=== PATIENT | female | born 1960 | race Caucasian/White ===

== ENCOUNTER 2016-08-21 15:03 | Inpatient (IN) | payer MEDICARE, MEDICAID ==
--- NOTE | 2016-08-21 15:18 | ED Physician Chart ---
Chief Complaint/HPI - Patient Information Date Seen:: 08/21/16 Time Seen:: 15:49 Chief Complaint:: TREMORS Allergies:: Allergies Allergy/AdvReac Type Severity Reaction Status Date / Time codeine Allergy Verified 12/31/15 20:56 Review of Systems - Review of Systems General/Constitutional: No fever, No chills, No weight loss, No weakness, No diaphoresis, No edema, No loss of appetite Skin: No skin lesions, No rash, No bruising Head: No headache, No light-headedness Eyes: No loss of vision, No pain, No diplopia ENT: No earache, No nasal drainage, No sore throat, No tinnitus Neck: No neck pain, No swelling, No thyromegaly, No stiffness, No mass noted Cardio Vascular: No chest pain, No palpitations, No PND, No orthopnea, No edema Pulmonary: No SOB, No cough, No sputum, No wheezing GI: No nausea, No vomiting, No diarrhea, No pain, No melena, No hematochezia, No constipation, No hematemesis G/U: No dysuria, No frequency, No hematuria Musculoskeletal: No bone or joint pain, No back pain, No muscle pain Endocrine: No polyuria, No polydipsia Psychiatric: No prior psych history, No depression, No anxiety, No suicidal ideation Hematopoietic: No bruising, No lymphadenopathy Allergic/Immuno: No urticaria, No angioedema Neurological: No syncope, No focal symptoms, No weakness, No paresthesia, No headache, No seizure, No dizziness, Confusion, No vertigo Past Medical History - Past Medical History Obtainable: Yes Past Medical History: HTN, Dyslipidemia, Seizures, Thyroid disorder, Arthritis, Dementia Family History: None Social History: Non Smoker, No Alcohol, No Drug Use, Care Facility Surgical History: , other (LEFT WRIST SURGERY) Family Medical History - Family Member mother History Unknown: Yes Physical Exam - Physical Examination Other Gen/Cons comments:: THIS PATIENT IS RESTLESS AND GITTERY WITH A CONFUSED MIND SET. SHE HAS POOR RECENT AND DISTANT MEMORY. Labs/Radiology/EKG Results - EKG Interpretations EKG Time:: 15:23 Rate & Rhythm: RATE =62 NSR [place]: RIGHT AXIS Intervals: NO PVCS ED Septic Shock - . Is Septic Shock (SBP<90, OR Lactate>4 mmol\L) present?: No Reassessment (Disposition) - Reassessment Reassessment:: THIS PATIENT IS CONFUSED AND HAS INTERMITTENT TREMORS. HER LABS INDICATED Reassessment Condition:: Unchanged - Diagnosis Diagnosis:: URINARY TRACT INFECTION LOW PLATLET COUNT ORGANIC BRAIN DISEASE - Patient Disposition Discharge/Transfer:: Acute Care w/in this hosp Condition at Disposition:: Unchanged ED Discharge Plan - Patient Disposition Admit/Discharge/Transfer: Acute Care w/in this hosp Condition at Disposition: Guarded
[2016-08-21 16:10] LABS: % BASOPHILS 0.7 % (0.0-2.0); % EOSINOPHILS 1.9 % (0.0-5.0); % LYMPHOCYTES 26.6 % (20.0-50.0); % NEUTROPHILS 63.8 % (40.0-80.0); HEMATOCRIT 42.2 % (35.0-45.0); HEMOGLOBIN 14.3 gm/dL (11.7-15.5); MEAN CELL VOLUME 90.7 fl (81-100); MEAN CORPUSCULAR HEMOGLOBIN 30.7 pg (27.0-31.0); MEAN CORPUSCULAR HGB CONC 33.9 pg (28.0-36.0); MEAN PLATELET VOLUME 8.4 fl; PLATELET COUNT 147 Th/cmm (150-400); RED BLOOD COUNT 4.65 Mil/cmm (3.80-5.10); RED CELL DISTRIBUTION WIDTH 12.2 % (11.5-20.0)
[2016-08-21 16:15] LABS: WHITE BLOOD COUNT 6.1 Th/cmm (4.8-10.8)
[2016-08-21 16:23] LABS: ALB/GLOB RATIO 1.3 (1.0-1.8); ALKALINE PHOSPHATASE 79 U/L (34-104); ANION GAP 7.2 (7.0-16.0); BILIRUBIN,TOTAL 0.3 mg/dL (0.3-1.0); BUN - UREA NITROGEN 20 mg/dL (7-25); BUN/CREATININE RATIO 33.3; CALCIUM SERUM 9.7 mg/dL (8.6-10.3); CARBON DIOXIDE 28.5 mEq/L (21.0-31.0); CHLORIDE 105 mEq/L (98-107); CREATININE - SERUM 0.6 mg/dL (0.6-1.2); GLUCOSE 102 mg/dL (70-105); POTASSIUM SERUM 3.7 mEq/L (3.5-5.1); SGOT 24 U/L (13-39); SGPT/ALT 13 U/L (7-52); SODIUM SERUM 137 mEq/L (136-145)
[2016-08-21 16:24] LABS: CHOLESTEROL 155 mg/dL (<200); TRIGLYCERIDES 113 mg/dL (<150)
[2016-08-21 17:32] LABS: URINE COLOR YELLOW
[2016-08-21 17:33] LABS: URINE BILIRUBIN NEGATIVE (NEGATIVE); URINE BLOOD TRACE (NEGATIVE); URINE GLUCOSE (UA) NEGATIVE (NEGATIVE); URINE KETONE NEGATIVE (NEGATIVE); URINE PH 8.5; URINE PROTEIN NEGATIVE (NEGATIVE); URINE UROBILINOGEN 0.2 E.U./dL (0.2 - 1.0)
[2016-08-21 17:34] LABS: URINE BACTERIA MANY /hpf (NONE SEEN); URINE EPITHELIAL CELLS FEW /lpf (FEW); URINE RBC 0-2 /hpf (0-5)
[2016-08-21] MEDS ORDERED: cefTRIAXone 1 GM in Sodium Chloride 0.9% 50 ML IV ONE (18:13)
[2016-08-21] MEDS ORDERED: Magnesium Hydroxide (MOM) 30 mL UDC PO PRN (19:58)
[2016-08-21] MEDS ORDERED: Maalox 30 mL Cup PO PRN ×2 (19:58→20:02)
[2016-08-21] MEDS ORDERED: guaiFENesin 200 MG/10 ML UDC PO PRN (20:02)
--- NOTE | 2016-08-21 20:06 | Admit Criteria Form ---
Admit Criteria Forms - Admit Criteria Diagnosis: URINARY COMPLICATIONS Clinical Indications for Inpatient Care (Place 'X' for any and all applicable criteria): Ongoing inpatient care may be indicated for urinary complications with ANY ONE of the following: [X]I. Urinary tract infection requiring inpatient care as indicated by ANY ONE of the following(8)(19)(20): [ ]a) Severe symptoms (eg, high fever, severe pain) [ ]b) Vomiting or dehydration requiring ongoing inpatient care [X]c) IV antibiotic needs that cannot be managed at lower level of care [ ]d) Hemodynamic instability [ ]e) Obstruction of collecting system by stone or tumor [ ]II. Urinary retention requiring drainage or surgery (3)(4)(5)(17)(18) [ ]III. Renal failure (Use Renal Failure Criteria for further information.) [ ]IV. Oliguria(30) [ ]V. Post obstructive diuresis requiring close monitoring of urine output and intravenous compensation for excessive fluid losses(33) Extended stay beyond goal length of stay for primary condition may be needed until ALL of the following are present(3)(4)(5)(8): [ ]a) Renal function (creatinine) at baseline, or daily decreases in creatinine consistent with renal function return [ ]b) Voiding adequately or with urinary catheter or percutaneous suprapubic tube and management regimen in place that is performable at lower level of care. [ ]c) Urine output adequate [ ]d) Fever absent or resolving [ ]e) Infection absent or treatable at next level of care The original [employer] content created by [employer] has been revised. The portions of the content which have been revised are identified through the use of italic text or in bold, and [facility] has neither reviewed nor approved the modified material. All other unmodified content is copyright [facility] [employer] Please see references footnoted in the original [facility] [employer] edition 2016 Admit Criteria Met?: Yes
[2016-08-21] MEDS ORDERED: Levofloxacin 500mg/100mL 500 MG/100 ML BAG IV SCH (21:00)
--- NOTE | 2016-08-21 21:39 | Admit Criteria Form ---
Admit Criteria Forms - Admit Criteria Admit Criteria Met?: Yes <Mel Rojas - Last Filed: 08/21/16 21:28> - Admit Criteria Diagnosis: URINARY COMPLICATIONS Clinical Indications for Inpatient Care (Place 'X' for any and all applicable criteria): Ongoing inpatient care may be indicated for urinary complications with ANY ONE of the following: [X ]I. Urinary tract infection requiring inpatient care as indicated by ANY ONE of the following(8)(19)(20): [ ]a) Severe symptoms (eg, high fever, severe pain) [ ]b) Vomiting or dehydration requiring ongoing inpatient care [X ]c) IV antibiotic needs that cannot be managed at lower level of care [ ]d) Hemodynamic instability [ ]e) Obstruction of collecting system by stone or tumor [ ]II. Urinary retention requiring drainage or surgery (3)(4)(5)(17)(18) [ ]III. Renal failure (Use Renal Failure Criteria for further information.) [ ]IV. Oliguria(30) [ ]V. Post obstructive diuresis requiring close monitoring of urine output and intravenous compensation for excessive fluid losses(33) Extended stay beyond goal length of stay for primary condition may be needed until ALL of the following are present(3)(4)(5)(8): [ ]a) Renal function (creatinine) at baseline, or daily decreases in creatinine consistent with renal function return [ ]b) Voiding adequately or with urinary catheter or percutaneous suprapubic tube and management regimen in place that is performable at lower level of care. [ ]c) Urine output adequate [ ]d) Fever absent or resolving [ ]e) Infection absent or treatable at next level of care The original [email or web address] content created by [email or web address] has been revised. The portions of the content which have been revised are identified through the use of italic text or in bold, and [facility] has neither reviewed nor approved the modified material. All other unmodified content is copyright [facility] [employer] Please see references footnoted in the original [facility] [employer] edition 2016 Admit Criteria Met?: Yes <Rich Mulligan - Last Filed: 08/22/16 16:48>
[2016-08-21] MEDS ORDERED: Levofloxacin 500mg/100mL 500 MG/100 ML BAG IV ONE (22:02)
[2016-08-21 23:28] VITALS: BP 122/83
[2016-08-22] MEDS ORDERED: Pneumococcal Vaccine 0.5 mL Vial IM ONE (00:24)
[2016-08-22] MEDS: D5-0.45NS 1,000 ML IV SCH ×2 (01:43→06:40)
[2016-08-22] MEDS: Levothyroxine 0.15 Mg Tab PO SCH (06:37)
[2016-08-22] MEDS ORDERED: [UNRECOGNIZED DRUG - OTHER] PO SCH (09:00)
--- NOTE | 2016-08-22 10:01 | Diagnostic Imaging Report ---
CHEST X-RAY: AP view INDICATION: pain COMPARISON: 09/27/2014 FINDINGS: Suboptimal lung volumes are noted with no focal consolidation or effusions. Gas-filled loops of bowel are seen along the mid to upper abdomen. Cholecystectomy clips are noted. Heart size is normal. Osseous structures are intact. IMPRESSION: Suboptimal lung volumes with no focal consolidation identified.
--- NOTE | 2016-08-22 10:14 | Diagnostic Imaging Report ---
Right wrist 3 views Indication: pain Comparison: none Findings: Osteopenia is noted. Mild degenerative changes are noted. No evidence of acute fracture or significant focal soft tissue swelling. No dislocation. Impression: No evidence of an acute fracture. Mild degenerate changes. Osteopenia. In the setting of trauma, if clinical symptoms persist and there is continued concern for an occult fracture, follow up exams in 5-7 days is suggested.
--- NOTE | 2016-08-22 10:15 | Diagnostic Imaging Report ---
Left wrist 3 views Indication: pain Comparison: none Findings: Mild degenerative changes are noted with positive ulnar variance and degenerative changes of the radiocarpal joint. No evidence of an acute fracture or significant focal soft tissue swelling. Osteopenia is noted. Impression: No evidence of an acute fracture. Mild degenerative changes with positive ulnar variance. Osteopenia. In the setting of trauma, if clinical symptoms persist and there is continued concern for an occult fracture, follow up exams in 5-7 days is suggested.
--- NOTE | 2016-08-22 10:18 | Diagnostic Imaging Report ---
Head CT without intravenous contrast Indication: Seizures Comparison: None Technique: Axial images were obtained from the vertex to the skull base without IV contrast. Coronal reconstructions were made. Total DLP: 596, [id number] FINDINGS: Images of the brain obtained without contrast demonstrate evidence of previous right temporal craniotomy with associated postsurgical changes. There is no evidence of an acute hemorrhage. Right frontal encephalomalacia seen with focal calcification. Bitemporal encephalomalacia is also seen with ex vacuo dilatation of the temporal horn of the right lateral ventricle. Atrophy is noted. The basal cisterns are patent. No mass effect or midline shift. No evidence of a skull fracture or focal soft tissue swelling. The visualized paranasal sinuses are clear. IMPRESSION: No evidence of an acute intracranial hemorrhage. Right frontal and extensive bitemporal lobe encephalomalacia. Postsurgical changes right temporal lobe region Atrophy.
--- NOTE | 2016-08-22 11:16 | History & Physical ---
ADMIT DATE: 08/21/2016 CHIEF COMPLAINT: Uncontrolled tremors. HISTORY OF PRESENT ILLNESS: This is a 55-year-old female with history of hypertension, hypercholesterolemia, hypothyroidism, dementia, organic brain syndrome, seizure, and was admitted from a nursing facility secondary to uncontrolled tremors of both hands, worse on the left. The patient was evaluated in the ER and noted to have urinary tract infection and admitted for further management. PAST MEDICAL HISTORY: As mentioned in the history of present illness. PAST SURGICAL HISTORY: Unable to obtain from the patient. ALLERGIES: CODEINE.. MEDICATIONS: The patient is on Dulcolax, clonidine, Colace, Lexapro, Keppra, lorazepam, milk of magnesia, Mylanta, Dilantin, ____, Risperdal, Seroquel. FAMILY HISTORY: Noncontributory. SOCIAL HISTORY: The patient smokes on occasion, ____ drinker. The patient is a senior living patient. REVIEW OF SYSTEMS: GENERAL: Complains of not feeling well. HEENT: No blurred vision. No neck pain. LUNGS: No diagnosis of COPD. The patient is a chronic smoker. HEART: The patient with hypertension. Denies coronary artery disease. ABDOMEN: No nausea, vomiting, or pain. GENITOURINARY: The patient denies increased frequency or dysuria. NEUROLOGIC: As mentioned in the history of present illness. Last seizure, she cannot remember. PHYSICAL EXAMINATION: VITAL SIGNS: Blood pressure 125/78, respirations 18, pulse 78, temperature ____. GENERAL: Elderly female, appears her stated age, appears older. NECK: Supple. No mass. LUNGS: ____ breath sounds, few rhonchi. HEART: Regular rate and rhythm without appreciable murmurs. ABDOMEN: Soft, nontender. Positive bowel sounds, globular. EXTREMITIES: Positive excoriations. NEUROLOGIC: Significant for coarse tremors in her hands, worse on the left. LABORATORY DATA: WBC 6.1, hemoglobin 14, platelets 147. PTT is 27. Sodium 137, potassium ____, BUN 20, creatinine 0.6, blood sugar 102. UA, 10 wbc's ____. ASSESSMENT AND PLAN: Urinary tract infection, uncontrolled tremors, hypertension, hypercholesterolemia, hypothyroidism, dementia, organic brain syndrome, seizure. We will refer the patient to Neurology. We will review the patient's head CT. We will continue the patient on IV hydration and IV antibiotic. We will follow the patient's urine C and S. We will continue to monitor the patient closely. We will also refer the patient to Psychiatry for adjustment of her psychotropic medications. [facility]# [id number]
[2016-08-22] MEDS: Levofloxacin 500mg/100mL 500 MG/100 ML BAG IV SCH (16:15)
--- NOTE | 2016-08-22 23:12 | Internal Medicine Prog Note ---
Internal Medicine Subjective - Subjective Patient seen and examined:: with staff, chart reviewed Patient is:: awake, verbal, interactive Patient Complaints of:: congestion Per staff patient is:: no adverse event, poor oral intake, agitated, noncompliant, confused Internal Medicine Objective - Results Result Diagrams: 08/21/16 15:55 08/21/16 15:55 Recent Labs: Laboratory Last Values WBC 6.1 Th/cmm (4.8-10.8) D 08/21/16 15:55 RBC 4.65 Mil/cmm (3.80-5.10) 08/21/16 15:55 Hgb 14.3 gm/dL (11.7-15.5) 08/21/16 15:55 Hct 42.2 % (35.0-45.0) 08/21/16 15:55 MCV 90.7 fl (81-100) 08/21/16 15:55 MCH 30.7 pg (27.0-31.0) 08/21/16 15:55 MCHC Differential 33.9 pg (28.0-36.0) 08/21/16 15:55 RDW 12.2 % (11.5-20.0) 08/21/16 15:55 Plt Count 147 Th/cmm (150-400) L 08/21/16 15:55 MPV 8.4 fl 08/21/16 15:55 Neutrophils % 63.8 % (40.0-80.0) 08/21/16 15:55 Lymphocytes % 26.6 % (20.0-50.0) 08/21/16 15:55 Monocytes % 7.0 % (2.0-10.0) 08/21/16 15:55 Eosinophils % 1.9 % (0.0-5.0) 08/21/16 15:55 Basophils % 0.7 % (0.0-2.0) 08/21/16 15:55 PTT (Actin FS) 27.6 SECONDS (26.0-38.0) 08/21/16 15:55 Sodium 137 mEq/L (136-145) 08/21/16 15:55 Potassium 3.7 mEq/L (3.5-5.1) 08/21/16 15:55 Chloride 105 mEq/L (98-107) 08/21/16 15:55 Carbon Dioxide 28.5 mEq/L (21.0-31.0) 08/21/16 15:55 Anion Gap 7.2 (7.0-16.0) 08/21/16 15:55 BUN 20 mg/dL (7-25) 08/21/16 15:55 Creatinine 0.6 mg/dL (0.6-1.2) 08/21/16 15:55 Est GFR ( Amer) > 60.0 ml/min (>90) 08/21/16 15:55 Est GFR (Non-Af Amer) > 60.0 ml/min 08/21/16 15:55 BUN/Creatinine Ratio 33.3 08/21/16 15:55 Glucose 102 mg/dL (70-105) 08/21/16 15:55 Calcium 9.7 mg/dL (8.6-10.3) 08/21/16 15:55 Total Bilirubin 0.3 mg/dL (0.3-1.0) 08/21/16 15:55 AST 24 U/L (13-39) 08/21/16 15:55 ALT 13 U/L (7-52) 08/21/16 15:55 Alkaline Phosphatase 79 U/L (34-104) 08/21/16 15:55 Troponin I 0.01 ng/mL (0.01-0.05) 08/21/16 15:55 Total Protein 7.5 gm/dL (6.0-8.3) 08/21/16 15:55 Albumin 4.2 gm/dL (3.7-5.3) 08/21/16 15:55 Globulin 3.3 gm/dL 08/21/16 15:55 Albumin/Globulin Ratio 1.3 (1.0-1.8) 08/21/16 15:55 Triglycerides 113 mg/dL (<150) 08/21/16 15:55 Cholesterol 155 mg/dL (<200) 08/21/16 15:55 LDL Cholesterol Direct 91 mg/dL (75-193) 08/21/16 15:55 HDL Cholesterol 43 mg/dL (23-92) 08/21/16 15:55 TSH 2.49 uIU/ml (0.34-5.60) 08/21/16 15:18 Urine Source CLEAN C 08/21/16 16:50 Urine Color YELLOW 08/21/16 16:50 Urine Clarity SLIGHT HAZY (CLEAR) 08/21/16 16:50 Urine pH 8.5 08/21/16 16:50 Ur Specific [place] 1.015 (1.005-1.030) 08/21/16 16:50 Urine Protein NEGATIVE mg/dL (NEGATIVE) 08/21/16 16:50 Urine Glucose (UA) NEGATIVE mg/dL (NEGATIVE) 08/21/16 16:50 Urine Ketones NEGATIVE mg/dL (NEGATIVE) 08/21/16 16:50 Urine Blood TRACE (NEGATIVE) 08/21/16 16:50 Urine Nitrate POSITIVE (NEGATIVE) H 08/21/16 16:50 Urine Bilirubin NEGATIVE (NEGATIVE) 08/21/16 16:50 Urine Urobilinogen 0.2 E.U./dL (0.2 - 1.0) 08/21/16 16:50 Ur Leukocyte Esterase TRACE (NEGATIVE) H 08/21/16 16:50 Urine RBC 0-2 /hpf (0-5) 08/21/16 16:50 Urine WBC 6-10 /hpf (0-5) H 08/21/16 16:50 Ur Epithelial Cells FEW /lpf (FEW) 08/21/16 16:50 Urine Bacteria MANY /hpf (NONE SEEN) 08/21/16 16:50 Phenytoin 13.0 ug/ml (10.0-20.0) 08/21/16 15:55 RPR NONREACTIVE (NONREACTIVE) 08/21/16 15:55 - Physical Exam Vitals and I&O: Vital Signs Temp 98.4 F 08/22/16 20:00 Pulse 80 08/22/16 20:00 Resp 18 08/22/16 20:00 BP 108/59 08/22/16 20:00 Pulse Ox 96 08/22/16 20:00 Intake & Output 08/22/16 08/22/16 08/23/16 06:59 18:59 06:59 Intake Total 895 350 Balance 895 350 Intake: Intake, IV Amount 495 D5-0.45NS 1,000 ml @ 100 495 mls/hr IV .Q10H RAYA Rx#: [id number] Oral 400 350 Other: # Voids 1 5 # Bowel Movements 2 Active Medications: Current Medications Acetaminophen (Tylenol) 650 mg PO Q4HR PRN PRN Reason: Pain or Fever >101 Stop: 10/20/16 20:01 Al Hydrox/Mg Hydrox/Simethicone (Maalox) 30 ml PO HS PRN PRN Reason: GI DISTRESS Al Hydrox/Mg Hydrox/Simethicone (Maalox) 30 ml PO Q6HR PRN PRN Reason: GI DISTRESS Stop: 10/20/16 20:01 Bisacodyl (Dulcolax 10 Mg Supp) 10 mg RC DAILY PRN PRN Reason: Constipation Stop: 10/20/16 19:57 Clonidine HCl (Catapres) 0.1 mg PO Q6H PRN PRN Reason: SBP ABOVE 160 OR DBP ABOVE 90 Stop: 10/20/16 19:57 Docusate Sodium (Colace) 100 mg PO BID [facility] Stop: 10/21/16 08:59 Last Admin: 08/22/16 16:15 Dose: 100 mg Escitalopram Oxalate (Lexapro) 10 mg PO DAILY RAYA PRN Reason: Protocol Stop: 10/21/16 08:59 Last Admin: 08/22/16 08:23 Dose: 10 mg Guaifenesin (Robitussin) 200 mg PO Q4HR PRN PRN Reason: Cough or Congestion Stop: 10/20/16 20:01 Heparin Sodium (Porcine) (Heparin) 5,000 units SUBQ Q12HR [facility] Stop: 10/20/16 20:59 Last Admin: 08/22/16 21:27 Dose: 5,000 units Levofloxacin (Levaquin Pb) 500 mg in 100 mls @ 100 mls/hr IV Q24H [facility] Stop: 10/21/16 15:59 Last Admin: 08/22/16 16:15 Dose: 100 mls/hr Vancomycin HCl 1 gm/ Sodium (Chloride) 250 mls @ 166.667 mls/hr IV Q24H [facility] Stop: 10/21/16 23:14 Dextrose/Sodium Chloride (D5-0.45ns) 1,000 mls @ 70 mls/hr IV .[id number] [facility] Stop: 10/21/16 23:06 Levetiracetam (Keppra) 500 mg PO BID [facility] Stop: 10/21/16 08:59 Last Admin: 08/22/16 16:14 Dose: 500 mg Levothyroxine Sodium (Synthroid) 0.15 mg PO QDAC [facility] Stop: 10/21/16 07:29 Last Admin: 08/22/16 06:37 Dose: 0.15 mg Lorazepam (Ativan) 1 mg PO Q12H PRN; Protocol PRN Reason: Anxiety Stop: 10/20/16 19:57 Last Admin: 08/22/16 08:23 Dose: 1 mg Magnesium Hydroxide (Milk Of Magnesia) 30 ml PO HS PRN PRN Reason: Constipation Stop: 10/20/16 19:57 Miscellaneous (Vancomycin Iv Per Pharmacy) 1 ea [facility] PRN RAYA Stop: 10/21/16 23:14 Ondansetron HCl (Zofran) 4 mg IV Q8H PRN PRN Reason: Nausea / Vomiting Stop: 10/20/16 20:01 Phenytoin (Dilantin) 100 mg PO TID [facility] Stop: 10/20/16 20:59 Last Admin: 08/22/16 21:20 Dose: 100 mg Quetiapine Fumarate (Seroquel) 400 mg PO HS RAYA PRN Reason: Protocol Stop: 10/20/16 20:59 Last Admin: 08/22/16 21:20 Dose: 400 mg Quetiapine Fumarate (Seroquel) 50 mg PO BID RAYA PRN Reason: Protocol Stop: 10/21/16 08:59 Last Admin: 08/22/16 16:15 Dose: 50 mg Risperidone (Risperdal) 3 mg PO BID RAYA PRN Reason: Protocol Stop: 10/21/16 08:59 Last Admin: 08/22/16 16:14 Dose: 3 mg General: demented HEENT: NC/AT, PERRLA Neck: Supple Lungs: congested Cardiovascular: RRR, Normal S1 Abdomen: soft non-tender, globular, positive bowel sound Extremities: excoriation Neurological: no change, disorganized - Procedures Procedures: Procedures Procedure Code Date OTHER GROUP THERAPY 94.44 09/27/14 Internal Medicine Assmt/Plan - Assessment Assessment: gram positive bacteremia Urinary tract infection, uncontrolled tremors, hypertension, hypercholesterolemia, hypothyroidism, dementia, organic brain syndrome, seizure. - Plan Plan: cont on iv aabx, levaquin, will add ancomycin cont on iv hydration will foolow up on culture reslults will confer with neuro and psych elena bautista
[2016-08-23] MEDS: D5-0.45NS 1,000 ML IV SCH ×2 (00:08→13:59)
[2016-08-23 05:22] LABS: % BASOPHILS 0.1 % (0.0-2.0); % EOSINOPHILS 2.2 % (0.0-5.0); % LYMPHOCYTES 28.4 % (20.0-50.0); % MONOCYTES 10.5 % (2.0-10.0); % NEUTROPHILS 58.8 % (40.0-80.0); MEAN CELL VOLUME 90.2 fl (81-100); MEAN CORPUSCULAR HGB CONC 34.4 pg (28.0-36.0); MEAN PLATELET VOLUME 9.2 fl; NEUTROPHILE ABSOLUTE 3.1 Th/cmm (1.8-8.0); RED BLOOD COUNT 4.19 Mil/cmm (3.80-5.10); RED CELL DISTRIBUTION WIDTH 12.3 % (11.5-20.0); WHITE BLOOD COUNT 5.1 Th/cmm (4.8-10.8)
[2016-08-23 05:30] LABS: HEMATOCRIT 37.8 % (35.0-45.0)
[2016-08-23 05:52] LABS: ALB/GLOB RATIO 1.2 (1.0-1.8); ALKALINE PHOSPHATASE 68 U/L (34-104); ANION GAP 7.4 (7.0-16.0); BILIRUBIN,TOTAL 0.4 mg/dL (0.3-1.0); BUN - UREA NITROGEN 22 mg/dL (7-25); BUN/CREATININE RATIO 31.4; CALCIUM SERUM 9.2 mg/dL (8.6-10.3); CARBON DIOXIDE 29.3 mEq/L (21.0-31.0); CHLORIDE 107 mEq/L (98-107); CREATININE - SERUM 0.7 mg/dL (0.6-1.2); GLUCOSE 98 mg/dL (70-105); POTASSIUM SERUM 3.7 mEq/L (3.5-5.1); SGOT 26 U/L (13-39); SGPT/ALT 16 U/L (7-52); SODIUM SERUM 140 mEq/L (136-145)
[2016-08-23] MEDS: Levothyroxine 0.15 Mg Tab PO SCH (06:43)
--- NOTE | 2016-08-23 13:06 | Internal Medicine Prog Note ---
Internal Medicine Subjective - Subjective Patient seen and examined:: with staff, chart reviewed Patient is:: awake, verbal, interactive, talking, denies CP Patient Complaints of:: congestion Per staff patient is:: no adverse event, no episodes of fall, agitated, noncompliant, confused Internal Medicine Objective - Results Result Diagrams: 08/23/16 05:00 08/23/16 05:00 Recent Labs: Laboratory Last Values WBC 5.1 Th/cmm (4.8-10.8) 08/23/16 05:00 RBC 4.19 Mil/cmm (3.80-5.10) 08/23/16 05:00 Hgb 13.0 gm/dL (11.7-15.5) 08/23/16 05:00 Hct 37.8 % (35.0-45.0) D 08/23/16 05:00 MCV 90.2 fl (81-100) 08/23/16 05:00 MCH 31.0 pg (27.0-31.0) 08/23/16 05:00 MCHC Differential 34.4 pg (28.0-36.0) 08/23/16 05:00 RDW 12.3 % (11.5-20.0) 08/23/16 05:00 Plt Count 147 Th/cmm (150-400) L 08/21/16 15:55 MPV 9.2 fl 08/23/16 05:00 Neutrophils % 58.8 % (40.0-80.0) 08/23/16 05:00 Lymphocytes % 28.4 % (20.0-50.0) 08/23/16 05:00 Monocytes % 10.5 % (2.0-10.0) H 08/23/16 05:00 Eosinophils % 2.2 % (0.0-5.0) 08/23/16 05:00 Basophils % 0.1 % (0.0-2.0) 08/23/16 05:00 PTT (Actin FS) 27.6 SECONDS (26.0-38.0) 08/21/16 15:55 Sodium 140 mEq/L (136-145) 08/23/16 05:00 Potassium 3.7 mEq/L (3.5-5.1) 08/23/16 05:00 Chloride 107 mEq/L (98-107) 08/23/16 05:00 Carbon Dioxide 29.3 mEq/L (21.0-31.0) 08/23/16 05:00 Anion Gap 7.4 (7.0-16.0) 08/23/16 05:00 BUN 22 mg/dL (7-25) 08/23/16 05:00 Creatinine 0.7 mg/dL (0.6-1.2) 08/23/16 05:00 Est GFR ( Amer) > 60.0 ml/min (>90) 08/23/16 05:00 Est GFR (Non-Af Amer) > 60.0 ml/min 08/23/16 05:00 BUN/Creatinine Ratio 31.4 08/23/16 05:00 Glucose 98 mg/dL (70-105) 08/23/16 05:00 Calcium 9.2 mg/dL (8.6-10.3) 08/23/16 05:00 Total Bilirubin 0.4 mg/dL (0.3-1.0) 08/23/16 05:00 AST 26 U/L (13-39) 08/23/16 05:00 ALT 16 U/L (7-52) 08/23/16 05:00 Alkaline Phosphatase 68 U/L (34-104) 08/23/16 05:00 Ammonia 58 umol/L (16-53) H 08/23/16 05:00 Troponin I 0.01 ng/mL (0.01-0.05) 08/21/16 15:55 Total Protein 6.7 gm/dL (6.0-8.3) 08/23/16 05:00 Albumin 3.7 gm/dL (3.7-5.3) 08/23/16 05:00 Globulin 3.0 gm/dL 08/23/16 05:00 Albumin/Globulin Ratio 1.2 (1.0-1.8) 08/23/16 05:00 Triglycerides 113 mg/dL (<150) 08/21/16 15:55 Cholesterol 155 mg/dL (<200) 08/21/16 15:55 LDL Cholesterol Direct 91 mg/dL (75-193) 08/21/16 15:55 HDL Cholesterol 43 mg/dL (23-92) 08/21/16 15:55 TSH 2.49 uIU/ml (0.34-5.60) 08/21/16 15:18 Urine Source CLEAN C 08/21/16 16:50 Urine Color YELLOW 08/21/16 16:50 Urine Clarity SLIGHT HAZY (CLEAR) 08/21/16 16:50 Urine pH 8.5 08/21/16 16:50 Ur Specific [place] 1.015 (1.005-1.030) 08/21/16 16:50 Urine Protein NEGATIVE mg/dL (NEGATIVE) 08/21/16 16:50 Urine Glucose (UA) NEGATIVE mg/dL (NEGATIVE) 08/21/16 16:50 Urine Ketones NEGATIVE mg/dL (NEGATIVE) 08/21/16 16:50 Urine Blood TRACE (NEGATIVE) 08/21/16 16:50 Urine Nitrate POSITIVE (NEGATIVE) H 08/21/16 16:50 Urine Bilirubin NEGATIVE (NEGATIVE) 08/21/16 16:50 Urine Urobilinogen 0.2 E.U./dL (0.2 - 1.0) 08/21/16 16:50 Ur Leukocyte Esterase TRACE (NEGATIVE) H 08/21/16 16:50 Urine RBC 0-2 /hpf (0-5) 08/21/16 16:50 Urine WBC 6-10 /hpf (0-5) H 08/21/16 16:50 Ur Epithelial Cells FEW /lpf (FEW) 08/21/16 16:50 Urine Bacteria MANY /hpf (NONE SEEN) 08/21/16 16:50 Phenytoin 13.0 ug/ml (10.0-20.0) 08/21/16 15:55 RPR NONREACTIVE (NONREACTIVE) 08/21/16 15:55 - Physical Exam Vitals and I&O: Vital Signs Temp 97.6 F 08/23/16 12:00 Pulse 64 08/23/16 12:00 Resp 19 08/23/16 12:00 BP 117/77 08/23/16 12:00 Pulse Ox 97 08/23/16 12:00 Intake & Output 08/22/16 08/23/16 08/23/16 18:59 06:59 18:59 Intake Total 350 100 250 Balance 350 100 250 Intake: Intake, IV Amount 250 Vancomycin HCl 1 gm In 250 Sodium Chloride 0.9% 250 ml @ 165 mls/hr IV Q12H [facility]AYA Rx#:[id number] Oral 350 100 Other: # Voids 5 4 # Bowel Movements 2 1 Stool Characteristics Soft Formed Active Medications: Current Medications Acetaminophen (Tylenol) 650 mg PO Q4HR PRN PRN Reason: Pain or Fever >101 Stop: 10/20/16 20:01 Al Hydrox/Mg Hydrox/Simethicone (Maalox) 30 ml PO HS PRN PRN Reason: GI DISTRESS Al Hydrox/Mg Hydrox/Simethicone (Maalox) 30 ml PO Q6HR PRN PRN Reason: GI DISTRESS Stop: 10/20/16 20:01 Bisacodyl (Dulcolax 10 Mg Supp) 10 mg RC DAILY PRN PRN Reason: Constipation Stop: 10/20/16 19:57 Clonidine HCl (Catapres) 0.1 mg PO Q6H PRN PRN Reason: SBP ABOVE 160 OR DBP ABOVE 90 Stop: 10/20/16 19:57 Docusate Sodium (Colace) 100 mg PO BID [facility] Stop: 10/21/16 08:59 Last Admin: 08/23/16 09:00 Dose: 100 mg Escitalopram Oxalate (Lexapro) 10 mg PO DAILY [facility]AYA PRN Reason: Protocol Stop: 10/21/16 08:59 Last Admin: 08/23/16 09:01 Dose: 10 mg Guaifenesin (Robitussin) 200 mg PO Q4HR PRN PRN Reason: Cough or Congestion Stop: 10/20/16 20:01 Heparin Sodium (Porcine) (Heparin) 5,000 units SUBQ Q12HR [facility] Stop: 10/20/16 20:59 Last Admin: 08/23/16 09:00 Dose: 5,000 units Levofloxacin (Levaquin Pb) 500 mg in 100 mls @ 100 mls/hr IV Q24H [facility] Stop: 10/21/16 15:59 Last Admin: 08/22/16 16:15 Dose: 100 mls/hr Dextrose/Sodium Chloride (D5-0.45ns) 1,000 mls @ 70 mls/hr IV .[id number] [facility] Stop: 10/21/16 23:06 Last Admin: 08/23/16 00:08 Dose: 70 mls/hr Vancomycin HCl 1 gm/ Sodium (Chloride) 250 mls @ 165 mls/hr IV Q12H [facility] Stop: 10/22/16 09:59 Last Infusion: 08/23/16 11:00 Dose: Infused Levetiracetam (Keppra) 500 mg PO BID [facility] Stop: 10/21/16 08:59 Last Admin: 08/23/16 09:00 Dose: 500 mg Levothyroxine Sodium (Synthroid) 0.15 mg PO QDAC [facility] Stop: 10/21/16 07:29 Last Admin: 08/23/16 06:43 Dose: 0.15 mg Lorazepam (Ativan) 1 mg PO Q12H PRN; Protocol PRN Reason: Anxiety Stop: 10/20/16 19:57 Last Admin: 08/23/16 01:06 Dose: 1 mg Magnesium Hydroxide (Milk Of Magnesia) 30 ml PO HS PRN PRN Reason: Constipation Stop: 10/20/16 19:57 Miscellaneous (Vancomycin Iv Per Pharmacy) 1 ea MC PRN [facility] Stop: 10/21/16 23:14 Ondansetron HCl (Zofran) 4 mg IV Q8H PRN PRN Reason: Nausea / Vomiting Stop: 10/20/16 20:01 Phenytoin (Dilantin) 100 mg PO TID [facility] Stop: 10/20/16 20:59 Last Admin: 08/23/16 09:01 Dose: 100 mg Quetiapine Fumarate (Seroquel) 400 mg PO HS [facility]A PRN Reason: Protocol Stop: 10/20/16 20:59 Last Admin: 08/22/16 21:20 Dose: 400 mg Quetiapine Fumarate (Seroquel) 50 mg PO BID [facility] PRN Reason: Protocol Stop: 10/21/16 08:59 Last Admin: 08/23/16 09:01 Dose: 50 mg Risperidone (Risperdal) 3 mg PO BID [facility] PRN Reason: Protocol Stop: 10/21/16 08:59 Last Admin: 08/23/16 09:01 Dose: 3 mg General: demented HEENT: NC/AT, PERRLA Neck: Supple, No JVD Lungs: congested Cardiovascular: RRR, Normal S1, Normal S2 Abdomen: soft non-tender, globular, positive bowel sound Extremities: excoriation Neurological: no change, disorganized - Procedures Procedures: Procedures Procedure Code Date OTHER GROUP THERAPY 94.44 09/27/14 Internal Medicine Assmt/Plan - Assessment Assessment: gram positive bacteremia Urinary tract infection, uncontrolled tremors, hypertension, hypercholesterolemia, hypothyroidism, dementia, organic brain syndrome, seizure. - Plan Plan: cont on iv aabx, levaquin, will add ancomycin cont on iv hydration will foolow up on culture reslults will confer with neuro and psych elena rn
[2016-08-23] MEDS: Levofloxacin 500mg/100mL 500 MG/100 ML BAG IV SCH (16:33)
--- NOTE | 2016-08-23 23:44 | Consultation ---
DATE OF CONSULTATION: 08/22/2016 HISTORY OF PRESENT ILLNESS: The patient is a 55-year-old. The patient is in Neurology consultation because of tremor. At the moment, the patient is lying in bed, awake, alert, comfortable, really no tremor ____ staff told me they come on and off. Sometimes, they noticed a bit unusual. She ____ stop them when she wants to. The patient at the moment when I told her that she is having shaking, she started shaking and then finally stopped. She says she has had this ____ for some time. PAST MEDICAL HISTORY: Hypertension, hyperlipidemia, hypothyroidism, dementia, seizures, psychiatric diagnoses. ALLERGIES: CODEINE. MEDICATIONS: She takes a number of medications including Lexapro, Keppra, lorazepam, Dilantin, Risperdal, Seroquel, and clonidine. SOCIAL HISTORY: She does occasionally smoke. Does not drink. REVIEW OF SYSTEMS: Twelve-point negative except for above. PHYSICAL EXAMINATION: VITAL SIGNS: Temperature 98.2, blood pressure 130/76, pulse is 78. NECK: Supple. No bruits. HEART: Sounds S1, S2. LUNGS: Clear. ABDOMEN: Soft. NEUROLOGIC: The patient is awake, alert, now is quite pleasant. She will answer questions. Cranial: Pupils are reactive to light. Full eye movement. No nystagmus. No facial weakness. Motor: ____ tone is quite good. I do not see any cogwheel rigidity. The patient really has not much tremor right now. Seems to be more like action tremor. ____ Reflexes 1+ to 2, knees about 2. IMPRESSION: 1. Tremor, probably action tremor, probably medication related. At the moment seems to be stable. I would hold off any intervention at the moment. No definite clear cut parkinsonian features. 2. History of urinary tract infection. 3. Seizures. Continue present medications. 4. Hyperlipidemia. 5. Hypertension. 6. Dementia. JOB# [id number]
[2016-08-24] MEDS: Levothyroxine 0.15 Mg Tab PO SCH (10:13)
[2016-08-24] MEDS ORDERED: Sulfamethoxazole/TMP 800/160mg Tab PO SCH (17:00)
--- NOTE | 2016-08-24 18:53 | Consultation ---
DATE OF CONSULTATION: 08/23/2016 HISTORY OF PRESENT ILLNESS: The patient was seen, chart reviewed, discussed with staff. The patient is a 55-year-old female with chronic history of schizoaffective disorder, known to myself from prior treatment, has been anxious, agitated, having episodes of yelling, becomes argumentative. The patient is forgetful, also confused. The patient is passively accepting treatment at this time. PAST PSYCHIATRIC HISTORY: Multiple hospitalizations, chronic history of mental illness. PAST MEDICAL HISTORY: As per [facility] and [facility]. PSYCHOSOCIAL HISTORY: The patient resides in [facility] and she requires complete care. MENTAL STATUS EXAMINATION: The patient is cooperative for the most part, but at times she has difficulty sustaining attention. She knew she was in some kind of hospital, did not know the name of the hospital. She was oriented to person, not oriented to time. The patient is able to tell her date of . The patient is paranoid, internally preoccupied, having some agitation. ASSESSMENT: Schizoaffective disorder in psychotic phase. At this time, I would recommend continuation of medical supportive measures. The patient is on 2 antipsychotics, Seroquel and risperidone, and also she is receiving supportive measures. Consider psychiatric hospitalization. We will follow closely while in the hospital. Use Ativan as needed. Thank you for the consultation, Dr. Cruz. JOB# [id number]
--- NOTE | 2016-08-25 00:54 | Discharge Summary ---
DATE OF DISCHARGE: 08/24/2016 CHIEF COMPLAINT: Uncontrolled seizure. FINAL DIAGNOSES: Gram-positive bacteremia; urinary tract infection; uncontrolled tremors, which is improved; hypertension; hypercholesterolemia; hypothyroidism; dementia; organic brain syndrome; seizure. HISTORY: This is a 55-year-old female with history of hypertension, hypercholesterolemia, hypothyroidism, dementia, organic brain syndrome and psych disorder, was admitted from nursing facility secondary to ____ tremors. The patient had some chills as well and was diagnosed with UTI. The patient was admitted for further management. PHYSICAL EXAMINATION: VITAL SIGNS: Blood pressure ____, respirations 18, pulse ____, temperature 97.6. GENERAL: A middle-aged female, appears older. NECK: Supple. No mass. LUNGS: Decreased breath sounds, otherwise clear to auscultation. HEART: Regular rate and rhythm without appreciable murmur. ABDOMEN: Soft, nontender. EXTREMITIES: Positive excoriations. HOSPITAL COURSE: The patient was admitted to medical floor, continued on IV antibiotics, ____ on Levaquin. Blood culture came back positive for gram-positive cocci. Vancomycin was added. White count did improve back to normal. ____ growth in the urine and blood culture. The patient was discharged on IV antibiotics. CONDITION ON DISCHARGE: Fair. DISCHARGE INSTRUCTIONS: The patient to continue on current medical regimen. The patient was also seen by Dr. Woo for Neurology. [facility] JOB# [id number]
== END 2016-08-24 16:45 | DRG 872 ==
LOC: ER 15:03 → MSI 17:56
PROVIDERS: ADMIT Internal Medicine; ATTEND Internal Medicine
DX: A41.9 Sepsis, unspecified organism (principal); R56.9 Unspecified convulsions; F03.90 Unspecified dementia, unspecified severity, without behavioral disturbance, psychotic disturbance, mood disturbance, and anxiety; N39.0 Urinary tract infection, site not specified; R25.1 Tremor, unspecified; I10 Essential (primary) hypertension; E78.5 Hyperlipidemia, unspecified; E03.9 Hypothyroidism, unspecified; F09 Unspecified mental disorder due to known physiological condition; F17.210 Nicotine dependence, cigarettes, uncomplicated; M19.90 Unspecified osteoarthritis, unspecified site; G93.9 Disorder of brain, unspecified; F25.9 Schizoaffective disorder, unspecified; Z91.14 Patient's other noncompliance with medication regimen; Z88.5 Allergy status to narcotic agent
CPT/HCPCS: 36415-UA; 70450-TC; 71010-TC; 73110-TC-LT; 73110-TC-RT; 80053-TC; 80061-TC; 80185-TC; 80202-TC; 81001-TC; 82140-TC; 84443-TC; 84484-TC; 85025-TC; 85730-TC; 86592-TC; 93005; J0696; J1644; J1956; J3370; Z7610

== ENCOUNTER 2017-04-06 18:09 | Inpatient (IN) | payer MEDICARE, MEDICAID ==
[2017-04-06 21:41] LABS: ALB/GLOB RATIO 1.2 (1.0-1.8); ALBUMIN 4.2 gm/dL (3.7-5.3); ALKALINE PHOSPHATASE 72 U/L (34-104); ANION GAP 9.6 (7.0-16.0); BILIRUBIN,TOTAL 0.3 mg/dL (0.3-1.0); BUN - UREA NITROGEN 23 mg/dL (7-25); CALCIUM SERUM 9.8 mg/dL (8.6-10.3); CARBON DIOXIDE 25.4 mEq/L (21.0-31.0); CHLORIDE 107 mEq/L (98-107); GFR AFRICAN-AMERICAN > 60.0 ml/min (>90); GFR NON AFRICAN-AMERICAN > 60.0 ml/min; GLUCOSE 90 mg/dL (70-105); SGOT 25 U/L (13-39); SGPT/ALT 18 U/L (7-52); SODIUM SERUM 138 mEq/L (136-145); TOTAL PROTEIN,SERUM 7.7 gm/dL (6.0-8.3)
[2017-04-06 21:56] LABS: % BASOPHILS 0.1 % (0.0-2.0); % EOSINOPHILS 1.9 % (0.0-5.0); % LYMPHOCYTES 31.7 % (20.0-50.0); % MONOCYTES 9.2 % (2.0-10.0); % NEUTROPHILS 57.1 % (40.0-80.0); EOSINOPHILE ABSOLUTE 0.1 Th/cmm (0.1-0.4); HEMATOCRIT 40.7 % (41.0-60); HEMOGLOBIN 13.7 gm/dL (12-16); LYMPHOCYTE ABSOLUTE 1.7 Th/cmm (1.5-3.0); MEAN CELL VOLUME 90.4 fl (81-100); MEAN CORPUSCULAR HEMOGLOBIN 30.5 pg (27.0-31.0); MEAN CORPUSCULAR HGB CONC 33.8 pg (28.0-36.0); MEAN PLATELET VOLUME 8.1 fl; MONOCYTE ABSOLUTE 0.5 Th/cmm (0.3-1.0); NEUTROPHILE ABSOLUTE 3.1 Th/cmm (1.8-8.0); PLATELET COUNT 164 Th/cmm (150-400); RED CELL DISTRIBUTION WIDTH 12.2 % (11.5-20.0); WHITE BLOOD COUNT 5.4 Th/cmm (4.8-10.8)
[2017-04-07 00:23] LABS: URINE MICROSCOPIC INDICATED? YES; URINE SOURCE RANDOM
[2017-04-07 00:26] LABS: URINE BILIRUBIN NEGATIVE (NEGATIVE); URINE BLOOD NEGATIVE (NEGATIVE); URINE GLUCOSE (UA) NEGATIVE (NEGATIVE); URINE KETONE NEGATIVE (NEGATIVE); URINE LEUKOCYTE ESTERASE SMALL (NEGATIVE); URINE NITRATE POSITIVE (NEGATIVE); URINE PH 6.5 (4.6 - 8.0); URINE PROTEIN NEGATIVE (NEGATIVE); URINE UROBILINOGEN 0.2 E.U./dL (0.2 - 1.0)
[2017-04-07 00:38] LABS: URINE COLOR YELLOW
[2017-04-07 00:39] LABS: URINE CLARITY SLIGHT CLOUDY (CLEAR)
[2017-04-07 00:45] LABS: URINE EPITHELIAL CELLS OCCASIONAL /lpf (FEW)
[2017-04-07 00:46] LABS: URINE BACTERIA 2+ /hpf (NONE SEEN); URINE WBC 25-50 /hpf (0-5)
[2017-04-07] MEDS ORDERED: Magnesium Hydroxide (MOM) 30 mL UDC PO PRN (00:47)
[2017-04-07] MEDS ORDERED: Maalox 30 mL Cup PO PRN (00:47)
[2017-04-07] MEDS ORDERED: MYLANTA PO PRN (00:47)
[2017-04-07 00:50] LABS: AMPHETAMINE URINE NEGATIVE (NEGATIVE); BARBITURATES URINE POSITIVE (NEGATIVE); COCAINE METABOLITE QUAL URINE NEGATIVE (NEGATIVE); METHAMPHETAMINES QUAL URINE NEGATIVE (NEGATIVE); PHENCYCLIDINE (PCP) URINE NEGATIVE (NEGATIVE)
[2017-04-07 00:51] LABS: BENZODIAZEPINES QUAL URINE POSITIVE (NEGATIVE); CANNABINOID THC NEGATIVE (NEGATIVE); METHADONE URINE NEGATIVE (NEGATIVE); OPIATES (MORPHINE) QUAL. URINE NEGATIVE (NEGATIVE); TRICYCLICS (TCA) QUAL. URINE POSITIVE (NEGATIVE)
--- NOTE | 2017-04-07 01:01 | ED Physician Chart ---
ED Chief Complaint/HPI - Patient Information Date Seen:: 04/06/17 Time Seen:: 20:20 Chief Complaint:: Aggressiveness History of Present Illness:: 56 yo female was brought to ER from a SNF for evaluation of destructive behaviors, screaming and yelling. Patient was sent for a psych evaluation. Patient was calm and cooperative in the ER at this time. Allergies:: Allergies Allergy/AdvReac Type Severity Reaction Status Date / Time codeine Allergy Verified 12/31/15 20:56 Vitals:: Vital Signs - 8 hr 04/06/17 04/06/17 18:53 19:25 Temp 97.6 F 97.6 F HR 84 84 RR 15 15 BP 102/62 102/62 O2 Sat % 95 95 ED Review of Systems - Review of Systems General/Constitutional: No fever, No chills Skin: No bruising Head: No headache Eyes: No loss of vision ENT: No earache Neck: No neck pain Cardio Vascular: No chest pain Pulmonary: No SOB GI: No nausea, No vomiting Musculoskeletal: No bone or joint pain Psychiatric: Prior psych history ED Past Medical History - Past Medical History Past Medical History: HTN, Dyslipidemia, Seizures, Other (colitis) Social History: Non Smoker, No Alcohol, No Drug Use Surgical History: other (craniotomy) Family Medical History - Family Member mother History Unknown: Yes ED Physical Exam - Physical Examination General/Constitutional: Awake, Alert Other Head comments:: history of craniotomy Eyes: PERRL, EOMI Skin: No ecchymosis ENMT: Nasal exam nl Neck: No nuchal rigidity Respiratory: Clear to Auscultation, No Wheeze/Rhonchi/Rales Cardio Vascular: RRR, No murmur, gallop, rubs, NL S1 S2 GI: No tenderness/rebounding/guarding Extremities: No tenderness or effusion, No edema ED Labs/Radiology/EKG Results - Lab Results Results: Laboratory Tests 04/06/17 04/06/17 04/06/17 21:16 21:16 21:50 WBC 5.4 RBC 4.50 Hgb 13.7 Hct 40.7 L MCV 90.4 MCH 30.5 MCHC Differential 33.8 RDW 12.2 Plt Count 164 MPV 8.1 Neutrophils % 57.1 Lymphocytes % 31.7 Monocytes % 9.2 Eosinophils % 1.9 Basophils % 0.1 Sodium 138 Potassium 4.0 Chloride 107 Carbon Dioxide 25.4 Anion Gap 9.6 BUN 23 Creatinine 1.0 Est GFR ( Amer) > 60.0 Est GFR (Non-Af Amer) > 60.0 BUN/Creatinine Ratio 23.0 Glucose 90 Calcium 9.8 Total Bilirubin 0.3 AST 25 ALT 18 Alkaline Phosphatase 72 Total Protein 7.7 Albumin 4.2 Globulin 3.5 Albumin/Globulin Ratio 1.2 TSH 0.81 - Radiology Results Results: CXR: no consolidation ED Assessment - Assessment General Assessment: Psychosis Seizure UTI Hypercholesterolemia Critical Care Time: 30 min Excludes all billable procedures: Yes This condition life threatening/high prob of deterioration: No Assessment/Comments:: CBC, CMP, UA, urine drug screen CXR, EKG ED Septic Shock - . Is Septic Shock (SBP<90, OR Lactate>4 mmol\L) present?: No - <6hrs of presentation: Vital Signs: Vital Signs - 8 hr 04/06/17 04/06/17 18:53 19:25 Temp 97.6 F 97.6 F HR 84 84 RR 15 15 BP 102/62 102/62 O2 Sat % 95 95 ED Reassessment (Disposition) - Reassessment Reassessment Condition:: Unchanged - Patient Disposition Discharge/Transfer:: Acute Care w/in this hosp Admitting Medical Physician:: Jose Cruz ED Discharge Plan - Patient Disposition Admit/Discharge/Transfer: Other Care w/in this hosp
[2017-04-07 01:11] VITALS: BP 117/79
[2017-04-07] MEDS: Levothyroxine 0.15 Mg Tab PO SCH (06:44)
--- NOTE | 2017-04-07 08:34 | Diagnostic Imaging Report ---
CHEST X-RAY: AP view INDICATION: Shortness of breath COMPARISON: 08/21/2016 FINDINGS: Low lung volumes are seen with gasless of bowel in the upper abdomen. No focal consolidation or effusions. Heart size is normal. Osseous structures are intact. Postsurgical changes of the right upper quadrant are noted. IMPRESSION: Low lung volumes. No focal consolidation identified Gas distended loops of bowel again noted along the upper abdomen. Please correlate with clinical findings. Consider follow-up abdominal series if warranted.
--- NOTE | 2017-04-07 13:33 | History & Physical ---
ADMIT DATE: 04/07/2017 CHIEF COMPLAINT: Increasing agitation. HISTORY OF PRESENT ILLNESS: This is a 56-year-old female with history of seizures, hypertension, hypercholesterolemia, history of colitis, was admitted from nursing facility secondary to agitation, yelling, screaming, not taking her medications. PAST MEDICAL HISTORY: As mentioned in history present illness. PAST SURGICAL HISTORY: Status post brain surgery according to the patient. ALLERGIES: CODEINE. MEDICATIONS: Dilantin, Keppra, clonidine, lorazepam, Zofran, Colace, magnesium, Seroquel, Risperdal. FAMILY HISTORY: Noncontributory. SOCIAL HISTORY: The patient is a longterm patient. Nonsmoker, nondrinker, used to be in medical billing, , 4 children. REVIEW OF SYSTEMS: GENERAL: The patient not feeling well. HEAD, EARS, EYES, NOSE AND THROAT: No blurred vision. LUNGS: Negative for COPD or asthma. HEART: The patient with hypertension. Denies coronary artery disease. ABDOMEN: No nausea, vomiting, or pain. GENITOURINARY: The patient denies any increased frequency or dysuria. NEUROLOGIC: The patient with seizure or syncope. PSYCHIATRIC: Stable. PHYSICAL EXAMINATION: VITAL SIGNS: Blood pressure 170/79, respirations 19, pulse 70, and temperature 98.3. GENERAL: Elderly female, appears stated age. NECK: Supple. No mass. LUNGS: Equal breath sounds, otherwise clear to auscultation. HEART: Regular rate and rhythm without appreciable murmur. ABDOMEN: Soft, nontender. Positive bowel sounds. ____. EXTREMITIES: No clubbing, cyanosis or edema. LABORATORY DATA: WBC 5.4, hemoglobin 13, platelets 164. Chemistry within normal range. Dilantin level is still pending. UA showed 50 wbc's. ASSESSMENT AND PLAN: Urinary tract infection, hypothyroidism, hypercholesterolemia, hypertension, anemia with rheumatoid arthritis, seizure. We will continue the patient on antiepileptic medication. Continue Synthroid. We will place her ____. Continue to increase fluid. Continue with current care with followup consult and recommendations. JOB# [id number]
--- NOTE | 2017-04-07 19:19 | Psychosocial Evaluation ---
DATE OF SERVICE: DATE OF ADMISSION: 04/06/2017 IDENTIFYING DATA: The patient is a 56-year-old woman, resident of [facility]. Information obtained by directly interviewing the patient as well as reviewing the admission papers disposition hospitalization. The patient is admitted here on a voluntary basis in view of her acute agitation and psychosis. CHIEF COMPLAINT: "I am hearing voices that are bothering me." HISTORY OF PRESENT ILLNESS: This is one of multiple psychiatric hospitalizations for this patient who, has been diagnosed to have schizoaffective disorder and is being followed up by Dr. Poole on an outpatient basis. On the day of the hospitalization, the patient has started to scream and yell. The patient's sleep and appetite prior to the hospitalization are noted to be very poor and patient is not able to contract for safety. PAST PSYCHIATRIC HISTORY: Please refer to the above. ____ request done by Dr. Cruz. SUBSTANCE ABUSE HISTORY: None. PHYSICAL OR SEXUAL ABUSE HISTORY: None. SOCIAL HISTORY: The patient is a resident of [facility]. MENTAL STATUS EXAMINATION: The patient is a 56-year-old woman, very agitated. Insight and judgment at this time are impaired. Impulse control is poor. The patient is reported to be responding to internal stimuli. The patient is stating that voices keep bothering her. The patient has paranoid delusions. Insight and judgment at this time are noted to be very much impaired. Impulse control seemed to be poor. The patient is not able to contract for safety. The patient is alert and awake and the patient is currently on Seroquel 400 mg at bedtime and 50 mg twice a day. The patient is also being treated for seizure disorder with phenytoin. The patient's behavior is likely danger to others at this time. DIAGNOSTIC IMPRESSION: AXIS I: Schizoaffective disorder. AXIS II: None. AXIS III: As per Dr. Cruz. IMMEDIATE TREATMENT PLAN: The patient is going to be observed on inpatient unit, provided with supportive psychotherapy. The patient is going to be closely monitored and encouraged to participate in the groups and verbalize the concerns. Once stabilized, the patient is going to be discharged to [facility] to be followed up on an outpatient basis. JOB# [id number]
[2017-04-08] MEDS: Levothyroxine 0.15 Mg Tab PO SCH (06:44)
--- NOTE | 2017-04-08 10:15 | Internal Medicine Prog Note ---
Internal Medicine Subjective - Subjective Patient seen and examined:: with staff, chart reviewed Patient is:: awake, verbal, interactive, in bed, confused Per staff patient has:: no adverse event, no episodes of fall, poor appetite, noncompliant, tolerating meds Internal Medicine Objective - Results Result Diagrams: 04/06/17 21:50 04/06/17 21:16 Recent Labs: Laboratory Last Values WBC 5.4 Th/cmm (4.8-10.8) 04/06/17 21:50 RBC 4.50 Mil/cmm (3.80-5.10) 04/06/17 21:50 Hgb 13.7 gm/dL (-16) 04/06/17 21:50 Hct 40.7 % (41.0-60) L 04/06/17 21:50 MCV 90.4 fl (81-100) 04/06/17 21:50 MCH 30.5 pg (27.0-31.0) 04/06/17 21:50 MCHC Differential 33.8 pg (28.0-36.0) 04/06/17 21:50 RDW 12.2 % (11.5-20.0) 04/06/17 21:50 Plt Count 164 Th/cmm (150-400) 04/06/17 21:50 MPV 8.1 fl 04/06/17 21:50 Neutrophils % 57.1 % (40.0-80.0) 04/06/17 21:50 Lymphocytes % 31.7 % (20.0-50.0) 04/06/17 21:50 Monocytes % 9.2 % (2.0-10.0) 04/06/17 21:50 Eosinophils % 1.9 % (0.0-5.0) 04/06/17 21:50 Basophils % 0.1 % (0.0-2.0) 04/06/17 21:50 Sodium 138 mEq/L (136-145) 04/06/17 21:16 Potassium 4.0 mEq/L (3.5-5.1) 04/06/17 21:16 Chloride 107 mEq/L (98-107) 04/06/17 21:16 Carbon Dioxide 25.4 mEq/L (21.0-31.0) 04/06/17 21:16 Anion Gap 9.6 (7.0-16.0) 04/06/17 21:16 BUN 23 mg/dL (7-25) 04/06/17 21:16 Creatinine 1.0 mg/dL (0.6-1.2) 04/06/17 21:16 Est GFR ( Amer) > 60.0 ml/min (>90) 04/06/17 21:16 Est GFR (Non-Af Amer) > 60.0 ml/min 04/06/17 21:16 BUN/Creatinine Ratio 23.0 04/06/17 21:16 Glucose 90 mg/dL (70-105) 04/06/17 21:16 Calcium 9.8 mg/dL (8.6-10.3) 04/06/17 21:16 Total Bilirubin 0.3 mg/dL (0.3-1.0) 04/06/17 21:16 AST 25 U/L (13-39) 04/06/17 21:16 ALT 18 U/L (7-52) 04/06/17 21:16 Alkaline Phosphatase 72 U/L (34-104) 04/06/17 21:16 Total Protein 7.7 gm/dL (6.0-8.3) 04/06/17 21:16 Albumin 4.2 gm/dL (3.7-5.3) 04/06/17 21:16 Globulin 3.5 gm/dL 04/06/17 21:16 Albumin/Globulin Ratio 1.2 (1.0-1.8) 04/06/17 21:16 TSH 0.81 uIU/ml (0.34-5.60) 04/06/17 21:16 Urine Source RANDOM 04/06/17 23:45 Urine Color YELLOW 04/06/17 23:45 Urine Clarity SLIGHT CLOUDY (CLEAR) 04/06/17 23:45 Urine pH 6.5 (4.6 - 8.0) 04/06/17 23:45 Ur Specific [place] 1.010 (1.005-1.030) 04/06/17 23:45 Urine Protein NEGATIVE mg/dL (NEGATIVE) 04/06/17 23:45 Urine Glucose (UA) NEGATIVE mg/dL (NEGATIVE) 04/06/17 23:45 Urine Ketones NEGATIVE mg/dL (NEGATIVE) 04/06/17 23:45 Urine Blood NEGATIVE (NEGATIVE) 04/06/17 23:45 Urine Nitrate POSITIVE (NEGATIVE) H 04/06/17 23:45 Urine Bilirubin NEGATIVE (NEGATIVE) 04/06/17 23:45 Urine Urobilinogen 0.2 E.U./dL (0.2 - 1.0) 04/06/17 23:45 Ur Leukocyte Esterase SMALL (NEGATIVE) H 04/06/17 23:45 Urine RBC 2-5 /hpf (0-5) 04/06/17 23:45 Urine WBC 25-50 /hpf (0-5) H 04/06/17 23:45 Ur Epithelial Cells OCCASIONAL /lpf (FEW) 04/06/17 23:45 Urine Bacteria 2+ /hpf (NONE SEEN) H 04/06/17 23:45 Urine Opiates Screen NEGATIVE (NEGATIVE) 04/06/17 23:45 Urine Methadone Screen NEGATIVE (NEGATIVE) 04/06/17 23:45 Ur Barbiturates Screen POSITIVE (NEGATIVE) H 04/06/17 23:45 Ur Tricyclics Screen POSITIVE (NEGATIVE) H 04/06/17 23:45 Ur Phencyclidine Scrn NEGATIVE (NEGATIVE) 04/06/17 23:45 Amphetamines Screen NEGATIVE (NEGATIVE) 04/06/17 23:45 U Methamphetamines Scrn NEGATIVE (NEGATIVE) 04/06/17 23:45 U Benzodiazepines Scrn POSITIVE (NEGATIVE) H 04/06/17 23:45 U Cocaine Metab Screen NEGATIVE (NEGATIVE) 04/06/17 23:45 U Cannabinoids Screen NEGATIVE (NEGATIVE) 04/06/17 23:45 - Physical Exam Vitals and I&O: Vital Signs Temp 98.3 F 04/08/17 06:59 Pulse 68 04/08/17 06:59 Resp 16 04/08/17 06:59 BP 125/83 04/08/17 06:59 Pulse Ox 98 04/08/17 06:59 Intake & Output 04/07/17 04/08/17 04/08/17 18:59 06:59 18:59 Intake Total 960 240 Balance 960 240 Intake: Oral 960 240 Other: # Voids 4 1 # Bowel Movements 1 Active Medications: Current Medications Acetaminophen (Tylenol) 650 mg PO Q4HR PRN PRN Reason: Pain or Fever >101 Stop: 06/06/17 00:46 Al Hydrox/Mg Hydrox/Simethicone (Maalox) 30 ml PO Q6HR PRN PRN Reason: GI DISTRESS Stop: 06/06/17 00:46 Bisacodyl (Dulcolax 10 Mg Supp) 10 mg RC DAILY PRN PRN Reason: Constipation Stop: 06/06/17 00:46 Docusate Sodium (Colace) 100 mg PO BID RAYA Stop: 06/06/17 08:59 Last Admin: 04/08/17 09:27 Dose: 100 mg Levetiracetam (Keppra) 500 mg PO BID RAYA Stop: 06/06/17 08:59 Last Admin: 04/08/17 09:27 Dose: 500 mg Levofloxacin (Levaquin) 250 mg PO DAILY RAYA Stop: 06/07/17 08:59 Last Admin: 04/08/17 09:27 Dose: 250 mg Levothyroxine Sodium (Synthroid) 0.15 mg PO QDAC RAYA Stop: 06/06/17 07:29 Last Admin: 04/08/17 06:44 Dose: Not Given Lorazepam (Ativan) 1 mg PO Q6H PRN; Protocol PRN Reason: Anxiety/Agitation Stop: 06/06/17 01:06 Magnesium Hydroxide (Milk Of Magnesia) 30 ml PO HS PRN PRN Reason: Constipation Stop: 06/06/17 00:46 Phenytoin (Dilantin) 200 mg PO BID RAYA Stop: 06/06/17 08:59 Last Admin: 04/08/17 09:27 Dose: 200 mg Quetiapine Fumarate (Seroquel) 50 mg PO BID RAYA PRN Reason: Protocol Stop: 06/06/17 08:59 Last Admin: 04/08/17 09:27 Dose: 50 mg Quetiapine Fumarate (Seroquel) 400 mg PO HS RAYA PRN Reason: Protocol Stop: 06/06/17 20:59 Last Admin: 04/07/17 20:54 Dose: 400 mg Risperidone (Risperdal) 3 mg PO BID RAYA PRN Reason: Protocol Stop: 06/06/17 08:59 Last Admin: 04/08/17 09:27 Dose: 3 mg Zolpidem Tartrate (Ambien) 5 mg PO HS PRN PRN Reason: Insomnia Stop: 06/06/17 01:06 Last Admin: 04/07/17 20:55 Dose: 5 mg General: demented HEENT: NC/AT, PERRLA, EOMI Neck: Supple, No JVD, No thyromegaly, No LAD Lungs: CTAB Cardiovascular: RRR, Normal S1, Normal S2, without murmur Abdomen: soft, non-tender, globular Extremities: excoriation, contracture Neurological: no change, disorganized, unsteady - Procedures Procedures: Procedures Procedure Code Date OTHER GROUP THERAPY 94.44 09/27/14 Internal Medicine Assmt/Plan - Assessment Assessment: ASSESSMENT AND PLAN: Urinary tract infection, hypothyroidism, hypercholesterolemia, hypertension, anemia with rheumatoid arthritis, seizure. - Plan Plan: We will continue the patient on antiepileptic medication. Continue Synthroid. We will place her __po antibiotic__. Continue to increase fluid. Continue with current care with followup consult and recommendations.
[2017-04-08 12:36] LABS: A1C % 5.1 % (4.0-6.0)
--- NOTE | 2017-04-08 19:33 | Progress Notes ---
DATE: 04/08/2017 SUBJECTIVE: Staff was spoken to. The patient is interviewed. Mood is noted to be irritable. Affect is constricted. Coping skills are noted to be very poor. The patient's insight and judgment noted to be impaired. The patient continues to be isolative and withdrawn. No side effects to the medications are noted. The patient's sleep and appetite are noted to be fair, but the patient continues to be very paranoid. The patient is currently on the haloperidol and plan to continue the patient with the current medication. The patient is currently on the Seroquel 50 mg b.i.d. and 400 mg at bedtime. Plan to closely monitor the patient with this medication. The patient has been very irritable and angry. ASSESSMENT: The patient is sleeping most of the time. PLAN: To decrease the dose on the Seroquel to only at night time and continue the patient with the supportive therapy and followup. Please note that the patient came with two antipsychotic medications. I am trying to titrate the medication down. The patient is not ready to be taken off all the medications at this time. JOB# [id number]
[2017-04-09] MEDS: Levothyroxine 0.15 Mg Tab PO SCH (09:13)
--- NOTE | 2017-04-09 12:42 | Internal Medicine Prog Note ---
Internal Medicine Subjective - Subjective Service Date: 04/09/17 Patient is:: awake, verbal, interactive, in bed, confused Per staff patient has:: no adverse event, no episodes of fall, poor appetite, noncompliant, tolerating meds Internal Medicine Objective - Results Result Diagrams: 04/06/17 21:50 04/06/17 21:16 Recent Labs: Laboratory Last Values WBC 5.4 Th/cmm (4.8-10.8) 04/06/17 21:50 RBC 4.50 Mil/cmm (3.80-5.10) 04/06/17 21:50 Hgb 13.7 gm/dL (-16) 04/06/17 21:50 Hct 40.7 % (41.0-60) L 04/06/17 21:50 MCV 90.4 fl (81-100) 04/06/17 21:50 MCH 30.5 pg (27.0-31.0) 04/06/17 21:50 MCHC Differential 33.8 pg (28.0-36.0) 04/06/17 21:50 RDW 12.2 % (11.5-20.0) 04/06/17 21:50 Plt Count 164 Th/cmm (150-400) 04/06/17 21:50 MPV 8.1 fl 04/06/17 21:50 Neutrophils % 57.1 % (40.0-80.0) 04/06/17 21:50 Lymphocytes % 31.7 % (20.0-50.0) 04/06/17 21:50 Monocytes % 9.2 % (2.0-10.0) 04/06/17 21:50 Eosinophils % 1.9 % (0.0-5.0) 04/06/17 21:50 Basophils % 0.1 % (0.0-2.0) 04/06/17 21:50 Sodium 138 mEq/L (136-145) 04/06/17 21:16 Potassium 4.0 mEq/L (3.5-5.1) 04/06/17 21:16 Chloride 107 mEq/L (98-107) 04/06/17 21:16 Carbon Dioxide 25.4 mEq/L (21.0-31.0) 04/06/17 21:16 Anion Gap 9.6 (7.0-16.0) 04/06/17 21:16 BUN 23 mg/dL (7-25) 04/06/17 21:16 Creatinine 1.0 mg/dL (0.6-1.2) 04/06/17 21:16 Est GFR ( Amer) > 60.0 ml/min (>90) 04/06/17 21:16 Est GFR (Non-Af Amer) > 60.0 ml/min 04/06/17 21:16 BUN/Creatinine Ratio 23.0 04/06/17 21:16 Glucose 90 mg/dL (70-105) 04/06/17 21:16 Hemoglobin A1c % 5.1 % (4.0-6.0) 04/06/17 21:50 Calcium 9.8 mg/dL (8.6-10.3) 04/06/17 21:16 Total Bilirubin 0.3 mg/dL (0.3-1.0) 04/06/17 21:16 AST 25 U/L (13-39) 04/06/17 21:16 ALT 18 U/L (7-52) 04/06/17 21:16 Alkaline Phosphatase 72 U/L (34-104) 04/06/17 21:16 Total Protein 7.7 gm/dL (6.0-8.3) 04/06/17 21:16 Albumin 4.2 gm/dL (3.7-5.3) 04/06/17 21:16 Globulin 3.5 gm/dL 04/06/17 21:16 Albumin/Globulin Ratio 1.2 (1.0-1.8) 04/06/17 21:16 TSH 0.81 uIU/ml (0.34-5.60) 04/06/17 21:16 Urine Source RANDOM 04/06/17 23:45 Urine Color YELLOW 04/06/17 23:45 Urine Clarity SLIGHT CLOUDY (CLEAR) 04/06/17 23:45 Urine pH 6.5 (4.6 - 8.0) 04/06/17 23:45 Ur Specific [place] 1.010 (1.005-1.030) 04/06/17 23:45 Urine Protein NEGATIVE mg/dL (NEGATIVE) 04/06/17 23:45 Urine Glucose (UA) NEGATIVE mg/dL (NEGATIVE) 04/06/17 23:45 Urine Ketones NEGATIVE mg/dL (NEGATIVE) 04/06/17 23:45 Urine Blood NEGATIVE (NEGATIVE) 04/06/17 23:45 Urine Nitrate POSITIVE (NEGATIVE) H 04/06/17 23:45 Urine Bilirubin NEGATIVE (NEGATIVE) 04/06/17 23:45 Urine Urobilinogen 0.2 E.U./dL (0.2 - 1.0) 04/06/17 23:45 Ur Leukocyte Esterase SMALL (NEGATIVE) H 04/06/17 23:45 Urine RBC 2-5 /hpf (0-5) 04/06/17 23:45 Urine WBC 25-50 /hpf (0-5) H 04/06/17 23:45 Ur Epithelial Cells OCCASIONAL /lpf (FEW) 04/06/17 23:45 Urine Bacteria 2+ /hpf (NONE SEEN) H 04/06/17 23:45 Urine Opiates Screen NEGATIVE (NEGATIVE) 04/06/17 23:45 Urine Methadone Screen NEGATIVE (NEGATIVE) 04/06/17 23:45 Ur Barbiturates Screen POSITIVE (NEGATIVE) H 04/06/17 23:45 Ur Tricyclics Screen POSITIVE (NEGATIVE) H 04/06/17 23:45 Ur Phencyclidine Scrn NEGATIVE (NEGATIVE) 04/06/17 23:45 Amphetamines Screen NEGATIVE (NEGATIVE) 04/06/17 23:45 U Methamphetamines Scrn NEGATIVE (NEGATIVE) 04/06/17 23:45 U Benzodiazepines Scrn POSITIVE (NEGATIVE) H 04/06/17 23:45 U Cocaine Metab Screen NEGATIVE (NEGATIVE) 04/06/17 23:45 U Cannabinoids Screen NEGATIVE (NEGATIVE) 04/06/17 23:45 - Physical Exam Vitals and I&O: Vital Signs Temp 97.7 F 04/09/17 06:08 Pulse 69 04/09/17 06:08 Resp 20 04/09/17 06:08 BP 118/93 04/09/17 06:08 Pulse Ox 98 04/09/17 06:08 Intake & Output 04/08/17 04/09/17 04/09/17 18:59 06:59 18:59 Intake Total 1400 120 Balance 1400 120 Intake: Oral 1400 120 Other: # Voids 4 4 # Bowel Movements 1 Active Medications: Current Medications Acetaminophen (Tylenol) 650 mg PO Q4HR PRN PRN Reason: Pain or Fever >101 Stop: 06/06/17 00:46 Al Hydrox/Mg Hydrox/Simethicone (Maalox) 30 ml PO Q6HR PRN PRN Reason: GI DISTRESS Stop: 06/06/17 00:46 Bisacodyl (Dulcolax 10 Mg Supp) 10 mg RC DAILY PRN PRN Reason: Constipation Stop: 06/06/17 00:46 Docusate Sodium (Colace) 100 mg PO BID RAYA Stop: 06/06/17 08:59 Last Admin: 04/09/17 09:12 Dose: 100 mg Levetiracetam (Keppra) 500 mg PO BID RAYA Stop: 06/06/17 08:59 Last Admin: 04/09/17 09:13 Dose: 500 mg Levofloxacin (Levaquin) 250 mg PO DAILY RAYA Stop: 06/07/17 08:59 Last Admin: 04/09/17 09:12 Dose: 250 mg Levothyroxine Sodium 0.05 mg/ (Levothyroxine Sodium 0.1 mg) 0.15 mg PO QDAC [facility] Stop: 06/08/17 09:59 Lorazepam (Ativan) 1 mg PO Q6H PRN; Protocol PRN Reason: Anxiety/Agitation Stop: 06/06/17 01:06 Last Admin: 04/09/17 09:13 Dose: 1 mg Magnesium Hydroxide (Milk Of Magnesia) 30 ml PO HS PRN PRN Reason: Constipation Stop: 06/06/17 00:46 Phenytoin (Dilantin) 200 mg PO BID RAYA Stop: 06/06/17 08:59 Last Admin: 04/09/17 09:12 Dose: 200 mg Quetiapine Fumarate (Seroquel) 400 mg PO HS RAYA PRN Reason: Protocol Stop: 06/06/17 20:59 Last Admin: 04/08/17 21:02 Dose: 400 mg Risperidone (Risperdal) 3 mg PO BID RAYA PRN Reason: Protocol Stop: 06/06/17 08:59 Last Admin: 04/09/17 09:13 Dose: 3 mg Zolpidem Tartrate (Ambien) 5 mg PO HS PRN PRN Reason: Insomnia Stop: 06/06/17 01:06 Last Admin: 04/07/17 20:55 Dose: 5 mg General: demented HEENT: NC/AT, PERRLA, EOMI Neck: Supple, No JVD, No thyromegaly, No LAD Lungs: CTAB Cardiovascular: RRR, Normal S1, Normal S2, without murmur Abdomen: soft, non-tender, globular Extremities: excoriation, contracture Neurological: no change, disorganized, unsteady - Procedures Procedures: Procedures Procedure Code Date OTHER GROUP THERAPY 94.44 09/27/14 Internal Medicine Assmt/Plan - Assessment Assessment: Urinary tract infection hypothyroidism hypercholesterolemia hypertension anemia with rheumatoid arthritis seizure - Plan Plan: seizure precautions continue current plan of care
[2017-04-09] MEDS ORDERED: Probiotic Screen MC PRN (15:30)
--- NOTE | 2017-04-10 03:11 | Progress Notes ---
DATE: 04/09/2017 SUBJECTIVE: Staff was spoken to. The patient is interviewed. Mood is noted to be irritable. Affect is constricted. Insight and judgment at this time are noted to be still impaired. Impulse control seems to be limited. Coping skills also noted to be limited. The patient has been stating that she has been too drowsy with the medications and hence, the Risperdal is going to be decreased to 2 mg twice a day and the patient is going to be followed up with the supportive therapy. Please note that the patient is not ready to be discharged to a lower level of care yet. [facility]# [id number]
[2017-04-10] MEDS: Lactobacillus Rhamnosus 10 Billion CFU Capsule PO SCH (09:37)
--- NOTE | 2017-04-10 12:55 | Internal Medicine Prog Note ---
Internal Medicine Subjective - Subjective Service Date: 04/10/17 Patient is:: awake, verbal, interactive, in bed, confused Per staff patient has:: no adverse event, no episodes of fall, poor appetite, noncompliant, tolerating meds Internal Medicine Objective - Results Result Diagrams: 04/06/17 21:50 04/06/17 21:16 Recent Labs: Laboratory Last Values WBC 5.4 Th/cmm (4.8-10.8) 04/06/17 21:50 RBC 4.50 Mil/cmm (3.80-5.10) 04/06/17 21:50 Hgb 13.7 gm/dL (-16) 04/06/17 21:50 Hct 40.7 % (41.0-60) L 04/06/17 21:50 MCV 90.4 fl (81-100) 04/06/17 21:50 MCH 30.5 pg (27.0-31.0) 04/06/17 21:50 MCHC Differential 33.8 pg (28.0-36.0) 04/06/17 21:50 RDW 12.2 % (11.5-20.0) 04/06/17 21:50 Plt Count 164 Th/cmm (150-400) 04/06/17 21:50 MPV 8.1 fl 04/06/17 21:50 Neutrophils % 57.1 % (40.0-80.0) 04/06/17 21:50 Lymphocytes % 31.7 % (20.0-50.0) 04/06/17 21:50 Monocytes % 9.2 % (2.0-10.0) 04/06/17 21:50 Eosinophils % 1.9 % (0.0-5.0) 04/06/17 21:50 Basophils % 0.1 % (0.0-2.0) 04/06/17 21:50 Sodium 138 mEq/L (136-145) 04/06/17 21:16 Potassium 4.0 mEq/L (3.5-5.1) 04/06/17 21:16 Chloride 107 mEq/L (98-107) 04/06/17 21:16 Carbon Dioxide 25.4 mEq/L (21.0-31.0) 04/06/17 21:16 Anion Gap 9.6 (7.0-16.0) 04/06/17 21:16 BUN 23 mg/dL (7-25) 04/06/17 21:16 Creatinine 1.0 mg/dL (0.6-1.2) 04/06/17 21:16 Est GFR ( Amer) > 60.0 ml/min (>90) 04/06/17 21:16 Est GFR (Non-Af Amer) > 60.0 ml/min 04/06/17 21:16 BUN/Creatinine Ratio 23.0 04/06/17 21:16 Glucose 90 mg/dL (70-105) 04/06/17 21:16 Hemoglobin A1c % 5.1 % (4.0-6.0) 04/06/17 21:50 Calcium 9.8 mg/dL (8.6-10.3) 04/06/17 21:16 Total Bilirubin 0.3 mg/dL (0.3-1.0) 04/06/17 21:16 AST 25 U/L (13-39) 04/06/17 21:16 ALT 18 U/L (7-52) 04/06/17 21:16 Alkaline Phosphatase 72 U/L (34-104) 04/06/17 21:16 Total Protein 7.7 gm/dL (6.0-8.3) 04/06/17 21:16 Albumin 4.2 gm/dL (3.7-5.3) 04/06/17 21:16 Globulin 3.5 gm/dL 04/06/17 21:16 Albumin/Globulin Ratio 1.2 (1.0-1.8) 04/06/17 21:16 TSH 0.81 uIU/ml (0.34-5.60) 04/06/17 21:16 Urine Source RANDOM 04/06/17 23:45 Urine Color YELLOW 04/06/17 23:45 Urine Clarity SLIGHT CLOUDY (CLEAR) 04/06/17 23:45 Urine pH 6.5 (4.6 - 8.0) 04/06/17 23:45 Ur Specific [place] 1.010 (1.005-1.030) 04/06/17 23:45 Urine Protein NEGATIVE mg/dL (NEGATIVE) 04/06/17 23:45 Urine Glucose (UA) NEGATIVE mg/dL (NEGATIVE) 04/06/17 23:45 Urine Ketones NEGATIVE mg/dL (NEGATIVE) 04/06/17 23:45 Urine Blood NEGATIVE (NEGATIVE) 04/06/17 23:45 Urine Nitrate POSITIVE (NEGATIVE) H 04/06/17 23:45 Urine Bilirubin NEGATIVE (NEGATIVE) 04/06/17 23:45 Urine Urobilinogen 0.2 E.U./dL (0.2 - 1.0) 04/06/17 23:45 Ur Leukocyte Esterase SMALL (NEGATIVE) H 04/06/17 23:45 Urine RBC 2-5 /hpf (0-5) 04/06/17 23:45 Urine WBC 25-50 /hpf (0-5) H 04/06/17 23:45 Ur Epithelial Cells OCCASIONAL /lpf (FEW) 04/06/17 23:45 Urine Bacteria 2+ /hpf (NONE SEEN) H 04/06/17 23:45 Urine Opiates Screen NEGATIVE (NEGATIVE) 04/06/17 23:45 Urine Methadone Screen NEGATIVE (NEGATIVE) 04/06/17 23:45 Ur Barbiturates Screen POSITIVE (NEGATIVE) H 04/06/17 23:45 Ur Tricyclics Screen POSITIVE (NEGATIVE) H 04/06/17 23:45 Ur Phencyclidine Scrn NEGATIVE (NEGATIVE) 04/06/17 23:45 Amphetamines Screen NEGATIVE (NEGATIVE) 04/06/17 23:45 U Methamphetamines Scrn NEGATIVE (NEGATIVE) 04/06/17 23:45 U Benzodiazepines Scrn POSITIVE (NEGATIVE) H 04/06/17 23:45 U Cocaine Metab Screen NEGATIVE (NEGATIVE) 04/06/17 23:45 U Cannabinoids Screen NEGATIVE (NEGATIVE) 04/06/17 23:45 - Physical Exam Vitals and I&O: Vital Signs Temp 96.6 F 04/10/17 06:34 Pulse 64 04/10/17 06:34 Resp 18 04/10/17 06:34 BP 126/83 04/10/17 06:34 Pulse Ox 98 04/10/17 06:34 Intake & Output 04/09/17 04/10/17 04/10/17 18:59 06:59 18:59 Intake Total 900 Balance 900 Intake: Oral 900 Other: # Voids 4 # Bowel Movements 1 Active Medications: Current Medications Acetaminophen (Tylenol) 650 mg PO Q4HR PRN PRN Reason: Pain or Fever >101 Stop: 06/06/17 00:46 Al Hydrox/Mg Hydrox/Simethicone (Maalox) 30 ml PO Q6HR PRN PRN Reason: GI DISTRESS Stop: 06/06/17 00:46 Bisacodyl (Dulcolax 10 Mg Supp) 10 mg RC DAILY PRN PRN Reason: Constipation Stop: 06/06/17 00:46 Docusate Sodium (Colace) 100 mg PO BID RAYA Stop: 06/06/17 08:59 Last Admin: 04/10/17 09:38 Dose: Not Given Lactobacillus Rhamnosus (Culturelle) 1 each PO DAILY RAYA Stop: 04/23/17 08:59 Last Admin: 04/10/17 09:37 Dose: 1 each Levetiracetam (Keppra) 500 mg PO BID [facility] Stop: 06/06/17 08:59 Last Admin: 04/10/17 09:38 Dose: 500 mg Levofloxacin (Levaquin) 250 mg PO DAILY [facility] Stop: 06/07/17 08:59 Last Admin: 04/10/17 09:39 Dose: 250 mg Levothyroxine Sodium 0.05 mg/ (Levothyroxine Sodium 0.1 mg) 0.15 mg PO QDAC [facility] Stop: 06/08/17 09:59 Last Admin: 04/10/17 06:55 Dose: 0.15 mg Lorazepam (Ativan) 1 mg PO Q6H PRN; Protocol PRN Reason: Anxiety/Agitation Stop: 06/06/17 01:06 Last Admin: 04/10/17 09:39 Dose: 1 mg Magnesium Hydroxide (Milk Of Magnesia) 30 ml PO HS PRN PRN Reason: Constipation Stop: 06/06/17 00:46 Miscellaneous (Probiotic Screen) 1 ea MC PRN PRN PRN Reason: PROTOCOL Stop: 06/08/17 15:29 Phenytoin (Dilantin) 200 mg PO BID [facility] Stop: 06/06/17 08:59 Last Admin: 04/10/17 09:38 Dose: 200 mg Quetiapine Fumarate (Seroquel) 400 mg PO HS RAYA PRN Reason: Protocol Stop: 06/06/17 20:59 Last Admin: 04/09/17 20:27 Dose: 400 mg Risperidone (Risperdal) 2 mg PO BID RAYA PRN Reason: Protocol Stop: 06/06/17 08:59 Last Admin: 04/10/17 09:38 Dose: 2 mg Zolpidem Tartrate (Ambien) 5 mg PO HS PRN PRN Reason: Insomnia Stop: 06/06/17 01:06 Last Admin: 04/07/17 20:55 Dose: 5 mg General: demented HEENT: NC/AT, PERRLA, EOMI Neck: Supple, No JVD, No thyromegaly, No LAD Lungs: CTAB Cardiovascular: RRR, Normal S1, Normal S2, without murmur Abdomen: soft, non-tender, globular Extremities: excoriation, contracture Neurological: no change, disorganized, unsteady - Procedures Procedures: Procedures Procedure Code Date OTHER GROUP THERAPY 94.44 09/27/14 Internal Medicine Assmt/Plan - Assessment Assessment: Urinary tract infection with e.coli hypothyroidism hypercholesterolemia hypertension anemia with rheumatoid arthritis seizure - Plan Plan: seizure precautions continue current plan of care
[2017-04-10] MEDS: Sulfamethoxazole/TMP 800/160mg Tab PO SCH (17:24)
--- NOTE | 2017-04-10 20:51 | Progress Notes ---
DATE: 04/10/2017 SUBJECTIVE: Staff was spoken to. The patient is interviewed. Mood is noted to be irritable. Affect is constricted. The patient has been having mood swings, but the patient could be redirectable. No side effects to the medications are noted today. ASSESSMENT: The patient is still having acute mood swings. PLAN: Plan is to increase the dose on the Seroquel and gradually decrease the dose on the Risperdal and follow the patient with supportive therapy. JOB# [id number]
[2017-04-11] MEDS ORDERED: Haloperidol Lactate 5 mg/mL 1mL Vial IM STA (07:14)
[2017-04-11] MEDS ORDERED: Haloperidol Lactate 5 mg/mL 1mL Vial ONE (07:20)
[2017-04-11] MEDS: Lactobacillus Rhamnosus 10 Billion CFU Capsule PO SCH (10:40)
[2017-04-11] MEDS: Sulfamethoxazole/TMP 800/160mg Tab PO SCH ×2 (10:41→16:34)
--- NOTE | 2017-04-11 12:15 | Internal Medicine Prog Note ---
Internal Medicine Subjective - Subjective Service Date: 04/11/17 Patient is:: awake, verbal, interactive, in bed, confused Per staff patient has:: no adverse event, no episodes of fall, poor appetite, noncompliant, tolerating meds Internal Medicine Objective - Results Result Diagrams: 04/06/17 21:50 04/06/17 21:16 Recent Labs: Laboratory Last Values WBC 5.4 Th/cmm (4.8-10.8) 04/06/17 21:50 RBC 4.50 Mil/cmm (3.80-5.10) 04/06/17 21:50 Hgb 13.7 gm/dL (-16) 04/06/17 21:50 Hct 40.7 % (41.0-60) L 04/06/17 21:50 MCV 90.4 fl (81-100) 04/06/17 21:50 MCH 30.5 pg (27.0-31.0) 04/06/17 21:50 MCHC Differential 33.8 pg (28.0-36.0) 04/06/17 21:50 RDW 12.2 % (11.5-20.0) 04/06/17 21:50 Plt Count 164 Th/cmm (150-400) 04/06/17 21:50 MPV 8.1 fl 04/06/17 21:50 Neutrophils % 57.1 % (40.0-80.0) 04/06/17 21:50 Lymphocytes % 31.7 % (20.0-50.0) 04/06/17 21:50 Monocytes % 9.2 % (2.0-10.0) 04/06/17 21:50 Eosinophils % 1.9 % (0.0-5.0) 04/06/17 21:50 Basophils % 0.1 % (0.0-2.0) 04/06/17 21:50 Sodium 138 mEq/L (136-145) 04/06/17 21:16 Potassium 4.0 mEq/L (3.5-5.1) 04/06/17 21:16 Chloride 107 mEq/L (98-107) 04/06/17 21:16 Carbon Dioxide 25.4 mEq/L (21.0-31.0) 04/06/17 21:16 Anion Gap 9.6 (7.0-16.0) 04/06/17 21:16 BUN 23 mg/dL (7-25) 04/06/17 21:16 Creatinine 1.0 mg/dL (0.6-1.2) 04/06/17 21:16 Est GFR ( Amer) > 60.0 ml/min (>90) 04/06/17 21:16 Est GFR (Non-Af Amer) > 60.0 ml/min 04/06/17 21:16 BUN/Creatinine Ratio 23.0 04/06/17 21:16 Glucose 90 mg/dL (70-105) 04/06/17 21:16 Hemoglobin A1c % 5.1 % (4.0-6.0) 04/06/17 21:50 Calcium 9.8 mg/dL (8.6-10.3) 04/06/17 21:16 Total Bilirubin 0.3 mg/dL (0.3-1.0) 04/06/17 21:16 AST 25 U/L (13-39) 04/06/17 21:16 ALT 18 U/L (7-52) 04/06/17 21:16 Alkaline Phosphatase 72 U/L (34-104) 04/06/17 21:16 Total Protein 7.7 gm/dL (6.0-8.3) 04/06/17 21:16 Albumin 4.2 gm/dL (3.7-5.3) 04/06/17 21:16 Globulin 3.5 gm/dL 04/06/17 21:16 Albumin/Globulin Ratio 1.2 (1.0-1.8) 04/06/17 21:16 TSH 0.81 uIU/ml (0.34-5.60) 04/06/17 21:16 Urine Source RANDOM 04/06/17 23:45 Urine Color YELLOW 04/06/17 23:45 Urine Clarity SLIGHT CLOUDY (CLEAR) 04/06/17 23:45 Urine pH 6.5 (4.6 - 8.0) 04/06/17 23:45 Ur Specific [place] 1.010 (1.005-1.030) 04/06/17 23:45 Urine Protein NEGATIVE mg/dL (NEGATIVE) 04/06/17 23:45 Urine Glucose (UA) NEGATIVE mg/dL (NEGATIVE) 04/06/17 23:45 Urine Ketones NEGATIVE mg/dL (NEGATIVE) 04/06/17 23:45 Urine Blood NEGATIVE (NEGATIVE) 04/06/17 23:45 Urine Nitrate POSITIVE (NEGATIVE) H 04/06/17 23:45 Urine Bilirubin NEGATIVE (NEGATIVE) 04/06/17 23:45 Urine Urobilinogen 0.2 E.U./dL (0.2 - 1.0) 04/06/17 23:45 Ur Leukocyte Esterase SMALL (NEGATIVE) H 04/06/17 23:45 Urine RBC 2-5 /hpf (0-5) 04/06/17 23:45 Urine WBC 25-50 /hpf (0-5) H 04/06/17 23:45 Ur Epithelial Cells OCCASIONAL /lpf (FEW) 04/06/17 23:45 Urine Bacteria 2+ /hpf (NONE SEEN) H 04/06/17 23:45 Urine Opiates Screen NEGATIVE (NEGATIVE) 04/06/17 23:45 Urine Methadone Screen NEGATIVE (NEGATIVE) 04/06/17 23:45 Ur Barbiturates Screen POSITIVE (NEGATIVE) H 04/06/17 23:45 Ur Tricyclics Screen POSITIVE (NEGATIVE) H 04/06/17 23:45 Ur Phencyclidine Scrn NEGATIVE (NEGATIVE) 04/06/17 23:45 Amphetamines Screen NEGATIVE (NEGATIVE) 04/06/17 23:45 U Methamphetamines Scrn NEGATIVE (NEGATIVE) 04/06/17 23:45 U Benzodiazepines Scrn POSITIVE (NEGATIVE) H 04/06/17 23:45 U Cocaine Metab Screen NEGATIVE (NEGATIVE) 04/06/17 23:45 U Cannabinoids Screen NEGATIVE (NEGATIVE) 04/06/17 23:45 - Physical Exam Vitals and I&O: Vital Signs Temp 98.4 F 04/11/17 07:54 Pulse 70 04/11/17 07:54 Resp 19 04/11/17 07:54 BP 122/75 04/11/17 07:54 Pulse Ox 99 04/11/17 07:54 Intake & Output 04/10/17 04/11/17 04/11/17 18:59 06:59 18:59 Intake Total 900 240 240 Balance 900 240 240 Intake: Oral 900 240 240 Other: # Voids 4 1 2 # Bowel Movements 1 0 Active Medications: Current Medications Acetaminophen (Tylenol) 650 mg PO Q4HR PRN PRN Reason: Pain or Fever >101 Stop: 06/06/17 00:46 Al Hydrox/Mg Hydrox/Simethicone (Maalox) 30 ml PO Q6HR PRN PRN Reason: GI DISTRESS Stop: 06/06/17 00:46 Bisacodyl (Dulcolax 10 Mg Supp) 10 mg RC DAILY PRN PRN Reason: Constipation Stop: 06/06/17 00:46 Docusate Sodium (Colace) 100 mg PO BID [facility] Stop: 06/06/17 08:59 Last Admin: 04/11/17 10:39 Dose: 100 mg Lactobacillus Rhamnosus (Culturelle) 1 each PO DAILY [facility] Stop: 04/23/17 08:59 Last Admin: 04/11/17 10:40 Dose: 1 each Levetiracetam (Keppra) 500 mg PO BID [facility] Stop: 06/06/17 08:59 Last Admin: 04/11/17 10:40 Dose: 500 mg Levothyroxine Sodium 0.05 mg/ (Levothyroxine Sodium 0.1 mg) 0.15 mg PO QDAC [facility] Stop: 06/08/17 09:59 Last Admin: 04/11/17 06:38 Dose: 0.15 mg Lorazepam (Ativan) 1 mg PO Q6H PRN; Protocol PRN Reason: Anxiety/Agitation Stop: 06/06/17 01:06 Last Admin: 04/10/17 09:39 Dose: 1 mg Magnesium Hydroxide (Milk Of Magnesia) 30 ml PO HS PRN PRN Reason: Constipation Stop: 06/06/17 00:46 Miscellaneous (Probiotic Screen) 1 ea MC PRN PRN PRN Reason: PROTOCOL Stop: 06/08/17 15:29 Phenytoin (Dilantin) 200 mg PO BID [facility] Stop: 06/06/17 08:59 Last Admin: 04/11/17 10:40 Dose: 200 mg Quetiapine Fumarate (Seroquel) 400 mg PO HS [facility] PRN Reason: Protocol Stop: 06/06/17 20:59 Last Admin: 04/10/17 20:27 Dose: 400 mg Quetiapine Fumarate (Seroquel) 100 mg PO HS [facility] Stop: 06/09/17 20:59 Last Admin: 04/10/17 20:28 Dose: 100 mg Risperidone (Risperdal) 2 mg PO DAILY [facility] PRN Reason: Protocol Stop: 06/10/17 08:59 Last Admin: 04/11/17 10:41 Dose: Not Given Trimethoprim/Sulfamethoxazole (Bactrim Ds) 1 tab PO BID [facility] Stop: 04/15/17 09:01 Last Admin: 04/11/17 10:41 Dose: 1 tab Zolpidem Tartrate (Ambien) 5 mg PO HS PRN PRN Reason: Insomnia Stop: 06/06/17 01:06 Last Admin: 04/10/17 20:28 Dose: 5 mg General: demented HEENT: NC/AT, PERRLA, EOMI Neck: Supple, No JVD, No thyromegaly, No LAD Lungs: CTAB Cardiovascular: RRR, Normal S1, Normal S2, without murmur Abdomen: soft, non-tender, globular Extremities: excoriation, contracture Neurological: no change, disorganized, unsteady - Procedures Procedures: Procedures Procedure Code Date OTHER GROUP THERAPY 94.44 09/27/14 Internal Medicine Assmt/Plan - Assessment Assessment: Urinary tract infection with e.coli hypothyroidism hypercholesterolemia hypertension anemia with rheumatoid arthritis seizure - Plan Plan: seizure precautions continue current plan of care
--- NOTE | 2017-04-11 23:28 | Progress Notes ---
DATE: 04/11/2017 Staff was spoken to. The patient is interviewed. Mood is noted to be irritable. Affect is constricted. The patient has been stating that she has not been able to sleep and has been having a difficult time since the dose of the Risperdal has been decreased. The patient fells that the Seroquel at nighttime is okay, but she needs to be also on the Risperdal in the morning. Coping skills at this time are noted to be very poor. Since the patient has been having difficult time to cope with the stress, it was decided to add a lower dose of Seroquel in the morning along with the 400 mg at bedtime and encouraged the patient to verbalize the concerns rather than to act out. Please note that the patient is grossly psychotic and agitated at this time and is not ready to be discharged to a lower level of care. JOB# [id number]
[2017-04-12] MEDS: Sulfamethoxazole/TMP 800/160mg Tab PO SCH ×2 (11:21→16:48)
--- NOTE | 2017-04-12 12:17 | Internal Medicine Prog Note ---
Internal Medicine Subjective - Subjective Service Date: 04/12/17 Patient is:: awake, verbal, interactive, in bed, confused Per staff patient has:: no adverse event, no episodes of fall, poor appetite, noncompliant, tolerating meds Internal Medicine Objective - Results Result Diagrams: 04/06/17 21:50 04/06/17 21:16 Recent Labs: Laboratory Last Values WBC 5.4 Th/cmm (4.8-10.8) 04/06/17 21:50 RBC 4.50 Mil/cmm (3.80-5.10) 04/06/17 21:50 Hgb 13.7 gm/dL (-16) 04/06/17 21:50 Hct 40.7 % (41.0-60) L 04/06/17 21:50 MCV 90.4 fl (81-100) 04/06/17 21:50 MCH 30.5 pg (27.0-31.0) 04/06/17 21:50 MCHC Differential 33.8 pg (28.0-36.0) 04/06/17 21:50 RDW 12.2 % (11.5-20.0) 04/06/17 21:50 Plt Count 164 Th/cmm (150-400) 04/06/17 21:50 MPV 8.1 fl 04/06/17 21:50 Neutrophils % 57.1 % (40.0-80.0) 04/06/17 21:50 Lymphocytes % 31.7 % (20.0-50.0) 04/06/17 21:50 Monocytes % 9.2 % (2.0-10.0) 04/06/17 21:50 Eosinophils % 1.9 % (0.0-5.0) 04/06/17 21:50 Basophils % 0.1 % (0.0-2.0) 04/06/17 21:50 Sodium 138 mEq/L (136-145) 04/06/17 21:16 Potassium 4.0 mEq/L (3.5-5.1) 04/06/17 21:16 Chloride 107 mEq/L (98-107) 04/06/17 21:16 Carbon Dioxide 25.4 mEq/L (21.0-31.0) 04/06/17 21:16 Anion Gap 9.6 (7.0-16.0) 04/06/17 21:16 BUN 23 mg/dL (7-25) 04/06/17 21:16 Creatinine 1.0 mg/dL (0.6-1.2) 04/06/17 21:16 Est GFR ( Amer) > 60.0 ml/min (>90) 04/06/17 21:16 Est GFR (Non-Af Amer) > 60.0 ml/min 04/06/17 21:16 BUN/Creatinine Ratio 23.0 04/06/17 21:16 Glucose 90 mg/dL (70-105) 04/06/17 21:16 Hemoglobin A1c % 5.1 % (4.0-6.0) 04/06/17 21:50 Calcium 9.8 mg/dL (8.6-10.3) 04/06/17 21:16 Total Bilirubin 0.3 mg/dL (0.3-1.0) 04/06/17 21:16 AST 25 U/L (13-39) 04/06/17 21:16 ALT 18 U/L (7-52) 04/06/17 21:16 Alkaline Phosphatase 72 U/L (34-104) 04/06/17 21:16 Total Protein 7.7 gm/dL (6.0-8.3) 04/06/17 21:16 Albumin 4.2 gm/dL (3.7-5.3) 04/06/17 21:16 Globulin 3.5 gm/dL 04/06/17 21:16 Albumin/Globulin Ratio 1.2 (1.0-1.8) 04/06/17 21:16 TSH 0.81 uIU/ml (0.34-5.60) 04/06/17 21:16 Urine Source RANDOM 04/06/17 23:45 Urine Color YELLOW 04/06/17 23:45 Urine Clarity SLIGHT CLOUDY (CLEAR) 04/06/17 23:45 Urine pH 6.5 (4.6 - 8.0) 04/06/17 23:45 Ur Specific [place] 1.010 (1.005-1.030) 04/06/17 23:45 Urine Protein NEGATIVE mg/dL (NEGATIVE) 04/06/17 23:45 Urine Glucose (UA) NEGATIVE mg/dL (NEGATIVE) 04/06/17 23:45 Urine Ketones NEGATIVE mg/dL (NEGATIVE) 04/06/17 23:45 Urine Blood NEGATIVE (NEGATIVE) 04/06/17 23:45 Urine Nitrate POSITIVE (NEGATIVE) H 04/06/17 23:45 Urine Bilirubin NEGATIVE (NEGATIVE) 04/06/17 23:45 Urine Urobilinogen 0.2 E.U./dL (0.2 - 1.0) 04/06/17 23:45 Ur Leukocyte Esterase SMALL (NEGATIVE) H 04/06/17 23:45 Urine RBC 2-5 /hpf (0-5) 04/06/17 23:45 Urine WBC 25-50 /hpf (0-5) H 04/06/17 23:45 Ur Epithelial Cells OCCASIONAL /lpf (FEW) 04/06/17 23:45 Urine Bacteria 2+ /hpf (NONE SEEN) H 04/06/17 23:45 Urine Opiates Screen NEGATIVE (NEGATIVE) 04/06/17 23:45 Urine Methadone Screen NEGATIVE (NEGATIVE) 04/06/17 23:45 Ur Barbiturates Screen POSITIVE (NEGATIVE) H 04/06/17 23:45 Ur Tricyclics Screen POSITIVE (NEGATIVE) H 04/06/17 23:45 Ur Phencyclidine Scrn NEGATIVE (NEGATIVE) 04/06/17 23:45 Amphetamines Screen NEGATIVE (NEGATIVE) 04/06/17 23:45 U Methamphetamines Scrn NEGATIVE (NEGATIVE) 04/06/17 23:45 U Benzodiazepines Scrn POSITIVE (NEGATIVE) H 04/06/17 23:45 U Cocaine Metab Screen NEGATIVE (NEGATIVE) 04/06/17 23:45 U Cannabinoids Screen NEGATIVE (NEGATIVE) 04/06/17 23:45 - Physical Exam Vitals and I&O: Vital Signs Temp 98.4 F 04/11/17 15:42 Pulse 70 04/11/17 15:42 Resp 19 04/11/17 15:42 BP 122/75 04/11/17 15:42 Pulse Ox 99 04/11/17 15:42 Intake & Output 04/11/17 04/12/17 04/12/17 18:59 06:59 18:59 Intake Total 240 Balance 240 Intake: Oral 240 Other: # Voids 2 # Bowel Movements 0 Active Medications: Current Medications Acetaminophen (Tylenol) 650 mg PO Q4HR PRN PRN Reason: Pain or Fever >101 Stop: 06/06/17 00:46 Al Hydrox/Mg Hydrox/Simethicone (Maalox) 30 ml PO Q6HR PRN PRN Reason: GI DISTRESS Stop: 06/06/17 00:46 Bisacodyl (Dulcolax 10 Mg Supp) 10 mg RC DAILY PRN PRN Reason: Constipation Stop: 06/06/17 00:46 Docusate Sodium (Colace) 100 mg PO BID [facility] Stop: 06/06/17 08:59 Last Admin: 04/12/17 11:17 Dose: 100 mg Lactobacillus Rhamnosus (Culturelle) 1 each PO DAILY [facility] Stop: 04/23/17 08:59 Last Admin: 04/11/17 10:40 Dose: 1 each Levetiracetam (Keppra) 500 mg PO BID [facility] Stop: 06/06/17 08:59 Last Admin: 04/12/17 11:20 Dose: 500 mg Levothyroxine Sodium 0.05 mg/ (Levothyroxine Sodium 0.1 mg) 0.15 mg PO QDAC [facility] Stop: 06/08/17 09:59 Last Admin: 04/12/17 06:34 Dose: 0.15 mg Lorazepam (Ativan) 1 mg PO Q6H PRN; Protocol PRN Reason: Anxiety/Agitation Stop: 06/06/17 01:06 Last Admin: 04/11/17 22:56 Dose: 1 mg Magnesium Hydroxide (Milk Of Magnesia) 30 ml PO HS PRN PRN Reason: Constipation Stop: 06/06/17 00:46 Miscellaneous (Probiotic Screen) 1 ea MC PRN PRN PRN Reason: PROTOCOL Stop: 06/08/17 15:29 Phenytoin (Dilantin) 200 mg PO BID [facility] Stop: 06/06/17 08:59 Last Admin: 04/12/17 11:20 Dose: 200 mg Quetiapine Fumarate (Seroquel) 400 mg PO HS [facility] PRN Reason: Protocol Stop: 06/06/17 20:59 Last Admin: 04/11/17 21:18 Dose: 400 mg Quetiapine Fumarate (Seroquel) 100 mg PO DAILY [facility] Stop: 06/11/17 08:59 Last Admin: 04/12/17 11:20 Dose: 100 mg Risperidone (Risperdal) 2 mg PO BID [facility] Stop: 06/11/17 08:59 Last Admin: 04/12/17 11:20 Dose: 2 mg Trimethoprim/Sulfamethoxazole (Bactrim Ds) 1 tab PO BID [facility] Stop: 04/15/17 09:01 Last Admin: 04/12/17 11:21 Dose: 1 tab Zolpidem Tartrate (Ambien) 5 mg PO HS PRN PRN Reason: Insomnia Stop: 06/06/17 01:06 Last Admin: 04/11/17 22:57 Dose: 5 mg General: demented HEENT: NC/AT, PERRLA, EOMI Neck: Supple, No JVD, No thyromegaly, No LAD Lungs: CTAB Cardiovascular: RRR, Normal S1, Normal S2, without murmur Abdomen: soft, non-tender, globular Extremities: excoriation, contracture Neurological: no change, disorganized, unsteady - Procedures Procedures: Procedures Procedure Code Date OTHER GROUP THERAPY 94.44 09/27/14 Internal Medicine Assmt/Plan - Assessment Assessment: Urinary tract infection with e.coli hypothyroidism hypercholesterolemia hypertension anemia with rheumatoid arthritis seizure - Plan Plan: seizure precautions continue current plan of care
[2017-04-12] MEDS: Lactobacillus Rhamnosus 10 Billion CFU Capsule PO SCH (16:49)
[2017-04-12] MEDS ORDERED: Haloperidol Lactate 5 mg/mL 1mL Vial ONE (19:05)
[2017-04-12] MEDS ORDERED: Haloperidol Lactate 5 mg/mL 1mL Vial IM ONE (19:06)
--- NOTE | 2017-04-13 01:23 | Progress Notes ---
DATE: 04/12/2017 SUBJECTIVE: Staff was spoken to. The patient is interviewed. Mood is noted to be irritable. Affect is constricted. The patient is screaming and yelling at this time and could not be contained. The patient's coping skills are noted to be extremely poor, continues to be very paranoid, and the patient is noted to be very intrusive. No side effects to the medications are noted. The patient has to be given a dose of Haldol 5, Benadryl 50, and Ativan 1 to calm her down. The patient is also going to be continued on the Seroquel and Risperdal. ASSESSMENT: The patient is still grossly psychotic and impulsive and is not ready to be discharged to a lower level of care yet. JOB# [id number]
[2017-04-13] MEDS: Lactobacillus Rhamnosus 10 Billion CFU Capsule PO SCH (09:15)
[2017-04-13] MEDS: Sulfamethoxazole/TMP 800/160mg Tab PO SCH ×2 (09:16→17:11)
--- NOTE | 2017-04-13 13:33 | Internal Medicine Prog Note ---
Internal Medicine Subjective - Subjective Service Date: 04/13/17 Patient is:: awake, verbal, interactive, in bed, confused Per staff patient has:: no adverse event, no episodes of fall, poor appetite, noncompliant, tolerating meds Internal Medicine Objective - Results Result Diagrams: 04/06/17 21:50 04/06/17 21:16 Recent Labs: Laboratory Last Values WBC 5.4 Th/cmm (4.8-10.8) 04/06/17 21:50 RBC 4.50 Mil/cmm (3.80-5.10) 04/06/17 21:50 Hgb 13.7 gm/dL (-16) 04/06/17 21:50 Hct 40.7 % (41.0-60) L 04/06/17 21:50 MCV 90.4 fl (81-100) 04/06/17 21:50 MCH 30.5 pg (27.0-31.0) 04/06/17 21:50 MCHC Differential 33.8 pg (28.0-36.0) 04/06/17 21:50 RDW 12.2 % (11.5-20.0) 04/06/17 21:50 Plt Count 164 Th/cmm (150-400) 04/06/17 21:50 MPV 8.1 fl 04/06/17 21:50 Neutrophils % 57.1 % (40.0-80.0) 04/06/17 21:50 Lymphocytes % 31.7 % (20.0-50.0) 04/06/17 21:50 Monocytes % 9.2 % (2.0-10.0) 04/06/17 21:50 Eosinophils % 1.9 % (0.0-5.0) 04/06/17 21:50 Basophils % 0.1 % (0.0-2.0) 04/06/17 21:50 Sodium 138 mEq/L (136-145) 04/06/17 21:16 Potassium 4.0 mEq/L (3.5-5.1) 04/06/17 21:16 Chloride 107 mEq/L (98-107) 04/06/17 21:16 Carbon Dioxide 25.4 mEq/L (21.0-31.0) 04/06/17 21:16 Anion Gap 9.6 (7.0-16.0) 04/06/17 21:16 BUN 23 mg/dL (7-25) 04/06/17 21:16 Creatinine 1.0 mg/dL (0.6-1.2) 04/06/17 21:16 Est GFR ( Amer) > 60.0 ml/min (>90) 04/06/17 21:16 Est GFR (Non-Af Amer) > 60.0 ml/min 04/06/17 21:16 BUN/Creatinine Ratio 23.0 04/06/17 21:16 Glucose 90 mg/dL (70-105) 04/06/17 21:16 Hemoglobin A1c % 5.1 % (4.0-6.0) 04/06/17 21:50 Calcium 9.8 mg/dL (8.6-10.3) 04/06/17 21:16 Total Bilirubin 0.3 mg/dL (0.3-1.0) 04/06/17 21:16 AST 25 U/L (13-39) 04/06/17 21:16 ALT 18 U/L (7-52) 04/06/17 21:16 Alkaline Phosphatase 72 U/L (34-104) 04/06/17 21:16 Total Protein 7.7 gm/dL (6.0-8.3) 04/06/17 21:16 Albumin 4.2 gm/dL (3.7-5.3) 04/06/17 21:16 Globulin 3.5 gm/dL 04/06/17 21:16 Albumin/Globulin Ratio 1.2 (1.0-1.8) 04/06/17 21:16 TSH 0.81 uIU/ml (0.34-5.60) 04/06/17 21:16 Urine Source RANDOM 04/06/17 23:45 Urine Color YELLOW 04/06/17 23:45 Urine Clarity SLIGHT CLOUDY (CLEAR) 04/06/17 23:45 Urine pH 6.5 (4.6 - 8.0) 04/06/17 23:45 Ur Specific [place] 1.010 (1.005-1.030) 04/06/17 23:45 Urine Protein NEGATIVE mg/dL (NEGATIVE) 04/06/17 23:45 Urine Glucose (UA) NEGATIVE mg/dL (NEGATIVE) 04/06/17 23:45 Urine Ketones NEGATIVE mg/dL (NEGATIVE) 04/06/17 23:45 Urine Blood NEGATIVE (NEGATIVE) 04/06/17 23:45 Urine Nitrate POSITIVE (NEGATIVE) H 04/06/17 23:45 Urine Bilirubin NEGATIVE (NEGATIVE) 04/06/17 23:45 Urine Urobilinogen 0.2 E.U./dL (0.2 - 1.0) 04/06/17 23:45 Ur Leukocyte Esterase SMALL (NEGATIVE) H 04/06/17 23:45 Urine RBC 2-5 /hpf (0-5) 04/06/17 23:45 Urine WBC 25-50 /hpf (0-5) H 04/06/17 23:45 Ur Epithelial Cells OCCASIONAL /lpf (FEW) 04/06/17 23:45 Urine Bacteria 2+ /hpf (NONE SEEN) H 04/06/17 23:45 Urine Opiates Screen NEGATIVE (NEGATIVE) 04/06/17 23:45 Urine Methadone Screen NEGATIVE (NEGATIVE) 04/06/17 23:45 Ur Barbiturates Screen POSITIVE (NEGATIVE) H 04/06/17 23:45 Ur Tricyclics Screen POSITIVE (NEGATIVE) H 04/06/17 23:45 Ur Phencyclidine Scrn NEGATIVE (NEGATIVE) 04/06/17 23:45 Amphetamines Screen NEGATIVE (NEGATIVE) 04/06/17 23:45 U Methamphetamines Scrn NEGATIVE (NEGATIVE) 04/06/17 23:45 U Benzodiazepines Scrn POSITIVE (NEGATIVE) H 04/06/17 23:45 U Cocaine Metab Screen NEGATIVE (NEGATIVE) 04/06/17 23:45 U Cannabinoids Screen NEGATIVE (NEGATIVE) 04/06/17 23:45 - Physical Exam Vitals and I&O: Vital Signs Temp 97.3 F 04/12/17 16:24 Pulse 72 04/12/17 16:24 Resp 19 04/12/17 16:24 BP 111/70 04/12/17 16:24 Pulse Ox 95 04/12/17 16:24 Intake & Output 04/12/17 04/13/17 04/13/17 18:59 06:59 18:59 Intake Total 120 Balance 120 Intake: Oral 120 Other: # Voids 3 Active Medications: Current Medications Acetaminophen (Tylenol) 650 mg PO Q4HR PRN PRN Reason: Pain or Fever >101 Stop: 06/06/17 00:46 Al Hydrox/Mg Hydrox/Simethicone (Maalox) 30 ml PO Q6HR PRN PRN Reason: GI DISTRESS Stop: 06/06/17 00:46 Bisacodyl (Dulcolax 10 Mg Supp) 10 mg RC DAILY PRN PRN Reason: Constipation Stop: 06/06/17 00:46 Docusate Sodium (Colace) 100 mg PO BID [facility] Stop: 06/06/17 08:59 Last Admin: 04/13/17 09:16 Dose: 100 mg Lactobacillus Rhamnosus (Culturelle) 1 each PO DAILY [facility] Stop: 04/23/17 08:59 Last Admin: 04/13/17 09:15 Dose: 1 each Levetiracetam (Keppra) 500 mg PO BID [facility] Stop: 06/06/17 08:59 Last Admin: 04/13/17 09:16 Dose: 500 mg Levothyroxine Sodium 0.05 mg/ (Levothyroxine Sodium 0.1 mg) 0.15 mg PO QDAC [facility] Stop: 06/08/17 09:59 Last Admin: 04/12/17 06:34 Dose: 0.15 mg Lorazepam (Ativan) 1 mg PO Q6H PRN; Protocol PRN Reason: Anxiety/Agitation Stop: 06/06/17 01:06 Last Admin: 04/11/17 22:56 Dose: 1 mg Magnesium Hydroxide (Milk Of Magnesia) 30 ml PO HS PRN PRN Reason: Constipation Stop: 06/06/17 00:46 Miscellaneous (Probiotic Screen) 1 ea MC PRN PRN PRN Reason: PROTOCOL Stop: 06/08/17 15:29 Phenytoin (Dilantin) 200 mg PO BID [facility] Stop: 06/06/17 08:59 Last Admin: 04/13/17 09:16 Dose: 200 mg Quetiapine Fumarate (Seroquel) 400 mg PO HS [facility] PRN Reason: Protocol Stop: 06/06/17 20:59 Last Admin: 04/12/17 21:38 Dose: 400 mg Quetiapine Fumarate (Seroquel) 200 mg PO DAILY [facility] Stop: 06/11/17 08:59 Last Admin: 04/13/17 09:16 Dose: 200 mg Trimethoprim/Sulfamethoxazole (Bactrim Ds) 1 tab PO BID [facility] Stop: 04/15/17 09:01 Last Admin: 04/13/17 09:16 Dose: 1 tab Valproate Sodium (Depakene) 250 mg PO TID [facility] PRN Reason: Protocol Stop: 06/11/17 20:59 Zolpidem Tartrate (Ambien) 5 mg PO HS PRN PRN Reason: Insomnia Stop: 06/06/17 01:06 Last Admin: 04/12/17 21:38 Dose: 5 mg General: demented HEENT: NC/AT, PERRLA, EOMI Neck: Supple, No JVD, No thyromegaly, No LAD Lungs: CTAB Cardiovascular: RRR, Normal S1, Normal S2, without murmur Abdomen: soft, non-tender, globular Extremities: excoriation, contracture Neurological: no change, disorganized, unsteady - Procedures Procedures: Procedures Procedure Code Date OTHER GROUP THERAPY 94.44 09/27/14 Internal Medicine Assmt/Plan - Assessment Assessment: Urinary tract infection with e.coli hypothyroidism hypercholesterolemia hypertension anemia with rheumatoid arthritis seizure - Plan Plan: seizure precautions continue current plan of care
--- NOTE | 2017-04-14 02:06 | Progress Notes ---
DATE: 04/13/2017 SUBJECTIVE: Staff was spoken to. The patient is interviewed. Mood is noted to be irritable. Affect is constricted. The patient is screaming at the top of her lungs saying that the people are trying to kill her. The patient has no insight into her illness. In view of the acute mood swings, the patient has been started on the Depakote 250 mg twice a day. The patient has been on Seroquel, which is being given at 200 mg in the morning and 400 mg at bedtime. The patient has been discontinued off of the Risperdal. Even with these medications, the patient is still having difficult time to calm down. No side effects to the medications are noted at this time. ASSESSMENT: The patient is still grossly psychotic and impulsive. PLAN: To continue the patient with the supportive therapy. I encouraged the patient to verbalize the concerns rather than to act out. JOB# [id number]
[2017-04-14] MEDS: Sulfamethoxazole/TMP 800/160mg Tab PO SCH ×2 (09:50→16:15)
[2017-04-14] MEDS: Lactobacillus Rhamnosus 10 Billion CFU Capsule PO SCH (09:51)
--- NOTE | 2017-04-14 12:20 | Internal Medicine Prog Note ---
Internal Medicine Subjective - Subjective Service Date: 04/14/17 Patient is:: awake, verbal, interactive, in bed, confused Per staff patient has:: no adverse event, no episodes of fall, poor appetite, noncompliant, tolerating meds Internal Medicine Objective - Results Result Diagrams: 04/06/17 21:50 04/06/17 21:16 Recent Labs: Laboratory Last Values WBC 5.4 Th/cmm (4.8-10.8) 04/06/17 21:50 RBC 4.50 Mil/cmm (3.80-5.10) 04/06/17 21:50 Hgb 13.7 gm/dL (-16) 04/06/17 21:50 Hct 40.7 % (41.0-60) L 04/06/17 21:50 MCV 90.4 fl (81-100) 04/06/17 21:50 MCH 30.5 pg (27.0-31.0) 04/06/17 21:50 MCHC Differential 33.8 pg (28.0-36.0) 04/06/17 21:50 RDW 12.2 % (11.5-20.0) 04/06/17 21:50 Plt Count 164 Th/cmm (150-400) 04/06/17 21:50 MPV 8.1 fl 04/06/17 21:50 Neutrophils % 57.1 % (40.0-80.0) 04/06/17 21:50 Lymphocytes % 31.7 % (20.0-50.0) 04/06/17 21:50 Monocytes % 9.2 % (2.0-10.0) 04/06/17 21:50 Eosinophils % 1.9 % (0.0-5.0) 04/06/17 21:50 Basophils % 0.1 % (0.0-2.0) 04/06/17 21:50 Sodium 138 mEq/L (136-145) 04/06/17 21:16 Potassium 4.0 mEq/L (3.5-5.1) 04/06/17 21:16 Chloride 107 mEq/L (98-107) 04/06/17 21:16 Carbon Dioxide 25.4 mEq/L (21.0-31.0) 04/06/17 21:16 Anion Gap 9.6 (7.0-16.0) 04/06/17 21:16 BUN 23 mg/dL (7-25) 04/06/17 21:16 Creatinine 1.0 mg/dL (0.6-1.2) 04/06/17 21:16 Est GFR ( Amer) > 60.0 ml/min (>90) 04/06/17 21:16 Est GFR (Non-Af Amer) > 60.0 ml/min 04/06/17 21:16 BUN/Creatinine Ratio 23.0 04/06/17 21:16 Glucose 90 mg/dL (70-105) 04/06/17 21:16 Hemoglobin A1c % 5.1 % (4.0-6.0) 04/06/17 21:50 Calcium 9.8 mg/dL (8.6-10.3) 04/06/17 21:16 Total Bilirubin 0.3 mg/dL (0.3-1.0) 04/06/17 21:16 AST 25 U/L (13-39) 04/06/17 21:16 ALT 18 U/L (7-52) 04/06/17 21:16 Alkaline Phosphatase 72 U/L (34-104) 04/06/17 21:16 Total Protein 7.7 gm/dL (6.0-8.3) 04/06/17 21:16 Albumin 4.2 gm/dL (3.7-5.3) 04/06/17 21:16 Globulin 3.5 gm/dL 04/06/17 21:16 Albumin/Globulin Ratio 1.2 (1.0-1.8) 04/06/17 21:16 TSH 0.81 uIU/ml (0.34-5.60) 04/06/17 21:16 Urine Source RANDOM 04/06/17 23:45 Urine Color YELLOW 04/06/17 23:45 Urine Clarity SLIGHT CLOUDY (CLEAR) 04/06/17 23:45 Urine pH 6.5 (4.6 - 8.0) 04/06/17 23:45 Ur Specific [place] 1.010 (1.005-1.030) 04/06/17 23:45 Urine Protein NEGATIVE mg/dL (NEGATIVE) 04/06/17 23:45 Urine Glucose (UA) NEGATIVE mg/dL (NEGATIVE) 04/06/17 23:45 Urine Ketones NEGATIVE mg/dL (NEGATIVE) 04/06/17 23:45 Urine Blood NEGATIVE (NEGATIVE) 04/06/17 23:45 Urine Nitrate POSITIVE (NEGATIVE) H 04/06/17 23:45 Urine Bilirubin NEGATIVE (NEGATIVE) 04/06/17 23:45 Urine Urobilinogen 0.2 E.U./dL (0.2 - 1.0) 04/06/17 23:45 Ur Leukocyte Esterase SMALL (NEGATIVE) H 04/06/17 23:45 Urine RBC 2-5 /hpf (0-5) 04/06/17 23:45 Urine WBC 25-50 /hpf (0-5) H 04/06/17 23:45 Ur Epithelial Cells OCCASIONAL /lpf (FEW) 04/06/17 23:45 Urine Bacteria 2+ /hpf (NONE SEEN) H 04/06/17 23:45 Urine Opiates Screen NEGATIVE (NEGATIVE) 04/06/17 23:45 Urine Methadone Screen NEGATIVE (NEGATIVE) 04/06/17 23:45 Ur Barbiturates Screen POSITIVE (NEGATIVE) H 04/06/17 23:45 Ur Tricyclics Screen POSITIVE (NEGATIVE) H 04/06/17 23:45 Ur Phencyclidine Scrn NEGATIVE (NEGATIVE) 04/06/17 23:45 Amphetamines Screen NEGATIVE (NEGATIVE) 04/06/17 23:45 U Methamphetamines Scrn NEGATIVE (NEGATIVE) 04/06/17 23:45 U Benzodiazepines Scrn POSITIVE (NEGATIVE) H 04/06/17 23:45 U Cocaine Metab Screen NEGATIVE (NEGATIVE) 04/06/17 23:45 U Cannabinoids Screen NEGATIVE (NEGATIVE) 04/06/17 23:45 - Physical Exam Vitals and I&O: Vital Signs Temp 98.0 F 04/14/17 06:23 Pulse 78 04/14/17 06:23 Resp 20 04/14/17 06:23 BP 121/80 04/14/17 06:23 Pulse Ox 97 04/14/17 06:23 Intake & Output 04/13/17 04/14/17 04/14/17 18:59 06:59 18:59 Intake Total 1040 Balance 1040 Intake: Oral 1040 Other: # Voids 1 # Bowel Movements 0 Active Medications: Current Medications Acetaminophen (Tylenol) 650 mg PO Q4HR PRN PRN Reason: Pain or Fever >101 Stop: 06/06/17 00:46 Al Hydrox/Mg Hydrox/Simethicone (Maalox) 30 ml PO Q6HR PRN PRN Reason: GI DISTRESS Stop: 06/06/17 00:46 Bisacodyl (Dulcolax 10 Mg Supp) 10 mg RC DAILY PRN PRN Reason: Constipation Stop: 06/06/17 00:46 Docusate Sodium (Colace) 100 mg PO BID COUNTS INCLUDE 234 BEDS AT [facility] Stop: 06/06/17 08:59 Last Admin: 04/14/17 09:51 Dose: 100 mg Lactobacillus Rhamnosus (Culturelle) 1 each PO DAILY COUNTS INCLUDE 234 BEDS AT THE [facility] Stop: 04/23/17 08:59 Last Admin: 04/14/17 09:51 Dose: 1 each Levetiracetam (Keppra) 500 mg PO BID COUNTS INCLUDE 234 BEDS AT [facility] Stop: 06/06/17 08:59 Last Admin: 04/14/17 09:50 Dose: 500 mg Levothyroxine Sodium 0.05 mg/ (Levothyroxine Sodium 0.1 mg) 0.15 mg PO QDAC COUNTS INCLUDE 234 BEDS AT [facility] Stop: 06/08/17 09:59 Last Admin: 04/14/17 09:27 Dose: Not Given Lorazepam (Ativan) 1 mg PO Q6H PRN; Protocol PRN Reason: Anxiety/Agitation Stop: 06/06/17 01:06 Last Admin: 04/14/17 06:38 Dose: 1 mg Magnesium Hydroxide (Milk Of Magnesia) 30 ml PO HS PRN PRN Reason: Constipation Stop: 06/06/17 00:46 Miscellaneous (Probiotic Screen) 1 ea MC PRN PRN PRN Reason: PROTOCOL Stop: 06/08/17 15:29 Phenytoin (Dilantin) 200 mg PO BID COUNTS INCLUDE 234 BEDS AT [facility] Stop: 06/06/17 08:59 Last Admin: 04/14/17 09:50 Dose: 200 mg Quetiapine Fumarate (Seroquel) 400 mg PO HS RAYA PRN Reason: Protocol Stop: 06/06/17 20:59 Last Admin: 04/13/17 21:34 Dose: 400 mg Quetiapine Fumarate (Seroquel) 200 mg PO DAILY COUNTS INCLUDE 234 BEDS AT [facility] Stop: 06/11/17 08:59 Last Admin: 04/14/17 09:51 Dose: 200 mg Trimethoprim/Sulfamethoxazole (Bactrim Ds) 1 tab PO BID COUNTS INCLUDE 234 BEDS AT [facility] Stop: 04/15/17 09:01 Last Admin: 04/14/17 09:50 Dose: 1 tab Valproate Sodium (Depakene) 250 mg PO TID RAYA PRN Reason: Protocol Stop: 06/11/17 20:59 Last Admin: 04/14/17 09:51 Dose: 250 mg Zolpidem Tartrate (Ambien) 5 mg PO HS PRN PRN Reason: Insomnia Stop: 06/06/17 01:06 Last Admin: 04/13/17 21:34 Dose: 5 mg General: demented HEENT: NC/AT, PERRLA, EOMI Neck: Supple, No JVD, No thyromegaly, No LAD Lungs: CTAB Cardiovascular: RRR, Normal S1, Normal S2, without murmur Abdomen: soft, non-tender, globular Extremities: excoriation, contracture Neurological: no change, disorganized, unsteady - Procedures Procedures: Procedures Procedure Code Date OTHER GROUP THERAPY 94.44 09/27/14 Internal Medicine Assmt/Plan - Assessment Assessment: Urinary tract infection with e.coli hypothyroidism hypercholesterolemia hypertension anemia with rheumatoid arthritis seizure - Plan Plan: seizure precautions continue current plan of care Nutritional Asmnt/Malnutr-PDOC - Dietary Evaluation Malnutrition Findings (Please click <Entered> for more info): Nutritional Asmnt/Malnutrition Start: 04/13/17 13: 41 Text: Status: Complete Freq: Document 04/13/17 13:41 LCHENG (Rec: 04/13/17 13:50 [email or web address]) Nutritional Asmnt/Malnutrition Patient General Information Nutritional Screening Moderate Risk Diagnosis psychosis, UTI Pertinent Medical Hx/Surgical Hx seizure disorder, HTN, hypercholesterolemia, colitis Subjective Information Per notes, PO intake mostly 75 -100%, refused x 2 meals. Current Diet Order/ Nutrition Support Regular Pertinent Medications culturelle, colace, levothyroxine, seroquel Pertinent Labs 04/06 Na 138, K 4.0, Cl 107, BUN 23, Cr 1.0, Glucose 90, A1c 5.1%, Ca 9.8, Alb 4.2 Nutritional Hx/Data Height 5 ft Height (Calculated Centimeters) 152.4 Current Weight (lbs) 150 lb Weight (Calculated Kilograms) 68.0 Weight (Calculated Grams) 78357.9 [place] Body Weight 100 % [place] Body Weight 150 Body Mass Index (BMI) 29.2 Weight Status Overweight GI Symptoms GI Symptoms None Difficult in: None Skin Integrity/Comment: intact Current %PO Good (75-100%) Estimated Nutritional Goals BEE in Kcals: Adj wt of IBW Calories/Kcals/Kg 30 Kcals Calculated 1530kcal based on adj wt 51kg Protein: Adj wt of IBW Protein g/k Protein Calculated 51g Fluid: ml 1530ml (30ml/kg) Nutritional Problem No current Nutrition Prob Problem no nutrition problem at this time Malnutrition Alert Protein-Calorie Malnutrition N/A Is there a minimum of two criteria No selected? Query Text:Check all the applicable criteria. A minimum of two criteria are recommended for diagnosis of either severe or non-severe malnutrition. Intervention/Recommendation Comments 1. Continue with current diet as ordered. 2. Monitor PO intake, wt weekly, labs and skin integrity 3. F/U as low risk in 7 days, 04/20 Expected Outcomes/Goals Expected Outcomes/Goals 1. PO intake to meet at least 75% of nutritional needs. 2. Wt stability, skin to remain intact, labs WNL.
[2017-04-14] MEDS ORDERED: Haloperidol Lactate 5 mg/mL 1mL Vial ONE (13:49)
[2017-04-14] MEDS ORDERED: Haloperidol Lactate 5 mg/mL 1mL Vial IM ONE (13:49)
--- NOTE | 2017-04-14 14:00 | Progress Notes ---
DATE: 04/14/2017 SUBJECTIVE: Staff was spoken to. The patient is interviewed. Mood is noted to be irritable. Affect is constricted. The patient's insight and judgment is still impaired. Impulse control seems to be poor. The patient is screaming and yelling. The patient has been having acute mood swings. No side effect to the medications are noted. The patient is going to be placed on 500 mg of Depakote and patient is going to be encouraged to verbalize the concerns rather than to act out. The patient is still very psychotic and patient is not ready to be discharged to a lower level of care yet. JOB# [id number]
[2017-04-15] MEDS: Sulfamethoxazole/TMP 800/160mg Tab PO SCH (09:25)
[2017-04-15] MEDS: Lactobacillus Rhamnosus 10 Billion CFU Capsule PO SCH (09:26)
--- NOTE | 2017-04-15 14:10 | Internal Medicine Prog Note ---
Internal Medicine Subjective - Subjective Service Date: 04/15/17 Patient is:: awake, verbal, interactive, in bed, confused Per staff patient has:: no adverse event, no episodes of fall, poor appetite, noncompliant, tolerating meds Internal Medicine Objective - Results Result Diagrams: 04/06/17 21:50 04/06/17 21:16 Recent Labs: Laboratory Last Values WBC 5.4 Th/cmm (4.8-10.8) 04/06/17 21:50 RBC 4.50 Mil/cmm (3.80-5.10) 04/06/17 21:50 Hgb 13.7 gm/dL (-16) 04/06/17 21:50 Hct 40.7 % (41.0-60) L 04/06/17 21:50 MCV 90.4 fl (81-100) 04/06/17 21:50 MCH 30.5 pg (27.0-31.0) 04/06/17 21:50 MCHC Differential 33.8 pg (28.0-36.0) 04/06/17 21:50 RDW 12.2 % (11.5-20.0) 04/06/17 21:50 Plt Count 164 Th/cmm (150-400) 04/06/17 21:50 MPV 8.1 fl 04/06/17 21:50 Neutrophils % 57.1 % (40.0-80.0) 04/06/17 21:50 Lymphocytes % 31.7 % (20.0-50.0) 04/06/17 21:50 Monocytes % 9.2 % (2.0-10.0) 04/06/17 21:50 Eosinophils % 1.9 % (0.0-5.0) 04/06/17 21:50 Basophils % 0.1 % (0.0-2.0) 04/06/17 21:50 Sodium 138 mEq/L (136-145) 04/06/17 21:16 Potassium 4.0 mEq/L (3.5-5.1) 04/06/17 21:16 Chloride 107 mEq/L (98-107) 04/06/17 21:16 Carbon Dioxide 25.4 mEq/L (21.0-31.0) 04/06/17 21:16 Anion Gap 9.6 (7.0-16.0) 04/06/17 21:16 BUN 23 mg/dL (7-25) 04/06/17 21:16 Creatinine 1.0 mg/dL (0.6-1.2) 04/06/17 21:16 Est GFR ( Amer) > 60.0 ml/min (>90) 04/06/17 21:16 Est GFR (Non-Af Amer) > 60.0 ml/min 04/06/17 21:16 BUN/Creatinine Ratio 23.0 04/06/17 21:16 Glucose 90 mg/dL (70-105) 04/06/17 21:16 Hemoglobin A1c % 5.1 % (4.0-6.0) 04/06/17 21:50 Calcium 9.8 mg/dL (8.6-10.3) 04/06/17 21:16 Total Bilirubin 0.3 mg/dL (0.3-1.0) 04/06/17 21:16 AST 25 U/L (13-39) 04/06/17 21:16 ALT 18 U/L (7-52) 04/06/17 21:16 Alkaline Phosphatase 72 U/L (34-104) 04/06/17 21:16 Total Protein 7.7 gm/dL (6.0-8.3) 04/06/17 21:16 Albumin 4.2 gm/dL (3.7-5.3) 04/06/17 21:16 Globulin 3.5 gm/dL 04/06/17 21:16 Albumin/Globulin Ratio 1.2 (1.0-1.8) 04/06/17 21:16 TSH 0.81 uIU/ml (0.34-5.60) 04/06/17 21:16 Urine Source RANDOM 04/06/17 23:45 Urine Color YELLOW 04/06/17 23:45 Urine Clarity SLIGHT CLOUDY (CLEAR) 04/06/17 23:45 Urine pH 6.5 (4.6 - 8.0) 04/06/17 23:45 Ur Specific [place] 1.010 (1.005-1.030) 04/06/17 23:45 Urine Protein NEGATIVE mg/dL (NEGATIVE) 04/06/17 23:45 Urine Glucose (UA) NEGATIVE mg/dL (NEGATIVE) 04/06/17 23:45 Urine Ketones NEGATIVE mg/dL (NEGATIVE) 04/06/17 23:45 Urine Blood NEGATIVE (NEGATIVE) 04/06/17 23:45 Urine Nitrate POSITIVE (NEGATIVE) H 04/06/17 23:45 Urine Bilirubin NEGATIVE (NEGATIVE) 04/06/17 23:45 Urine Urobilinogen 0.2 E.U./dL (0.2 - 1.0) 04/06/17 23:45 Ur Leukocyte Esterase SMALL (NEGATIVE) H 04/06/17 23:45 Urine RBC 2-5 /hpf (0-5) 04/06/17 23:45 Urine WBC 25-50 /hpf (0-5) H 04/06/17 23:45 Ur Epithelial Cells OCCASIONAL /lpf (FEW) 04/06/17 23:45 Urine Bacteria 2+ /hpf (NONE SEEN) H 04/06/17 23:45 Urine Opiates Screen NEGATIVE (NEGATIVE) 04/06/17 23:45 Urine Methadone Screen NEGATIVE (NEGATIVE) 04/06/17 23:45 Ur Barbiturates Screen POSITIVE (NEGATIVE) H 04/06/17 23:45 Ur Tricyclics Screen POSITIVE (NEGATIVE) H 04/06/17 23:45 Ur Phencyclidine Scrn NEGATIVE (NEGATIVE) 04/06/17 23:45 Amphetamines Screen NEGATIVE (NEGATIVE) 04/06/17 23:45 U Methamphetamines Scrn NEGATIVE (NEGATIVE) 04/06/17 23:45 U Benzodiazepines Scrn POSITIVE (NEGATIVE) H 04/06/17 23:45 U Cocaine Metab Screen NEGATIVE (NEGATIVE) 04/06/17 23:45 U Cannabinoids Screen NEGATIVE (NEGATIVE) 04/06/17 23:45 - Physical Exam Vitals and I&O: Vital Signs Temp 98 F 04/15/17 06:28 Pulse 73 04/15/17 06:28 Resp 19 04/15/17 06:28 BP 120/87 04/15/17 06:28 Pulse Ox 98 04/15/17 06:28 Intake & Output 04/14/17 04/15/17 04/15/17 18:59 06:59 18:59 Intake Total 900 360 Balance 900 360 Intake: Oral 900 360 Other: # Voids 4 1 # Bowel Movements 1 Active Medications: Current Medications Acetaminophen (Tylenol) 650 mg PO Q4HR PRN PRN Reason: Pain or Fever >101 Stop: 06/06/17 00:46 Al Hydrox/Mg Hydrox/Simethicone (Maalox) 30 ml PO Q6HR PRN PRN Reason: GI DISTRESS Stop: 06/06/17 00:46 Bisacodyl (Dulcolax 10 Mg Supp) 10 mg RC DAILY PRN PRN Reason: Constipation Stop: 06/06/17 00:46 Docusate Sodium (Colace) 100 mg PO BID RAYA Stop: 06/06/17 08:59 Last Admin: 04/15/17 09:30 Dose: Not Given Lactobacillus Rhamnosus (Culturelle) 1 each PO DAILY RAYA Stop: 04/23/17 08:59 Last Admin: 04/15/17 09:26 Dose: 1 each Levetiracetam (Keppra) 500 mg PO BID RAYA Stop: 06/06/17 08:59 Last Admin: 04/15/17 09:26 Dose: 500 mg Levothyroxine Sodium 0.05 mg/ (Levothyroxine Sodium 0.1 mg) 0.15 mg PO QDAC RAYA Stop: 06/08/17 09:59 Last Admin: 04/15/17 06:30 Dose: 0.15 mg Lorazepam (Ativan) 1 mg PO Q6H PRN; Protocol PRN Reason: Anxiety/Agitation Stop: 06/06/17 01:06 Last Admin: 04/15/17 06:30 Dose: 1 mg Magnesium Hydroxide (Milk Of Magnesia) 30 ml PO HS PRN PRN Reason: Constipation Stop: 06/06/17 00:46 Miscellaneous (Probiotic Screen) 1 ea MC PRN PRN PRN Reason: PROTOCOL Stop: 06/08/17 15:29 Phenytoin (Dilantin) 200 mg PO BID [facility] Stop: 06/06/17 08:59 Last Admin: 04/15/17 09:26 Dose: 200 mg Quetiapine Fumarate (Seroquel) 400 mg PO HS RAYA PRN Reason: Protocol Stop: 06/06/17 20:59 Last Admin: 04/14/17 21:09 Dose: 400 mg Quetiapine Fumarate (Seroquel) 300 mg PO DAILY [facility] Stop: 06/11/17 12:29 Valproate Sodium (Depakene) 500 mg PO BID RAYA PRN Reason: Protocol Stop: 06/13/17 16:59 Last Admin: 04/15/17 09:30 Dose: Not Given Zolpidem Tartrate (Ambien) 5 mg PO HS PRN PRN Reason: Insomnia Stop: 06/06/17 01:06 Last Admin: 04/14/17 21:09 Dose: 5 mg General: demented HEENT: NC/AT, PERRLA, EOMI Neck: Supple, No JVD, No thyromegaly, No LAD Lungs: CTAB Cardiovascular: RRR, Normal S1, Normal S2, without murmur Abdomen: soft, non-tender, globular Extremities: excoriation, contracture Neurological: no change, disorganized, unsteady - Procedures Procedures: Procedures Procedure Code Date OTHER GROUP THERAPY 94.44 09/27/14 Internal Medicine Assmt/Plan - Assessment Assessment: Urinary tract infection with e.coli hypothyroidism hypercholesterolemia hypertension anemia with rheumatoid arthritis seizure - Plan Plan: seizure precautions continue current plan of care Nutritional Asmnt/Malnutr-PDOC - Dietary Evaluation Malnutrition Findings (Please click <Entered> for more info): Nutritional Asmnt/Malnutrition Start: 04/13/17 13: 41 Text: Status: Complete Freq: Document 04/13/17 13:41 LCHENG (Rec: 04/13/17 13:50 [email or web address] [email or web address]) Nutritional Asmnt/Malnutrition Patient General Information Nutritional Screening Moderate Risk Diagnosis psychosis, UTI Pertinent Medical Hx/Surgical Hx seizure disorder, HTN, hypercholesterolemia, colitis Subjective Information Per notes, PO intake mostly 75 -100%, refused x 2 meals. Current Diet Order/ Nutrition Support Regular Pertinent Medications culturelle, colace, levothyroxine, seroquel Pertinent Labs 04/06 Na 138, K 4.0, Cl 107, BUN 23, Cr 1.0, Glucose 90, A1c 5.1%, Ca 9.8, Alb 4.2 Nutritional Hx/Data Height 5 ft Height (Calculated Centimeters) 152.4 Current Weight (lbs) 150 lb Weight (Calculated Kilograms) 68.0 Weight (Calculated Grams) 90898.9 [place] Body Weight 100 % [place] Body Weight 150 Body Mass Index (BMI) 29.2 Weight Status Overweight GI Symptoms GI Symptoms None Difficult in: None Skin Integrity/Comment: intact Current %PO Good (75-100%) Estimated Nutritional Goals BEE in Kcals: Adj wt of IBW Calories/Kcals/Kg 30 Kcals Calculated 1530kcal based on adj wt 51kg Protein: Adj wt of IBW Protein g/k Protein Calculated 51g Fluid: ml 1530ml (30ml/kg) Nutritional Problem No current Nutrition Prob Problem no nutrition problem at this time Malnutrition Alert Protein-Calorie Malnutrition N/A Is there a minimum of two criteria No selected? Query Text:Check all the applicable criteria. A minimum of two criteria are recommended for diagnosis of either severe or non-severe malnutrition. Intervention/Recommendation Comments 1. Continue with current diet as ordered. 2. Monitor PO intake, wt weekly, labs and skin integrity 3. F/U as low risk in 7 days, 04/20 Expected Outcomes/Goals Expected Outcomes/Goals 1. PO intake to meet at least 75% of nutritional needs. 2. Wt stability, skin to remain intact, labs WNL.
[2017-04-15] MEDS ORDERED: Haloperidol Lactate 5 mg/mL 1mL Vial IM ONE (18:00)
[2017-04-15] MEDS ORDERED: Haloperidol Lactate 5 mg/mL 1mL Vial ONE (18:14)
--- NOTE | 2017-04-15 19:27 | Progress Notes ---
DATE: 04/15/2017 SUBJECTIVE: Staff was spoken to. The patient is interviewed. Mood is noted to be irritable. Affect is constricted. The patient is screaming and yelling at this time and the patient has no insight into her illness. The patient has been very disruptive and when she does not get her way she is screaming at the top of her lungs. The patient at this time is on 600 mg of Seroquel. I am planning to increase it to 300 mg in the morning and 400 mg at bedtime and the patient is going to be closely monitored. ASSESSMENT: The patient is still grossly psychotic and impulsive. PLAN: To continue the patient with the supportive therapy and followup. JOB# [id number]
[2017-04-16] MEDS: Lactobacillus Rhamnosus 10 Billion CFU Capsule PO SCH (09:24)
--- NOTE | 2017-04-16 11:44 | Internal Medicine Prog Note ---
Internal Medicine Subjective - Subjective Service Date: 04/16/17 Patient is:: awake, verbal, interactive, in bed, confused Per staff patient has:: no adverse event, no episodes of fall, poor appetite, noncompliant, tolerating meds Internal Medicine Objective - Results Result Diagrams: 04/06/17 21:50 04/06/17 21:16 Recent Labs: Laboratory Last Values WBC 5.4 Th/cmm (4.8-10.8) 04/06/17 21:50 RBC 4.50 Mil/cmm (3.80-5.10) 04/06/17 21:50 Hgb 13.7 gm/dL (-16) 04/06/17 21:50 Hct 40.7 % (41.0-60) L 04/06/17 21:50 MCV 90.4 fl (81-100) 04/06/17 21:50 MCH 30.5 pg (27.0-31.0) 04/06/17 21:50 MCHC Differential 33.8 pg (28.0-36.0) 04/06/17 21:50 RDW 12.2 % (11.5-20.0) 04/06/17 21:50 Plt Count 164 Th/cmm (150-400) 04/06/17 21:50 MPV 8.1 fl 04/06/17 21:50 Neutrophils % 57.1 % (40.0-80.0) 04/06/17 21:50 Lymphocytes % 31.7 % (20.0-50.0) 04/06/17 21:50 Monocytes % 9.2 % (2.0-10.0) 04/06/17 21:50 Eosinophils % 1.9 % (0.0-5.0) 04/06/17 21:50 Basophils % 0.1 % (0.0-2.0) 04/06/17 21:50 Sodium 138 mEq/L (136-145) 04/06/17 21:16 Potassium 4.0 mEq/L (3.5-5.1) 04/06/17 21:16 Chloride 107 mEq/L (98-107) 04/06/17 21:16 Carbon Dioxide 25.4 mEq/L (21.0-31.0) 04/06/17 21:16 Anion Gap 9.6 (7.0-16.0) 04/06/17 21:16 BUN 23 mg/dL (7-25) 04/06/17 21:16 Creatinine 1.0 mg/dL (0.6-1.2) 04/06/17 21:16 Est GFR ( Amer) > 60.0 ml/min (>90) 04/06/17 21:16 Est GFR (Non-Af Amer) > 60.0 ml/min 04/06/17 21:16 BUN/Creatinine Ratio 23.0 04/06/17 21:16 Glucose 90 mg/dL (70-105) 04/06/17 21:16 Hemoglobin A1c % 5.1 % (4.0-6.0) 04/06/17 21:50 Calcium 9.8 mg/dL (8.6-10.3) 04/06/17 21:16 Total Bilirubin 0.3 mg/dL (0.3-1.0) 04/06/17 21:16 AST 25 U/L (13-39) 04/06/17 21:16 ALT 18 U/L (7-52) 04/06/17 21:16 Alkaline Phosphatase 72 U/L (34-104) 04/06/17 21:16 Total Protein 7.7 gm/dL (6.0-8.3) 04/06/17 21:16 Albumin 4.2 gm/dL (3.7-5.3) 04/06/17 21:16 Globulin 3.5 gm/dL 04/06/17 21:16 Albumin/Globulin Ratio 1.2 (1.0-1.8) 04/06/17 21:16 TSH 0.81 uIU/ml (0.34-5.60) 04/06/17 21:16 Urine Source RANDOM 04/06/17 23:45 Urine Color YELLOW 04/06/17 23:45 Urine Clarity SLIGHT CLOUDY (CLEAR) 04/06/17 23:45 Urine pH 6.5 (4.6 - 8.0) 04/06/17 23:45 Ur Specific [place] 1.010 (1.005-1.030) 04/06/17 23:45 Urine Protein NEGATIVE mg/dL (NEGATIVE) 04/06/17 23:45 Urine Glucose (UA) NEGATIVE mg/dL (NEGATIVE) 04/06/17 23:45 Urine Ketones NEGATIVE mg/dL (NEGATIVE) 04/06/17 23:45 Urine Blood NEGATIVE (NEGATIVE) 04/06/17 23:45 Urine Nitrate POSITIVE (NEGATIVE) H 04/06/17 23:45 Urine Bilirubin NEGATIVE (NEGATIVE) 04/06/17 23:45 Urine Urobilinogen 0.2 E.U./dL (0.2 - 1.0) 04/06/17 23:45 Ur Leukocyte Esterase SMALL (NEGATIVE) H 04/06/17 23:45 Urine RBC 2-5 /hpf (0-5) 04/06/17 23:45 Urine WBC 25-50 /hpf (0-5) H 04/06/17 23:45 Ur Epithelial Cells OCCASIONAL /lpf (FEW) 04/06/17 23:45 Urine Bacteria 2+ /hpf (NONE SEEN) H 04/06/17 23:45 Urine Opiates Screen NEGATIVE (NEGATIVE) 04/06/17 23:45 Urine Methadone Screen NEGATIVE (NEGATIVE) 04/06/17 23:45 Ur Barbiturates Screen POSITIVE (NEGATIVE) H 04/06/17 23:45 Ur Tricyclics Screen POSITIVE (NEGATIVE) H 04/06/17 23:45 Ur Phencyclidine Scrn NEGATIVE (NEGATIVE) 04/06/17 23:45 Amphetamines Screen NEGATIVE (NEGATIVE) 04/06/17 23:45 U Methamphetamines Scrn NEGATIVE (NEGATIVE) 04/06/17 23:45 U Benzodiazepines Scrn POSITIVE (NEGATIVE) H 04/06/17 23:45 U Cocaine Metab Screen NEGATIVE (NEGATIVE) 04/06/17 23:45 U Cannabinoids Screen NEGATIVE (NEGATIVE) 04/06/17 23:45 - Physical Exam Vitals and I&O: Vital Signs Temp 97.3 F 04/16/17 06:48 Pulse 70 04/16/17 06:48 Resp 20 04/16/17 06:48 BP 113/82 04/16/17 06:48 Pulse Ox 99 04/16/17 06:48 Intake & Output 04/15/17 04/16/17 04/16/17 18:59 06:59 18:59 Intake Total 900 240 Balance 900 240 Intake: Oral 900 240 Other: # Voids 4 1 # Bowel Movements 1 Active Medications: Current Medications Acetaminophen (Tylenol) 650 mg PO Q4HR PRN PRN Reason: Pain or Fever >101 Stop: 06/06/17 00:46 Al Hydrox/Mg Hydrox/Simethicone (Maalox) 30 ml PO Q6HR PRN PRN Reason: GI DISTRESS Stop: 06/06/17 00:46 Bisacodyl (Dulcolax 10 Mg Supp) 10 mg RC DAILY PRN PRN Reason: Constipation Stop: 06/06/17 00:46 Docusate Sodium (Colace) 100 mg PO BID RAYA Stop: 06/06/17 08:59 Last Admin: 04/16/17 09:24 Dose: 100 mg Lactobacillus Rhamnosus (Culturelle) 1 each PO DAILY RAYA Stop: 04/23/17 08:59 Last Admin: 04/16/17 09:24 Dose: 1 each Levetiracetam (Keppra) 500 mg PO BID RAYA Stop: 06/06/17 08:59 Last Admin: 04/16/17 09:24 Dose: 500 mg Levothyroxine Sodium 0.05 mg/ (Levothyroxine Sodium 0.1 mg) 0.15 mg PO QDAC [facility] Stop: 06/08/17 09:59 Last Admin: 04/16/17 06:53 Dose: 0.15 mg Lorazepam (Ativan) 1 mg PO Q6H PRN; Protocol PRN Reason: Anxiety/Agitation Stop: 06/06/17 01:06 Last Admin: 04/16/17 06:53 Dose: 1 mg Magnesium Hydroxide (Milk Of Magnesia) 30 ml PO HS PRN PRN Reason: Constipation Stop: 06/06/17 00:46 Miscellaneous (Probiotic Screen) 1 ea MC PRN PRN PRN Reason: PROTOCOL Stop: 06/08/17 15:29 Phenytoin (Dilantin) 200 mg PO BID [facility] Stop: 06/06/17 08:59 Last Admin: 04/16/17 09:24 Dose: 200 mg Quetiapine Fumarate (Seroquel) 400 mg PO HS RAYA PRN Reason: Protocol Stop: 06/06/17 20:59 Last Admin: 04/15/17 21:20 Dose: 400 mg Quetiapine Fumarate (Seroquel) 400 mg PO DAILY [facility] Stop: 06/15/17 10:58 Valproate Sodium (Depakene) 500 mg PO BID RAYA PRN Reason: Protocol Stop: 06/13/17 16:59 Last Admin: 04/16/17 09:25 Dose: 500 mg Zolpidem Tartrate (Ambien) 5 mg PO HS PRN PRN Reason: Insomnia Stop: 06/06/17 01:06 Last Admin: 04/15/17 21:20 Dose: 5 mg General: demented HEENT: NC/AT, PERRLA, EOMI Neck: Supple, No JVD, No thyromegaly, No LAD Lungs: CTAB Cardiovascular: RRR, Normal S1, Normal S2, without murmur Abdomen: soft, non-tender, globular Extremities: excoriation, contracture Neurological: no change, disorganized, unsteady - Procedures Procedures: Procedures Procedure Code Date OTHER GROUP THERAPY 94.44 09/27/14 Internal Medicine Assmt/Plan - Assessment Assessment: Urinary tract infection with e.coli hypothyroidism hypercholesterolemia hypertension anemia with rheumatoid arthritis seizure - Plan Plan: seizure precautions continue current plan of care Nutritional Asmnt/Malnutr-PDOC - Dietary Evaluation Malnutrition Findings (Please click <Entered> for more info): Nutritional Asmnt/Malnutrition Start: 04/13/17 13: 41 Text: Status: Complete Freq: Document 04/13/17 13:41 LCHENG (Rec: 04/13/17 13:50 [email or web address]) Nutritional Asmnt/Malnutrition Patient General Information Nutritional Screening Moderate Risk Diagnosis psychosis, UTI Pertinent Medical Hx/Surgical Hx seizure disorder, HTN, hypercholesterolemia, colitis Subjective Information Per notes, PO intake mostly 75 -100%, refused x 2 meals. Current Diet Order/ Nutrition Support Regular Pertinent Medications culturelle, colace, levothyroxine, seroquel Pertinent Labs 04/06 Na 138, K 4.0, Cl 107, BUN 23, Cr 1.0, Glucose 90, A1c 5.1%, Ca 9.8, Alb 4.2 Nutritional Hx/Data Height 5 ft Height (Calculated Centimeters) 152.4 Current Weight (lbs) 150 lb Weight (Calculated Kilograms) 68.0 Weight (Calculated Grams) 90404.9 [place] Body Weight 100 % [place] Body Weight 150 Body Mass Index (BMI) 29.2 Weight Status Overweight GI Symptoms GI Symptoms None Difficult in: None Skin Integrity/Comment: intact Current %PO Good (75-100%) Estimated Nutritional Goals BEE in Kcals: Adj wt of IBW Calories/Kcals/Kg 30 Kcals Calculated 1530kcal based on adj wt 51kg Protein: Adj wt of IBW Protein g/k Protein Calculated 51g Fluid: ml 1530ml (30ml/kg) Nutritional Problem No current Nutrition Prob Problem no nutrition problem at this time Malnutrition Alert Protein-Calorie Malnutrition N/A Is there a minimum of two criteria No selected? Query Text:Check all the applicable criteria. A minimum of two criteria are recommended for diagnosis of either severe or non-severe malnutrition. Intervention/Recommendation Comments 1. Continue with current diet as ordered. 2. Monitor PO intake, wt weekly, labs and skin integrity 3. F/U as low risk in 7 days, 04/20 Expected Outcomes/Goals Expected Outcomes/Goals 1. PO intake to meet at least 75% of nutritional needs. 2. Wt stability, skin to remain intact, labs WNL.
--- NOTE | 2017-04-16 18:59 | Progress Notes ---
DATE: 04/16/2017 SUBJECTIVE: Staff was spoken to. The patient is interviewed. Mood is noted to be irritable. Affect is constricted. The patient has been still yelling and screaming. The patient is currently on Seroquel, which is being given at 300 mg in the morning and 400 mg at bedtime. The patient is also on valproic acid 500 mg b.i.d. and in view of the patient's out of control behavior, it is decided to up the dose on the Seroquel to 400 mg twice a day, and continue the Depakote, and follow the patient with the supportive therapy and followup. JOB# [id number]
[2017-04-17] MEDS: Lactobacillus Rhamnosus 10 Billion CFU Capsule PO SCH (08:15)
--- NOTE | 2017-04-17 12:52 | Internal Medicine Prog Note ---
Internal Medicine Subjective - Subjective Service Date: 04/17/17 Patient is:: awake, verbal, interactive, in bed, confused Per staff patient has:: no adverse event, no episodes of fall, poor appetite, noncompliant, tolerating meds Internal Medicine Objective - Results Result Diagrams: 04/06/17 21:50 04/06/17 21:16 Recent Labs: Laboratory Last Values WBC 5.4 Th/cmm (4.8-10.8) 04/06/17 21:50 RBC 4.50 Mil/cmm (3.80-5.10) 04/06/17 21:50 Hgb 13.7 gm/dL (-16) 04/06/17 21:50 Hct 40.7 % (41.0-60) L 04/06/17 21:50 MCV 90.4 fl (81-100) 04/06/17 21:50 MCH 30.5 pg (27.0-31.0) 04/06/17 21:50 MCHC Differential 33.8 pg (28.0-36.0) 04/06/17 21:50 RDW 12.2 % (11.5-20.0) 04/06/17 21:50 Plt Count 164 Th/cmm (150-400) 04/06/17 21:50 MPV 8.1 fl 04/06/17 21:50 Neutrophils % 57.1 % (40.0-80.0) 04/06/17 21:50 Lymphocytes % 31.7 % (20.0-50.0) 04/06/17 21:50 Monocytes % 9.2 % (2.0-10.0) 04/06/17 21:50 Eosinophils % 1.9 % (0.0-5.0) 04/06/17 21:50 Basophils % 0.1 % (0.0-2.0) 04/06/17 21:50 Sodium 138 mEq/L (136-145) 04/06/17 21:16 Potassium 4.0 mEq/L (3.5-5.1) 04/06/17 21:16 Chloride 107 mEq/L (98-107) 04/06/17 21:16 Carbon Dioxide 25.4 mEq/L (21.0-31.0) 04/06/17 21:16 Anion Gap 9.6 (7.0-16.0) 04/06/17 21:16 BUN 23 mg/dL (7-25) 04/06/17 21:16 Creatinine 1.0 mg/dL (0.6-1.2) 04/06/17 21:16 Est GFR ( Amer) > 60.0 ml/min (>90) 04/06/17 21:16 Est GFR (Non-Af Amer) > 60.0 ml/min 04/06/17 21:16 BUN/Creatinine Ratio 23.0 04/06/17 21:16 Glucose 90 mg/dL (70-105) 04/06/17 21:16 Hemoglobin A1c % 5.1 % (4.0-6.0) 04/06/17 21:50 Calcium 9.8 mg/dL (8.6-10.3) 04/06/17 21:16 Total Bilirubin 0.3 mg/dL (0.3-1.0) 04/06/17 21:16 AST 25 U/L (13-39) 04/06/17 21:16 ALT 18 U/L (7-52) 04/06/17 21:16 Alkaline Phosphatase 72 U/L (34-104) 04/06/17 21:16 Total Protein 7.7 gm/dL (6.0-8.3) 04/06/17 21:16 Albumin 4.2 gm/dL (3.7-5.3) 04/06/17 21:16 Globulin 3.5 gm/dL 04/06/17 21:16 Albumin/Globulin Ratio 1.2 (1.0-1.8) 04/06/17 21:16 TSH 0.81 uIU/ml (0.34-5.60) 04/06/17 21:16 Urine Source RANDOM 04/06/17 23:45 Urine Color YELLOW 04/06/17 23:45 Urine Clarity SLIGHT CLOUDY (CLEAR) 04/06/17 23:45 Urine pH 6.5 (4.6 - 8.0) 04/06/17 23:45 Ur Specific [place] 1.010 (1.005-1.030) 04/06/17 23:45 Urine Protein NEGATIVE mg/dL (NEGATIVE) 04/06/17 23:45 Urine Glucose (UA) NEGATIVE mg/dL (NEGATIVE) 04/06/17 23:45 Urine Ketones NEGATIVE mg/dL (NEGATIVE) 04/06/17 23:45 Urine Blood NEGATIVE (NEGATIVE) 04/06/17 23:45 Urine Nitrate POSITIVE (NEGATIVE) H 04/06/17 23:45 Urine Bilirubin NEGATIVE (NEGATIVE) 04/06/17 23:45 Urine Urobilinogen 0.2 E.U./dL (0.2 - 1.0) 04/06/17 23:45 Ur Leukocyte Esterase SMALL (NEGATIVE) H 04/06/17 23:45 Urine RBC 2-5 /hpf (0-5) 04/06/17 23:45 Urine WBC 25-50 /hpf (0-5) H 04/06/17 23:45 Ur Epithelial Cells OCCASIONAL /lpf (FEW) 04/06/17 23:45 Urine Bacteria 2+ /hpf (NONE SEEN) H 04/06/17 23:45 Urine Opiates Screen NEGATIVE (NEGATIVE) 04/06/17 23:45 Urine Methadone Screen NEGATIVE (NEGATIVE) 04/06/17 23:45 Ur Barbiturates Screen POSITIVE (NEGATIVE) H 04/06/17 23:45 Valproic Acid 28.3 ug/mL (50.0-100.0) L 04/17/17 07:25 Ur Tricyclics Screen POSITIVE (NEGATIVE) H 04/06/17 23:45 Ur Phencyclidine Scrn NEGATIVE (NEGATIVE) 04/06/17 23:45 Amphetamines Screen NEGATIVE (NEGATIVE) 04/06/17 23:45 U Methamphetamines Scrn NEGATIVE (NEGATIVE) 04/06/17 23:45 U Benzodiazepines Scrn POSITIVE (NEGATIVE) H 04/06/17 23:45 U Cocaine Metab Screen NEGATIVE (NEGATIVE) 04/06/17 23:45 U Cannabinoids Screen NEGATIVE (NEGATIVE) 04/06/17 23:45 - Physical Exam Vitals and I&O: Vital Signs Temp 97.9 F 04/17/17 06:14 Pulse 89 04/17/17 06:14 Resp 19 04/17/17 06:14 BP 101/71 04/17/17 06:14 Pulse Ox 94 04/17/17 06:14 Intake & Output 04/16/17 04/17/17 04/17/17 18:59 06:59 18:59 Intake Total 1160 Balance 1160 Intake: Oral 1160 Other: # Voids 1 # Bowel Movements 0 Active Medications: Current Medications Acetaminophen (Tylenol) 650 mg PO Q4HR PRN PRN Reason: Pain or Fever >101 Stop: 06/06/17 00:46 Al Hydrox/Mg Hydrox/Simethicone (Maalox) 30 ml PO Q6HR PRN PRN Reason: GI DISTRESS Stop: 06/06/17 00:46 Bisacodyl (Dulcolax 10 Mg Supp) 10 mg RC DAILY PRN PRN Reason: Constipation Stop: 06/06/17 00:46 Docusate Sodium (Colace) 100 mg PO BID RAYA Stop: 06/06/17 08:59 Last Admin: 04/17/17 08:15 Dose: 100 mg Lactobacillus Rhamnosus (Culturelle) 1 each PO DAILY RAYA Stop: 04/23/17 08:59 Last Admin: 04/17/17 08:15 Dose: 1 each Levetiracetam (Keppra) 500 mg PO BID RAYA Stop: 06/06/17 08:59 Last Admin: 04/17/17 08:15 Dose: 500 mg Levothyroxine Sodium 0.05 mg/ (Levothyroxine Sodium 0.1 mg) 0.15 mg PO QDAC RAYA Stop: 06/08/17 09:59 Last Admin: 04/17/17 06:50 Dose: 0.15 mg Lorazepam (Ativan) 1 mg PO Q6H PRN; Protocol PRN Reason: Anxiety/Agitation Stop: 06/06/17 01:06 Last Admin: 04/17/17 08:16 Dose: 1 mg Magnesium Hydroxide (Milk Of Magnesia) 30 ml PO HS PRN PRN Reason: Constipation Stop: 06/06/17 00:46 Miscellaneous (Probiotic Screen) 1 ea MC PRN PRN PRN Reason: PROTOCOL Stop: 06/08/17 15:29 Phenytoin (Dilantin) 200 mg PO BID RAYA Stop: 06/06/17 08:59 Last Admin: 04/17/17 08:16 Dose: 200 mg Quetiapine Fumarate (Seroquel) 400 mg PO HS RAYA PRN Reason: Protocol Stop: 06/06/17 20:59 Last Admin: 04/16/17 20:50 Dose: 400 mg Quetiapine Fumarate (Seroquel) 400 mg PO DAILY [facility] Stop: 06/15/17 10:58 Last Admin: 04/17/17 08:16 Dose: 400 mg Valproate Sodium (Depakene) 500 mg PO BID RAYA PRN Reason: Protocol Stop: 06/13/17 16:59 Last Admin: 04/17/17 08:16 Dose: 500 mg Zolpidem Tartrate (Ambien) 5 mg PO HS PRN PRN Reason: Insomnia Stop: 06/06/17 01:06 Last Admin: 04/15/17 21:20 Dose: 5 mg General: demented HEENT: NC/AT, PERRLA, EOMI Neck: Supple, No JVD, No thyromegaly, No LAD Lungs: CTAB Cardiovascular: RRR, Normal S1, Normal S2, without murmur Abdomen: soft, non-tender, globular Extremities: excoriation, contracture Neurological: no change, disorganized, unsteady - Procedures Procedures: Procedures Procedure Code Date OTHER GROUP THERAPY 94.44 09/27/14 Internal Medicine Assmt/Plan - Assessment Assessment: Urinary tract infection with e.coli hypothyroidism hypercholesterolemia hypertension anemia with rheumatoid arthritis seizure - Plan Plan: seizure precautions continue current plan of care Nutritional Asmnt/Malnutr-PDOC - Dietary Evaluation Malnutrition Findings (Please click <Entered> for more info): Nutritional Asmnt/Malnutrition Start: 04/13/17 13: 41 Text: Status: Complete Freq: Document 04/13/17 13:41 [email or web address] (Rec: 04/13/17 13:50 [email or web address]) Nutritional Asmnt/Malnutrition Patient General Information Nutritional Screening Moderate Risk Diagnosis psychosis, UTI Pertinent Medical Hx/Surgical Hx seizure disorder, HTN, hypercholesterolemia, colitis Subjective Information Per notes, PO intake mostly 75 -100%, refused x 2 meals. Current Diet Order/ Nutrition Support Regular Pertinent Medications culturelle, colace, levothyroxine, seroquel Pertinent Labs 04/06 Na 138, K 4.0, Cl 107, BUN 23, Cr 1.0, Glucose 90, A1c 5.1%, Ca 9.8, Alb 4.2 Nutritional Hx/Data Height 5 ft Height (Calculated Centimeters) 152.4 Current Weight (lbs) 150 lb Weight (Calculated Kilograms) 68.0 Weight (Calculated Grams) 05433.9 [place] Body Weight 100 % [place] Body Weight 150 Body Mass Index (BMI) 29.2 Weight Status Overweight GI Symptoms GI Symptoms None Difficult in: None Skin Integrity/Comment: intact Current %PO Good (75-100%) Estimated Nutritional Goals BEE in Kcals: Adj wt of IBW Calories/Kcals/Kg 30 Kcals Calculated 1530kcal based on adj wt 51kg Protein: Adj wt of IBW Protein g/k Protein Calculated 51g Fluid: ml 1530ml (30ml/kg) Nutritional Problem No current Nutrition Prob Problem no nutrition problem at this time Malnutrition Alert Protein-Calorie Malnutrition N/A Is there a minimum of two criteria No selected? Query Text:Check all the applicable criteria. A minimum of two criteria are recommended for diagnosis of either severe or non-severe malnutrition. Intervention/Recommendation Comments 1. Continue with current diet as ordered. 2. Monitor PO intake, wt weekly, labs and skin integrity 3. F/U as low risk in 7 days, 04/20 Expected Outcomes/Goals Expected Outcomes/Goals 1. PO intake to meet at least 75% of nutritional needs. 2. Wt stability, skin to remain intact, labs WNL.
--- NOTE | 2017-04-17 16:00 | Progress Notes ---
DATE: 04/17/2017 TIME PATIENT SEEN: Staff was spoken to. The patient is interviewed. Mood is noted to be irritable. Affect is constricted. The patient's coping skills are noted to be very poor at this time. The patient has been screaming and yelling and has been difficult to redirect her. The patient is currently on Seroquel and has been able to tolerate the medication. ASSESSMENT: The patient is still psychotic and has been displaying acute mood swings. PLAN: To continue the patient with the current medications and followup. JOB# [id number]
[2017-04-18] MEDS: Lactobacillus Rhamnosus GG 15 Billion CFU CAP.SPRINK PO SCH (08:26)
--- NOTE | 2017-04-18 13:07 | Internal Medicine Prog Note ---
Internal Medicine Subjective - Subjective Patient seen and examined:: with staff, chart reviewed Patient is:: awake, verbal, interactive, in bed, confused Per staff patient has:: no adverse event, no episodes of fall, poor appetite, noncompliant, tolerating meds Internal Medicine Objective - Results Result Diagrams: 04/06/17 21:50 04/06/17 21:16 Recent Labs: Laboratory Last Values WBC 5.4 Th/cmm (4.8-10.8) 04/06/17 21:50 RBC 4.50 Mil/cmm (3.80-5.10) 04/06/17 21:50 Hgb 13.7 gm/dL (-16) 04/06/17 21:50 Hct 40.7 % (41.0-60) L 04/06/17 21:50 MCV 90.4 fl (81-100) 04/06/17 21:50 MCH 30.5 pg (27.0-31.0) 04/06/17 21:50 MCHC Differential 33.8 pg (28.0-36.0) 04/06/17 21:50 RDW 12.2 % (11.5-20.0) 04/06/17 21:50 Plt Count 164 Th/cmm (150-400) 04/06/17 21:50 MPV 8.1 fl 04/06/17 21:50 Neutrophils % 57.1 % (40.0-80.0) 04/06/17 21:50 Lymphocytes % 31.7 % (20.0-50.0) 04/06/17 21:50 Monocytes % 9.2 % (2.0-10.0) 04/06/17 21:50 Eosinophils % 1.9 % (0.0-5.0) 04/06/17 21:50 Basophils % 0.1 % (0.0-2.0) 04/06/17 21:50 Sodium 138 mEq/L (136-145) 04/06/17 21:16 Potassium 4.0 mEq/L (3.5-5.1) 04/06/17 21:16 Chloride 107 mEq/L (98-107) 04/06/17 21:16 Carbon Dioxide 25.4 mEq/L (21.0-31.0) 04/06/17 21:16 Anion Gap 9.6 (7.0-16.0) 04/06/17 21:16 BUN 23 mg/dL (7-25) 04/06/17 21:16 Creatinine 1.0 mg/dL (0.6-1.2) 04/06/17 21:16 Est GFR ( Amer) > 60.0 ml/min (>90) 04/06/17 21:16 Est GFR (Non-Af Amer) > 60.0 ml/min 04/06/17 21:16 BUN/Creatinine Ratio 23.0 04/06/17 21:16 Glucose 90 mg/dL (70-105) 04/06/17 21:16 Hemoglobin A1c % 5.1 % (4.0-6.0) 04/06/17 21:50 Calcium 9.8 mg/dL (8.6-10.3) 04/06/17 21:16 Total Bilirubin 0.3 mg/dL (0.3-1.0) 04/06/17 21:16 AST 25 U/L (13-39) 04/06/17 21:16 ALT 18 U/L (7-52) 04/06/17 21:16 Alkaline Phosphatase 72 U/L (34-104) 04/06/17 21:16 Total Protein 7.7 gm/dL (6.0-8.3) 04/06/17 21:16 Albumin 4.2 gm/dL (3.7-5.3) 04/06/17 21:16 Globulin 3.5 gm/dL 04/06/17 21:16 Albumin/Globulin Ratio 1.2 (1.0-1.8) 04/06/17 21:16 TSH 0.81 uIU/ml (0.34-5.60) 04/06/17 21:16 Urine Source RANDOM 04/06/17 23:45 Urine Color YELLOW 04/06/17 23:45 Urine Clarity SLIGHT CLOUDY (CLEAR) 04/06/17 23:45 Urine pH 6.5 (4.6 - 8.0) 04/06/17 23:45 Ur Specific [place] 1.010 (1.005-1.030) 04/06/17 23:45 Urine Protein NEGATIVE mg/dL (NEGATIVE) 04/06/17 23:45 Urine Glucose (UA) NEGATIVE mg/dL (NEGATIVE) 04/06/17 23:45 Urine Ketones NEGATIVE mg/dL (NEGATIVE) 04/06/17 23:45 Urine Blood NEGATIVE (NEGATIVE) 04/06/17 23:45 Urine Nitrate POSITIVE (NEGATIVE) H 04/06/17 23:45 Urine Bilirubin NEGATIVE (NEGATIVE) 04/06/17 23:45 Urine Urobilinogen 0.2 E.U./dL (0.2 - 1.0) 04/06/17 23:45 Ur Leukocyte Esterase SMALL (NEGATIVE) H 04/06/17 23:45 Urine RBC 2-5 /hpf (0-5) 04/06/17 23:45 Urine WBC 25-50 /hpf (0-5) H 04/06/17 23:45 Ur Epithelial Cells OCCASIONAL /lpf (FEW) 04/06/17 23:45 Urine Bacteria 2+ /hpf (NONE SEEN) H 04/06/17 23:45 Urine Opiates Screen NEGATIVE (NEGATIVE) 04/06/17 23:45 Urine Methadone Screen NEGATIVE (NEGATIVE) 04/06/17 23:45 Ur Barbiturates Screen POSITIVE (NEGATIVE) H 04/06/17 23:45 Valproic Acid 28.3 ug/mL (50.0-100.0) L 04/17/17 07:25 Ur Tricyclics Screen POSITIVE (NEGATIVE) H 04/06/17 23:45 Ur Phencyclidine Scrn NEGATIVE (NEGATIVE) 04/06/17 23:45 Amphetamines Screen NEGATIVE (NEGATIVE) 04/06/17 23:45 U Methamphetamines Scrn NEGATIVE (NEGATIVE) 04/06/17 23:45 U Benzodiazepines Scrn POSITIVE (NEGATIVE) H 04/06/17 23:45 U Cocaine Metab Screen NEGATIVE (NEGATIVE) 04/06/17 23:45 U Cannabinoids Screen NEGATIVE (NEGATIVE) 04/06/17 23:45 - Physical Exam Vitals and I&O: Vital Signs Temp 98.6 F 04/18/17 06:13 Pulse 80 04/18/17 06:13 Resp 20 04/18/17 06:13 BP 110/60 04/18/17 06:13 Pulse Ox 96 04/18/17 06:13 Intake & Output 04/17/17 04/18/17 04/18/17 18:59 06:59 18:59 Intake Total 1600 240 Balance 1600 240 Intake: Oral 1600 240 Other: # Voids 4 2 # Bowel Movements 1 0 Active Medications: Current Medications Acetaminophen (Tylenol) 650 mg PO Q4HR PRN PRN Reason: Pain or Fever >101 Stop: 06/06/17 00:46 Al Hydrox/Mg Hydrox/Simethicone (Maalox) 30 ml PO Q6HR PRN PRN Reason: GI DISTRESS Stop: 06/06/17 00:46 Bisacodyl (Dulcolax 10 Mg Supp) 10 mg RC DAILY PRN PRN Reason: Constipation Stop: 06/06/17 00:46 Docusate Sodium (Colace) 100 mg PO BID [facility] Stop: 06/06/17 08:59 Last Admin: 04/18/17 08:27 Dose: 100 mg Lactobacillus Rhamnosus (Culturelle 15b) 1 each PO DAILY RAYA Stop: 04/23/17 08:59 Last Admin: 04/18/17 08:26 Dose: 1 each Levetiracetam (Keppra) 500 mg PO BID [facility]A Stop: 06/06/17 08:59 Last Admin: 04/18/17 08:27 Dose: 500 mg Levofloxacin (Levaquin) 500 mg PO DAILY [facility] Stop: 04/24/17 09:01 Last Admin: 04/18/17 08:26 Dose: 500 mg Levothyroxine Sodium 0.05 mg/ (Levothyroxine Sodium 0.1 mg) 0.15 mg PO QDAC [facility] Stop: 06/08/17 09:59 Last Admin: 04/18/17 06:33 Dose: 0.15 mg Lorazepam (Ativan) 1 mg PO Q6H PRN; Protocol PRN Reason: Anxiety/Agitation Stop: 06/06/17 01:06 Last Admin: 04/18/17 08:27 Dose: 1 mg Magnesium Hydroxide (Milk Of Magnesia) 30 ml PO HS PRN PRN Reason: Constipation Stop: 06/06/17 00:46 Miscellaneous (Probiotic Screen) 1 ea MC PRN PRN PRN Reason: PROTOCOL Stop: 06/08/17 15:29 Phenytoin (Dilantin) 200 mg PO BID [facility]A Stop: 06/06/17 08:59 Last Admin: 04/18/17 08:26 Dose: 200 mg Quetiapine Fumarate (Seroquel) 400 mg PO HS RAYA PRN Reason: Protocol Stop: 06/06/17 20:59 Last Admin: 04/17/17 20:55 Dose: 400 mg Quetiapine Fumarate (Seroquel) 400 mg PO DAILY [facility]AYA Stop: 06/15/17 10:58 Last Admin: 04/18/17 08:27 Dose: 400 mg Valproate Sodium (Depakene) 500 mg PO BID [facility]AYA PRN Reason: Protocol Stop: 06/13/17 16:59 Last Admin: 04/18/17 08:45 Dose: 500 mg Zolpidem Tartrate (Ambien) 5 mg PO HS PRN PRN Reason: Insomnia Stop: 06/06/17 01:06 Last Admin: 04/17/17 20:56 Dose: 5 mg General: demented HEENT: NC/AT, PERRLA, EOMI Neck: Supple, No JVD, No thyromegaly, No LAD Lungs: CTAB Cardiovascular: RRR, Normal S1, Normal S2, without murmur Abdomen: soft, non-tender, globular Extremities: excoriation, contracture Neurological: no change, disorganized, unsteady - Procedures Procedures: Procedures Procedure Code Date OTHER GROUP THERAPY 94.44 09/27/14 Internal Medicine Assmt/Plan - Assessment Assessment: ASSESSMENT AND PLAN: Urinary tract infection, hypothyroidism, hypercholesterolemia, hypertension, anemia with rheumatoid arthritis, seizure. - Plan Plan: We will continue the patient on antiepileptic medication. Continue Synthroid. We will place her __po antibiotic__. Continue to increase fluid. Continue with current care with followup consult and recommendations. Nutritional Asmnt/Malnutr-PDOC - Dietary Evaluation Malnutrition Findings (Please click <Entered> for more info): Nutritional Asmnt/Malnutrition Start: 04/13/17 13: 41 Text: Status: Complete Freq: Document 04/13/17 13:41 LCHENG (Rec: 04/13/17 13:50 [email or web address]) Nutritional Asmnt/Malnutrition Patient General Information Nutritional Screening Moderate Risk Diagnosis psychosis, UTI Pertinent Medical Hx/Surgical Hx seizure disorder, HTN, hypercholesterolemia, colitis Subjective Information Per notes, PO intake mostly 75 -100%, refused x 2 meals. Current Diet Order/ Nutrition Support Regular Pertinent Medications culturelle, colace, levothyroxine, seroquel Pertinent Labs 04/06 Na 138, K 4.0, Cl 107, BUN 23, Cr 1.0, Glucose 90, A1c 5.1%, Ca 9.8, Alb 4.2 Nutritional Hx/Data Height 1.52 m Height (Calculated Centimeters) 152.4 Current Weight (lbs) 68.039 kg Weight (Calculated Kilograms) 68.0 Weight (Calculated Grams) 34574.9 Sims Body Weight 100 % Sims Body Weight 150 Body Mass Index (BMI) 29.2 Weight Status Overweight GI Symptoms GI Symptoms None Difficult in: None Skin Integrity/Comment: intact Current %PO Good (75-100%) Estimated Nutritional Goals BEE in Kcals: Adj wt of IBW Calories/Kcals/Kg 30 Kcals Calculated 1530kcal based on adj wt 51kg Protein: Adj wt of IBW Protein g/k Protein Calculated 51g Fluid: ml 1530ml (30ml/kg) Nutritional Problem No current Nutrition Prob Problem no nutrition problem at this time Malnutrition Alert Protein-Calorie Malnutrition N/A Is there a minimum of two criteria No selected? Query Text:Check all the applicable criteria. A minimum of two criteria are recommended for diagnosis of either severe or non-severe malnutrition. Intervention/Recommendation Comments 1. Continue with current diet as ordered. 2. Monitor PO intake, wt weekly, labs and skin integrity 3. F/U as low risk in 7 days, 04/20 Expected Outcomes/Goals Expected Outcomes/Goals 1. PO intake to meet at least 75% of nutritional needs. 2. Wt stability, skin to remain intact, labs WNL.
--- NOTE | 2017-04-18 20:56 | Progress Notes ---
DATE: 04/18/2017 PSYCHIATRIC PROGRESS NOTE Staff was spoken to. The patient is interviewed. Mood is noted to be irritable. Affect is constricted. The patient's anger outbursts are coming down but the patient at times making some noises that does not make any sense. The patient is currently on Seroquel and has been able to tolerate the medication. Risperdal has been discontinued. ASSESSMENT: The patient is still psychotic. PLAN: To continue the patient with the current medications. I encouraged the patient to verbalize the concerns rather than to act out. JOB# [id number]
[2017-04-19] MEDS: Lactobacillus Rhamnosus GG 15 Billion CFU CAP.SPRINK PO SCH (08:57)
--- NOTE | 2017-04-19 09:46 | Progress Notes ---
DATE: 04/19/2017 SUBJECTIVE: Staff was spoken to. The patient is interviewed. Mood is noted to be irritable. The patient is screaming and yelling. Insight and judgment noted at this time are very much impaired. Impulse control seems to be poor. Coping are noted to be very poor. The patient is currently on high dose of the Seroquel that is 400 mg twice a day and valproic acid 500 mg twice a day. Even with these medications, the patient has been having difficult time to cope with the stress. No side effects to the medications are noted at this time. ASSESSMENT: The patient is still grossly psychotic. PLAN: To continue the patient with the current medications. I encouraged the patient to verbalize the concerns rather than to act out. The patient is not ready to be discharged to a lower level of care yet. JOB# [id number]
--- NOTE | 2017-04-19 14:57 | Internal Medicine Prog Note ---
Internal Medicine Subjective - Subjective Service Date: 04/19/17 Patient is:: awake, verbal, interactive, in bed, confused Per staff patient has:: no adverse event, no episodes of fall, poor appetite, noncompliant, tolerating meds Internal Medicine Objective - Results Result Diagrams: 04/06/17 21:50 04/06/17 21:16 Recent Labs: Laboratory Last Values WBC 5.4 Th/cmm (4.8-10.8) 04/06/17 21:50 RBC 4.50 Mil/cmm (3.80-5.10) 04/06/17 21:50 Hgb 13.7 gm/dL (-16) 04/06/17 21:50 Hct 40.7 % (41.0-60) L 04/06/17 21:50 MCV 90.4 fl (81-100) 04/06/17 21:50 MCH 30.5 pg (27.0-31.0) 04/06/17 21:50 MCHC Differential 33.8 pg (28.0-36.0) 04/06/17 21:50 RDW 12.2 % (11.5-20.0) 04/06/17 21:50 Plt Count 164 Th/cmm (150-400) 04/06/17 21:50 MPV 8.1 fl 04/06/17 21:50 Neutrophils % 57.1 % (40.0-80.0) 04/06/17 21:50 Lymphocytes % 31.7 % (20.0-50.0) 04/06/17 21:50 Monocytes % 9.2 % (2.0-10.0) 04/06/17 21:50 Eosinophils % 1.9 % (0.0-5.0) 04/06/17 21:50 Basophils % 0.1 % (0.0-2.0) 04/06/17 21:50 Sodium 138 mEq/L (136-145) 04/06/17 21:16 Potassium 4.0 mEq/L (3.5-5.1) 04/06/17 21:16 Chloride 107 mEq/L (98-107) 04/06/17 21:16 Carbon Dioxide 25.4 mEq/L (21.0-31.0) 04/06/17 21:16 Anion Gap 9.6 (7.0-16.0) 04/06/17 21:16 BUN 23 mg/dL (7-25) 04/06/17 21:16 Creatinine 1.0 mg/dL (0.6-1.2) 04/06/17 21:16 Est GFR ( Amer) > 60.0 ml/min (>90) 04/06/17 21:16 Est GFR (Non-Af Amer) > 60.0 ml/min 04/06/17 21:16 BUN/Creatinine Ratio 23.0 04/06/17 21:16 Glucose 90 mg/dL (70-105) 04/06/17 21:16 Hemoglobin A1c % 5.1 % (4.0-6.0) 04/06/17 21:50 Calcium 9.8 mg/dL (8.6-10.3) 04/06/17 21:16 Total Bilirubin 0.3 mg/dL (0.3-1.0) 04/06/17 21:16 AST 25 U/L (13-39) 04/06/17 21:16 ALT 18 U/L (7-52) 04/06/17 21:16 Alkaline Phosphatase 72 U/L (34-104) 04/06/17 21:16 Total Protein 7.7 gm/dL (6.0-8.3) 04/06/17 21:16 Albumin 4.2 gm/dL (3.7-5.3) 04/06/17 21:16 Globulin 3.5 gm/dL 04/06/17 21:16 Albumin/Globulin Ratio 1.2 (1.0-1.8) 04/06/17 21:16 TSH 0.81 uIU/ml (0.34-5.60) 04/06/17 21:16 Urine Source RANDOM 04/06/17 23:45 Urine Color YELLOW 04/06/17 23:45 Urine Clarity SLIGHT CLOUDY (CLEAR) 04/06/17 23:45 Urine pH 6.5 (4.6 - 8.0) 04/06/17 23:45 Ur Specific [place] 1.010 (1.005-1.030) 04/06/17 23:45 Urine Protein NEGATIVE mg/dL (NEGATIVE) 04/06/17 23:45 Urine Glucose (UA) NEGATIVE mg/dL (NEGATIVE) 04/06/17 23:45 Urine Ketones NEGATIVE mg/dL (NEGATIVE) 04/06/17 23:45 Urine Blood NEGATIVE (NEGATIVE) 04/06/17 23:45 Urine Nitrate POSITIVE (NEGATIVE) H 04/06/17 23:45 Urine Bilirubin NEGATIVE (NEGATIVE) 04/06/17 23:45 Urine Urobilinogen 0.2 E.U./dL (0.2 - 1.0) 04/06/17 23:45 Ur Leukocyte Esterase SMALL (NEGATIVE) H 04/06/17 23:45 Urine RBC 2-5 /hpf (0-5) 04/06/17 23:45 Urine WBC 25-50 /hpf (0-5) H 04/06/17 23:45 Ur Epithelial Cells OCCASIONAL /lpf (FEW) 04/06/17 23:45 Urine Bacteria 2+ /hpf (NONE SEEN) H 04/06/17 23:45 Urine Opiates Screen NEGATIVE (NEGATIVE) 04/06/17 23:45 Urine Methadone Screen NEGATIVE (NEGATIVE) 04/06/17 23:45 Ur Barbiturates Screen POSITIVE (NEGATIVE) H 04/06/17 23:45 Valproic Acid 28.3 ug/mL (50.0-100.0) L 04/17/17 07:25 Ur Tricyclics Screen POSITIVE (NEGATIVE) H 04/06/17 23:45 Ur Phencyclidine Scrn NEGATIVE (NEGATIVE) 04/06/17 23:45 Amphetamines Screen NEGATIVE (NEGATIVE) 04/06/17 23:45 U Methamphetamines Scrn NEGATIVE (NEGATIVE) 04/06/17 23:45 U Benzodiazepines Scrn POSITIVE (NEGATIVE) H 04/06/17 23:45 U Cocaine Metab Screen NEGATIVE (NEGATIVE) 04/06/17 23:45 U Cannabinoids Screen NEGATIVE (NEGATIVE) 04/06/17 23:45 - Physical Exam Vitals and I&O: Vital Signs Temp 98.3 F 04/18/17 17:03 Pulse 74 04/18/17 17:03 Resp 24 04/18/17 17:03 BP 134/96 04/18/17 17:03 Pulse Ox 94 04/18/17 17:03 Intake & Output 04/18/17 04/19/17 04/19/17 18:59 06:59 18:59 Intake Total 120 Balance 120 Intake: Oral 120 Other: # Voids 3 Active Medications: Current Medications Acetaminophen (Tylenol) 650 mg PO Q4HR PRN PRN Reason: Pain or Fever >101 Stop: 06/06/17 00:46 Al Hydrox/Mg Hydrox/Simethicone (Maalox) 30 ml PO Q6HR PRN PRN Reason: GI DISTRESS Stop: 06/06/17 00:46 Bisacodyl (Dulcolax 10 Mg Supp) 10 mg RC DAILY PRN PRN Reason: Constipation Stop: 06/06/17 00:46 Docusate Sodium (Colace) 100 mg PO BID [facility]AYA Stop: 06/06/17 08:59 Last Admin: 04/19/17 08:53 Dose: 100 mg Lactobacillus Rhamnosus (Culturelle 15b) 1 each PO DAILY [facility] Stop: 04/23/17 08:59 Last Admin: 04/19/17 08:57 Dose: 1 each Levetiracetam (Keppra) 500 mg PO BID [facility] Stop: 06/06/17 08:59 Last Admin: 04/19/17 08:55 Dose: 500 mg Levofloxacin (Levaquin) 500 mg PO DAILY [facility] Stop: 04/24/17 09:01 Last Admin: 04/19/17 08:56 Dose: 500 mg Levothyroxine Sodium 0.05 mg/ (Levothyroxine Sodium 0.1 mg) 0.15 mg PO QDAC [facility] Stop: 06/08/17 09:59 Last Admin: 04/19/17 06:45 Dose: 0.15 mg Lorazepam (Ativan) 1 mg PO Q6H PRN; Protocol PRN Reason: Anxiety/Agitation Stop: 06/06/17 01:06 Last Admin: 04/19/17 10:18 Dose: 1 mg Magnesium Hydroxide (Milk Of Magnesia) 30 ml PO HS PRN PRN Reason: Constipation Stop: 06/06/17 00:46 Miscellaneous (Probiotic Screen) 1 ea MC PRN PRN PRN Reason: PROTOCOL Stop: 06/08/17 15:29 Phenytoin (Dilantin) 200 mg PO BID [facility] Stop: 06/06/17 08:59 Last Admin: 04/19/17 08:56 Dose: 200 mg Quetiapine Fumarate (Seroquel) 400 mg PO HS RAYA PRN Reason: Protocol Stop: 06/06/17 20:59 Last Admin: 04/18/17 21:37 Dose: 400 mg Quetiapine Fumarate (Seroquel) 400 mg PO DAILY [facility]A Stop: 06/15/17 10:58 Last Admin: 04/19/17 08:57 Dose: 400 mg Valproate Sodium (Depakene) 500 mg PO BID RAYA PRN Reason: Protocol Stop: 06/13/17 16:59 Last Admin: 04/19/17 09:07 Dose: Not Given Zolpidem Tartrate (Ambien) 5 mg PO HS PRN PRN Reason: Insomnia Stop: 06/06/17 01:06 Last Admin: 04/18/17 21:38 Dose: 5 mg General: demented HEENT: NC/AT, PERRLA, EOMI Neck: Supple, No JVD, No thyromegaly, No LAD Lungs: CTAB Cardiovascular: RRR, Normal S1, Normal S2, without murmur Abdomen: soft, non-tender, globular Extremities: excoriation, contracture Neurological: no change, disorganized, unsteady - Procedures Procedures: Procedures Procedure Code Date OTHER GROUP THERAPY 94.44 09/27/14 Internal Medicine Assmt/Plan - Assessment Assessment: Urinary tract infection with e.coli hypothyroidism hypercholesterolemia hypertension anemia with rheumatoid arthritis seizure - Plan Plan: seizure precautions continue current plan of care Nutritional Asmnt/Malnutr-PDOC - Dietary Evaluation Malnutrition Findings (Please click <Entered> for more info): Nutritional Asmnt/Malnutrition Start: 04/13/17 13: 41 Text: Status: Complete Freq: Document 04/13/17 13:41 LCHENG (Rec: 04/13/17 13:50 [email or web address]) Nutritional Asmnt/Malnutrition Patient General Information Nutritional Screening Moderate Risk Diagnosis psychosis, UTI Pertinent Medical Hx/Surgical Hx seizure disorder, HTN, hypercholesterolemia, colitis Subjective Information Per notes, PO intake mostly 75 -100%, refused x 2 meals. Current Diet Order/ Nutrition Support Regular Pertinent Medications culturelle, colace, levothyroxine, seroquel Pertinent Labs 04/06 Na 138, K 4.0, Cl 107, BUN 23, Cr 1.0, Glucose 90, A1c 5.1%, Ca 9.8, Alb 4.2 Nutritional Hx/Data Height 5 ft Height (Calculated Centimeters) 152.4 Current Weight (lbs) 150 lb Weight (Calculated Kilograms) 68.0 Weight (Calculated Grams) 30266.9 [place]ade Body Weight 100 % Glade Body Weight 150 Body Mass Index (BMI) 29.2 Weight Status Overweight GI Symptoms GI Symptoms None Difficult in: None Skin Integrity/Comment: intact Current %PO Good (75-100%) Estimated Nutritional Goals BEE in Kcals: Adj wt of IBW Calories/Kcals/Kg 30 Kcals Calculated 1530kcal based on adj wt 51kg Protein: Adj wt of IBW Protein g/k Protein Calculated 51g Fluid: ml 1530ml (30ml/kg) Nutritional Problem No current Nutrition Prob Problem no nutrition problem at this time Malnutrition Alert Protein-Calorie Malnutrition N/A Is there a minimum of two criteria No selected? Query Text:Check all the applicable criteria. A minimum of two criteria are recommended for diagnosis of either severe or non-severe malnutrition. Intervention/Recommendation Comments 1. Continue with current diet as ordered. 2. Monitor PO intake, wt weekly, labs and skin integrity 3. F/U as low risk in 7 days, 04/20 Expected Outcomes/Goals Expected Outcomes/Goals 1. PO intake to meet at least 75% of nutritional needs. 2. Wt stability, skin to remain intact, labs WNL.
[2017-04-20] MEDS ORDERED: Haloperidol Lactate 5 mg/mL 1mL Vial IM PRN (06:51)
[2017-04-20] MEDS ORDERED: Haloperidol Lactate 5 mg/mL 1mL Vial ONE (07:01)
[2017-04-20] MEDS ORDERED: Haloperidol Lactate 5 mg/mL 1mL Vial IM ONE (07:09)
[2017-04-20] MEDS: Lactobacillus Rhamnosus GG 15 Billion CFU CAP.SPRINK PO SCH (08:57)
--- NOTE | 2017-04-20 12:13 | Internal Medicine Prog Note ---
Internal Medicine Subjective - Subjective Service Date: 04/20/17 Patient is:: awake, verbal, interactive, in bed, confused Per staff patient has:: no adverse event, no episodes of fall, poor appetite, noncompliant, tolerating meds Internal Medicine Objective - Results Result Diagrams: 04/06/17 21:50 04/06/17 21:16 Recent Labs: Laboratory Last Values WBC 5.4 Th/cmm (4.8-10.8) 04/06/17 21:50 RBC 4.50 Mil/cmm (3.80-5.10) 04/06/17 21:50 Hgb 13.7 gm/dL (-16) 04/06/17 21:50 Hct 40.7 % (41.0-60) L 04/06/17 21:50 MCV 90.4 fl (81-100) 04/06/17 21:50 MCH 30.5 pg (27.0-31.0) 04/06/17 21:50 MCHC Differential 33.8 pg (28.0-36.0) 04/06/17 21:50 RDW 12.2 % (11.5-20.0) 04/06/17 21:50 Plt Count 164 Th/cmm (150-400) 04/06/17 21:50 MPV 8.1 fl 04/06/17 21:50 Neutrophils % 57.1 % (40.0-80.0) 04/06/17 21:50 Lymphocytes % 31.7 % (20.0-50.0) 04/06/17 21:50 Monocytes % 9.2 % (2.0-10.0) 04/06/17 21:50 Eosinophils % 1.9 % (0.0-5.0) 04/06/17 21:50 Basophils % 0.1 % (0.0-2.0) 04/06/17 21:50 Sodium 138 mEq/L (136-145) 04/06/17 21:16 Potassium 4.0 mEq/L (3.5-5.1) 04/06/17 21:16 Chloride 107 mEq/L (98-107) 04/06/17 21:16 Carbon Dioxide 25.4 mEq/L (21.0-31.0) 04/06/17 21:16 Anion Gap 9.6 (7.0-16.0) 04/06/17 21:16 BUN 23 mg/dL (7-25) 04/06/17 21:16 Creatinine 1.0 mg/dL (0.6-1.2) 04/06/17 21:16 Est GFR ( Amer) > 60.0 ml/min (>90) 04/06/17 21:16 Est GFR (Non-Af Amer) > 60.0 ml/min 04/06/17 21:16 BUN/Creatinine Ratio 23.0 04/06/17 21:16 Glucose 90 mg/dL (70-105) 04/06/17 21:16 Hemoglobin A1c % 5.1 % (4.0-6.0) 04/06/17 21:50 Calcium 9.8 mg/dL (8.6-10.3) 04/06/17 21:16 Total Bilirubin 0.3 mg/dL (0.3-1.0) 04/06/17 21:16 AST 25 U/L (13-39) 04/06/17 21:16 ALT 18 U/L (7-52) 04/06/17 21:16 Alkaline Phosphatase 72 U/L (34-104) 04/06/17 21:16 Total Protein 7.7 gm/dL (6.0-8.3) 04/06/17 21:16 Albumin 4.2 gm/dL (3.7-5.3) 04/06/17 21:16 Globulin 3.5 gm/dL 04/06/17 21:16 Albumin/Globulin Ratio 1.2 (1.0-1.8) 04/06/17 21:16 TSH 0.81 uIU/ml (0.34-5.60) 04/06/17 21:16 Urine Source RANDOM 04/06/17 23:45 Urine Color YELLOW 04/06/17 23:45 Urine Clarity SLIGHT CLOUDY (CLEAR) 04/06/17 23:45 Urine pH 6.5 (4.6 - 8.0) 04/06/17 23:45 Ur Specific [place] 1.010 (1.005-1.030) 04/06/17 23:45 Urine Protein NEGATIVE mg/dL (NEGATIVE) 04/06/17 23:45 Urine Glucose (UA) NEGATIVE mg/dL (NEGATIVE) 04/06/17 23:45 Urine Ketones NEGATIVE mg/dL (NEGATIVE) 04/06/17 23:45 Urine Blood NEGATIVE (NEGATIVE) 04/06/17 23:45 Urine Nitrate POSITIVE (NEGATIVE) H 04/06/17 23:45 Urine Bilirubin NEGATIVE (NEGATIVE) 04/06/17 23:45 Urine Urobilinogen 0.2 E.U./dL (0.2 - 1.0) 04/06/17 23:45 Ur Leukocyte Esterase SMALL (NEGATIVE) H 04/06/17 23:45 Urine RBC 2-5 /hpf (0-5) 04/06/17 23:45 Urine WBC 25-50 /hpf (0-5) H 04/06/17 23:45 Ur Epithelial Cells OCCASIONAL /lpf (FEW) 04/06/17 23:45 Urine Bacteria 2+ /hpf (NONE SEEN) H 04/06/17 23:45 Urine Opiates Screen NEGATIVE (NEGATIVE) 04/06/17 23:45 Urine Methadone Screen NEGATIVE (NEGATIVE) 04/06/17 23:45 Ur Barbiturates Screen POSITIVE (NEGATIVE) H 04/06/17 23:45 Valproic Acid 28.3 ug/mL (50.0-100.0) L 04/17/17 07:25 Ur Tricyclics Screen POSITIVE (NEGATIVE) H 04/06/17 23:45 Ur Phencyclidine Scrn NEGATIVE (NEGATIVE) 04/06/17 23:45 Amphetamines Screen NEGATIVE (NEGATIVE) 04/06/17 23:45 U Methamphetamines Scrn NEGATIVE (NEGATIVE) 04/06/17 23:45 U Benzodiazepines Scrn POSITIVE (NEGATIVE) H 04/06/17 23:45 U Cocaine Metab Screen NEGATIVE (NEGATIVE) 04/06/17 23:45 U Cannabinoids Screen NEGATIVE (NEGATIVE) 04/06/17 23:45 - Physical Exam Vitals and I&O: Vital Signs Temp 97.2 F 04/20/17 06:16 Pulse 83 04/20/17 06:16 Resp 20 04/20/17 06:16 BP 117/60 04/20/17 06:16 Pulse Ox 98 04/20/17 06:16 Intake & Output 04/19/17 04/20/17 04/20/17 18:59 06:59 18:59 Intake Total 1200 120 Balance 1200 120 Intake: Oral 1200 120 Other: # Voids 2 3 Active Medications: Current Medications Acetaminophen (Tylenol) 650 mg PO Q4HR PRN PRN Reason: Pain or Fever >101 Stop: 06/06/17 00:46 Al Hydrox/Mg Hydrox/Simethicone (Maalox) 30 ml PO Q6HR PRN PRN Reason: GI DISTRESS Stop: 06/06/17 00:46 Bisacodyl (Dulcolax 10 Mg Supp) 10 mg RC DAILY PRN PRN Reason: Constipation Stop: 06/06/17 00:46 Docusate Sodium (Colace) 100 mg PO BID RAYA Stop: 06/06/17 08:59 Last Admin: 04/20/17 08:57 Dose: Not Given Lactobacillus Rhamnosus (Culturelle 15b) 1 each PO DAILY [facility] Stop: 04/23/17 08:59 Last Admin: 04/20/17 08:57 Dose: Not Given Levetiracetam (Keppra) 500 mg PO BID RAYA Stop: 06/06/17 08:59 Last Admin: 04/20/17 08:57 Dose: Not Given Levofloxacin (Levaquin) 500 mg PO DAILY [facility] Stop: 04/24/17 09:01 Last Admin: 04/20/17 08:57 Dose: Not Given Levothyroxine Sodium 0.05 mg/ (Levothyroxine Sodium 0.1 mg) 0.15 mg PO QDAC [facility] Stop: 06/08/17 09:59 Last Admin: 04/20/17 06:33 Dose: 0.15 mg Lorazepam (Ativan) 1 mg PO Q6H PRN; Protocol PRN Reason: Anxiety/Agitation Stop: 06/06/17 01:06 Last Admin: 04/20/17 06:32 Dose: 1 mg Magnesium Hydroxide (Milk Of Magnesia) 30 ml PO HS PRN PRN Reason: Constipation Stop: 06/06/17 00:46 Miscellaneous (Probiotic Screen) 1 ea MC PRN PRN PRN Reason: PROTOCOL Stop: 06/08/17 15:29 Phenytoin (Dilantin) 200 mg PO BID RAYA Stop: 06/06/17 08:59 Last Admin: 04/20/17 08:58 Dose: Not Given Quetiapine Fumarate (Seroquel) 400 mg PO HS RAYA PRN Reason: Protocol Stop: 06/06/17 20:59 Last Admin: 04/19/17 21:35 Dose: 400 mg Quetiapine Fumarate (Seroquel) 400 mg PO DAILY RAYA Stop: 06/15/17 10:58 Last Admin: 04/20/17 08:58 Dose: Not Given Valproate Sodium (Depakene) 500 mg PO BID RAYA PRN Reason: Protocol Stop: 06/13/17 16:59 Last Admin: 04/20/17 08:58 Dose: Not Given Zolpidem Tartrate (Ambien) 5 mg PO HS PRN PRN Reason: Insomnia Stop: 06/06/17 01:06 Last Admin: 04/19/17 21:35 Dose: 5 mg General: demented HEENT: NC/AT, PERRLA, EOMI Neck: Supple, No JVD, No thyromegaly, No LAD Lungs: CTAB Cardiovascular: RRR, Normal S1, Normal S2, without murmur Abdomen: soft, non-tender, globular Extremities: excoriation, contracture Neurological: no change, disorganized, unsteady - Procedures Procedures: Procedures Procedure Code Date OTHER GROUP THERAPY 94.44 09/27/14 Internal Medicine Assmt/Plan - Assessment Assessment: Urinary tract infection with e.coli hypothyroidism hypercholesterolemia hypertension anemia with rheumatoid arthritis seizure - Plan Plan: seizure precautions continue current plan of care Nutritional Asmnt/Malnutr-PDOC - Dietary Evaluation Malnutrition Findings (Please click <Entered> for more info): Nutritional Asmnt/Malnutrition Start: 04/13/17 13: 41 Text: Status: Complete Freq: Document 04/13/17 13:41 LCHENG (Rec: 04/13/17 13:50 [email or web address]) Nutritional Asmnt/Malnutrition Patient General Information Nutritional Screening Moderate Risk Diagnosis psychosis, UTI Pertinent Medical Hx/Surgical Hx seizure disorder, HTN, hypercholesterolemia, colitis Subjective Information Per notes, PO intake mostly 75 -100%, refused x 2 meals. Current Diet Order/ Nutrition Support Regular Pertinent Medications culturelle, colace, levothyroxine, seroquel Pertinent Labs 04/06 Na 138, K 4.0, Cl 107, BUN 23, Cr 1.0, Glucose 90, A1c 5.1%, Ca 9.8, Alb 4.2 Nutritional Hx/Data Height 5 ft Height (Calculated Centimeters) 152.4 Current Weight (lbs) 150 lb Weight (Calculated Kilograms) 68.0 Weight (Calculated Grams) 44846.9 [place] Body Weight 100 % [place] Body Weight 150 Body Mass Index (BMI) 29.2 Weight Status Overweight GI Symptoms GI Symptoms None Difficult in: None Skin Integrity/Comment: intact Current %PO Good (75-100%) Estimated Nutritional Goals BEE in Kcals: Adj wt of IBW Calories/Kcals/Kg 30 Kcals Calculated 1530kcal based on adj wt 51kg Protein: Adj wt of IBW Protein g/k Protein Calculated 51g Fluid: ml 1530ml (30ml/kg) Nutritional Problem No current Nutrition Prob Problem no nutrition problem at this time Malnutrition Alert Protein-Calorie Malnutrition N/A Is there a minimum of two criteria No selected? Query Text:Check all the applicable criteria. A minimum of two criteria are recommended for diagnosis of either severe or non-severe malnutrition. Intervention/Recommendation Comments 1. Continue with current diet as ordered. 2. Monitor PO intake, wt weekly, labs and skin integrity 3. F/U as low risk in 7 days, 04/20 Expected Outcomes/Goals Expected Outcomes/Goals 1. PO intake to meet at least 75% of nutritional needs. 2. Wt stability, skin to remain intact, labs WNL.
--- NOTE | 2017-04-20 21:31 | Progress Notes ---
DATE: 04/20/2017 SUBJECTIVE: Staff was spoken to. The patient was interviewed. Mood was noted to be irritable. Affect was constricted. The patient is screaming and yelling whenever she does not get her way. The patient has no insight into her illness. Coping skills are noted to be extremely poor. ASSESSMENT: The patient is a psychotic. PLAN: Possibly, the patient is going to be given the Haldol Decanoate because the Seroquel does not seem to be working for her. JOB# [id number]
[2017-04-21] MEDS: Lactobacillus Rhamnosus GG 15 Billion CFU CAP.SPRINK PO SCH (08:57)
--- NOTE | 2017-04-21 14:24 | Internal Medicine Prog Note ---
Internal Medicine Subjective - Subjective Patient seen and examined:: with staff, chart reviewed Patient is:: awake, verbal, interactive, in bed, confused Per staff patient has:: no adverse event, no episodes of fall, poor appetite, noncompliant, tolerating meds Internal Medicine Objective - Results Result Diagrams: 04/06/17 21:50 04/06/17 21:16 Recent Labs: Laboratory Last Values WBC 5.4 Th/cmm (4.8-10.8) 04/06/17 21:50 RBC 4.50 Mil/cmm (3.80-5.10) 04/06/17 21:50 Hgb 13.7 gm/dL (-16) 04/06/17 21:50 Hct 40.7 % (41.0-60) L 04/06/17 21:50 MCV 90.4 fl (81-100) 04/06/17 21:50 MCH 30.5 pg (27.0-31.0) 04/06/17 21:50 MCHC Differential 33.8 pg (28.0-36.0) 04/06/17 21:50 RDW 12.2 % (11.5-20.0) 04/06/17 21:50 Plt Count 164 Th/cmm (150-400) 04/06/17 21:50 MPV 8.1 fl 04/06/17 21:50 Neutrophils % 57.1 % (40.0-80.0) 04/06/17 21:50 Lymphocytes % 31.7 % (20.0-50.0) 04/06/17 21:50 Monocytes % 9.2 % (2.0-10.0) 04/06/17 21:50 Eosinophils % 1.9 % (0.0-5.0) 04/06/17 21:50 Basophils % 0.1 % (0.0-2.0) 04/06/17 21:50 Sodium 138 mEq/L (136-145) 04/06/17 21:16 Potassium 4.0 mEq/L (3.5-5.1) 04/06/17 21:16 Chloride 107 mEq/L (98-107) 04/06/17 21:16 Carbon Dioxide 25.4 mEq/L (21.0-31.0) 04/06/17 21:16 Anion Gap 9.6 (7.0-16.0) 04/06/17 21:16 BUN 23 mg/dL (7-25) 04/06/17 21:16 Creatinine 1.0 mg/dL (0.6-1.2) 04/06/17 21:16 Est GFR ( Amer) > 60.0 ml/min (>90) 04/06/17 21:16 Est GFR (Non-Af Amer) > 60.0 ml/min 04/06/17 21:16 BUN/Creatinine Ratio 23.0 04/06/17 21:16 Glucose 90 mg/dL (70-105) 04/06/17 21:16 Hemoglobin A1c % 5.1 % (4.0-6.0) 04/06/17 21:50 Calcium 9.8 mg/dL (8.6-10.3) 04/06/17 21:16 Total Bilirubin 0.3 mg/dL (0.3-1.0) 04/06/17 21:16 AST 25 U/L (13-39) 04/06/17 21:16 ALT 18 U/L (7-52) 04/06/17 21:16 Alkaline Phosphatase 72 U/L (34-104) 04/06/17 21:16 Total Protein 7.7 gm/dL (6.0-8.3) 04/06/17 21:16 Albumin 4.2 gm/dL (3.7-5.3) 04/06/17 21:16 Globulin 3.5 gm/dL 04/06/17 21:16 Albumin/Globulin Ratio 1.2 (1.0-1.8) 04/06/17 21:16 TSH 0.81 uIU/ml (0.34-5.60) 04/06/17 21:16 Urine Source RANDOM 04/06/17 23:45 Urine Color YELLOW 04/06/17 23:45 Urine Clarity SLIGHT CLOUDY (CLEAR) 04/06/17 23:45 Urine pH 6.5 (4.6 - 8.0) 04/06/17 23:45 Ur Specific [place] 1.010 (1.005-1.030) 04/06/17 23:45 Urine Protein NEGATIVE mg/dL (NEGATIVE) 04/06/17 23:45 Urine Glucose (UA) NEGATIVE mg/dL (NEGATIVE) 04/06/17 23:45 Urine Ketones NEGATIVE mg/dL (NEGATIVE) 04/06/17 23:45 Urine Blood NEGATIVE (NEGATIVE) 04/06/17 23:45 Urine Nitrate POSITIVE (NEGATIVE) H 04/06/17 23:45 Urine Bilirubin NEGATIVE (NEGATIVE) 04/06/17 23:45 Urine Urobilinogen 0.2 E.U./dL (0.2 - 1.0) 04/06/17 23:45 Ur Leukocyte Esterase SMALL (NEGATIVE) H 04/06/17 23:45 Urine RBC 2-5 /hpf (0-5) 04/06/17 23:45 Urine WBC 25-50 /hpf (0-5) H 04/06/17 23:45 Ur Epithelial Cells OCCASIONAL /lpf (FEW) 04/06/17 23:45 Urine Bacteria 2+ /hpf (NONE SEEN) H 04/06/17 23:45 Urine Opiates Screen NEGATIVE (NEGATIVE) 04/06/17 23:45 Urine Methadone Screen NEGATIVE (NEGATIVE) 04/06/17 23:45 Ur Barbiturates Screen POSITIVE (NEGATIVE) H 04/06/17 23:45 Valproic Acid < 10.0 ug/mL (50.0-100.0) L 04/20/17 21:42 Ur Tricyclics Screen POSITIVE (NEGATIVE) H 04/06/17 23:45 Ur Phencyclidine Scrn NEGATIVE (NEGATIVE) 04/06/17 23:45 Amphetamines Screen NEGATIVE (NEGATIVE) 04/06/17 23:45 U Methamphetamines Scrn NEGATIVE (NEGATIVE) 04/06/17 23:45 U Benzodiazepines Scrn POSITIVE (NEGATIVE) H 04/06/17 23:45 U Cocaine Metab Screen NEGATIVE (NEGATIVE) 04/06/17 23:45 U Cannabinoids Screen NEGATIVE (NEGATIVE) 04/06/17 23:45 - Physical Exam Vitals and I&O: Vital Signs Temp 97.9 F 04/20/17 14:00 Pulse 84 04/20/17 14:00 Resp 19 04/20/17 14:00 BP 104/71 04/20/17 14:00 Pulse Ox 98 04/20/17 14:00 Intake & Output 04/20/17 04/21/17 04/21/17 18:59 06:59 18:59 Intake Total 900 Balance 900 Intake: Oral 900 Other: # Voids 3 Active Medications: Current Medications Acetaminophen (Tylenol) 650 mg PO Q4HR PRN PRN Reason: Pain or Fever >101 Stop: 06/06/17 00:46 Al Hydrox/Mg Hydrox/Simethicone (Maalox) 30 ml PO Q6HR PRN PRN Reason: GI DISTRESS Stop: 06/06/17 00:46 Bisacodyl (Dulcolax 10 Mg Supp) 10 mg RC DAILY PRN PRN Reason: Constipation Stop: 06/06/17 00:46 Docusate Sodium (Colace) 100 mg PO BID RAYA Stop: 06/06/17 08:59 Last Admin: 04/21/17 08:57 Dose: 100 mg Haloperidol Decanoate (Haldol Dec) 50 mg IM QMONTH RAYA PRN Reason: Protocol Stop: 06/19/17 19:14 Lactobacillus Rhamnosus (Culturelle 15b) 1 each PO DAILY [facility] Stop: 04/23/17 08:59 Last Admin: 04/21/17 08:57 Dose: 1 each Levetiracetam (Keppra) 500 mg PO BID RAYA Stop: 06/06/17 08:59 Last Admin: 04/21/17 08:55 Dose: 500 mg Levofloxacin (Levaquin) 500 mg PO DAILY RAYA Stop: 04/24/17 09:01 Last Admin: 04/21/17 08:56 Dose: 500 mg Levothyroxine Sodium 0.05 mg/ (Levothyroxine Sodium 0.1 mg) 0.15 mg PO QDAC RAYA Stop: 06/08/17 09:59 Last Admin: 04/21/17 06:50 Dose: 0.15 mg [place] Carbonate (Eskalith) 300 mg PO BID RAYA PRN Reason: Protocol Stop: 06/20/17 08:59 Last Admin: 04/21/17 08:55 Dose: 300 mg Magnesium Hydroxide (Milk Of Magnesia) 30 ml PO HS PRN PRN Reason: Constipation Stop: 06/06/17 00:46 Miscellaneous (Probiotic Screen) 1 ea MC PRN PRN PRN Reason: PROTOCOL Stop: 06/08/17 15:29 Phenytoin (Dilantin) 200 mg PO BID [facility] Stop: 06/06/17 08:59 Last Admin: 04/21/17 08:57 Dose: 200 mg Quetiapine Fumarate (Seroquel) 400 mg PO HS RAYA PRN Reason: Protocol Stop: 06/06/17 20:59 Last Admin: 04/20/17 21:12 Dose: 400 mg Quetiapine Fumarate (Seroquel) 400 mg PO DAILY [facility] Stop: 06/15/17 10:58 Last Admin: 04/21/17 08:56 Dose: 400 mg Valproate Sodium (Depakene) 500 mg PO BID RAYA PRN Reason: Protocol Stop: 06/13/17 16:59 Last Admin: 04/21/17 08:58 Dose: 500 mg General: demented HEENT: NC/AT, PERRLA, EOMI Neck: Supple, No JVD, No thyromegaly, No LAD Lungs: CTAB Cardiovascular: RRR, Normal S1, Normal S2, without murmur Abdomen: soft, non-tender, globular Extremities: excoriation, contracture Neurological: no change, disorganized, unsteady - Procedures Procedures: Procedures Procedure Code Date OTHER GROUP THERAPY 94.44 09/27/14 Internal Medicine Assmt/Plan - Assessment Assessment: ASSESSMENT AND PLAN: Urinary tract infection, hypothyroidism, hypercholesterolemia, hypertension, anemia with rheumatoid arthritis, seizure. - Plan Plan: We will continue the patient on antiepileptic medication. Continue Synthroid. We will place her __po antibiotic__. Continue to increase fluid. Continue with current care with followup consult and recommendations. Nutritional Asmnt/Malnutr-PDOC - Dietary Evaluation Malnutrition Findings (Please click <Entered> for more info): Nutritional Asmnt/Malnutrition Start: 04/13/17 13: 41 Text: Status: Complete Freq: Document 04/13/17 13:41 [email or web address] (Rec: 04/13/17 13:50 [email or web address] Nutritional Asmnt/Malnutrition Patient General Information Nutritional Screening Moderate Risk Diagnosis psychosis, UTI Pertinent Medical Hx/Surgical Hx seizure disorder, HTN, hypercholesterolemia, colitis Subjective Information Per notes, PO intake mostly 75 -100%, refused x 2 meals. Current Diet Order/ Nutrition Support Regular Pertinent Medications culturelle, colace, levothyroxine, seroquel Pertinent Labs 04/06 Na 138, K 4.0, Cl 107, BUN 23, Cr 1.0, Glucose 90, A1c 5.1%, Ca 9.8, Alb 4.2 Nutritional Hx/Data Height 1.52 m Height (Calculated Centimeters) 152.4 Current Weight (lbs) 68.039 kg Weight (Calculated Kilograms) 68.0 Weight (Calculated Grams) 05655.9 [place] Body Weight 100 % [place] Body Weight 150 Body Mass Index (BMI) 29.2 Weight Status Overweight GI Symptoms GI Symptoms None Difficult in: None Skin Integrity/Comment: intact Current %PO Good (75-100%) Estimated Nutritional Goals BEE in Kcals: Adj wt of IBW Calories/Kcals/Kg 30 Kcals Calculated 1530kcal based on adj wt 51kg Protein: Adj wt of IBW Protein g/k Protein Calculated 51g Fluid: ml 1530ml (30ml/kg) Nutritional Problem No current Nutrition Prob Problem no nutrition problem at this time Malnutrition Alert Protein-Calorie Malnutrition N/A Is there a minimum of two criteria No selected? Query Text:Check all the applicable criteria. A minimum of two criteria are recommended for diagnosis of either severe or non-severe malnutrition. Intervention/Recommendation Comments 1. Continue with current diet as ordered. 2. Monitor PO intake, wt weekly, labs and skin integrity 3. F/U as low risk in 7 days, 04/20 Expected Outcomes/Goals Expected Outcomes/Goals 1. PO intake to meet at least 75% of nutritional needs. 2. Wt stability, skin to remain intact, labs WNL.
--- NOTE | 2017-04-21 15:52 | Progress Notes ---
DATE: 04/21/2017 SUBJECTIVE: Staff was spoken to. The patient is interviewed. Mood is noted to be irritable. Affect is constricted. Coping skills are noted to be extremely poor. The patient is screaming and yelling at the top of her lungs. The patient has been tried on several different medications. Finally, Haldol Dec has been given, even then it is not ____. It is decided to discontinue the Seroquel and then place the patient on Thorazine at night time and closely monitor the patient. ASSESSMENT: The patient is still impulsive. PLAN: To continue the patient with the supportive therapy, encouraged the patient to verbalize the concerns rather than to act out. Please note that the patient is not ready to be discharged to a lower level of care yet. JOB# [id number]
[2017-04-22] MEDS: Lactobacillus Rhamnosus GG 15 Billion CFU CAP.SPRINK PO SCH (08:13)
--- NOTE | 2017-04-22 14:51 | Internal Medicine Prog Note ---
Internal Medicine Subjective - Subjective Patient seen and examined:: with staff, chart reviewed Patient is:: awake, verbal, interactive, in bed, confused Per staff patient has:: no adverse event, no episodes of fall, poor appetite, noncompliant, tolerating meds Internal Medicine Objective - Results Result Diagrams: 04/06/17 21:50 04/06/17 21:16 Recent Labs: Laboratory Last Values WBC 5.4 Th/cmm (4.8-10.8) 04/06/17 21:50 RBC 4.50 Mil/cmm (3.80-5.10) 04/06/17 21:50 Hgb 13.7 gm/dL (-16) 04/06/17 21:50 Hct 40.7 % (41.0-60) L 04/06/17 21:50 MCV 90.4 fl (81-100) 04/06/17 21:50 MCH 30.5 pg (27.0-31.0) 04/06/17 21:50 MCHC Differential 33.8 pg (28.0-36.0) 04/06/17 21:50 RDW 12.2 % (11.5-20.0) 04/06/17 21:50 Plt Count 164 Th/cmm (150-400) 04/06/17 21:50 MPV 8.1 fl 04/06/17 21:50 Neutrophils % 57.1 % (40.0-80.0) 04/06/17 21:50 Lymphocytes % 31.7 % (20.0-50.0) 04/06/17 21:50 Monocytes % 9.2 % (2.0-10.0) 04/06/17 21:50 Eosinophils % 1.9 % (0.0-5.0) 04/06/17 21:50 Basophils % 0.1 % (0.0-2.0) 04/06/17 21:50 Sodium 138 mEq/L (136-145) 04/06/17 21:16 Potassium 4.0 mEq/L (3.5-5.1) 04/06/17 21:16 Chloride 107 mEq/L (98-107) 04/06/17 21:16 Carbon Dioxide 25.4 mEq/L (21.0-31.0) 04/06/17 21:16 Anion Gap 9.6 (7.0-16.0) 04/06/17 21:16 BUN 23 mg/dL (7-25) 04/06/17 21:16 Creatinine 1.0 mg/dL (0.6-1.2) 04/06/17 21:16 Est GFR ( Amer) > 60.0 ml/min (>90) 04/06/17 21:16 Est GFR (Non-Af Amer) > 60.0 ml/min 04/06/17 21:16 BUN/Creatinine Ratio 23.0 04/06/17 21:16 Glucose 90 mg/dL (70-105) 04/06/17 21:16 Hemoglobin A1c % 5.1 % (4.0-6.0) 04/06/17 21:50 Calcium 9.8 mg/dL (8.6-10.3) 04/06/17 21:16 Total Bilirubin 0.3 mg/dL (0.3-1.0) 04/06/17 21:16 AST 25 U/L (13-39) 04/06/17 21:16 ALT 18 U/L (7-52) 04/06/17 21:16 Alkaline Phosphatase 72 U/L (34-104) 04/06/17 21:16 Total Protein 7.7 gm/dL (6.0-8.3) 04/06/17 21:16 Albumin 4.2 gm/dL (3.7-5.3) 04/06/17 21:16 Globulin 3.5 gm/dL 04/06/17 21:16 Albumin/Globulin Ratio 1.2 (1.0-1.8) 04/06/17 21:16 TSH 0.81 uIU/ml (0.34-5.60) 04/06/17 21:16 Urine Source RANDOM 04/06/17 23:45 Urine Color YELLOW 04/06/17 23:45 Urine Clarity SLIGHT CLOUDY (CLEAR) 04/06/17 23:45 Urine pH 6.5 (4.6 - 8.0) 04/06/17 23:45 Ur Specific [place] 1.010 (1.005-1.030) 04/06/17 23:45 Urine Protein NEGATIVE mg/dL (NEGATIVE) 04/06/17 23:45 Urine Glucose (UA) NEGATIVE mg/dL (NEGATIVE) 04/06/17 23:45 Urine Ketones NEGATIVE mg/dL (NEGATIVE) 04/06/17 23:45 Urine Blood NEGATIVE (NEGATIVE) 04/06/17 23:45 Urine Nitrate POSITIVE (NEGATIVE) H 04/06/17 23:45 Urine Bilirubin NEGATIVE (NEGATIVE) 04/06/17 23:45 Urine Urobilinogen 0.2 E.U./dL (0.2 - 1.0) 04/06/17 23:45 Ur Leukocyte Esterase SMALL (NEGATIVE) H 04/06/17 23:45 Urine RBC 2-5 /hpf (0-5) 04/06/17 23:45 Urine WBC 25-50 /hpf (0-5) H 04/06/17 23:45 Ur Epithelial Cells OCCASIONAL /lpf (FEW) 04/06/17 23:45 Urine Bacteria 2+ /hpf (NONE SEEN) H 04/06/17 23:45 Urine Opiates Screen NEGATIVE (NEGATIVE) 04/06/17 23:45 Urine Methadone Screen NEGATIVE (NEGATIVE) 04/06/17 23:45 Ur Barbiturates Screen POSITIVE (NEGATIVE) H 04/06/17 23:45 Valproic Acid < 10.0 ug/mL (50.0-100.0) L 04/20/17 21:42 Ur Tricyclics Screen POSITIVE (NEGATIVE) H 04/06/17 23:45 Ur Phencyclidine Scrn NEGATIVE (NEGATIVE) 04/06/17 23:45 Amphetamines Screen NEGATIVE (NEGATIVE) 04/06/17 23:45 U Methamphetamines Scrn NEGATIVE (NEGATIVE) 04/06/17 23:45 U Benzodiazepines Scrn POSITIVE (NEGATIVE) H 04/06/17 23:45 U Cocaine Metab Screen NEGATIVE (NEGATIVE) 04/06/17 23:45 U Cannabinoids Screen NEGATIVE (NEGATIVE) 04/06/17 23:45 - Physical Exam Vitals and I&O: Vital Signs Temp 97.5 F 04/22/17 06:37 Pulse 66 04/22/17 06:37 Resp 20 04/22/17 06:37 BP 109/64 04/22/17 06:37 Pulse Ox 97 04/22/17 06:37 Intake & Output 04/21/17 04/22/17 04/22/17 18:59 06:59 18:59 Intake Total 600 120 Balance 600 120 Intake: Oral 600 120 Other: # Voids 4 3 # Bowel Movements 0 Active Medications: Current Medications Acetaminophen (Tylenol) 650 mg PO Q4HR PRN PRN Reason: Pain or Fever >101 Stop: 06/06/17 00:46 Al Hydrox/Mg Hydrox/Simethicone (Maalox) 30 ml PO Q6HR PRN PRN Reason: GI DISTRESS Stop: 06/06/17 00:46 Bisacodyl (Dulcolax 10 Mg Supp) 10 mg RC DAILY PRN PRN Reason: Constipation Stop: 06/06/17 00:46 Chlorpromazine (Thorazine) 100 mg PO HS RAYA PRN Reason: Protocol Stop: 06/21/17 14:08 Docusate Sodium (Colace) 100 mg PO BID RAYA Stop: 06/06/17 08:59 Last Admin: 04/22/17 08:12 Dose: 100 mg Haloperidol Decanoate (Haldol Dec) 50 mg IM QMONTH RAYA PRN Reason: Protocol Stop: 06/19/17 19:14 Last Admin: 04/21/17 14:29 Dose: 50 mg Lactobacillus Rhamnosus (Culturelle 15b) 1 each PO DAILY RAYA Stop: 04/23/17 08:59 Last Admin: 04/22/17 08:13 Dose: 1 each Levetiracetam (Keppra) 500 mg PO BID RAYA Stop: 06/06/17 08:59 Last Admin: 04/22/17 08:13 Dose: 500 mg Levofloxacin (Levaquin) 500 mg PO DAILY RAYA Stop: 04/24/17 09:01 Last Admin: 04/22/17 08:13 Dose: 500 mg Levothyroxine Sodium 0.05 mg/ (Levothyroxine Sodium 0.1 mg) 0.15 mg PO QDAC RAYA Stop: 06/08/17 09:59 Last Admin: 04/22/17 06:44 Dose: 0.15 mg [place] Carbonate (Eskalith) 300 mg PO BID RAYA PRN Reason: Protocol Stop: 06/20/17 08:59 Last Admin: 04/22/17 08:14 Dose: 300 mg Magnesium Hydroxide (Milk Of Magnesia) 30 ml PO HS PRN PRN Reason: Constipation Stop: 06/06/17 00:46 Miscellaneous (Probiotic Screen) 1 ea MC PRN PRN PRN Reason: PROTOCOL Stop: 06/08/17 15:29 Phenytoin (Dilantin) 200 mg PO BID [facility] Stop: 06/06/17 08:59 Last Admin: 04/22/17 08:14 Dose: 200 mg Quetiapine Fumarate (Seroquel) 400 mg PO DAILY [facility] Stop: 06/15/17 10:58 Last Admin: 04/22/17 08:14 Dose: 400 mg Valproate Sodium (Depakene) 500 mg PO BID RAYA PRN Reason: Protocol Stop: 06/13/17 16:59 Last Admin: 04/22/17 08:14 Dose: 500 mg General: demented HEENT: NC/AT, PERRLA, EOMI Neck: Supple, No JVD, No thyromegaly, No LAD Lungs: CTAB Cardiovascular: RRR, Normal S1, Normal S2, without murmur Abdomen: soft, non-tender, globular Extremities: excoriation, contracture Neurological: no change, disorganized, unsteady - Procedures Procedures: Procedures Procedure Code Date OTHER GROUP THERAPY 94.44 09/27/14 Internal Medicine Assmt/Plan - Assessment Assessment: ASSESSMENT AND PLAN: Urinary tract infection, hypothyroidism, hypercholesterolemia, hypertension, anemia with rheumatoid arthritis, seizure. - Plan Plan: We will continue the patient on antiepileptic medication. Continue Synthroid. We will place her __po antibiotic__. Continue to increase fluid. Continue with current care with followup consult and recommendations. Nutritional Asmnt/Malnutr-PDOC - Dietary Evaluation Malnutrition Findings (Please click <Entered> for more info): Nutritional Asmnt/Malnutrition Start: 04/13/17 13: 41 Text: Status: Complete Freq: Document 04/13/17 13:41 [email or web address] (Rec: 04/13/17 13:50 [email or web address]) Nutritional Asmnt/Malnutrition Patient General Information Nutritional Screening Moderate Risk Diagnosis psychosis, UTI Pertinent Medical Hx/Surgical Hx seizure disorder, HTN, hypercholesterolemia, colitis Subjective Information Per notes, PO intake mostly 75 -100%, refused x 2 meals. Current Diet Order/ Nutrition Support Regular Pertinent Medications culturelle, colace, levothyroxine, seroquel Pertinent Labs 04/06 Na 138, K 4.0, Cl 107, BUN 23, Cr 1.0, Glucose 90, A1c 5.1%, Ca 9.8, Alb 4.2 Nutritional Hx/Data Height 1.52 m Height (Calculated Centimeters) 152.4 Current Weight (lbs) 68.039 kg Weight (Calculated Kilograms) 68.0 Weight (Calculated Grams) 46409.9 [place] Body Weight 100 % [place] Body Weight 150 Body Mass Index (BMI) 29.2 Weight Status Overweight GI Symptoms GI Symptoms None Difficult in: None Skin Integrity/Comment: intact Current %PO Good (75-100%) Estimated Nutritional Goals BEE in Kcals: Adj wt of IBW Calories/Kcals/Kg 30 Kcals Calculated 1530kcal based on adj wt 51kg Protein: Adj wt of IBW Protein g/k Protein Calculated 51g Fluid: ml 1530ml (30ml/kg) Nutritional Problem No current Nutrition Prob Problem no nutrition problem at this time Malnutrition Alert Protein-Calorie Malnutrition N/A Is there a minimum of two criteria No selected? Query Text:Check all the applicable criteria. A minimum of two criteria are recommended for diagnosis of either severe or non-severe malnutrition. Intervention/Recommendation Comments 1. Continue with current diet as ordered. 2. Monitor PO intake, wt weekly, labs and skin integrity 3. F/U as low risk in 7 days, 04/20 Expected Outcomes/Goals Expected Outcomes/Goals 1. PO intake to meet at least 75% of nutritional needs. 2. Wt stability, skin to remain intact, labs WNL.
--- NOTE | 2017-04-22 23:08 | Progress Notes ---
DATE: 04/22/2017 SUBJECTIVE: Staff was spoken to. The patient is interviewed. Mood is noted to be irritable. Affect is constricted. The patient is still screaming and yelling and has been very, very aggressive and abusive towards the staff. The patient's coping skills at this time are noted to be very poor. The patient has been given Haldol Decanoate and on top of it, the patient has been receiving 400 mg of Seroquel. The patient's coping skills at this time are noted to be very poor. Insight and judgment are also noted to be very poor. We are looking at it is possibly the Thorazine is going to be added to this and the patient is going to be given this Thorazine on a p.r.n. basis and the patient is going to be closely monitored. The patient has been on 50 mg of Thorazine yesterday and planning to increase this on to 100 mg at bedtime and the patient's blood pressure is going to be closely monitored. It is noted that the patient is not ready to be discharged to a lower level of care yet. JOB# [id number]
--- NOTE | 2017-04-23 14:32 | Progress Notes ---
DATE: 04/23/2017 SUBJECTIVE: Staff was spoken to. The patient is interviewed. Mood is noted to be dysphoric. Coping skills are noted to be very poor. The patient has been still screaming and yelling. The patient has no insight into her illness. The patient is still impulsive and psychotic. Plan to continue the patient with the current medication. The patient has been initially on Seroquel, but did not do anything and hence the patient has been placed on chlorpromazine, which she has been getting 100 mg at bedtime and the patient's Seroquel is going to be gradually decreased to and the patient is going to be placed on 200 mg in the morning and Thorazine is going to be gradually increased. ASSESSMENT: The patient is still grossly psychotic and impulsive and is not able to contract for safety. PLAN: To continue the patient with Thorazine and decrease the dose on the Seroquel and follow the patient. JOB# [id number]
--- NOTE | 2017-04-23 14:54 | Internal Medicine Prog Note ---
Internal Medicine Subjective - Subjective Patient seen and examined:: with staff, chart reviewed Patient is:: awake, verbal, interactive, in bed, confused Per staff patient has:: no adverse event, no episodes of fall, poor appetite, noncompliant, tolerating meds Internal Medicine Objective - Results Result Diagrams: 04/06/17 21:50 04/06/17 21:16 Recent Labs: Laboratory Last Values WBC 5.4 Th/cmm (4.8-10.8) 04/06/17 21:50 RBC 4.50 Mil/cmm (3.80-5.10) 04/06/17 21:50 Hgb 13.7 gm/dL (-16) 04/06/17 21:50 Hct 40.7 % (41.0-60) L 04/06/17 21:50 MCV 90.4 fl (81-100) 04/06/17 21:50 MCH 30.5 pg (27.0-31.0) 04/06/17 21:50 MCHC Differential 33.8 pg (28.0-36.0) 04/06/17 21:50 RDW 12.2 % (11.5-20.0) 04/06/17 21:50 Plt Count 164 Th/cmm (150-400) 04/06/17 21:50 MPV 8.1 fl 04/06/17 21:50 Neutrophils % 57.1 % (40.0-80.0) 04/06/17 21:50 Lymphocytes % 31.7 % (20.0-50.0) 04/06/17 21:50 Monocytes % 9.2 % (2.0-10.0) 04/06/17 21:50 Eosinophils % 1.9 % (0.0-5.0) 04/06/17 21:50 Basophils % 0.1 % (0.0-2.0) 04/06/17 21:50 Sodium 138 mEq/L (136-145) 04/06/17 21:16 Potassium 4.0 mEq/L (3.5-5.1) 04/06/17 21:16 Chloride 107 mEq/L (98-107) 04/06/17 21:16 Carbon Dioxide 25.4 mEq/L (21.0-31.0) 04/06/17 21:16 Anion Gap 9.6 (7.0-16.0) 04/06/17 21:16 BUN 23 mg/dL (7-25) 04/06/17 21:16 Creatinine 1.0 mg/dL (0.6-1.2) 04/06/17 21:16 Est GFR ( Amer) > 60.0 ml/min (>90) 04/06/17 21:16 Est GFR (Non-Af Amer) > 60.0 ml/min 04/06/17 21:16 BUN/Creatinine Ratio 23.0 04/06/17 21:16 Glucose 90 mg/dL (70-105) 04/06/17 21:16 Hemoglobin A1c % 5.1 % (4.0-6.0) 04/06/17 21:50 Calcium 9.8 mg/dL (8.6-10.3) 04/06/17 21:16 Total Bilirubin 0.3 mg/dL (0.3-1.0) 04/06/17 21:16 AST 25 U/L (13-39) 04/06/17 21:16 ALT 18 U/L (7-52) 04/06/17 21:16 Alkaline Phosphatase 72 U/L (34-104) 04/06/17 21:16 Total Protein 7.7 gm/dL (6.0-8.3) 04/06/17 21:16 Albumin 4.2 gm/dL (3.7-5.3) 04/06/17 21:16 Globulin 3.5 gm/dL 04/06/17 21:16 Albumin/Globulin Ratio 1.2 (1.0-1.8) 04/06/17 21:16 TSH 0.81 uIU/ml (0.34-5.60) 04/06/17 21:16 Urine Source RANDOM 04/06/17 23:45 Urine Color YELLOW 04/06/17 23:45 Urine Clarity SLIGHT CLOUDY (CLEAR) 04/06/17 23:45 Urine pH 6.5 (4.6 - 8.0) 04/06/17 23:45 Ur Specific [place] 1.010 (1.005-1.030) 04/06/17 23:45 Urine Protein NEGATIVE mg/dL (NEGATIVE) 04/06/17 23:45 Urine Glucose (UA) NEGATIVE mg/dL (NEGATIVE) 04/06/17 23:45 Urine Ketones NEGATIVE mg/dL (NEGATIVE) 04/06/17 23:45 Urine Blood NEGATIVE (NEGATIVE) 04/06/17 23:45 Urine Nitrate POSITIVE (NEGATIVE) H 04/06/17 23:45 Urine Bilirubin NEGATIVE (NEGATIVE) 04/06/17 23:45 Urine Urobilinogen 0.2 E.U./dL (0.2 - 1.0) 04/06/17 23:45 Ur Leukocyte Esterase SMALL (NEGATIVE) H 04/06/17 23:45 Urine RBC 2-5 /hpf (0-5) 04/06/17 23:45 Urine WBC 25-50 /hpf (0-5) H 04/06/17 23:45 Ur Epithelial Cells OCCASIONAL /lpf (FEW) 04/06/17 23:45 Urine Bacteria 2+ /hpf (NONE SEEN) H 04/06/17 23:45 Urine Opiates Screen NEGATIVE (NEGATIVE) 04/06/17 23:45 Urine Methadone Screen NEGATIVE (NEGATIVE) 04/06/17 23:45 Ur Barbiturates Screen POSITIVE (NEGATIVE) H 04/06/17 23:45 Valproic Acid < 10.0 ug/mL (50.0-100.0) L 04/23/17 08:08 Ur Tricyclics Screen POSITIVE (NEGATIVE) H 04/06/17 23:45 Ur Phencyclidine Scrn NEGATIVE (NEGATIVE) 04/06/17 23:45 Amphetamines Screen NEGATIVE (NEGATIVE) 04/06/17 23:45 U Methamphetamines Scrn NEGATIVE (NEGATIVE) 04/06/17 23:45 U Benzodiazepines Scrn POSITIVE (NEGATIVE) H 04/06/17 23:45 U Cocaine Metab Screen NEGATIVE (NEGATIVE) 04/06/17 23:45 U Cannabinoids Screen NEGATIVE (NEGATIVE) 04/06/17 23:45 - Physical Exam Vitals and I&O: Vital Signs Temp 97.6 F 04/22/17 20:00 Pulse 62 04/22/17 20:00 Resp 18 04/22/17 20:00 BP 117/84 04/22/17 20:00 Pulse Ox 96 04/22/17 20:00 Intake & Output 04/22/17 04/23/17 04/23/17 18:59 06:59 18:59 Intake Total 500 120 Balance 500 120 Intake: Oral 500 120 Other: # Voids 2 3 Stool Characteristics Formed Formed Active Medications: Current Medications Acetaminophen (Tylenol) 650 mg PO Q4HR PRN PRN Reason: Pain or Fever >101 Stop: 06/06/17 00:46 Al Hydrox/Mg Hydrox/Simethicone (Maalox) 30 ml PO Q6HR PRN PRN Reason: GI DISTRESS Stop: 06/06/17 00:46 Bisacodyl (Dulcolax 10 Mg Supp) 10 mg RC DAILY PRN PRN Reason: Constipation Stop: 06/06/17 00:46 Chlorpromazine (Thorazine) 100 mg PO HS RAYA PRN Reason: Protocol Stop: 06/21/17 14:08 Last Admin: 04/22/17 20:58 Dose: 100 mg Docusate Sodium (Colace) 100 mg PO BID RAYA Stop: 06/06/17 08:59 Last Admin: 04/23/17 08:49 Dose: 100 mg Haloperidol Decanoate (Haldol Dec) 50 mg IM QMONTH RAYA PRN Reason: Protocol Stop: 06/19/17 19:14 Last Admin: 04/21/17 14:29 Dose: 50 mg Levetiracetam (Keppra) 500 mg PO BID RAYA Stop: 06/06/17 08:59 Last Admin: 04/23/17 08:43 Dose: 500 mg Levofloxacin (Levaquin) 500 mg PO DAILY [facility] Stop: 04/24/17 09:01 Last Admin: 04/23/17 08:42 Dose: 500 mg Levothyroxine Sodium 0.05 mg/ (Levothyroxine Sodium 0.1 mg) 0.15 mg PO QDAC [facility] Stop: 06/08/17 09:59 Last Admin: 04/23/17 06:40 Dose: 0.15 mg [employer] Carbonate (Eskalith) 300 mg PO BID RAYA PRN Reason: Protocol Stop: 06/20/17 08:59 Last Admin: 04/23/17 08:41 Dose: 300 mg Magnesium Hydroxide (Milk Of Magnesia) 30 ml PO HS PRN PRN Reason: Constipation Stop: 06/06/17 00:46 Miscellaneous (Probiotic Screen) 1 ea MC PRN PRN PRN Reason: PROTOCOL Stop: 06/08/17 15:29 Phenytoin (Dilantin) 200 mg PO BID [facility] Stop: 06/06/17 08:59 Last Admin: 04/23/17 08:40 Dose: 200 mg Quetiapine Fumarate (Seroquel) 200 mg PO DAILY [facility] Stop: 06/15/17 10:58 Valproate Sodium (Depakene) 500 mg PO BID RAYA PRN Reason: Protocol Stop: 06/13/17 16:59 Last Admin: 04/23/17 08:46 Dose: 500 mg General: demented HEENT: NC/AT, PERRLA, EOMI Neck: Supple, No JVD, No thyromegaly, No LAD Lungs: CTAB Cardiovascular: RRR, Normal S1, Normal S2, without murmur Abdomen: soft, non-tender, globular Extremities: excoriation, contracture Neurological: no change, disorganized, unsteady - Procedures Procedures: Procedures Procedure Code Date OTHER GROUP THERAPY 94.44 09/27/14 Internal Medicine Assmt/Plan - Assessment Assessment: ASSESSMENT AND PLAN: Urinary tract infection, hypothyroidism, hypercholesterolemia, hypertension, anemia with rheumatoid arthritis, seizure. - Plan Plan: We will continue the patient on antiepileptic medication. Continue Synthroid. We will place her __po antibiotic__. Continue to increase fluid. Continue with current care with followup consult and recommendations. Nutritional Asmnt/Malnutr-PDOC - Dietary Evaluation Malnutrition Findings (Please click <Entered> for more info): Nutritional Asmnt/Malnutrition Start: 04/13/17 13: 41 Text: Status: Complete Freq: Document 04/13/17 13:41 LCHENG (Rec: 04/13/17 13:50 [email or web address]) Nutritional Asmnt/Malnutrition Patient General Information Nutritional Screening Moderate Risk Diagnosis psychosis, UTI Pertinent Medical Hx/Surgical Hx seizure disorder, HTN, hypercholesterolemia, colitis Subjective Information Per notes, PO intake mostly 75 -100%, refused x 2 meals. Current Diet Order/ Nutrition Support Regular Pertinent Medications culturelle, colace, levothyroxine, seroquel Pertinent Labs 04/06 Na 138, K 4.0, Cl 107, BUN 23, Cr 1.0, Glucose 90, A1c 5.1%, Ca 9.8, Alb 4.2 Nutritional Hx/Data Height 1.52 m Height (Calculated Centimeters) 152.4 Current Weight (lbs) 68.039 kg Weight (Calculated Kilograms) 68.0 Weight (Calculated Grams) 88151.9 [place] Body Weight 100 % [place] Body Weight 150 Body Mass Index (BMI) 29.2 Weight Status Overweight GI Symptoms GI Symptoms None Difficult in: None Skin Integrity/Comment: intact Current %PO Good (75-100%) Estimated Nutritional Goals BEE in Kcals: Adj wt of IBW Calories/Kcals/Kg 30 Kcals Calculated 1530kcal based on adj wt 51kg Protein: Adj wt of IBW Protein g/k Protein Calculated 51g Fluid: ml 1530ml (30ml/kg) Nutritional Problem No current Nutrition Prob Problem no nutrition problem at this time Malnutrition Alert Protein-Calorie Malnutrition N/A Is there a minimum of two criteria No selected? Query Text:Check all the applicable criteria. A minimum of two criteria are recommended for diagnosis of either severe or non-severe malnutrition. Intervention/Recommendation Comments 1. Continue with current diet as ordered. 2. Monitor PO intake, wt weekly, labs and skin integrity 3. F/U as low risk in 7 days, 04/20 Expected Outcomes/Goals Expected Outcomes/Goals 1. PO intake to meet at least 75% of nutritional needs. 2. Wt stability, skin to remain intact, labs WNL.
--- NOTE | 2017-04-24 11:05 | Internal Medicine Prog Note ---
Internal Medicine Subjective - Subjective Service Date: 04/24/17 Patient is:: awake, verbal, interactive, in bed, confused Per staff patient has:: no adverse event, no episodes of fall, poor appetite, noncompliant, tolerating meds Internal Medicine Objective - Results Result Diagrams: 04/06/17 21:50 04/06/17 21:16 Recent Labs: Laboratory Last Values WBC 5.4 Th/cmm (4.8-10.8) 04/06/17 21:50 RBC 4.50 Mil/cmm (3.80-5.10) 04/06/17 21:50 Hgb 13.7 gm/dL (-16) 04/06/17 21:50 Hct 40.7 % (41.0-60) L 04/06/17 21:50 MCV 90.4 fl (81-100) 04/06/17 21:50 MCH 30.5 pg (27.0-31.0) 04/06/17 21:50 MCHC Differential 33.8 pg (28.0-36.0) 04/06/17 21:50 RDW 12.2 % (11.5-20.0) 04/06/17 21:50 Plt Count 164 Th/cmm (150-400) 04/06/17 21:50 MPV 8.1 fl 04/06/17 21:50 Neutrophils % 57.1 % (40.0-80.0) 04/06/17 21:50 Lymphocytes % 31.7 % (20.0-50.0) 04/06/17 21:50 Monocytes % 9.2 % (2.0-10.0) 04/06/17 21:50 Eosinophils % 1.9 % (0.0-5.0) 04/06/17 21:50 Basophils % 0.1 % (0.0-2.0) 04/06/17 21:50 Sodium 138 mEq/L (136-145) 04/06/17 21:16 Potassium 4.0 mEq/L (3.5-5.1) 04/06/17 21:16 Chloride 107 mEq/L (98-107) 04/06/17 21:16 Carbon Dioxide 25.4 mEq/L (21.0-31.0) 04/06/17 21:16 Anion Gap 9.6 (7.0-16.0) 04/06/17 21:16 BUN 23 mg/dL (7-25) 04/06/17 21:16 Creatinine 1.0 mg/dL (0.6-1.2) 04/06/17 21:16 Est GFR ( Amer) > 60.0 ml/min (>90) 04/06/17 21:16 Est GFR (Non-Af Amer) > 60.0 ml/min 04/06/17 21:16 BUN/Creatinine Ratio 23.0 04/06/17 21:16 Glucose 90 mg/dL (70-105) 04/06/17 21:16 Hemoglobin A1c % 5.1 % (4.0-6.0) 04/06/17 21:50 Calcium 9.8 mg/dL (8.6-10.3) 04/06/17 21:16 Total Bilirubin 0.3 mg/dL (0.3-1.0) 04/06/17 21:16 AST 25 U/L (13-39) 04/06/17 21:16 ALT 18 U/L (7-52) 04/06/17 21:16 Alkaline Phosphatase 72 U/L (34-104) 04/06/17 21:16 Total Protein 7.7 gm/dL (6.0-8.3) 04/06/17 21:16 Albumin 4.2 gm/dL (3.7-5.3) 04/06/17 21:16 Globulin 3.5 gm/dL 04/06/17 21:16 Albumin/Globulin Ratio 1.2 (1.0-1.8) 04/06/17 21:16 TSH 0.81 uIU/ml (0.34-5.60) 04/06/17 21:16 Urine Source RANDOM 04/06/17 23:45 Urine Color YELLOW 04/06/17 23:45 Urine Clarity SLIGHT CLOUDY (CLEAR) 04/06/17 23:45 Urine pH 6.5 (4.6 - 8.0) 04/06/17 23:45 Ur Specific [place] 1.010 (1.005-1.030) 04/06/17 23:45 Urine Protein NEGATIVE mg/dL (NEGATIVE) 04/06/17 23:45 Urine Glucose (UA) NEGATIVE mg/dL (NEGATIVE) 04/06/17 23:45 Urine Ketones NEGATIVE mg/dL (NEGATIVE) 04/06/17 23:45 Urine Blood NEGATIVE (NEGATIVE) 04/06/17 23:45 Urine Nitrate POSITIVE (NEGATIVE) H 04/06/17 23:45 Urine Bilirubin NEGATIVE (NEGATIVE) 04/06/17 23:45 Urine Urobilinogen 0.2 E.U./dL (0.2 - 1.0) 04/06/17 23:45 Ur Leukocyte Esterase SMALL (NEGATIVE) H 04/06/17 23:45 Urine RBC 2-5 /hpf (0-5) 04/06/17 23:45 Urine WBC 25-50 /hpf (0-5) H 04/06/17 23:45 Ur Epithelial Cells OCCASIONAL /lpf (FEW) 04/06/17 23:45 Urine Bacteria 2+ /hpf (NONE SEEN) H 04/06/17 23:45 Urine Opiates Screen NEGATIVE (NEGATIVE) 04/06/17 23:45 Urine Methadone Screen NEGATIVE (NEGATIVE) 04/06/17 23:45 Ur Barbiturates Screen POSITIVE (NEGATIVE) H 04/06/17 23:45 Valproic Acid < 10.0 ug/mL (50.0-100.0) L 04/23/17 08:08 Ur Tricyclics Screen POSITIVE (NEGATIVE) H 04/06/17 23:45 Ur Phencyclidine Scrn NEGATIVE (NEGATIVE) 04/06/17 23:45 Amphetamines Screen NEGATIVE (NEGATIVE) 04/06/17 23:45 U Methamphetamines Scrn NEGATIVE (NEGATIVE) 04/06/17 23:45 U Benzodiazepines Scrn POSITIVE (NEGATIVE) H 04/06/17 23:45 U Cocaine Metab Screen NEGATIVE (NEGATIVE) 04/06/17 23:45 U Cannabinoids Screen NEGATIVE (NEGATIVE) 04/06/17 23:45 - Physical Exam Vitals and I&O: Vital Signs Temp 98.1 F 04/24/17 05:55 Pulse 90 04/24/17 05:55 Resp 19 04/24/17 05:55 BP 119/77 04/24/17 05:55 Pulse Ox 97 04/24/17 05:55 Intake & Output 04/23/17 04/24/17 04/24/17 18:59 06:59 18:59 Intake Total 1400 360 Balance 1400 360 Intake: Oral 1400 360 Other: # Voids 4 1 # Bowel Movements 2 0 Stool Characteristics Formed Active Medications: Current Medications Acetaminophen (Tylenol) 650 mg PO Q4HR PRN PRN Reason: Pain or Fever >101 Stop: 06/06/17 00:46 Al Hydrox/Mg Hydrox/Simethicone (Maalox) 30 ml PO Q6HR PRN PRN Reason: GI DISTRESS Stop: 06/06/17 00:46 Bisacodyl (Dulcolax 10 Mg Supp) 10 mg RC DAILY PRN PRN Reason: Constipation Stop: 06/06/17 00:46 Chlorpromazine (Thorazine) 100 mg PO HS RAYA PRN Reason: Protocol Stop: 06/21/17 14:08 Last Admin: 04/23/17 20:55 Dose: 100 mg Docusate Sodium (Colace) 100 mg PO BID RAYA Stop: 06/06/17 08:59 Last Admin: 04/24/17 09:07 Dose: 100 mg Haloperidol Decanoate (Haldol Dec) 50 mg IM QMONTH RAYA PRN Reason: Protocol Stop: 06/19/17 19:14 Last Admin: 04/21/17 14:29 Dose: 50 mg Levetiracetam (Keppra) 500 mg PO BID [facility] Stop: 06/06/17 08:59 Last Admin: 04/24/17 09:04 Dose: 500 mg Levothyroxine Sodium 0.05 mg/ (Levothyroxine Sodium 0.1 mg) 0.15 mg PO QDAC [facility] Stop: 06/08/17 09:59 Last Admin: 04/24/17 06:37 Dose: 0.15 mg [place] Carbonate (Eskalith) 300 mg PO BID RAYA PRN Reason: Protocol Stop: 06/20/17 08:59 Last Admin: 04/24/17 09:05 Dose: 300 mg Magnesium Hydroxide (Milk Of Magnesia) 30 ml PO HS PRN PRN Reason: Constipation Stop: 06/06/17 00:46 Miscellaneous (Probiotic Screen) 1 ea MC PRN PRN PRN Reason: PROTOCOL Stop: 06/08/17 15:29 Phenytoin (Dilantin) 200 mg PO BID [facility] Stop: 06/06/17 08:59 Last Admin: 04/24/17 10:08 Dose: 200 mg Quetiapine Fumarate (Seroquel) 200 mg PO DAILY [facility] Stop: 06/15/17 10:58 Last Admin: 04/24/17 09:06 Dose: 200 mg Valproate Sodium (Depakene) 500 mg PO BID RAYA PRN Reason: Protocol Stop: 06/13/17 16:59 Last Admin: 04/24/17 09:08 Dose: 500 mg General: demented HEENT: NC/AT, PERRLA, EOMI Neck: Supple, No JVD, No thyromegaly, No LAD Lungs: CTAB Cardiovascular: RRR, Normal S1, Normal S2, without murmur Abdomen: soft, non-tender, globular Extremities: excoriation, contracture Neurological: no change, disorganized, unsteady - Procedures Procedures: Procedures Procedure Code Date OTHER GROUP THERAPY 94.44 09/27/14 Internal Medicine Assmt/Plan - Assessment Assessment: Urinary tract infection with e.coli hypothyroidism hypercholesterolemia hypertension anemia with rheumatoid arthritis seizure - Plan Plan: seizure precautions continue current plan of care Nutritional Asmnt/Malnutr-PDOC - Dietary Evaluation Malnutrition Findings (Please click <Entered> for more info): Nutritional Asmnt/Malnutrition Start: 04/13/17 13: 41 Text: Status: Complete Freq: Document 04/13/17 13:41 LCHENG (Rec: 04/13/17 13:50 [email or web address]) Nutritional Asmnt/Malnutrition Patient General Information Nutritional Screening Moderate Risk Diagnosis psychosis, UTI Pertinent Medical Hx/Surgical Hx seizure disorder, HTN, hypercholesterolemia, colitis Subjective Information Per notes, PO intake mostly 75 -100%, refused x 2 meals. Current Diet Order/ Nutrition Support Regular Pertinent Medications culturelle, colace, levothyroxine, seroquel Pertinent Labs 04/06 Na 138, K 4.0, Cl 107, BUN 23, Cr 1.0, Glucose 90, A1c 5.1%, Ca 9.8, Alb 4.2 Nutritional Hx/Data Height 5 ft Height (Calculated Centimeters) 152.4 Current Weight (lbs) 150 lb Weight (Calculated Kilograms) 68.0 Weight (Calculated Grams) 53233.9 [place] Body Weight 100 % [place] Body Weight 150 Body Mass Index (BMI) 29.2 Weight Status Overweight GI Symptoms GI Symptoms None Difficult in: None Skin Integrity/Comment: intact Current %PO Good (75-100%) Estimated Nutritional Goals BEE in Kcals: Adj wt of IBW Calories/Kcals/Kg 30 Kcals Calculated 1530kcal based on adj wt 51kg Protein: Adj wt of IBW Protein g/k Protein Calculated 51g Fluid: ml 1530ml (30ml/kg) Nutritional Problem No current Nutrition Prob Problem no nutrition problem at this time Malnutrition Alert Protein-Calorie Malnutrition N/A Is there a minimum of two criteria No selected? Query Text:Check all the applicable criteria. A minimum of two criteria are recommended for diagnosis of either severe or non-severe malnutrition. Intervention/Recommendation Comments 1. Continue with current diet as ordered. 2. Monitor PO intake, wt weekly, labs and skin integrity 3. F/U as low risk in 7 days, 04/20 Expected Outcomes/Goals Expected Outcomes/Goals 1. PO intake to meet at least 75% of nutritional needs. 2. Wt stability, skin to remain intact, labs WNL.
--- NOTE | 2017-04-24 13:13 | Progress Notes ---
DATE: 04/24/2017 SUBJECTIVE: Staff was spoken to. The patient is interviewed. Mood is noted to be irritable. Affect is constricted. Insight and judgment are noted to be still impaired. Impulse control seems to be poor. Coping skills are noted to be very poor. The patient is still yelling and screaming whenever she does not get her way. No side effects to the medications are noted. ASSESSMENT: The patient is still psychotic. PLAN: To continue the patient with the supportive therapy, encouraged the patient to verbalize the concerns rather than to act out. JOB# [id number]
--- NOTE | 2017-04-25 10:57 | Internal Medicine Prog Note ---
Internal Medicine Subjective - Subjective Service Date: 04/25/17 Patient is:: awake, verbal, interactive, in bed, confused Per staff patient has:: no adverse event, no episodes of fall, poor appetite, noncompliant, tolerating meds Internal Medicine Objective - Results Result Diagrams: 04/06/17 21:50 04/06/17 21:16 Recent Labs: Laboratory Last Values WBC 5.4 Th/cmm (4.8-10.8) 04/06/17 21:50 RBC 4.50 Mil/cmm (3.80-5.10) 04/06/17 21:50 Hgb 13.7 gm/dL (-16) 04/06/17 21:50 Hct 40.7 % (41.0-60) L 04/06/17 21:50 MCV 90.4 fl (81-100) 04/06/17 21:50 MCH 30.5 pg (27.0-31.0) 04/06/17 21:50 MCHC Differential 33.8 pg (28.0-36.0) 04/06/17 21:50 RDW 12.2 % (11.5-20.0) 04/06/17 21:50 Plt Count 164 Th/cmm (150-400) 04/06/17 21:50 MPV 8.1 fl 04/06/17 21:50 Neutrophils % 57.1 % (40.0-80.0) 04/06/17 21:50 Lymphocytes % 31.7 % (20.0-50.0) 04/06/17 21:50 Monocytes % 9.2 % (2.0-10.0) 04/06/17 21:50 Eosinophils % 1.9 % (0.0-5.0) 04/06/17 21:50 Basophils % 0.1 % (0.0-2.0) 04/06/17 21:50 Sodium 138 mEq/L (136-145) 04/06/17 21:16 Potassium 4.0 mEq/L (3.5-5.1) 04/06/17 21:16 Chloride 107 mEq/L (98-107) 04/06/17 21:16 Carbon Dioxide 25.4 mEq/L (21.0-31.0) 04/06/17 21:16 Anion Gap 9.6 (7.0-16.0) 04/06/17 21:16 BUN 23 mg/dL (7-25) 04/06/17 21:16 Creatinine 1.0 mg/dL (0.6-1.2) 04/06/17 21:16 Est GFR ( Amer) > 60.0 ml/min (>90) 04/06/17 21:16 Est GFR (Non-Af Amer) > 60.0 ml/min 04/06/17 21:16 BUN/Creatinine Ratio 23.0 04/06/17 21:16 Glucose 90 mg/dL (70-105) 04/06/17 21:16 Hemoglobin A1c % 5.1 % (4.0-6.0) 04/06/17 21:50 Calcium 9.8 mg/dL (8.6-10.3) 04/06/17 21:16 Total Bilirubin 0.3 mg/dL (0.3-1.0) 04/06/17 21:16 AST 25 U/L (13-39) 04/06/17 21:16 ALT 18 U/L (7-52) 04/06/17 21:16 Alkaline Phosphatase 72 U/L (34-104) 04/06/17 21:16 Total Protein 7.7 gm/dL (6.0-8.3) 04/06/17 21:16 Albumin 4.2 gm/dL (3.7-5.3) 04/06/17 21:16 Globulin 3.5 gm/dL 04/06/17 21:16 Albumin/Globulin Ratio 1.2 (1.0-1.8) 04/06/17 21:16 TSH 0.81 uIU/ml (0.34-5.60) 04/06/17 21:16 Urine Source RANDOM 04/06/17 23:45 Urine Color YELLOW 04/06/17 23:45 Urine Clarity SLIGHT CLOUDY (CLEAR) 04/06/17 23:45 Urine pH 6.5 (4.6 - 8.0) 04/06/17 23:45 Ur Specific [place] 1.010 (1.005-1.030) 04/06/17 23:45 Urine Protein NEGATIVE mg/dL (NEGATIVE) 04/06/17 23:45 Urine Glucose (UA) NEGATIVE mg/dL (NEGATIVE) 04/06/17 23:45 Urine Ketones NEGATIVE mg/dL (NEGATIVE) 04/06/17 23:45 Urine Blood NEGATIVE (NEGATIVE) 04/06/17 23:45 Urine Nitrate POSITIVE (NEGATIVE) H 04/06/17 23:45 Urine Bilirubin NEGATIVE (NEGATIVE) 04/06/17 23:45 Urine Urobilinogen 0.2 E.U./dL (0.2 - 1.0) 04/06/17 23:45 Ur Leukocyte Esterase SMALL (NEGATIVE) H 04/06/17 23:45 Urine RBC 2-5 /hpf (0-5) 04/06/17 23:45 Urine WBC 25-50 /hpf (0-5) H 04/06/17 23:45 Ur Epithelial Cells OCCASIONAL /lpf (FEW) 04/06/17 23:45 Urine Bacteria 2+ /hpf (NONE SEEN) H 04/06/17 23:45 Urine Opiates Screen NEGATIVE (NEGATIVE) 04/06/17 23:45 Urine Methadone Screen NEGATIVE (NEGATIVE) 04/06/17 23:45 Ur Barbiturates Screen POSITIVE (NEGATIVE) H 04/06/17 23:45 Valproic Acid < 10.0 ug/mL (50.0-100.0) L 04/23/17 08:08 Ur Tricyclics Screen POSITIVE (NEGATIVE) H 04/06/17 23:45 Ur Phencyclidine Scrn NEGATIVE (NEGATIVE) 04/06/17 23:45 Amphetamines Screen NEGATIVE (NEGATIVE) 04/06/17 23:45 U Methamphetamines Scrn NEGATIVE (NEGATIVE) 04/06/17 23:45 U Benzodiazepines Scrn POSITIVE (NEGATIVE) H 04/06/17 23:45 U Cocaine Metab Screen NEGATIVE (NEGATIVE) 04/06/17 23:45 U Cannabinoids Screen NEGATIVE (NEGATIVE) 04/06/17 23:45 - Physical Exam Vitals and I&O: Vital Signs Temp 97.3 F 04/25/17 06:03 Pulse 74 04/25/17 06:03 Resp 19 04/25/17 06:03 BP 96/65 04/25/17 06:03 Pulse Ox 97 04/25/17 06:03 Intake & Output 04/24/17 04/25/17 04/25/17 18:59 06:59 18:59 Intake Total 900 360 Balance 900 360 Intake: Oral 900 360 Other: # Voids 4 2 # Bowel Movements 1 0 Active Medications: Current Medications Acetaminophen (Tylenol) 650 mg PO Q4HR PRN PRN Reason: Pain or Fever >101 Stop: 06/06/17 00:46 Al Hydrox/Mg Hydrox/Simethicone (Maalox) 30 ml PO Q6HR PRN PRN Reason: GI DISTRESS Stop: 06/06/17 00:46 Bisacodyl (Dulcolax 10 Mg Supp) 10 mg RC DAILY PRN PRN Reason: Constipation Stop: 06/06/17 00:46 Chlorpromazine (Thorazine) 100 mg PO HS RAYA PRN Reason: Protocol Stop: 06/21/17 14:08 Last Admin: 04/24/17 20:27 Dose: 100 mg Docusate Sodium (Colace) 100 mg PO BID RAYA Stop: 06/06/17 08:59 Last Admin: 04/25/17 08:35 Dose: 100 mg Haloperidol Decanoate (Haldol Dec) 50 mg IM QMONTH RAYA PRN Reason: Protocol Stop: 06/19/17 19:14 Last Admin: 04/21/17 14:29 Dose: 50 mg Levetiracetam (Keppra) 500 mg PO BID RAYA Stop: 06/06/17 08:59 Last Admin: 04/25/17 08:35 Dose: 500 mg Levothyroxine Sodium 0.05 mg/ (Levothyroxine Sodium 0.1 mg) 0.15 mg PO QDAC RAYA Stop: 06/08/17 09:59 Last Admin: 04/25/17 06:42 Dose: 0.15 mg [place] Carbonate (Eskalith) 300 mg PO BID RAYA PRN Reason: Protocol Stop: 06/20/17 08:59 Last Admin: 04/25/17 08:35 Dose: 300 mg Magnesium Hydroxide (Milk Of Magnesia) 30 ml PO HS PRN PRN Reason: Constipation Stop: 06/06/17 00:46 Miscellaneous (Probiotic Screen) 1 ea MC PRN PRN PRN Reason: PROTOCOL Stop: 06/08/17 15:29 Phenytoin (Dilantin) 200 mg PO BID RAYA Stop: 06/06/17 08:59 Last Admin: 04/25/17 08:35 Dose: 200 mg Quetiapine Fumarate (Seroquel) 200 mg PO DAILY RAYA Stop: 06/15/17 10:58 Last Admin: 04/25/17 08:35 Dose: 200 mg Valproate Sodium (Depakene) 500 mg PO BID RAYA PRN Reason: Protocol Stop: 06/13/17 16:59 Last Admin: 04/25/17 08:35 Dose: 500 mg General: demented HEENT: NC/AT, PERRLA, EOMI Neck: Supple, No JVD, No thyromegaly, No LAD Lungs: CTAB Cardiovascular: RRR, Normal S1, Normal S2, without murmur Abdomen: soft, non-tender, globular Extremities: excoriation, contracture Neurological: no change, disorganized, unsteady - Procedures Procedures: Procedures Procedure Code Date OTHER GROUP THERAPY 94.44 09/27/14 Internal Medicine Assmt/Plan - Assessment Assessment: Urinary tract infection with e.coli hypothyroidism hypercholesterolemia hypertension anemia with rheumatoid arthritis seizure - Plan Plan: seizure precautions continue current plan of care Nutritional Asmnt/Malnutr-PDOC - Dietary Evaluation Malnutrition Findings (Please click <Entered> for more info): Nutritional Asmnt/Malnutrition Start: 04/13/17 13: 41 Text: Status: Complete Freq: Document 04/13/17 13:41 LCHENG (Rec: 04/13/17 13:50 [email or web address]) Nutritional Asmnt/Malnutrition Patient General Information Nutritional Screening Moderate Risk Diagnosis psychosis, UTI Pertinent Medical Hx/Surgical Hx seizure disorder, HTN, hypercholesterolemia, colitis Subjective Information Per notes, PO intake mostly 75 -100%, refused x 2 meals. Current Diet Order/ Nutrition Support Regular Pertinent Medications culturelle, colace, levothyroxine, seroquel Pertinent Labs 04/06 Na 138, K 4.0, Cl 107, BUN 23, Cr 1.0, Glucose 90, A1c 5.1%, Ca 9.8, Alb 4.2 Nutritional Hx/Data Height 5 ft Height (Calculated Centimeters) 152.4 Current Weight (lbs) 150 lb Weight (Calculated Kilograms) 68.0 Weight (Calculated Grams) 08352.9 [place] Body Weight 100 % [place] Body Weight 150 Body Mass Index (BMI) 29.2 Weight Status Overweight GI Symptoms GI Symptoms None Difficult in: None Skin Integrity/Comment: intact Current %PO Good (75-100%) Estimated Nutritional Goals BEE in Kcals: Adj wt of IBW Calories/Kcals/Kg 30 Kcals Calculated 1530kcal based on adj wt 51kg Protein: Adj wt of IBW Protein g/k Protein Calculated 51g Fluid: ml 1530ml (30ml/kg) Nutritional Problem No current Nutrition Prob Problem no nutrition problem at this time Malnutrition Alert Protein-Calorie Malnutrition N/A Is there a minimum of two criteria No selected? Query Text:Check all the applicable criteria. A minimum of two criteria are recommended for diagnosis of either severe or non-severe malnutrition. Intervention/Recommendation Comments 1. Continue with current diet as ordered. 2. Monitor PO intake, wt weekly, labs and skin integrity 3. F/U as low risk in 7 days, 04/20 Expected Outcomes/Goals Expected Outcomes/Goals 1. PO intake to meet at least 75% of nutritional needs. 2. Wt stability, skin to remain intact, labs WNL.
--- NOTE | 2017-04-26 02:00 | Progress Notes ---
DATE: 04/25/2017 SUBJECTIVE: Staff was spoken to. The patient is interviewed. The patient's insight and judgment at this time are noted to be still impaired. The patient's coping skills are noted to be very poor. The patient has pain still testing the limits. The patient has been screaming and yelling at this time for no reason. The patient has been currently on 100 mg of his chlorpromazine, which is going to be increased to 100 mg twice a day. ASSESSMENT: The patient is going to be discontinued off of her Seroquel and the patient is going to be followed up with the supportive therapy. JOB# [id number]
--- NOTE | 2017-04-26 13:31 | Internal Medicine Prog Note ---
Internal Medicine Subjective - Subjective Service Date: 04/26/17 Patient is:: awake, verbal, interactive, in bed, confused Per staff patient has:: no adverse event, no episodes of fall, poor appetite, noncompliant, tolerating meds Internal Medicine Objective - Results Result Diagrams: 04/06/17 21:50 04/06/17 21:16 Recent Labs: Laboratory Last Values WBC 5.4 Th/cmm (4.8-10.8) 04/06/17 21:50 RBC 4.50 Mil/cmm (3.80-5.10) 04/06/17 21:50 Hgb 13.7 gm/dL (-16) 04/06/17 21:50 Hct 40.7 % (41.0-60) L 04/06/17 21:50 MCV 90.4 fl (81-100) 04/06/17 21:50 MCH 30.5 pg (27.0-31.0) 04/06/17 21:50 MCHC Differential 33.8 pg (28.0-36.0) 04/06/17 21:50 RDW 12.2 % (11.5-20.0) 04/06/17 21:50 Plt Count 164 Th/cmm (150-400) 04/06/17 21:50 MPV 8.1 fl 04/06/17 21:50 Neutrophils % 57.1 % (40.0-80.0) 04/06/17 21:50 Lymphocytes % 31.7 % (20.0-50.0) 04/06/17 21:50 Monocytes % 9.2 % (2.0-10.0) 04/06/17 21:50 Eosinophils % 1.9 % (0.0-5.0) 04/06/17 21:50 Basophils % 0.1 % (0.0-2.0) 04/06/17 21:50 Sodium 138 mEq/L (136-145) 04/06/17 21:16 Potassium 4.0 mEq/L (3.5-5.1) 04/06/17 21:16 Chloride 107 mEq/L (98-107) 04/06/17 21:16 Carbon Dioxide 25.4 mEq/L (21.0-31.0) 04/06/17 21:16 Anion Gap 9.6 (7.0-16.0) 04/06/17 21:16 BUN 23 mg/dL (7-25) 04/06/17 21:16 Creatinine 1.0 mg/dL (0.6-1.2) 04/06/17 21:16 Est GFR ( Amer) > 60.0 ml/min (>90) 04/06/17 21:16 Est GFR (Non-Af Amer) > 60.0 ml/min 04/06/17 21:16 BUN/Creatinine Ratio 23.0 04/06/17 21:16 Glucose 90 mg/dL (70-105) 04/06/17 21:16 Hemoglobin A1c % 5.1 % (4.0-6.0) 04/06/17 21:50 Calcium 9.8 mg/dL (8.6-10.3) 04/06/17 21:16 Total Bilirubin 0.3 mg/dL (0.3-1.0) 04/06/17 21:16 AST 25 U/L (13-39) 04/06/17 21:16 ALT 18 U/L (7-52) 04/06/17 21:16 Alkaline Phosphatase 72 U/L (34-104) 04/06/17 21:16 Total Protein 7.7 gm/dL (6.0-8.3) 04/06/17 21:16 Albumin 4.2 gm/dL (3.7-5.3) 04/06/17 21:16 Globulin 3.5 gm/dL 04/06/17 21:16 Albumin/Globulin Ratio 1.2 (1.0-1.8) 04/06/17 21:16 TSH 0.81 uIU/ml (0.34-5.60) 04/06/17 21:16 Urine Source RANDOM 04/06/17 23:45 Urine Color YELLOW 04/06/17 23:45 Urine Clarity SLIGHT CLOUDY (CLEAR) 04/06/17 23:45 Urine pH 6.5 (4.6 - 8.0) 04/06/17 23:45 Ur Specific [place] 1.010 (1.005-1.030) 04/06/17 23:45 Urine Protein NEGATIVE mg/dL (NEGATIVE) 04/06/17 23:45 Urine Glucose (UA) NEGATIVE mg/dL (NEGATIVE) 04/06/17 23:45 Urine Ketones NEGATIVE mg/dL (NEGATIVE) 04/06/17 23:45 Urine Blood NEGATIVE (NEGATIVE) 04/06/17 23:45 Urine Nitrate POSITIVE (NEGATIVE) H 04/06/17 23:45 Urine Bilirubin NEGATIVE (NEGATIVE) 04/06/17 23:45 Urine Urobilinogen 0.2 E.U./dL (0.2 - 1.0) 04/06/17 23:45 Ur Leukocyte Esterase SMALL (NEGATIVE) H 04/06/17 23:45 Urine RBC 2-5 /hpf (0-5) 04/06/17 23:45 Urine WBC 25-50 /hpf (0-5) H 04/06/17 23:45 Ur Epithelial Cells OCCASIONAL /lpf (FEW) 04/06/17 23:45 Urine Bacteria 2+ /hpf (NONE SEEN) H 04/06/17 23:45 Urine Opiates Screen NEGATIVE (NEGATIVE) 04/06/17 23:45 Urine Methadone Screen NEGATIVE (NEGATIVE) 04/06/17 23:45 Ur Barbiturates Screen POSITIVE (NEGATIVE) H 04/06/17 23:45 Valproic Acid < 10.0 ug/mL (50.0-100.0) L 04/23/17 08:08 Ur Tricyclics Screen POSITIVE (NEGATIVE) H 04/06/17 23:45 Ur Phencyclidine Scrn NEGATIVE (NEGATIVE) 04/06/17 23:45 Amphetamines Screen NEGATIVE (NEGATIVE) 04/06/17 23:45 U Methamphetamines Scrn NEGATIVE (NEGATIVE) 04/06/17 23:45 U Benzodiazepines Scrn POSITIVE (NEGATIVE) H 04/06/17 23:45 U Cocaine Metab Screen NEGATIVE (NEGATIVE) 04/06/17 23:45 U Cannabinoids Screen NEGATIVE (NEGATIVE) 04/06/17 23:45 - Physical Exam Vitals and I&O: Vital Signs Temp 98.2 F 04/26/17 06:39 Pulse 75 04/26/17 06:39 Resp 20 04/26/17 06:39 BP 116/73 04/26/17 06:39 Pulse Ox 98 04/26/17 06:39 Intake & Output 04/25/17 04/26/17 04/26/17 18:59 06:59 18:59 Intake Total 1800 120 Balance 1800 120 Intake: Oral 1800 120 Other: # Voids 5 3 # Bowel Movements 1 Active Medications: Current Medications Acetaminophen (Tylenol) 650 mg PO Q4HR PRN PRN Reason: Pain or Fever >101 Stop: 06/06/17 00:46 Al Hydrox/Mg Hydrox/Simethicone (Maalox) 30 ml PO Q6HR PRN PRN Reason: GI DISTRESS Stop: 06/06/17 00:46 Bisacodyl (Dulcolax 10 Mg Supp) 10 mg RC DAILY PRN PRN Reason: Constipation Stop: 06/06/17 00:46 Chlorpromazine (Thorazine) 100 mg PO BID RAYA PRN Reason: Protocol Stop: 06/25/17 08:59 Last Admin: 04/26/17 08:16 Dose: 100 mg Docusate Sodium (Colace) 100 mg PO BID RAYA Stop: 06/06/17 08:59 Last Admin: 04/26/17 08:16 Dose: 100 mg Haloperidol Decanoate (Haldol Dec) 50 mg IM QMONTH RAYA PRN Reason: Protocol Stop: 06/19/17 19:14 Last Admin: 04/21/17 14:29 Dose: 50 mg Levetiracetam (Keppra) 500 mg PO BID RAYA Stop: 06/06/17 08:59 Last Admin: 04/26/17 08:16 Dose: 500 mg Levothyroxine Sodium 0.05 mg/ (Levothyroxine Sodium 0.1 mg) 0.15 mg PO QDAC RAYA Stop: 06/08/17 09:59 Last Admin: 04/26/17 06:50 Dose: 0.15 mg [place] Carbonate (Eskalith) 300 mg PO BID RAYA PRN Reason: Protocol Stop: 06/20/17 08:59 Last Admin: 04/26/17 08:15 Dose: 300 mg Magnesium Hydroxide (Milk Of Magnesia) 30 ml PO HS PRN PRN Reason: Constipation Stop: 06/06/17 00:46 Miscellaneous (Probiotic Screen) 1 ea MC PRN PRN PRN Reason: PROTOCOL Stop: 06/08/17 15:29 Phenytoin (Dilantin) 200 mg PO BID RAYA Stop: 06/06/17 08:59 Last Admin: 04/26/17 08:14 Dose: 200 mg Valproate Sodium (Depakene) 500 mg PO BID RAYA PRN Reason: Protocol Stop: 06/13/17 16:59 Last Admin: 04/26/17 08:17 Dose: 500 mg General: demented HEENT: NC/AT, PERRLA, EOMI Neck: Supple, No JVD, No thyromegaly, No LAD Lungs: CTAB Cardiovascular: RRR, Normal S1, Normal S2, without murmur Abdomen: soft, non-tender, globular Extremities: excoriation, contracture Neurological: no change, disorganized, unsteady - Procedures Procedures: Procedures Procedure Code Date OTHER GROUP THERAPY 94.44 09/27/14 Internal Medicine Assmt/Plan - Assessment Assessment: Urinary tract infection with e.coli hypothyroidism hypercholesterolemia hypertension anemia with rheumatoid arthritis seizure - Plan Plan: seizure precautions continue current plan of care Nutritional Asmnt/Malnutr-PDOC - Dietary Evaluation Malnutrition Findings (Please click <Entered> for more info): Nutritional Asmnt/Malnutrition Start: 04/13/17 13: 41 Text: Status: Complete Freq: Document 04/13/17 13:41 LCKRISTIANG (Rec: 04/13/17 13:50 [facility] Nutritional Asmnt/Malnutrition Patient General Information Nutritional Screening Moderate Risk Diagnosis psychosis, UTI Pertinent Medical Hx/Surgical Hx seizure disorder, HTN, hypercholesterolemia, colitis Subjective Information Per notes, PO intake mostly 75 -100%, refused x 2 meals. Current Diet Order/ Nutrition Support Regular Pertinent Medications culturelle, colace, levothyroxine, seroquel Pertinent Labs 04/06 Na 138, K 4.0, Cl 107, BUN 23, Cr 1.0, Glucose 90, A1c 5.1%, Ca 9.8, Alb 4.2 Nutritional Hx/Data Height 5 ft Height (Calculated Centimeters) 152.4 Current Weight (lbs) 150 lb Weight (Calculated Kilograms) 68.0 Weight (Calculated Grams) 91533.9 [place] Body Weight 100 % [place] Body Weight 150 Body Mass Index (BMI) 29.2 Weight Status Overweight GI Symptoms GI Symptoms None Difficult in: None Skin Integrity/Comment: intact Current %PO Good (75-100%) Estimated Nutritional Goals BEE in Kcals: Adj wt of IBW Calories/Kcals/Kg 30 Kcals Calculated 1530kcal based on adj wt 51kg Protein: Adj wt of IBW Protein g/k Protein Calculated 51g Fluid: ml 1530ml (30ml/kg) Nutritional Problem No current Nutrition Prob Problem no nutrition problem at this time Malnutrition Alert Protein-Calorie Malnutrition N/A Is there a minimum of two criteria No selected? Query Text:Check all the applicable criteria. A minimum of two criteria are recommended for diagnosis of either severe or non-severe malnutrition. Intervention/Recommendation Comments 1. Continue with current diet as ordered. 2. Monitor PO intake, wt weekly, labs and skin integrity 3. F/U as low risk in 7 days, 04/20 Expected Outcomes/Goals Expected Outcomes/Goals 1. PO intake to meet at least 75% of nutritional needs. 2. Wt stability, skin to remain intact, labs WNL.
--- NOTE | 2017-04-26 16:52 | Progress Notes ---
DATE: 04/26/2017 PSYCHIATRIC PROGRESS NOTE SUBJECTIVE: Staff was spoken to. The patient is interviewed. Mood is noted to be anxious. Affect is constricted. The patient's insight and judgment at this time are noted to be improving. The patient's screaming and yelling has come down with the Thorazine. The patient is currently on 100 mg of Thorazine twice a day and 100 mg at bedtime. The patient has also been given a dose of the Haldol Decanoate. The patient has to be given 2 antipsychotic medications because the patient's behavior could not be contained at a lower level of care. ASSESSMENT AND PLAN: The patient is stabilizing with this current medications. Plan to discharge the patient today for followup on outpatient basis. [facility]# [id number]
--- NOTE | 2017-05-12 10:08 | Discharge Summary ---
DATE OF DISCHARGE: 04/26/2017 IDENTIFYING DATA: The patient is a 56-year-old woman, resident of [facility]. Information obtained by directly interviewing the patient as well as reviewing the admission papers and they are reliable. JUSTIFICATION OF HOSPITALIZATION: The patient is admitted here on a voluntary basis because of her acute psychosis. CHIEF COMPLAINT: "I am hearing voices that are bothering me." DIAGNOSES AT THE TIME OF ADMISSION: AXIS I: Schizoaffective disorder. AXIS II: None. AXIS III: As per Dr. Cruz. HISTORY OF PRESENT ILLNESS: Please refer to 04/07/2017 dictation done by me. Physical examination was done by Dr. Cruz is noted to be significant for hypothyroidism and seizure disorder. HOSPITAL COURSE AND RESPONSE TO TREATMENT: The patient has been observed on inpatient unit. The patient is noted to be very disruptive, screaming and yelling. I have tried several different medications, but finally the patient has to be given Thorazine, which was given 100 mg twice a day along with valproic acid 500 mg twice a day and lithium carbonate 300 mg twice a day. In view of the patient's noncompliance, Haldol Decanoate 50 mg intramuscularly was given with these medications, the patient started to stabilize and the patient was discharged to [facility] to be followed up by Dr. Poole. MENTAL STATUS EXAMINATION: At the time of discharge, patient's mood is noted to be less irritable. Affect is appropriate. Not suicidal or homicidal. Insight and judgment noted to be fair. Impulse control is also noted to be fair. No side effects to the medications are noted at the time of the discharge. The patient has been able to tolerate the medication. DIAGNOSES AT THE TIME OF DISCHARGE: AXIS I: Schizoaffective disorder. AXIS II: None. AXIS III: Seizure disorder. AFTERCARE PLAN: The patient is discharged to [facility] to be followed up on an outpatient basis. [facility]# [id number]
== END 2017-04-26 13:45 | disposition home or self-care (01) | DRG 885 ==
LOC: ER 18:09 → GERO 23:00
DX: F25.9 Schizoaffective disorder, unspecified (principal); G40.909 Epilepsy, unspecified, not intractable, without status epilepticus; D64.9 Anemia, unspecified; N39.0 Urinary tract infection, site not specified; E03.9 Hypothyroidism, unspecified; I10 Essential (primary) hypertension; M81.0 Age-related osteoporosis without current pathological fracture; E78.00 Pure hypercholesterolemia, unspecified; M06.9 Rheumatoid arthritis, unspecified; B96.20 Unspecified Escherichia coli [E. coli] as the cause of diseases classified elsewhere; Z88.5 Allergy status to narcotic agent
CPT/HCPCS: 36415-UA; 71010-TC; 80053-TC; 80164-TC; 80307; 81001-TC; 83036-90; 84443-TC; 85025-TC; 87086-90; 93005; A4216; J1200; J1630; J1631; J2060; Q0161; Z7610

== ENCOUNTER 2017-09-12 19:17 | Inpatient (IN) | payer MEDICARE, MEDICAID ==
--- NOTE | 2017-09-12 19:46 | ED Physician Chart ---
ED Chief Complaint/HPI - Patient Information Date Seen:: 09/12/17 Time Seen:: 19:40 Chief Complaint:: aggressive behavior History of Present Illness:: Patient sent here to be admitted to [facility] for increased agitation , aggressive behavior and delusions. Patient complains of right-sided headache and neck pain. Allergies:: Allergies Allergy/AdvReac Type Severity Reaction Status Date / Time codeine Allergy Verified 12/31/15 20:56 Vitals:: Vital Signs - 8 hr 09/12/17 19:20 Temp 97.8 F HR 72 RR 18 BP 104/72 O2 Sat % 97 Historian:: Patient Review:: Transfer documents Reviewed ED Review of Systems - Review of Systems General/Constitutional: No fever, No chills, No weight loss, No weakness, No diaphoresis, No edema, No loss of appetite Skin: No skin lesions, No rash, No bruising Head: No headache, No light-headedness Eyes: No loss of vision, No pain, No diplopia ENT: No earache, No nasal drainage, No sore throat, No tinnitus Neck: No neck pain, No swelling, No thyromegaly, No stiffness, No mass noted Cardio Vascular: No chest pain, No palpitations, No PND, No orthopnea, No edema Pulmonary: No SOB, No cough, No sputum, No wheezing GI: No nausea, No vomiting, No diarrhea, No pain, No melena, No hematochezia, No constipation, No hematemesis G/U: No dysuria, No frequency, No hematuria Musculoskeletal: No bone or joint pain, No back pain, No muscle pain Endocrine: No polyuria, No polydipsia Psychiatric: Prior psych history Hematopoietic: No bruising, No lymphadenopathy Allergic/Immuno: No urticaria, No angioedema Neurological: No syncope, No focal symptoms, No weakness, No paresthesia, No headache, No seizure, No dizziness, No confusion, No vertigo ED Past Medical History - Past Medical History Past Medical History: HTN, Dyslipidemia, Seizures, Thyroid disorder, Other ( history urinary tract infection; anemia; history of hepatitis C; gastritis; psychosis; has nephronia) Family History: Other (unavailable) Social History: Non Smoker, Care Facility, Other (smokes cigarettes when younger ) Surgical History: other (unavailable) Psychiatricy History: Depression, Schizophrenia Medication: Reviewed Family Medical History - Family Member mother History Unknown: Yes Ethnicity: Living Status: Hx Family Cancer: No Hx Family Coronary Artery Disease: No Hx Family Congestive Heart Failure: No Hx Family Hypertension: No Hx Family Stroke: No Hx Family Diabetes: Yes Hx Family Seizures: No Hx Family Dementia: No Hx Family AIDS: No Hx Family HIV: No Hx Family COPD: No Hx Family Hepatitis: No Hx Family Psychiatric Problems: No Hx Family Tuberculosis: (unknown) ED Physical Exam - Physical Examination General/Constitutional: Awake, Well-developed, well-nourished, Alert, No distress Other Gen/Cons comments:: Patient knows where she is but does not know the date. Head: Atraumatic Eyes: Lids, conjuctiva normal, PERRL, EOMI Skin: Nl inspection, No rash, No skin lesions, No ecchymosis, Well hydrated, No lymphadenopathy ENMT: External ears, nose nl, Nasal exam nl, Lips, teeth, gums nl Neck: Nontender, Full ROM w/o pain, No JVD, No nuchal rigidity, No bruit, No mass, No stridor Respiratory: Nl effort/Exclusion, Clear to Auscultation, No Wheeze/Rhonchi/Rales Cardio Vascular: RRR, No murmur, gallop, rubs, NL S1 S2 GI: No tenderness/rebounding/guarding, No organomegaly, No hernia, Normal BS's, Nondistended, No mass/bruits, No McBurney tenderness : No CVA tenderness Extremities: No tenderness or effusion, Full ROM, normal strength in all extremities, No edema, Normal digits & nails Neuro/Psych: Alert/oriented, DTR's symmetric, Normal sensory exam, Normal motor strength, Judgement/insight normal, Mood normal, Normal gait, No focal deficits Misc: Normal back, No paraspinal tenderness ED Labs/Radiology/EKG Results - Lab Results Results: Laboratory Results - last 24 hr 09/12/17 09/12/17 20:13 20:13 WBC 4.8 RBC 4.38 Hgb 13.7 Hct 42.0 MCV 95.7 MCH 31.3 H MCHC Differential 32.6 RDW 12.7 Plt Count 142 L MPV 8.9 Neutrophils % 56.2 Lymphocytes % 27.9 Monocytes % 12.4 H Eosinophils % 3.3 Basophils % 0.2 Sodium 138 Potassium 3.9 Chloride 107 Carbon Dioxide 24.3 Anion Gap 10.6 BUN 23 Creatinine 0.8 Est GFR ( Amer) > 60.0 Est GFR (Non-Af Amer) > 60.0 BUN/Creatinine Ratio 28.8 Glucose 97 Calcium 9.5 Total Bilirubin 0.3 AST 24 ALT 4 L Alkaline Phosphatase 55 Total Protein 6.9 Albumin 3.4 L Globulin 3.5 Albumin/Globulin Ratio 1.0 Triglycerides 133 Cholesterol 150 LDL Cholesterol Direct 83 HDL Cholesterol 46 Salicylates < 25.0 L Acetaminophen < 10.0 L Ethyl Alcohol < 10 Laboratory Results - last 24 hr 09/12/17 09/12/17 09/12/17 20:13 20:13 20:13 WBC 4.8 RBC 4.38 Hgb 13.7 Hct 42.0 MCV 95.7 MCH 31.3 H MCHC Differential 32.6 RDW 12.7 Plt Count 142 L MPV 8.9 Neutrophils % 56.2 Lymphocytes % 27.9 Monocytes % 12.4 H Eosinophils % 3.3 Basophils % 0.2 Sodium 138 Potassium 3.9 Chloride 107 Carbon Dioxide 24.3 Anion Gap 10.6 BUN 23 Creatinine 0.8 Est GFR ( Amer) > 60.0 Est GFR (Non-Af Amer) > 60.0 BUN/Creatinine Ratio 28.8 Glucose 97 Calcium 9.5 Total Bilirubin 0.3 AST 24 ALT 4 L Alkaline Phosphatase 55 Ammonia Total Protein 6.9 Albumin 3.4 L Globulin 3.5 Albumin/Globulin Ratio 1.0 Triglycerides 133 Cholesterol 150 LDL Cholesterol Direct 83 HDL Cholesterol 46 TSH 2.90 Salicylates < 25.0 L Acetaminophen < 10.0 L Phenytoin Ethyl Alcohol < 10 09/12/17 09/12/17 20:48 21:00 WBC RBC Hgb Hct MCV MCH MCHC Differential RDW Plt Count MPV Neutrophils % Lymphocytes % Monocytes % Eosinophils % Basophils % Sodium Potassium Chloride Carbon Dioxide Anion Gap BUN Creatinine Est GFR ( Amer) Est GFR (Non-Af Amer) BUN/Creatinine Ratio Glucose Calcium Total Bilirubin AST ALT Alkaline Phosphatase Ammonia 118 H Total Protein Albumin Globulin Albumin/Globulin Ratio Triglycerides Cholesterol LDL Cholesterol Direct HDL Cholesterol TSH Salicylates Acetaminophen Phenytoin 9.9 L Ethyl Alcohol - EKG Interpretations Rate & Rhythm: sinus rhythm with a rate of 66 [place]: normal Comments:: Low voltage and T-wave changes ED Assessment - Assessment General Assessment: At [address] Cruz of the patient's elevated ammonia level. ED Septic Shock - . Is Septic Shock (SBP<90, OR Lactate>4 mmol\L) present?: No - <6hrs of presentation: Vital Signs: Vital Signs - 8 hr 09/12/17 19:20 Temp 97.8 F HR 72 RR 18 BP 104/72 O2 Sat % 97 ED Reassessment (Disposition) - Reassessment Reassessment Condition:: Unchanged - Diagnosis Diagnosis:: Agitation; aggressive behavior; elevated ammonia level - Patient Disposition Admitted to:: [facility] Spoke to:: Jose Cruz Admitting Medical Physician:: Jose Cruz Admitting Psych Physician:: Lindsay Poole Condition at Disposition:: Stable, Unchanged ED Discharge Plan - Patient Disposition Instructions: Psychosis
[2017-09-12 20:31] LABS: % BASOPHILS 0.2 % (0.0-2.0); % EOSINOPHILS 3.3 % (0.0-5.0); % LYMPHOCYTES 27.9 % (20.0-50.0); % MONOCYTES 12.4 % (2.0-10.0); % NEUTROPHILS 56.2 % (40.0-80.0); EOSINOPHILE ABSOLUTE 0.2 Th/cmm (0.1-0.4); HEMOGLOBIN 13.7 gm/dL (12-16); LYMPHOCYTE ABSOLUTE 1.3 Th/cmm (1.5-3.0); MEAN CELL VOLUME 95.7 fl (81-100); MEAN CORPUSCULAR HEMOGLOBIN 31.3 pg (27.0-31.0); MEAN CORPUSCULAR HGB CONC 32.6 pg (28.0-36.0); MEAN PLATELET VOLUME 8.9 fl; MONOCYTE ABSOLUTE 0.6 Th/cmm (0.3-1.0); NEUTROPHILE ABSOLUTE 2.7 Th/cmm (1.8-8.0); PLATELET COUNT 142 Th/cmm (150-400); RED BLOOD COUNT 4.38 Mil/cmm (3.80-5.10); RED CELL DISTRIBUTION WIDTH 12.7 % (11.5-20.0); WHITE BLOOD COUNT 4.8 Th/cmm (4.8-10.8)
[2017-09-12 20:41] LABS: ANION GAP 10.6 (7.0-16.0); BUN - UREA NITROGEN 23 mg/dL (7-25); CARBON DIOXIDE 24.3 mEq/L (21.0-31.0); CHLORIDE 107 mEq/L (98-107); CREATININE - SERUM 0.8 mg/dL (0.6-1.2); GFR AFRICAN-AMERICAN > 60.0 ml/min (>90); GLUCOSE 97 mg/dL (70-105); POTASSIUM SERUM 3.9 mEq/L (3.5-5.1); SODIUM SERUM 138 mEq/L (136-145)
[2017-09-12 20:42] LABS: ACETAMINOPHEN < 10.0 ug/mL (10.0-30.0); ALBUMIN 3.4 gm/dL (3.7-5.3); ALKALINE PHOSPHATASE 55 U/L (34-104); BILIRUBIN,TOTAL 0.3 mg/dL (0.3-1.0); CALCIUM SERUM 9.5 mg/dL (8.6-10.3); CHOLESTEROL 150 mg/dL (<200); GFR NON AFRICAN-AMERICAN > 60.0 ml/min; HDL -HIGH DENSITY LIPOPROTEIN 46 mg/dL (23-92); SGOT 24 U/L (13-39); SGPT/ALT 4 U/L (7-52); TOTAL PROTEIN,SERUM 6.9 gm/dL (6.0-8.3); TRIGLYCERIDES 133 mg/dL (<150)
[2017-09-12 20:44] LABS: SALICYLATES (ASPIRIN) < 25.0 mg/L (30.0-100.0)
[2017-09-12] MEDS ORDERED: guaiFENesin 200 MG/10 ML UDC PO PRN (22:22)
[2017-09-12] MEDS ORDERED: Albuterol Nebulizer 2.5mg/3mL HHN PRN (22:22)
[2017-09-12] MEDS ORDERED: Maalox 30 mL Cup PO PRN (22:22)
[2017-09-12] MEDS ORDERED: HALOPERIDOL DECANOATE 50 MG IM SCH (22:30)
[2017-09-12 22:59] VITALS: BP 108/67
[2017-09-13] MEDS: Levothyroxine 0.05 Mg Tab PO SCH (06:43)
[2017-09-13] MEDS: Lactulose 10 Gm/15 mL 30mL UDC PO SCH ×2 (09:29→17:47)
--- NOTE | 2017-09-13 13:18 | Internal Medicine Prog Note ---
Internal Medicine Subjective - Subjective Service Date: 09/13/17 ([id number] [facility] dictated) Internal Medicine Objective - Results Result Diagrams: 09/12/17 20:13 09/12/17 20:13 Recent Labs: Laboratory Last Values WBC 4.8 Th/cmm (4.8-10.8) 09/12/17 20:13 RBC 4.38 Mil/cmm (3.80-5.10) 09/12/17 20:13 Hgb 13.7 gm/dL (12-16) 09/12/17 20:13 Hct 42.0 % (41.0-60) 09/12/17 20:13 MCV 95.7 fl (81-100) 09/12/17 20:13 MCH 31.3 pg (27.0-31.0) H 09/12/17 20:13 MCHC Differential 32.6 pg (28.0-36.0) 09/12/17 20:13 RDW 12.7 % (11.5-20.0) 09/12/17 20:13 Plt Count 142 Th/cmm (150-400) L 09/12/17 20:13 MPV 8.9 fl 09/12/17 20:13 Neutrophils % 56.2 % (40.0-80.0) 09/12/17 20:13 Lymphocytes % 27.9 % (20.0-50.0) 09/12/17 20:13 Monocytes % 12.4 % (2.0-10.0) H 09/12/17 20:13 Eosinophils % 3.3 % (0.0-5.0) 09/12/17 20:13 Basophils % 0.2 % (0.0-2.0) 09/12/17 20:13 Sodium 138 mEq/L (136-145) 09/12/17 20:13 Potassium 3.9 mEq/L (3.5-5.1) 09/12/17 20:13 Chloride 107 mEq/L (98-107) 09/12/17 20:13 Carbon Dioxide 24.3 mEq/L (21.0-31.0) 09/12/17 20:13 Anion Gap 10.6 (7.0-16.0) 09/12/17 20:13 BUN 23 mg/dL (7-25) 09/12/17 20:13 Creatinine 0.8 mg/dL (0.6-1.2) 09/12/17 20:13 Est GFR ( Amer) > 60.0 ml/min (>90) 09/12/17 20:13 Est GFR (Non-Af Amer) > 60.0 ml/min 09/12/17 20:13 BUN/Creatinine Ratio 28.8 09/12/17 20:13 Glucose 97 mg/dL (70-105) 09/12/17 20:13 Calcium 9.5 mg/dL (8.6-10.3) 09/12/17 20:13 Total Bilirubin 0.3 mg/dL (0.3-1.0) 09/12/17 20:13 AST 24 U/L (13-39) 09/12/17 20:13 ALT 4 U/L (7-52) L 09/12/17 20:13 Alkaline Phosphatase 55 U/L (34-104) 09/12/17 20:13 Ammonia 118 umol/L (16-53) H 09/12/17 21:00 Total Protein 6.9 gm/dL (6.0-8.3) 09/12/17 20:13 Albumin 3.4 gm/dL (3.7-5.3) L 09/12/17 20:13 Globulin 3.5 gm/dL 09/12/17 20:13 Albumin/Globulin Ratio 1.0 (1.0-1.8) 09/12/17 20:13 Triglycerides 133 mg/dL (<150) 09/12/17 20:13 Cholesterol 150 mg/dL (<200) 09/12/17 20:13 LDL Cholesterol Direct 83 mg/dL (75-193) 09/12/17 20:13 HDL Cholesterol 46 mg/dL (23-92) 09/12/17 20:13 TSH 2.90 uIU/ml (0.34-5.60) 09/12/17 20:13 Salicylates < 25.0 mg/L (30.0-100.0) L 09/12/17 20:13 Acetaminophen < 10.0 ug/mL (10.0-30.0) L 09/12/17 20:13 Phenytoin 9.9 ug/ml (10.0-20.0) L 09/12/17 20:48 Valproic Acid 87.9 ug/mL (50.0-100.0) 09/12/17 21:00 Ethyl Alcohol < 10 mg/dL (0-10) 09/12/17 20:13 - Physical Exam Vitals and I&O: Vital Signs Temp 98.4 F 09/12/17 22:25 Pulse 87 09/13/17 07:24 Resp 18 09/13/17 07:24 BP 108/67 09/12/17 22:59 Pulse Ox 96 09/13/17 07:24 Active Medications: Current Medications Acetaminophen (Tylenol) 650 mg PO Q4H PRN PRN Reason: Pain Or Fever above 101 Stop: 11/11/17 22:21 Al Hydrox/Mg Hydrox/Simethicone (Maalox) 30 ml PO Q6H PRN PRN Reason: Dyspepsia Stop: 11/11/17 22:21 Albuterol Sulfate (Albuterol 2.5mg/3ml Neb Ud) 2.5 mg HHN Q2HRT PRN PRN Reason: Shortness of Breath or Wheeze Stop: 11/11/17 22:21 Escitalopram Oxalate (Lexapro) 20 mg PO DAILY RAYA PRN Reason: Protocol Stop: 11/12/17 08:59 Last Admin: 09/13/17 09:29 Dose: 20 mg Guaifenesin (Robitussin) 200 mg PO Q4HR PRN PRN Reason: Cough or Congestion Stop: 11/11/17 22:21 Haloperidol Decanoate (Haldol Dec) 50 mg IM Q14D [facility] Stop: 11/12/17 09:59 Lactulose (Cephulac) 30 gm PO BID RAYA Stop: 11/12/17 08:59 Last Admin: 09/13/17 09:29 Dose: 30 gm Levetiracetam (Keppra) 500 mg PO BID RAYA Stop: 11/12/17 08:59 Last Admin: 09/13/17 09:30 Dose: 500 mg Levothyroxine Sodium (Synthroid) 0.15 mg PO QDAC RAYA Stop: 11/12/17 07:29 Last Admin: 09/13/17 06:43 Dose: 0.15 mg [place] Carbonate (Eskalith) 300 mg PO BID RAYA PRN Reason: Protocol Stop: 11/12/17 08:59 Last Admin: 09/13/17 09:30 Dose: 300 mg Lorazepam (Ativan) 0.5 mg PO Q6H PRN; Protocol PRN Reason: Anxiety Stop: 11/11/17 22:17 Phenytoin (Dilantin) 200 mg PO BID [facility] Stop: 11/12/17 08:59 Last Admin: 09/13/17 09:30 Dose: 200 mg Quetiapine Fumarate (Seroquel) 300 mg PO TID RAYA PRN Reason: Protocol Stop: 11/12/17 08:59 Last Admin: 09/13/17 09:30 Dose: 300 mg Valproate Sodium (Depakene) 500 mg PO TID [facility] Stop: 11/12/17 08:59 Last Admin: 09/13/17 09:29 Dose: 500 mg Zolpidem Tartrate (Ambien) 5 mg PO HS PRN PRN Reason: Insomnia Stop: 11/11/17 23:15 - Procedures Procedures: Procedures Procedure Code Date OTHER GROUP THERAPY 94.44 09/27/14
--- NOTE | 2017-09-13 14:56 | History & Physical ---
ADMIT DATE: 09/13/2017 DICTATED FOR: Dr. Jose Cruz CHIEF COMPLAINT: Agitation. HISTORY OF PRESENT ILLNESS: This is a 57-year-old female who is a [facility] resident who is having a 1-day history of agitation and aggressive behavior towards nursing staff. The patient is now here admitted to the Geropsych Unit. PAST MEDICAL HISTORY: Seizures, hypertension, hypercholesteremia, colitis, hypothyroidism, rheumatoid arthritis. PAST SURGICAL HISTORY: Status post brain surgery. ALLERGIES: CODEINE. MEDICATIONS: Dilantin, Keppra, clonidine, lorazepam, Zofran, Colace, magnesium, Seroquel, Risperdal. FAMILY HISTORY: Noncontributory. SOCIAL HISTORY: The patient is a [facility] resident, requiring 24-hour nursing care. REVIEW OF SYSTEMS: GENERAL: Denies any fevers and chills. CARDIOVASCULAR: Denies chest pain. RESPIRATORY: Denies shortness of breath. GASTROINTESTINAL: Denies nausea, vomiting, abdominal pain. GENITOURINARY: Denies increased frequency, dysuria. NEUROLOGIC: No headache. The patient has a history of seizures. All other systems are reviewed and are negative. PHYSICAL EXAMINATION: GENERAL: An elderly female, awake, alert, in no apparent distress. VITAL SIGNS: Temperature 98.4, heart rate 76, blood pressure 108/67, respiration 18, O2 96%. HEENT: Head normocephalic, atraumatic. NECK: Supple. No mass. LUNGS: Clear bilaterally. HEART: Regular rate and rhythm. ABDOMEN: Soft, nontender. LABORATORY DATA: WBC 4.8, H and H 13.7 and 42.0, platelet of 142. Sodium 138, potassium 3.9, chloride 107, BUN 22, creatinine 0.8. ASSESSMENT: Hypothyroidism, hypercholesteremia, hypertension, rheumatoid arthritis, seizures, agitation. PLAN: Seizure precautions will be initiated. Continue with antilipid medications. Continue with Synthroid. We will continue to follow this patient. JOB# [id number]
--- NOTE | 2017-09-13 15:30 | Psychosocial Evaluation ---
DATE OF SERVICE: 09/13/2017 IDENTIFYING DATA: The patient is a 57-year-old woman, resident of a [facility]. Information obtained by directly interviewing the patient as well as reviewing the admission papers. JUSTIFICATION OF HOSPITALIZATION: The patient is admitted here on a voluntary basis in view of her acute agitation and psychosis. CHIEF COMPLAINT: "I just woke up. I do not know what is happening." HISTORY OF PRESENT ILLNESS: This is one of multiple psychiatric hospitalizations for this patient, who has been diagnosed to have schizoaffective disorder. For the past couple of weeks, the patient is reporting that she is not feeling well, has been hearing the voices which are bothering her. The patient is being followed up by Dr. Poole on outpatient basis. Sleep and appetite prior to the hospitalization are reported to be very poor. The patient has been reported to have been testing the limits, screaming and yelling at the top of her lungs and hence the patient has been brought over here. At the time of the hospitalization, the patient is on 20 mg of the Lexapro in the morning and Haldol is being given as Haldol Decanoate 50 mg every 4 weeks and the patient is also on the Seroquel 300 mg 3 times a day and valproic acid 500 mg 3 times a day. With these medications, the patient is being maintained on an outpatient basis, but the patient is still having problems with the mood swings. PAST PSYCHIATRIC HISTORY: Please refer to the above. MEDICAL HISTORY: Physical examination is requested to be done by Dr. Cruz. SUBSTANCE ABUSE HISTORY: None. PHYSICAL OR SEXUAL ABUSE HISTORY: None. LEGAL PROBLEMS: None at this time. MENTAL STATUS EXAMINATION: The patient is a 57-year-old, looking her stated age, superficially cooperative. Eye contact is poor. Mood is noted to be irritable. Affect is constricted. Insight and judgment at this time are noted to be very much impaired. Coping skills are noted to be very poor. The patient has been having difficult time to cope with the stress, continues to be very paranoid. The patient is alert and oriented x 3. Short and long-term memory also noted to be fair at this time. The patient's behavior is likely danger to self. DIAGNOSTIC IMPRESSION: AXIS I: Schizoaffective disorder. AXIS II: None. AXIS III: As per Dr. Cruz. IMMEDIATE TREATMENT PLAN: The patient is going to be observed on the inpatient unit, provided with supportive psychotherapy. The patient is going to be closely monitored. Once stabilized, the patient is going to be discharged to [facility] to be followed up on an outpatient basis. JOB# [id number]
[2017-09-13 18:41] LABS: A1C % 4.1 % (4.0-6.0)
[2017-09-14] MEDS: Levothyroxine 0.05 Mg Tab PO SCH (06:38)
[2017-09-14] MEDS ORDERED: Haloperidol Lactate 5 mg/mL 1mL Vial IM ONE (07:11)
[2017-09-14] MEDS ORDERED: Haloperidol Lactate 5 mg/mL 1mL Vial ONE (07:11)
[2017-09-14] MEDS: Lactulose 10 Gm/15 mL 30mL UDC PO SCH (09:21)
--- NOTE | 2017-09-14 15:05 | Internal Medicine Prog Note ---
Internal Medicine Subjective - Subjective Service Date: 09/14/17 Patient seen and examined:: with staff Patient is:: awake Per staff patient has:: no adverse event Internal Medicine Objective - Results Result Diagrams: 09/12/17 20:13 09/12/17 20:13 Recent Labs: Laboratory Last Values WBC 4.8 Th/cmm (4.8-10.8) 09/12/17 20:13 RBC 4.38 Mil/cmm (3.80-5.10) 09/12/17 20:13 Hgb 13.7 gm/dL (12-16) 09/12/17 20:13 Hct 42.0 % (41.0-60) 09/12/17 20:13 MCV 95.7 fl (81-100) 09/12/17 20:13 MCH 31.3 pg (27.0-31.0) H 09/12/17 20:13 MCHC Differential 32.6 pg (28.0-36.0) 09/12/17 20:13 RDW 12.7 % (11.5-20.0) 09/12/17 20:13 Plt Count 142 Th/cmm (150-400) L 09/12/17 20:13 MPV 8.9 fl 09/12/17 20:13 Neutrophils % 56.2 % (40.0-80.0) 09/12/17 20:13 Lymphocytes % 27.9 % (20.0-50.0) 09/12/17 20:13 Monocytes % 12.4 % (2.0-10.0) H 09/12/17 20:13 Eosinophils % 3.3 % (0.0-5.0) 09/12/17 20:13 Basophils % 0.2 % (0.0-2.0) 09/12/17 20:13 Sodium 138 mEq/L (136-145) 09/12/17 20:13 Potassium 3.9 mEq/L (3.5-5.1) 09/12/17 20:13 Chloride 107 mEq/L (98-107) 09/12/17 20:13 Carbon Dioxide 24.3 mEq/L (21.0-31.0) 09/12/17 20:13 Anion Gap 10.6 (7.0-16.0) 09/12/17 20:13 BUN 23 mg/dL (7-25) 09/12/17 20:13 Creatinine 0.8 mg/dL (0.6-1.2) 09/12/17 20:13 Est GFR ( Amer) > 60.0 ml/min (>90) 09/12/17 20:13 Est GFR (Non-Af Amer) > 60.0 ml/min 09/12/17 20:13 BUN/Creatinine Ratio 28.8 09/12/17 20:13 Glucose 97 mg/dL (70-105) 09/12/17 20:13 Hemoglobin A1c % 4.1 % (4.0-6.0) 09/12/17 20:13 Calcium 9.5 mg/dL (8.6-10.3) 09/12/17 20:13 Total Bilirubin 0.3 mg/dL (0.3-1.0) 09/12/17 20:13 AST 24 U/L (13-39) 09/12/17 20:13 ALT 4 U/L (7-52) L 09/12/17 20:13 Alkaline Phosphatase 55 U/L (34-104) 09/12/17 20:13 Ammonia 118 umol/L (16-53) H 09/12/17 21:00 Total Protein 6.9 gm/dL (6.0-8.3) 09/12/17 20:13 Albumin 3.4 gm/dL (3.7-5.3) L 09/12/17 20:13 Globulin 3.5 gm/dL 09/12/17 20:13 Albumin/Globulin Ratio 1.0 (1.0-1.8) 09/12/17 20:13 Triglycerides 133 mg/dL (<150) 09/12/17 20:13 Cholesterol 150 mg/dL (<200) 09/12/17 20:13 LDL Cholesterol Direct 83 mg/dL (75-193) 09/12/17 20:13 HDL Cholesterol 46 mg/dL (23-92) 09/12/17 20:13 TSH 2.90 uIU/ml (0.34-5.60) 09/12/17 20:13 Salicylates < 25.0 mg/L (30.0-100.0) L 09/12/17 20:13 Acetaminophen < 10.0 ug/mL (10.0-30.0) L 09/12/17 20:13 Phenytoin 9.9 ug/ml (10.0-20.0) L 09/12/17 20:48 Valproic Acid 87.9 ug/mL (50.0-100.0) 09/12/17 21:00 Ethyl Alcohol < 10 mg/dL (0-10) 09/12/17 20:13 RPR NONREACTIVE (NONREACTIVE) 09/12/17 20:13 - Physical Exam Vitals and I&O: Vital Signs Temp 98.3 F 09/14/17 04:43 Pulse 73 09/14/17 07:23 Resp 18 09/14/17 07:23 BP 117/74 09/14/17 04:43 Pulse Ox 97 09/14/17 07:23 Intake & Output 09/13/17 09/14/17 09/14/17 18:59 06:59 18:59 Intake Total 480 Balance 480 Intake: Oral 480 Other: # Voids 2 Active Medications: Current Medications Acetaminophen (Tylenol) 650 mg PO Q4H PRN PRN Reason: Pain Or Fever above 101 Stop: 11/11/17 22:21 Al Hydrox/Mg Hydrox/Simethicone (Maalox) 30 ml PO Q6H PRN PRN Reason: Dyspepsia Stop: 11/11/17 22:21 Albuterol Sulfate (Albuterol 2.5mg/3ml Neb Ud) 2.5 mg HHN Q2HRT PRN PRN Reason: Shortness of Breath or Wheeze Stop: 11/11/17 22:21 Escitalopram Oxalate (Lexapro) 20 mg PO DAILY [facility] PRN Reason: Protocol Stop: 11/12/17 08:59 Last Admin: 09/14/17 09:22 Dose: 20 mg Guaifenesin (Robitussin) 200 mg PO Q4HR PRN PRN Reason: Cough or Congestion Stop: 11/11/17 22:21 Haloperidol Decanoate (Haldol Dec) 50 mg IM Q14D [facility] Stop: 11/13/17 08:59 Lactulose (Cephulac) 30 gm PO BID [facility] Stop: 11/12/17 08:59 Last Admin: 09/14/17 09:21 Dose: 30 gm Levetiracetam (Keppra) 500 mg PO BID [facility] Stop: 11/12/17 08:59 Last Admin: 09/14/17 09:22 Dose: 500 mg Levothyroxine Sodium (Synthroid) 0.15 mg PO QDAC [facility] Stop: 11/12/17 07:29 Last Admin: 09/14/17 06:38 Dose: 0.15 mg [place] Carbonate (Eskalith) 300 mg PO BID [facility] PRN Reason: Protocol Stop: 11/12/17 08:59 Last Admin: 09/14/17 09:22 Dose: 300 mg Lorazepam (Ativan) 0.5 mg PO Q6H PRN; Protocol PRN Reason: Anxiety Stop: 11/11/17 22:17 Last Admin: 09/13/17 20:23 Dose: 0.5 mg Phenytoin (Dilantin) 200 mg PO BID [facility] Stop: 11/12/17 08:59 Last Admin: 09/14/17 09:22 Dose: 200 mg Quetiapine Fumarate (Seroquel) 300 mg PO TID [facility] PRN Reason: Protocol Stop: 11/12/17 08:59 Last Admin: 09/14/17 09:22 Dose: 300 mg Valproate Sodium (Depakene) 500 mg PO TID [facility] Stop: 11/12/17 08:59 Last Admin: 09/14/17 14:45 Dose: Not Given Zolpidem Tartrate (Ambien) 5 mg PO HS PRN PRN Reason: Insomnia Stop: 11/11/17 23:15 Last Admin: 09/13/17 20:22 Dose: 5 mg General: alert HEENT: NC/AT, PERRLA Neck: Supple Lungs: CTAB Cardiovascular: RRR, without murmur Abdomen: soft, non-tender, non-distended, positive bowel sound Neurological: no change - Procedures Procedures: Procedures Procedure Code Date OTHER GROUP THERAPY 94.44 09/27/14 Internal Medicine Assmt/Plan - Assessment Assessment: hypothyroidism hypercholesteremia hypothyroidism arthritis seizures agitation - Plan Plan: seizure precautions fall precautions will adjust bp meds accordingly continue current plan of care
[2017-09-15] MEDS: Levothyroxine 0.05 Mg Tab PO SCH (06:35)
[2017-09-15] MEDS: Lactulose 10 Gm/15 mL 30mL UDC PO SCH ×2 (08:27→16:06)
--- NOTE | 2017-09-15 15:31 | Internal Medicine Prog Note ---
Internal Medicine Subjective - Subjective Service Date: 09/15/17 Patient is:: awake Per staff patient has:: no adverse event Internal Medicine Objective - Results Result Diagrams: 09/12/17 20:13 09/12/17 20:13 Recent Labs: Laboratory Last Values WBC 4.8 Th/cmm (4.8-10.8) 09/12/17 20:13 RBC 4.38 Mil/cmm (3.80-5.10) 09/12/17 20:13 Hgb 13.7 gm/dL (12-16) 09/12/17 20:13 Hct 42.0 % (41.0-60) 09/12/17 20:13 MCV 95.7 fl (81-100) 09/12/17 20:13 MCH 31.3 pg (27.0-31.0) H 09/12/17 20:13 MCHC Differential 32.6 pg (28.0-36.0) 09/12/17 20:13 RDW 12.7 % (11.5-20.0) 09/12/17 20:13 Plt Count 142 Th/cmm (150-400) L 09/12/17 20:13 MPV 8.9 fl 09/12/17 20:13 Neutrophils % 56.2 % (40.0-80.0) 09/12/17 20:13 Lymphocytes % 27.9 % (20.0-50.0) 09/12/17 20:13 Monocytes % 12.4 % (2.0-10.0) H 09/12/17 20:13 Eosinophils % 3.3 % (0.0-5.0) 09/12/17 20:13 Basophils % 0.2 % (0.0-2.0) 09/12/17 20:13 Sodium 138 mEq/L (136-145) 09/12/17 20:13 Potassium 3.9 mEq/L (3.5-5.1) 09/12/17 20:13 Chloride 107 mEq/L (98-107) 09/12/17 20:13 Carbon Dioxide 24.3 mEq/L (21.0-31.0) 09/12/17 20:13 Anion Gap 10.6 (7.0-16.0) 09/12/17 20:13 BUN 23 mg/dL (7-25) 09/12/17 20:13 Creatinine 0.8 mg/dL (0.6-1.2) 09/12/17 20:13 Est GFR ( Amer) > 60.0 ml/min (>90) 09/12/17 20:13 Est GFR (Non-Af Amer) > 60.0 ml/min 09/12/17 20:13 BUN/Creatinine Ratio 28.8 09/12/17 20:13 Glucose 97 mg/dL (70-105) 09/12/17 20:13 Hemoglobin A1c % 4.1 % (4.0-6.0) 09/12/17 20:13 Calcium 9.5 mg/dL (8.6-10.3) 09/12/17 20:13 Total Bilirubin 0.3 mg/dL (0.3-1.0) 09/12/17 20:13 AST 24 U/L (13-39) 09/12/17 20:13 ALT 4 U/L (7-52) L 09/12/17 20:13 Alkaline Phosphatase 55 U/L (34-104) 09/12/17 20:13 Ammonia 118 umol/L (16-53) H 09/12/17 21:00 Total Protein 6.9 gm/dL (6.0-8.3) 09/12/17 20:13 Albumin 3.4 gm/dL (3.7-5.3) L 09/12/17 20:13 Globulin 3.5 gm/dL 09/12/17 20:13 Albumin/Globulin Ratio 1.0 (1.0-1.8) 09/12/17 20:13 Triglycerides 133 mg/dL (<150) 09/12/17 20:13 Cholesterol 150 mg/dL (<200) 09/12/17 20:13 LDL Cholesterol Direct 83 mg/dL (75-193) 09/12/17 20:13 HDL Cholesterol 46 mg/dL (23-92) 09/12/17 20:13 TSH 2.90 uIU/ml (0.34-5.60) 09/12/17 20:13 Salicylates < 25.0 mg/L (30.0-100.0) L 09/12/17 20:13 Acetaminophen < 10.0 ug/mL (10.0-30.0) L 09/12/17 20:13 Phenytoin 9.9 ug/ml (10.0-20.0) L 09/12/17 20:48 Valproic Acid 87.9 ug/mL (50.0-100.0) 09/12/17 21:00 Ethyl Alcohol < 10 mg/dL (0-10) 09/12/17 20:13 RPR NONREACTIVE (NONREACTIVE) 09/12/17 20:13 - Physical Exam Vitals and I&O: Vital Signs Temp 97.9 F 09/15/17 04:29 Pulse 77 09/15/17 08:38 Resp 16 09/15/17 08:38 BP 116/77 09/15/17 04:29 Pulse Ox 95 09/15/17 08:38 Intake & Output 09/14/17 09/15/17 09/15/17 18:59 06:59 18:59 Intake Total 480 Balance 480 Intake: Oral 480 Other: # Voids 2 Stool Characteristics Soft Active Medications: Current Medications Acetaminophen (Tylenol) 650 mg PO Q4H PRN PRN Reason: Pain Or Fever above 101 Stop: 11/11/17 22:21 Al Hydrox/Mg Hydrox/Simethicone (Maalox) 30 ml PO Q6H PRN PRN Reason: Dyspepsia Stop: 11/11/17 22:21 Albuterol Sulfate (Albuterol 2.5mg/3ml Neb Ud) 2.5 mg HHN Q2HRT PRN PRN Reason: Shortness of Breath or Wheeze Stop: 11/11/17 22:21 Escitalopram Oxalate (Lexapro) 20 mg PO DAILY [facility] PRN Reason: Protocol Stop: 11/12/17 08:59 Last Admin: 09/15/17 08:28 Dose: 20 mg Guaifenesin (Robitussin) 200 mg PO Q4HR PRN PRN Reason: Cough or Congestion Stop: 11/11/17 22:21 Haloperidol Decanoate (Haldol Dec) 50 mg IM Q14D [facility] Stop: 11/13/17 08:59 Lactulose (Cephulac) 30 gm PO BID [facility] Stop: 11/12/17 08:59 Last Admin: 09/15/17 08:27 Dose: 30 gm Levetiracetam (Keppra) 500 mg PO BID [facility] Stop: 11/12/17 08:59 Last Admin: 09/15/17 08:28 Dose: 500 mg Levothyroxine Sodium (Synthroid) 0.15 mg PO QDAC [facility] Stop: 11/12/17 07:29 Last Admin: 09/15/17 06:35 Dose: 0.15 mg [place] Carbonate (Eskalith) 300 mg PO BID [facility] PRN Reason: Protocol Stop: 11/12/17 08:59 Last Admin: 09/15/17 08:28 Dose: 300 mg Lorazepam (Ativan) 0.5 mg PO Q6H PRN; Protocol PRN Reason: Anxiety Stop: 11/11/17 22:17 Last Admin: 09/13/17 20:23 Dose: 0.5 mg Phenytoin (Dilantin) 200 mg PO BID [facility] Stop: 11/12/17 08:59 Last Admin: 09/15/17 08:29 Dose: 200 mg Quetiapine Fumarate (Seroquel) 400 mg PO BID [facility] PRN Reason: Protocol Stop: 11/14/17 08:59 Last Admin: 09/15/17 08:28 Dose: 400 mg Valproate Sodium (Depakene) 500 mg PO TID [facility] Stop: 11/12/17 08:59 Last Admin: 09/15/17 13:41 Dose: 500 mg Zolpidem Tartrate (Ambien) 5 mg PO HS PRN PRN Reason: Insomnia Stop: 11/11/17 23:15 Last Admin: 09/14/17 21:17 Dose: 5 mg General: alert HEENT: NC/AT, PERRLA Neck: Supple Lungs: CTAB Cardiovascular: RRR, without murmur Abdomen: soft, non-tender, non-distended, positive bowel sound Neurological: no change - Procedures Procedures: Procedures Procedure Code Date OTHER GROUP THERAPY 94.44 09/27/14 Internal Medicine Assmt/Plan - Assessment Assessment: hypothyroidism hypercholesteremia hypothyroidism arthritis seizures agitation - Plan Plan: seizure precautions fall precautions will adjust bp meds accordingly continue current plan of care Nutritional Asmnt/Malnutr-PDOC - Dietary Evaluation Malnutrition Findings (Please click <Entered> for more info): Nutritional Asmnt/Malnutrition Start: 09/15/17 10: 35 Text: Status: Active Freq: Document 09/15/17 10:35 DAR (Rec: 09/15/17 10:39 DAR [email or web address]) Nutritional Asmnt/Malnutrition Patient General Information Diagnosis psychosis Pertinent Medical Hx/Surgical Hx seizures, HTN, hypercholesteremia, colitis, hypothyroidism, rheumatoidarthritis Subjective Information Pt sitting up in chair at time of visit did not answer RD questions at time of visit Current Diet Order/ Nutrition Support Regular diet Pertinent Medications Maalox, lactulose, synthroid Pertinent Labs 09/12: Na 138, K 3.9, Cl 107, CO2 24.3, BUN 23, Cr 0.8, glucose 97 Nutritional Hx/Data Height 5 ft Height (Calculated Centimeters) 152.4 Current Weight (lbs) 160 lb Weight (Calculated Kilograms) 72.6 Weight (Calculated Grams) 11699.8 Body Mass Index (BMI) 31.2 Weight Status Obese GI Symptoms GI Symptoms None Last BM 09/15 Cultural/Ethnic/Protestant Belief unknown Usual diet at home regular Skin Integrity/Comment: alanis score 22 Current %PO Good (75-100%) Estimated Nutritional Goals BEE in Kcals: Adj wt of IBW Calories/Kcals/Kg 25-30kcals/kg Kcals Calculated 1300-1560kcals/day Protein: Adj wt of IBW Protein g/kg/kg Protein Calculated 53g/day Fluid: ml 1300-1560ml/day (1ml/kcal) Nutritional Problem 1. Problem Problem No nutrition diagnosis at this time Intervention/Recommendation Comments Recommend continuing regular diet Expected Outcomes/Goals Expected Outcomes/Goals PO intake >75% of meals
--- NOTE | 2017-09-15 17:56 | Progress Notes ---
DATE: 09/15/2017 PSYCHIATRIC PROGRESS NOTE SUBJECTIVE: Staff was spoken to. The patient is interviewed. Mood is noted to be irritable. Affect is constricted. Insight and judgment at this time are noted to be still impaired. The patient is screaming and yelling. The patient has been on multiple medications, such as Seroquel as well as haloperidol because the patient could not be contained at a lower level of care with 1 medication at this time. The patient's mood swings are still a problem. The patient tends to scream and yell when she does not get her way. ASSESSMENT: The patient is still impulsive. PLAN: To continue the patient with supportive therapy. Encouraged the patient to verbalize the concerns rather than to act out. [facility]# [id number]
--- NOTE | 2017-09-16 00:33 | Consultation ---
DATE OF CONSULTATION: 09/14/2017 REFERRING PHYSICIAN: Dr. Castillo. TYPE OF CONSULTATION: Psychology. HISTORY OF PRESENT ILLNESS: The patient is a 57-year-old female. The patient is a resident of [facility]. The patient is known to this rewriter from a previous hospitalization. The following is by record review and by patient's self report. The patient is being admitted due to acute agitation and psychosis. Upon interview, the patient presents as confused. The patient states that she does not know why she is in the hospital. According to the staff at the patient's facility she had been complaining of not feeling well as well as hearing voices. The patient had also been testing limits with the staff and exhibiting screaming and yelling episodes. Therefore, the patient due to these mood swings and anger outbursts was transferred here for stabilization. The patient denied any suicidal ideation, plan or intention at the time of his clinical interview. PAST MEDICAL HISTORY: Please see history and physical by Dr. Cruz. PAST PSYCHIATRIC HISTORY: The patient has a history of schizoaffective disorder. The patient is under the care of Dr. Poole at the patient's facility. SUBSTANCE ABUSE HISTORY: The patient denied any history. PSYCHOSOCIAL HISTORY: The patient did not answer questions about occupational or educational history or quaker affiliation. The patient did not answer questions about history and physical or sexual abuse or legal problems. The patient wishes to return to her [facility] facility. MENTAL STATUS EXAMINATION: The patient appears to be her stated age. The patient's attitude is superficially cooperative. Eye contact is intermittent and poor. Speech is delayed, but intermittently loud at times. Mood is irritable. Affect is constricted. Thought process shows to be confused. The patient denied any auditory or visual hallucinations or delusions; however, there is some evidence of paranoid ideation. This needs further evaluation. The patient's behavior on the unit has been difficult to redirect. Ultimately, the patient is compliant. Impulse control is poor. Concentration is fair. The patient was able to understand the questions put to her in the clinical interview. Sensorium is alert and oriented x 3. The patient did participate in the memory assessment. Immediate and short term memory show mild impairment. Long-term memory is grossly intact. The patient did not participate in the interpretation of proverbs. Insight is poor. Judgment is poor. DIAGNOSTIC IMPRESSION: AXIS I: History of schizoaffective disorder. AXIS II: Deferred. AXIS III: Please see history and physical by Dr. Cruz. TREATMENT PLAN: The patient has been seen by Dr. Castillo for psychiatric evaluation and for the management of the patient's psychotropic medications. The patient will be provided with supportive psychotherapy to include reality testing, reality differentiation and reality integration. We will provide de-escalation as well as motivational enhancement for the patient to verbalize her concerns versus acting out. We will provide motivational enhancement also for the patient to become compliant with all aspects of her care and treatment plan. We will provide coping strategies for phase of life issues as well as for chronic mental illness. We will encourage the patient to demonstrate emotional and self regulation prior to discharge. Thank you, Dr. Castillo for this consult and the opportunity to participate with you in this patient's care. JOB# [id number] [email or web address]
[2017-09-16] MEDS: Levothyroxine 0.05 Mg Tab PO SCH (06:40)
[2017-09-16] MEDS: Lactulose 10 Gm/15 mL 30mL UDC PO SCH ×2 (08:58→16:45)
--- NOTE | 2017-09-16 15:09 | Internal Medicine Prog Note ---
Internal Medicine Subjective - Subjective Service Date: 09/16/17 Patient is:: awake, ambulating Per staff patient has:: no adverse event Internal Medicine Objective - Results Result Diagrams: 09/12/17 20:13 09/12/17 20:13 Recent Labs: Laboratory Last Values WBC 4.8 Th/cmm (4.8-10.8) 09/12/17 20:13 RBC 4.38 Mil/cmm (3.80-5.10) 09/12/17 20:13 Hgb 13.7 gm/dL (12-16) 09/12/17 20:13 Hct 42.0 % (41.0-60) 09/12/17 20:13 MCV 95.7 fl (81-100) 09/12/17 20:13 MCH 31.3 pg (27.0-31.0) H 09/12/17 20:13 MCHC Differential 32.6 pg (28.0-36.0) 09/12/17 20:13 RDW 12.7 % (11.5-20.0) 09/12/17 20:13 Plt Count 142 Th/cmm (150-400) L 09/12/17 20:13 MPV 8.9 fl 09/12/17 20:13 Neutrophils % 56.2 % (40.0-80.0) 09/12/17 20:13 Lymphocytes % 27.9 % (20.0-50.0) 09/12/17 20:13 Monocytes % 12.4 % (2.0-10.0) H 09/12/17 20:13 Eosinophils % 3.3 % (0.0-5.0) 09/12/17 20:13 Basophils % 0.2 % (0.0-2.0) 09/12/17 20:13 Sodium 138 mEq/L (136-145) 09/12/17 20:13 Potassium 3.9 mEq/L (3.5-5.1) 09/12/17 20:13 Chloride 107 mEq/L (98-107) 09/12/17 20:13 Carbon Dioxide 24.3 mEq/L (21.0-31.0) 09/12/17 20:13 Anion Gap 10.6 (7.0-16.0) 09/12/17 20:13 BUN 23 mg/dL (7-25) 09/12/17 20:13 Creatinine 0.8 mg/dL (0.6-1.2) 09/12/17 20:13 Est GFR ( Amer) > 60.0 ml/min (>90) 09/12/17 20:13 Est GFR (Non-Af Amer) > 60.0 ml/min 09/12/17 20:13 BUN/Creatinine Ratio 28.8 09/12/17 20:13 Glucose 97 mg/dL (70-105) 09/12/17 20:13 Hemoglobin A1c % 4.1 % (4.0-6.0) 09/12/17 20:13 Calcium 9.5 mg/dL (8.6-10.3) 09/12/17 20:13 Total Bilirubin 0.3 mg/dL (0.3-1.0) 09/12/17 20:13 AST 24 U/L (13-39) 09/12/17 20:13 ALT 4 U/L (7-52) L 09/12/17 20:13 Alkaline Phosphatase 55 U/L (34-104) 09/12/17 20:13 Ammonia 118 umol/L (16-53) H 09/12/17 21:00 Total Protein 6.9 gm/dL (6.0-8.3) 09/12/17 20:13 Albumin 3.4 gm/dL (3.7-5.3) L 09/12/17 20:13 Globulin 3.5 gm/dL 09/12/17 20:13 Albumin/Globulin Ratio 1.0 (1.0-1.8) 09/12/17 20:13 Triglycerides 133 mg/dL (<150) 09/12/17 20:13 Cholesterol 150 mg/dL (<200) 09/12/17 20:13 LDL Cholesterol Direct 83 mg/dL (75-193) 09/12/17 20:13 HDL Cholesterol 46 mg/dL (23-92) 09/12/17 20:13 TSH 2.90 uIU/ml (0.34-5.60) 09/12/17 20:13 Salicylates < 25.0 mg/L (30.0-100.0) L 09/12/17 20:13 Acetaminophen < 10.0 ug/mL (10.0-30.0) L 09/12/17 20:13 Phenytoin 9.9 ug/ml (10.0-20.0) L 09/12/17 20:48 Valproic Acid 87.9 ug/mL (50.0-100.0) 09/12/17 21:00 Ethyl Alcohol < 10 mg/dL (0-10) 09/12/17 20:13 RPR NONREACTIVE (NONREACTIVE) 09/12/17 20:13 - Physical Exam Vitals and I&O: Vital Signs Temp 97.9 F 09/15/17 04:29 Pulse 71 09/16/17 07:06 Resp 16 09/16/17 10:05 BP 116/77 09/15/17 04:29 Pulse Ox 97 09/16/17 07:06 Intake & Output 09/15/17 09/16/17 09/16/17 18:59 06:59 18:59 Intake Total 1100 1200 Balance 1100 1200 Intake: Oral 1100 1200 Other: # Voids 3 3 # Bowel Movements 0 0 Stool Characteristics Soft Soft Active Medications: Current Medications Acetaminophen (Tylenol) 650 mg PO Q4H PRN PRN Reason: Pain Or Fever above 101 Stop: 11/11/17 22:21 Al Hydrox/Mg Hydrox/Simethicone (Maalox) 30 ml PO Q6H PRN PRN Reason: Dyspepsia Stop: 11/11/17 22:21 Albuterol Sulfate (Albuterol 2.5mg/3ml Neb Ud) 2.5 mg HHN Q2HRT PRN PRN Reason: Shortness of Breath or Wheeze Stop: 11/11/17 22:21 Escitalopram Oxalate (Lexapro) 20 mg PO DAILY [facility] PRN Reason: Protocol Stop: 11/12/17 08:59 Last Admin: 09/16/17 08:58 Dose: 20 mg Guaifenesin (Robitussin) 200 mg PO Q4HR PRN PRN Reason: Cough or Congestion Stop: 11/11/17 22:21 Haloperidol Decanoate (Haldol Dec) 50 mg IM Q14D [facility] Stop: 11/13/17 08:59 Lactulose (Cephulac) 30 gm PO BID [facility] Stop: 11/12/17 08:59 Last Admin: 09/16/17 08:58 Dose: 30 gm Levetiracetam (Keppra) 500 mg PO BID [facility] Stop: 11/12/17 08:59 Last Admin: 09/16/17 08:58 Dose: 500 mg Levothyroxine Sodium (Synthroid) 0.15 mg PO QDAC [facility] Stop: 11/12/17 07:29 Last Admin: 09/16/17 06:40 Dose: 0.15 mg [place] Carbonate (Eskalith) 300 mg PO BID [facility]A PRN Reason: Protocol Stop: 11/12/17 08:59 Last Admin: 09/16/17 08:59 Dose: 300 mg Lorazepam (Ativan) 0.5 mg PO Q6H PRN; Protocol PRN Reason: Anxiety Stop: 11/11/17 22:17 Last Admin: 09/15/17 17:14 Dose: 0.5 mg Phenytoin (Dilantin) 200 mg PO BID [facility] Stop: 11/12/17 08:59 Last Admin: 09/16/17 08:59 Dose: 200 mg Quetiapine Fumarate (Seroquel) 400 mg PO BID [facility] PRN Reason: Protocol Stop: 11/14/17 08:59 Last Admin: 09/16/17 08:59 Dose: 400 mg Valproate Sodium (Depakene) 500 mg PO TID [facility] Stop: 11/12/17 08:59 Last Admin: 09/16/17 13:02 Dose: 500 mg Zolpidem Tartrate (Ambien) 5 mg PO HS PRN PRN Reason: Insomnia Stop: 11/11/17 23:15 Last Admin: 09/15/17 20:44 Dose: 5 mg General: alert HEENT: NC/AT, PERRLA Neck: Supple Lungs: CTAB Cardiovascular: RRR, without murmur Abdomen: soft, non-tender, non-distended, positive bowel sound Neurological: no change - Procedures Procedures: Procedures Procedure Code Date OTHER GROUP THERAPY 94.44 09/27/14 Internal Medicine Assmt/Plan - Assessment Assessment: hypothyroidism hypercholesteremia hypothyroidism arthritis seizures agitation - Plan Plan: seizure precautions fall precautions will adjust bp meds accordingly continue current plan of care Nutritional Asmnt/Malnutr-PDOC - Dietary Evaluation Malnutrition Findings (Please click <Entered> for more info): Nutritional Asmnt/Malnutrition Start: 09/15/17 10: 35 Text: Status: Active Freq: Document 09/15/17 10:35 DAR (Rec: 09/15/17 10:39 DAR LORIE- FNS1) Nutritional Asmnt/Malnutrition Patient General Information Diagnosis psychosis Pertinent Medical Hx/Surgical Hx seizures, HTN, hypercholesteremia, colitis, hypothyroidism, rheumatoidarthritis Subjective Information Pt sitting up in chair at time of visit did not answer RD questions at time of visit Current Diet Order/ Nutrition Support Regular diet Pertinent Medications Maalox, lactulose, synthroid Pertinent Labs 09/12: Na 138, K 3.9, Cl 107, CO2 24.3, BUN 23, Cr 0.8, glucose 97 Nutritional Hx/Data Height 5 ft Height (Calculated Centimeters) 152.4 Current Weight (lbs) 160 lb Weight (Calculated Kilograms) 72.6 Weight (Calculated Grams) 70592.8 Body Mass Index (BMI) 31.2 Weight Status Obese GI Symptoms GI Symptoms None Last BM 09/15 Cultural/Ethnic/Quaker Belief unknown Usual diet at home regular Skin Integrity/Comment: alanis score 22 Current %PO Good (75-100%) Estimated Nutritional Goals BEE in Kcals: Adj wt of IBW Calories/Kcals/Kg 25-30kcals/kg Kcals Calculated 1300-1560kcals/day Protein: Adj wt of IBW Protein g/kg/kg Protein Calculated 53g/day Fluid: ml 1300-1560ml/day (1ml/kcal) Nutritional Problem 1. Problem Problem No nutrition diagnosis at this time Intervention/Recommendation Comments Recommend continuing regular diet Expected Outcomes/Goals Expected Outcomes/Goals PO intake >75% of meals
--- NOTE | 2017-09-16 18:44 | Progress Notes ---
DATE: 09/16/2017 SUBJECTIVE: Staff was spoken to. The patient is interviewed. Mood is noted to be irritable. Affect is constricted. Insight and judgment are noted to be still impaired. Impulse control is noted to be limited. The patient has been having mood swings, but screaming and yelling have been coming down. At this time, the patient's mood swings are still the concerns and paranoia is noted. PLAN: To continue the patient with the current medications and followup. JOB# [id number]
[2017-09-17] MEDS: Levothyroxine 0.05 Mg Tab PO SCH (06:34)
[2017-09-17] MEDS: Lactulose 10 Gm/15 mL 30mL UDC PO SCH ×2 (09:49→16:31)
--- NOTE | 2017-09-17 11:44 | Internal Medicine Prog Note ---
Internal Medicine Subjective - Subjective Patient seen and examined:: with staff, chart reviewed Patient is:: awake, verbal, interactive, ambulating Per staff patient has:: no adverse event, no episodes of fall, confused, tolerating meds Internal Medicine Objective - Results Result Diagrams: 09/12/17 20:13 09/12/17 20:13 Recent Labs: Laboratory Last Values WBC 4.8 Th/cmm (4.8-10.8) 09/12/17 20:13 RBC 4.38 Mil/cmm (3.80-5.10) 09/12/17 20:13 Hgb 13.7 gm/dL (12-16) 09/12/17 20:13 Hct 42.0 % (41.0-60) 09/12/17 20:13 MCV 95.7 fl (81-100) 09/12/17 20:13 MCH 31.3 pg (27.0-31.0) H 09/12/17 20:13 MCHC Differential 32.6 pg (28.0-36.0) 09/12/17 20:13 RDW 12.7 % (11.5-20.0) 09/12/17 20:13 Plt Count 142 Th/cmm (150-400) L 09/12/17 20:13 MPV 8.9 fl 09/12/17 20:13 Neutrophils % 56.2 % (40.0-80.0) 09/12/17 20:13 Lymphocytes % 27.9 % (20.0-50.0) 09/12/17 20:13 Monocytes % 12.4 % (2.0-10.0) H 09/12/17 20:13 Eosinophils % 3.3 % (0.0-5.0) 09/12/17 20:13 Basophils % 0.2 % (0.0-2.0) 09/12/17 20:13 Sodium 138 mEq/L (136-145) 09/12/17 20:13 Potassium 3.9 mEq/L (3.5-5.1) 09/12/17 20:13 Chloride 107 mEq/L (98-107) 09/12/17 20:13 Carbon Dioxide 24.3 mEq/L (21.0-31.0) 09/12/17 20:13 Anion Gap 10.6 (7.0-16.0) 09/12/17 20:13 BUN 23 mg/dL (7-25) 09/12/17 20:13 Creatinine 0.8 mg/dL (0.6-1.2) 09/12/17 20:13 Est GFR ( Amer) > 60.0 ml/min (>90) 09/12/17 20:13 Est GFR (Non-Af Amer) > 60.0 ml/min 09/12/17 20:13 BUN/Creatinine Ratio 28.8 09/12/17 20:13 Glucose 97 mg/dL (70-105) 09/12/17 20:13 Hemoglobin A1c % 4.1 % (4.0-6.0) 09/12/17 20:13 Calcium 9.5 mg/dL (8.6-10.3) 09/12/17 20:13 Total Bilirubin 0.3 mg/dL (0.3-1.0) 09/12/17 20:13 AST 24 U/L (13-39) 09/12/17 20:13 ALT 4 U/L (7-52) L 09/12/17 20:13 Alkaline Phosphatase 55 U/L (34-104) 09/12/17 20:13 Ammonia 118 umol/L (16-53) H 09/12/17 21:00 Total Protein 6.9 gm/dL (6.0-8.3) 09/12/17 20:13 Albumin 3.4 gm/dL (3.7-5.3) L 09/12/17 20:13 Globulin 3.5 gm/dL 09/12/17 20:13 Albumin/Globulin Ratio 1.0 (1.0-1.8) 09/12/17 20:13 Triglycerides 133 mg/dL (<150) 09/12/17 20:13 Cholesterol 150 mg/dL (<200) 09/12/17 20:13 LDL Cholesterol Direct 83 mg/dL (75-193) 09/12/17 20:13 HDL Cholesterol 46 mg/dL (23-92) 09/12/17 20:13 TSH 2.90 uIU/ml (0.34-5.60) 09/12/17 20:13 Salicylates < 25.0 mg/L (30.0-100.0) L 09/12/17 20:13 Acetaminophen < 10.0 ug/mL (10.0-30.0) L 09/12/17 20:13 Phenytoin 9.9 ug/ml (10.0-20.0) L 09/12/17 20:48 Valproic Acid 87.9 ug/mL (50.0-100.0) 09/12/17 21:00 Ethyl Alcohol < 10 mg/dL (0-10) 09/12/17 20:13 RPR NONREACTIVE (NONREACTIVE) 09/12/17 20:13 - Physical Exam Vitals and I&O: Vital Signs Temp 98.1 F 09/17/17 05:46 Pulse 69 09/17/17 08:46 Resp 18 09/17/17 08:46 BP 124/80 09/17/17 05:46 Pulse Ox 96 09/17/17 08:46 Intake & Output 09/16/17 09/17/17 09/17/17 18:59 06:59 18:59 Intake Total 1300 480 Balance 1300 480 Intake: Oral 1300 480 Other: # Voids 3 2 # Bowel Movements 0 Stool Characteristics Soft Active Medications: Current Medications Acetaminophen (Tylenol) 650 mg PO Q4H PRN PRN Reason: Pain Or Fever above 101 Stop: 11/11/17 22:21 Al Hydrox/Mg Hydrox/Simethicone (Maalox) 30 ml PO Q6H PRN PRN Reason: Dyspepsia Stop: 11/11/17 22:21 Albuterol Sulfate (Albuterol 2.5mg/3ml Neb Ud) 2.5 mg HHN Q2HRT PRN PRN Reason: Shortness of Breath or Wheeze Stop: 11/11/17 22:21 Escitalopram Oxalate (Lexapro) 20 mg PO DAILY [facility] PRN Reason: Protocol Stop: 11/12/17 08:59 Last Admin: 09/17/17 09:48 Dose: 20 mg Guaifenesin (Robitussin) 200 mg PO Q4HR PRN PRN Reason: Cough or Congestion Stop: 11/11/17 22:21 Haloperidol Decanoate (Haldol Dec) 50 mg IM Q14D [facility] Stop: 11/13/17 08:59 Lactulose (Cephulac) 30 gm PO BID [facility] Stop: 11/12/17 08:59 Last Admin: 09/17/17 09:49 Dose: 30 gm Levetiracetam (Keppra) 500 mg PO BID [facility] Stop: 11/12/17 08:59 Last Admin: 09/17/17 09:48 Dose: 500 mg Levothyroxine Sodium (Synthroid) 0.15 mg PO QDAC [facility] Stop: 11/12/17 07:29 Last Admin: 09/17/17 06:34 Dose: 0.15 mg [place] Carbonate (Eskalith) 300 mg PO BID [facility] PRN Reason: Protocol Stop: 11/12/17 08:59 Last Admin: 09/17/17 09:48 Dose: 300 mg Lorazepam (Ativan) 0.5 mg PO Q6H PRN; Protocol PRN Reason: Anxiety Stop: 11/11/17 22:17 Last Admin: 09/15/17 17:14 Dose: 0.5 mg Phenytoin (Dilantin) 200 mg PO BID [facility] Stop: 11/12/17 08:59 Last Admin: 09/17/17 09:48 Dose: 200 mg Quetiapine Fumarate (Seroquel) 400 mg PO BID [facility] PRN Reason: Protocol Stop: 11/14/17 08:59 Last Admin: 09/17/17 09:48 Dose: 400 mg Valproate Sodium (Depakene) 500 mg PO TID [facility] Stop: 11/12/17 08:59 Last Admin: 09/17/17 09:52 Dose: 500 mg Zolpidem Tartrate (Ambien) 5 mg PO HS PRN PRN Reason: Insomnia Stop: 11/11/17 23:15 Last Admin: 09/16/17 21:46 Dose: 5 mg General: alert HEENT: NC/AT, PERRLA Neck: Supple Lungs: CTAB Cardiovascular: RRR, without murmur Abdomen: soft, non-tender, non-distended, positive bowel sound Neurological: no change - Procedures Procedures: Procedures Procedure Code Date OTHER GROUP THERAPY 94.44 09/27/14 Internal Medicine Assmt/Plan - Assessment Assessment: - Assessment Assessment: hypothyroidism hypercholesteremia hypothyroidism arthritis seizures agitation - Plan Plan: seizure precautions fall precautions will adjust bp meds accordingly continue current plan of care - Plan Plan: cpm Nutritional Asmnt/Malnutr-PDOC - Dietary Evaluation Malnutrition Findings (Please click <Entered> for more info): Nutritional Asmnt/Malnutrition Start: 09/15/17 10: 35 Text: Status: Active Freq: Document 09/15/17 10:35 RICHARDJANEL (Rec: 09/15/17 10:39 DAR LORIE- FNS1) Nutritional Asmnt/Malnutrition Patient General Information Diagnosis psychosis Pertinent Medical Hx/Surgical Hx seizures, HTN, hypercholesteremia, colitis, hypothyroidism, rheumatoidarthritis Subjective Information Pt sitting up in chair at time of visit did not answer RD questions at time of visit Current Diet Order/ Nutrition Support Regular diet Pertinent Medications Maalox, lactulose, synthroid Pertinent Labs 09/12: Na 138, K 3.9, Cl 107, CO2 24.3, BUN 23, Cr 0.8, glucose 97 Nutritional Hx/Data Height 1.52 m Height (Calculated Centimeters) 152.4 Current Weight (lbs) 72.575 kg Weight (Calculated Kilograms) 72.6 Weight (Calculated Grams) 07792.8 Body Mass Index (BMI) 31.2 Weight Status Obese GI Symptoms GI Symptoms None Last BM 09/15 Cultural/Ethnic/Muslim Belief unknown Usual diet at home regular Skin Integrity/Comment: alanis score 22 Current %PO Good (75-100%) Estimated Nutritional Goals BEE in Kcals: Adj wt of IBW Calories/Kcals/Kg 25-30kcals/kg Kcals Calculated 1300-1560kcals/day Protein: Adj wt of IBW Protein g/kg/kg Protein Calculated 53g/day Fluid: ml 1300-1560ml/day (1ml/kcal) Nutritional Problem 1. Problem Problem No nutrition diagnosis at this time Intervention/Recommendation Comments Recommend continuing regular diet Expected Outcomes/Goals Expected Outcomes/Goals PO intake >75% of meals
--- NOTE | 2017-09-17 17:21 | Progress Notes ---
DATE: 09/17/2017 SUBJECTIVE: Staff was spoken to. The patient is interviewed. Mood is noted to be irritable. Affect is constricted. Insight and judgment are noted to be still impaired. Impulse control is noted to be poor. The patient is currently on 500 mg 3 times a day of the valproic acid, 400 mg twice a day of the Seroquel, and has been able to tolerate the medications. No side effects to the medications are noted. The patient is going to be closely monitored. I encouraged her to participate in the groups and verbalize the concerns rather than to act out. ASSESSMENT: The patient is still having mood swings. PLAN: To continue the patient with the supportive therapy and followup. [facility]# [id number]
[2017-09-18] MEDS: Levothyroxine 0.05 Mg Tab PO SCH (06:40)
[2017-09-18] MEDS: Lactulose 10 Gm/15 mL 30mL UDC PO SCH (09:30)
--- NOTE | 2017-09-18 12:18 | Internal Medicine Prog Note ---
Internal Medicine Subjective - Subjective Service Date: 09/18/17 Patient is:: awake, verbal, interactive, ambulating Per staff patient has:: no adverse event, no episodes of fall, confused, tolerating meds Internal Medicine Objective - Results Result Diagrams: 09/12/17 20:13 09/12/17 20:13 Recent Labs: Laboratory Last Values WBC 4.8 Th/cmm (4.8-10.8) 09/12/17 20:13 RBC 4.38 Mil/cmm (3.80-5.10) 09/12/17 20:13 Hgb 13.7 gm/dL (12-16) 09/12/17 20:13 Hct 42.0 % (41.0-60) 09/12/17 20:13 MCV 95.7 fl (81-100) 09/12/17 20:13 MCH 31.3 pg (27.0-31.0) H 09/12/17 20:13 MCHC Differential 32.6 pg (28.0-36.0) 09/12/17 20:13 RDW 12.7 % (11.5-20.0) 09/12/17 20:13 Plt Count 142 Th/cmm (150-400) L 09/12/17 20:13 MPV 8.9 fl 09/12/17 20:13 Neutrophils % 56.2 % (40.0-80.0) 09/12/17 20:13 Lymphocytes % 27.9 % (20.0-50.0) 09/12/17 20:13 Monocytes % 12.4 % (2.0-10.0) H 09/12/17 20:13 Eosinophils % 3.3 % (0.0-5.0) 09/12/17 20:13 Basophils % 0.2 % (0.0-2.0) 09/12/17 20:13 Sodium 138 mEq/L (136-145) 09/12/17 20:13 Potassium 3.9 mEq/L (3.5-5.1) 09/12/17 20:13 Chloride 107 mEq/L (98-107) 09/12/17 20:13 Carbon Dioxide 24.3 mEq/L (21.0-31.0) 09/12/17 20:13 Anion Gap 10.6 (7.0-16.0) 09/12/17 20:13 BUN 23 mg/dL (7-25) 09/12/17 20:13 Creatinine 0.8 mg/dL (0.6-1.2) 09/12/17 20:13 Est GFR ( Amer) > 60.0 ml/min (>90) 09/12/17 20:13 Est GFR (Non-Af Amer) > 60.0 ml/min 09/12/17 20:13 BUN/Creatinine Ratio 28.8 09/12/17 20:13 Glucose 97 mg/dL (70-105) 09/12/17 20:13 Hemoglobin A1c % 4.1 % (4.0-6.0) 09/12/17 20:13 Calcium 9.5 mg/dL (8.6-10.3) 09/12/17 20:13 Total Bilirubin 0.3 mg/dL (0.3-1.0) 09/12/17 20:13 AST 24 U/L (13-39) 09/12/17 20:13 ALT 4 U/L (7-52) L 09/12/17 20:13 Alkaline Phosphatase 55 U/L (34-104) 09/12/17 20:13 Ammonia 118 umol/L (16-53) H 09/12/17 21:00 Total Protein 6.9 gm/dL (6.0-8.3) 09/12/17 20:13 Albumin 3.4 gm/dL (3.7-5.3) L 09/12/17 20:13 Globulin 3.5 gm/dL 09/12/17 20:13 Albumin/Globulin Ratio 1.0 (1.0-1.8) 09/12/17 20:13 Triglycerides 133 mg/dL (<150) 09/12/17 20:13 Cholesterol 150 mg/dL (<200) 09/12/17 20:13 LDL Cholesterol Direct 83 mg/dL (75-193) 09/12/17 20:13 HDL Cholesterol 46 mg/dL (23-92) 09/12/17 20:13 TSH 2.90 uIU/ml (0.34-5.60) 09/12/17 20:13 Salicylates < 25.0 mg/L (30.0-100.0) L 09/12/17 20:13 Acetaminophen < 10.0 ug/mL (10.0-30.0) L 09/12/17 20:13 Phenytoin 9.9 ug/ml (10.0-20.0) L 09/12/17 20:48 Valproic Acid 87.9 ug/mL (50.0-100.0) 09/12/17 21:00 Ethyl Alcohol < 10 mg/dL (0-10) 09/12/17 20:13 RPR NONREACTIVE (NONREACTIVE) 09/12/17 20:13 - Physical Exam Vitals and I&O: Vital Signs Temp 97.3 F 09/18/17 06:26 Pulse 72 09/18/17 07:43 Resp 19 09/18/17 07:43 BP 121/81 09/18/17 06:26 Pulse Ox 96 09/18/17 07:43 Intake & Output 09/17/17 09/18/17 09/18/17 18:59 06:59 18:59 Intake Total 620 480 Balance 620 480 Intake: Oral 620 480 Other: # Voids 2 2 Active Medications: Current Medications Acetaminophen (Tylenol) 650 mg PO Q4H PRN PRN Reason: Pain Or Fever above 101 Stop: 11/11/17 22:21 Last Admin: 09/17/17 16:52 Dose: 650 mg Al Hydrox/Mg Hydrox/Simethicone (Maalox) 30 ml PO Q6H PRN PRN Reason: Dyspepsia Stop: 11/11/17 22:21 Albuterol Sulfate (Albuterol 2.5mg/3ml Neb Ud) 2.5 mg HHN Q2HRT PRN PRN Reason: Shortness of Breath or Wheeze Stop: 11/11/17 22:21 Escitalopram Oxalate (Lexapro) 20 mg PO DAILY [facility] PRN Reason: Protocol Stop: 11/12/17 08:59 Last Admin: 09/18/17 09:30 Dose: 20 mg Guaifenesin (Robitussin) 200 mg PO Q4HR PRN PRN Reason: Cough or Congestion Stop: 11/11/17 22:21 Haloperidol Decanoate (Haldol Dec) 50 mg IM Q14D [facility] Stop: 11/13/17 08:59 Lactulose (Cephulac) 30 gm PO BID [facility] Stop: 11/12/17 08:59 Last Admin: 09/18/17 09:30 Dose: 30 gm Levetiracetam (Keppra) 500 mg PO BID [facility] Stop: 11/12/17 08:59 Last Admin: 09/18/17 09:30 Dose: 500 mg Levothyroxine Sodium (Synthroid) 0.15 mg PO QDAC [facility] Stop: 11/12/17 07:29 Last Admin: 09/18/17 06:40 Dose: 0.15 mg [place] Carbonate (Eskalith) 300 mg PO BID [facility] PRN Reason: Protocol Stop: 11/12/17 08:59 Last Admin: 09/18/17 09:30 Dose: 300 mg Lorazepam (Ativan) 0.5 mg PO Q6H PRN; Protocol PRN Reason: Anxiety Stop: 11/11/17 22:17 Last Admin: 09/18/17 10:20 Dose: 0.5 mg Phenytoin (Dilantin) 200 mg PO BID [facility] Stop: 11/12/17 08:59 Last Admin: 09/18/17 09:30 Dose: 200 mg Quetiapine Fumarate (Seroquel) 400 mg PO BID [facility] PRN Reason: Protocol Stop: 11/14/17 08:59 Last Admin: 09/18/17 09:30 Dose: 400 mg Valproate Sodium (Depakene) 500 mg PO TID [facility] Stop: 11/12/17 08:59 Last Admin: 09/18/17 09:30 Dose: 500 mg Zolpidem Tartrate (Ambien) 5 mg PO HS PRN PRN Reason: Insomnia Stop: 11/11/17 23:15 Last Admin: 09/17/17 21:20 Dose: 5 mg General: alert HEENT: NC/AT, PERRLA Neck: Supple Lungs: CTAB Cardiovascular: RRR, without murmur Abdomen: soft, non-tender, non-distended, positive bowel sound Neurological: no change - Procedures Procedures: Procedures Procedure Code Date OTHER GROUP THERAPY 94.44 09/27/14 Internal Medicine Assmt/Plan - Assessment Assessment: hypothyroidism hypercholesteremia hypothyroidism arthritis seizures agitation - Plan Plan: seizure precautions fall precautions will adjust bp meds accordingly continue current plan of care Nutritional Asmnt/Malnutr-PDOC - Dietary Evaluation Malnutrition Findings (Please click <Entered> for more info): Nutritional Asmnt/Malnutrition Start: 09/15/17 10: 35 Text: Status: Active Freq: Document 09/15/17 10:35 MELODYKB (Rec: 09/15/17 10:39 DAR MELO- FNS1) Nutritional Asmnt/Malnutrition Patient General Information Diagnosis psychosis Pertinent Medical Hx/Surgical Hx seizures, HTN, hypercholesteremia, colitis, hypothyroidism, rheumatoidarthritis Subjective Information Pt sitting up in chair at time of visit did not answer RD questions at time of visit Current Diet Order/ Nutrition Support Regular diet Pertinent Medications Maalox, lactulose, synthroid Pertinent Labs 09/12: Na 138, K 3.9, Cl 107, CO2 24.3, BUN 23, Cr 0.8, glucose 97 Nutritional Hx/Data Height 5 ft Height (Calculated Centimeters) 152.4 Current Weight (lbs) 160 lb Weight (Calculated Kilograms) 72.6 Weight (Calculated Grams) 58820.8 Body Mass Index (BMI) 31.2 Weight Status Obese GI Symptoms GI Symptoms None Last BM 09/15 Cultural/Ethnic/Jew Belief unknown Usual diet at home regular Skin Integrity/Comment: alanis score 22 Current %PO Good (75-100%) Estimated Nutritional Goals BEE in Kcals: Adj wt of IBW Calories/Kcals/Kg 25-30kcals/kg Kcals Calculated 1300-1560kcals/day Protein: Adj wt of IBW Protein g/kg/kg Protein Calculated 53g/day Fluid: ml 1300-1560ml/day (1ml/kcal) Nutritional Problem 1. Problem Problem No nutrition diagnosis at this time Intervention/Recommendation Comments Recommend continuing regular diet Expected Outcomes/Goals Expected Outcomes/Goals PO intake >75% of meals
--- NOTE | 2017-09-18 20:03 | Discharge Summary ---
DATE OF DISCHARGE: 09/18/2017 PSYCHIATRIC DISCHARGE SUMMARY IDENTIFYING DATA: The patient is a 57-year-old woman, resident of [facility]. Information obtained by directly interviewing the patient as well as reviewing the admission papers. JUSTIFICATION OF HOSPITALIZATION: The patient is admitted here for acute agitation. CHIEF COMPLAINT: "I do not know what is going on. I need the medication adjusted." HISTORY OF PRESENT ILLNESS: This is one of multiple psychiatric hospitalizations for this 57-year-old who has been diagnosed to have schizoaffective disorder and is being followed up by Dr. Poole on an outpatient basis. The patient has been reported to be screaming, yelling and hence the patient has to be brought over here for stabilization. For history of present illness, please refer the 09/12/2017 dictation done by me. Physical examination at the time of admission was done by Dr. Ynes Thomas and is noted to be significant for hypertension, seizures, colitis, hypothyroidism, rheumatoid arthritis. HOSPITAL COURSE AND RESPONSE TO TREATMENT: The patient has been observed on the inpatient unit, provided with supportive psychotherapy. The patient has been given the valproic acid 500 mg 3 times a day, Seroquel 400 mg twice a day, lithium carbonate 300 mg twice a day. With these medications, the patient was observed and was noted to be doing fairly well and hence the patient was discharged with recommendation that she is going to be seeking treatment on an outpatient basis by Dr. Poole at [facility]. MENTAL STATUS EXAMINATION: At the time of discharge, the patient's mood is noted to be less irritable. Affect is appropriate. Not suicidal or homicidal. Coping skills are noted to be fair. Sleep and appetite are also noted to be fair. The patient has been able to verbalize the concerns rather than to act out at the time of the discharge. Condition at the time of discharge noted to be stable. DIAGNOSES AT THE TIME OF DISCHARGE: AXIS I: Schizoaffective disorder. AXIS II: None. AXIS III: Seizure disorder. AFTERCARE PLAN: The patient is discharged to [facility] for further followup. JOB# [id number]
== END 2017-09-18 16:00 | DRG 885 ==
LOC: ER 19:17 → GERO2 21:45
DX: F25.9 Schizoaffective disorder, unspecified (principal); I10 Essential (primary) hypertension; E78.5 Hyperlipidemia, unspecified; F17.210 Nicotine dependence, cigarettes, uncomplicated; E03.9 Hypothyroidism, unspecified; E78.00 Pure hypercholesterolemia, unspecified; M19.90 Unspecified osteoarthritis, unspecified site; G40.909 Epilepsy, unspecified, not intractable, without status epilepticus; M06.9 Rheumatoid arthritis, unspecified
CPT/HCPCS: 36415-UA; 80053-TC; 80061-TC; 80164-TC; 80185-TC; 80320-TC; 80329-TC; 82140-TC; 83036-90; 84443-TC; 85025-TC; 86592-TC; 93005; 94760; J1200; J1630; J1631; J2060; Z7610

== ENCOUNTER 2018-06-04 16:35 | Inpatient (IN) | payer MEDICARE, BC ==
--- NOTE | 2018-06-04 17:00 | ED Physician Chart ---
ED Chief Complaint/HPI - Patient Information Date Seen:: 06/04/18 Time Seen:: 16:40 Chief Complaint:: Agitation History of Present Illness:: onset x 3 days of agitation and aggressive behavior; no report of trauma, LOC, H /As, S/T, neck pain, C/P, SOB, Abd. Pain, A/N/V/D/C, fever, chills, SIs, or urinary s/s Allergies:: Allergies Allergy/AdvReac Type Severity Reaction Status Date / Time codeine Allergy Verified 12/31/15 20:56 Historian:: Patient, EMS Review:: Nurse's Note Reviewed, Old Chart Reviewed, EMS run form Reviewed ED Review of Systems - Review of Systems General/Constitutional: No fever, No chills, No weight loss, No weakness, No diaphoresis, No edema, No loss of appetite Skin: No skin lesions, No rash, No bruising Head: No headache, No light-headedness Eyes: No loss of vision, No pain, No diplopia ENT: No earache, No nasal drainage, No sore throat, No tinnitus Neck: No neck pain, No swelling, No thyromegaly, No stiffness, No mass noted Cardio Vascular: No chest pain, No palpitations, No PND, No orthopnea, No edema Pulmonary: No SOB, No cough, No sputum, No wheezing GI: No nausea, No vomiting, No diarrhea, No pain, No melena, No hematochezia, No constipation, No hematemesis G/U: No dysuria, No frequency, No hematuria, No nacturia Accounts Payable Or Receivable Clerk: No vaginal discharge, No abnormal vaginal bleed, No contraction Musculoskeletal: No bone or joint pain, No back pain, No muscle pain Endocrine: No polyuria, No polydipsia Psychiatric: Prior psych history, Depression, Anxiety, No suicidal ideation, No homicidal ideation, No auditory hallucination, No visual hallucination Hematopoietic: No bruising, No lymphadenopathy Allergic/Immuno: No urticaria, No angioedema Neurological: No syncope, No focal symptoms, No weakness, No paresthesia, No headache, Seizure, No dizziness, No confusion, No vertigo ED Past Medical History - Past Medical History Obtainable: Yes Past Medical History: HTN, CAD, Asthma/COPD, Dyslipidemia, PUD/GERD, Seizures, Thyroid disorder, Other (Atrial Fibrillation) Family History: HTN Social History: Non Smoker, No Alcohol, No Drug Use, Single, Care Facility Surgical History: None Psychiatricy History: Depression, Schizophrenia, Bipolar Medication: Reviewed Family Medical History - Family Member mother History Unknown: Yes Ethnicity: Unknown Living Status: Unknown Hx Family Cancer: No Hx Family Coronary Artery Disease: No Hx Family Congestive Heart Failure: No Hx Family Hypertension: No Hx Family Stroke: No Hx Family Diabetes: Yes Hx Family Seizures: No Hx Family Dementia: No Hx Family AIDS: No Hx Family HIV: No Hx Family COPD: No Hx Family Hepatitis: No Hx Family Psychiatric Problems: No Hx Family Tuberculosis: (unknown) ED Physical Exam - Physical Examination General/Constitutional: Awake, Well-developed, well-nourished, Alert, No distress, GCS 15, Non-toxic appearing, Ambulatory Head: Atraumatic Eyes: Lids, conjuctiva normal, PERRL, EOMI Skin: Nl inspection, No rash, No skin lesions, No ecchymosis, Well hydrated, No lymphadenopathy ENMT: External ears, nose nl, TM canals nl, Nasal exam nl, Lips, teeth, gums nl , Oropharynx nl, Tonsils nl Neck: Nontender, Full ROM w/o pain, No JVD, No nuchal rigidity, No bruit, No mass, No stridor Respiratory: Nl effort/Exclusion, Clear to Auscultation, No Wheeze/Rhonchi/Rales Cardio Vascular: No murmur, gallop, rubs, NL S1 S2, Carotid/Femoral/Distal pulses equal bilaterally Other Cardio Vascular comments:: Irregular Irregular Rhythm GI: No tenderness/rebounding/guarding, No organomegaly, No hernia, Normal BS's, Nondistended, No mass/bruits, No McBurney tenderness Other GI comments:: no pulsatile masses : No CVA tenderness Extremities: No tenderness or effusion, Full ROM, normal strength in all extremities, No edema, Normal digits & nails Neuro/Psych: Alert/oriented, DTR's symmetric, Normal sensory exam, Normal motor strength, Judgement/insight normal, Mood normal, Normal gait, No focal deficits Other Neuro/Psych comments:: + Psychomotor Agitation; no SIs; Mood/Affect: Labile Misc: Normal back, No paraspinal tenderness ED Labs/Radiology/EKG Results - Lab Results Comments:: Reviewed - EKG Interpretations EKG Time:: 18:06 Rate & Rhythm: 72; Atrial Fibrillation Comments:: non-specific st-t changes ED Septic Shock - . Is Septic Shock (SBP<90, OR Lactate>4 mmol\L) present?: No ED Reassessment (Disposition) - Reassessment Reassessment Condition:: Improved - Diagnosis Diagnosis:: Agitation; Medical Clearance; Psychosis; Atrial Fibrillation; Bipolar Disorder - Aftercare/Follow up Instructions Aftercare/Follow-Up Instructions:: Counseled pt regarding lab results/diagnosis & need follow up, Counseled pt & family regarding lab results/diagnosis & need follow up - Patient Disposition Discharge/Transfer:: Acute Care w/in this hosp Admitted to:: [facility] Condition at Disposition:: Stable, Improved
[2018-06-04 17:49] LABS: % BASOPHILS 0.3 % (0.0-2.0); % EOSINOPHILS 3.8 % (0.0-5.0); % LYMPHOCYTES 32.8 % (20.0-50.0); % MONOCYTES 12.6 % (2.0-10.0); % NEUTROPHILS 50.5 % (40.0-80.0); EOSINOPHILE ABSOLUTE 0.2 Th/cmm (0.1-0.4); HEMATOCRIT 39.1 % (41.0-60); HEMOGLOBIN 12.8 gm/dL (12-16); LYMPHOCYTE ABSOLUTE 1.5 Th/cmm (1.5-3.0); MEAN CELL VOLUME 93.6 fl (81-100); MEAN CORPUSCULAR HEMOGLOBIN 30.6 pg (27.0-31.0); MEAN CORPUSCULAR HGB CONC 32.7 pg (28.0-36.0); MEAN PLATELET VOLUME 8.7 fl; MONOCYTE ABSOLUTE 0.6 Th/cmm (0.3-1.0); NEUTROPHILE ABSOLUTE 2.3 Th/cmm (1.8-8.0); PLATELET COUNT 148 Th/cmm (150-400); RED BLOOD COUNT 4.17 Mil/cmm (3.80-5.10); WHITE BLOOD COUNT 4.6 Th/cmm (4.8-10.8)
[2018-06-04 18:09] LABS: ALB/GLOB RATIO 1.3 (1.0-1.8); ALBUMIN 4.1 gm/dL (3.7-5.3); ALKALINE PHOSPHATASE 55 U/L (34-104); BILIRUBIN,TOTAL 0.4 mg/dL (0.3-1.0); BUN - UREA NITROGEN 19 mg/dL (7-25); CALCIUM SERUM 9.7 mg/dL (8.6-10.3); CARBON DIOXIDE 26.9 mEq/L (21.0-31.0); CHLORIDE 105 mEq/L (98-107); CHOLESTEROL 163 mg/dL (<200); CREATININE - SERUM 0.8 mg/dL (0.6-1.2); GFR AFRICAN-AMERICAN > 60.0 ml/min (>90); GFR NON AFRICAN-AMERICAN > 60.0 ml/min; GLUCOSE 113 mg/dL (70-105); HDL -HIGH DENSITY LIPOPROTEIN 45 mg/dL (23-92); POTASSIUM SERUM 3.9 mEq/L (3.5-5.1); SALICYLATES (ASPIRIN) < 25.0 mg/L (30.0-100.0); SGOT 35 U/L (13-39); SGPT/ALT 16 U/L (7-52); SODIUM SERUM 141 mEq/L (136-145); TOTAL PROTEIN,SERUM 7.3 gm/dL (6.0-8.3); TRIGLYCERIDES 181 mg/dL (<150)
[2018-06-04 18:19] LABS: ACETAMINOPHEN < 10.0 ug/mL (10.0-30.0)
[2018-06-04 20:07] VITALS: BP 111/77
[2018-06-04] MEDS ORDERED: guaiFENesin 200 MG/10 ML UDC PO PRN (20:14)
[2018-06-04] MEDS ORDERED: Albuterol Nebulizer 2.5mg/3mL HHN PRN (20:14)
[2018-06-04] MEDS ORDERED: Maalox 30 mL Cup PO PRN (20:14)
[2018-06-04] MEDS ORDERED: HALOPERIDOL DECANOATE 50 MG IM SCH (20:15)
--- NOTE | 2018-06-04 22:26 | History & Physical ---
ADMIT DATE: 06/04/2018 CHIEF COMPLAINT: Increasing agitation. HISTORY OF PRESENT ILLNESS: This is a 57-year-old female with history of seizure, status post brain surgery, hypertension, COPD, high cholesterol, cardiac arrhythmia, admitted from nursing facility under Dr. Poole. The patient is a poor historian. The patient was cleared medically from the ER. PAST MEDICAL HISTORY: As mentioned in history of present illness. PAST SURGICAL HISTORY: Status post brain surgery. ALLERGIES: CODEINE. MEDICATIONS: The patient is on Dilantin, Keppra, Tylenol, Colace, Lexapro, Lotensin, Haldol, lactulose, Synthroid, [place], lorazepam, Seroquel, Depakote, Ambien. FAMILY HISTORY: Noncontributory. SOCIAL HISTORY: The patient requiring 24-hour total care. REVIEW OF SYSTEMS: This is limited secondary to the patient's current mental state. We will try to obtain more detailed review of system at a later date with family members. As listed on a pay sheet, we will also try to get information from nursing staff at [facility], as well as from Dr. Poole. PHYSICAL EXAMINATION: VITAL SIGNS: Blood pressure 137/83, respirations 18, pulse 69 and temperature 99.0. GENERAL: Elderly female, appears chronically ill. NECK: Supple. No mass. LUNGS: Equal breath sounds, a few rhonchi. HEART: Regular rate without appreciable murmur. ABDOMEN: Soft, globular. EXTREMITIES: Positive excoriations. NEUROLOGIC: Limited. LABORATORY DATA: WBC 4.6, hemoglobin 12.8, platelets 148. Sodium 141, potassium 3.9, BUN 19, creatinine 0.8, blood sugar 113. Troponin negative x 1. Triglyceride 181, Dilantin 9.9. ASSESSMENT AND PLAN: Seizure disorder, hypertension, hypothyroidism, chronic obstructive pulmonary disease, high cholesterol, status post brain surgery, leukopenia, elevated triglycerides. We will continue the patient on seizure medication. Continue on seizure precaution. We will check Keppra and Dilantin level. Continue Synthroid. We will review the patient's laboratories. Continue with current care with followup consult. We will continue to follow with you Dr. Poole. JOB# [id number]
[2018-06-05] MEDS: Levothyroxine 0.05 Mg Tab PO SCH (06:39)
[2018-06-05] MEDS: Lactulose 10 Gm/15 mL 30mL UDC PO SCH ×2 (09:58→18:00)
--- NOTE | 2018-06-05 14:21 | Internal Medicine Prog Note ---
Internal Medicine Subjective - Subjective Service Date: 06/05/18 Patient seen and examined:: with staff Patient is:: awake, verbal Per staff patient has:: tolerating meds Internal Medicine Objective - Results Result Diagrams: 06/04/18 17:15 06/04/18 17:15 Recent Labs: Laboratory Last Values WBC 4.6 Th/cmm (4.8-10.8) L 06/04/18 17:15 RBC 4.17 Mil/cmm (3.80-5.10) 06/04/18 17:15 Hgb 12.8 gm/dL (12-16) 06/04/18 17:15 Hct 39.1 % (41.0-60) L 06/04/18 17:15 MCV 93.6 fl (81-100) 06/04/18 17:15 MCH 30.6 pg (27.0-31.0) 06/04/18 17:15 MCHC Differential 32.7 pg (28.0-36.0) 06/04/18 17:15 RDW 12.0 % (11.5-20.0) 06/04/18 17:15 Plt Count 148 Th/cmm (150-400) L 06/04/18 17:15 MPV 8.7 fl 06/04/18 17:15 Neutrophils % 50.5 % (40.0-80.0) 06/04/18 17:15 Lymphocytes % 32.8 % (20.0-50.0) 06/04/18 17:15 Monocytes % 12.6 % (2.0-10.0) H 06/04/18 17:15 Eosinophils % 3.8 % (0.0-5.0) 06/04/18 17:15 Basophils % 0.3 % (0.0-2.0) 06/04/18 17:15 Sodium 141 mEq/L (136-145) 06/04/18 17:15 Potassium 3.9 mEq/L (3.5-5.1) 06/04/18 17:15 Chloride 105 mEq/L (98-107) 06/04/18 17:15 Carbon Dioxide 26.9 mEq/L (21.0-31.0) 06/04/18 17:15 Anion Gap 13.0 (7.0-16.0) 06/04/18 17:15 BUN 19 mg/dL (7-25) 06/04/18 17:15 Creatinine 0.8 mg/dL (0.6-1.2) 06/04/18 17:15 Est GFR ( Amer) > 60.0 ml/min (>90) 06/04/18 17:15 Est GFR (Non-Af Amer) > 60.0 ml/min 06/04/18 17:15 BUN/Creatinine Ratio 23.8 06/04/18 17:15 Glucose 113 mg/dL (70-105) H 06/04/18 17:15 Calcium 9.7 mg/dL (8.6-10.3) 06/04/18 17:15 Total Bilirubin 0.4 mg/dL (0.3-1.0) 06/04/18 17:15 AST 35 U/L (13-39) 06/04/18 17:15 ALT 16 U/L (7-52) 06/04/18 17:15 Alkaline Phosphatase 55 U/L (34-104) 06/04/18 17:15 Troponin I < 0.01 ng/mL (0.01-0.05) L 06/04/18 17:15 Total Protein 7.3 gm/dL (6.0-8.3) 06/04/18 17:15 Albumin 4.1 gm/dL (3.7-5.3) 06/04/18 17:15 Globulin 3.2 gm/dL 06/04/18 17:15 Albumin/Globulin Ratio 1.3 (1.0-1.8) 06/04/18 17:15 Triglycerides 181 mg/dL (<150) H 06/04/18 17:15 Cholesterol 163 mg/dL (<200) 06/04/18 17:15 LDL Cholesterol Direct 92 mg/dL (75-193) 06/04/18 17:15 HDL Cholesterol 45 mg/dL (23-92) 06/04/18 17:15 TSH 1.10 uIU/ml (0.34-5.60) 06/04/18 17:15 Serum , Qual NEGATIVE (NEGATIVE) 06/04/18 17:15 Salicylates < 25.0 mg/L (30.0-100.0) L 06/04/18 17:15 Acetaminophen < 10.0 ug/mL (10.0-30.0) L 06/04/18 17:15 Phenytoin 9.9 ug/ml (10.0-20.0) L 06/04/18 17:15 Valproic Acid 54.5 ug/mL (50.0-100.0) 06/05/18 12:15 [place] 1.03 mmol/L (0.5-1.0) H 06/04/18 17:15 Ethyl Alcohol < 10 mg/dL (0-10) 06/04/18 17:15 - Physical Exam Vitals and I&O: Vital Signs Temp 98.2 F 06/05/18 05:50 Pulse 62 06/05/18 05:50 Resp 18 06/05/18 05:50 BP 110/73 06/05/18 05:50 Pulse Ox 98 06/05/18 05:50 Intake & Output 06/04/18 06/05/18 06/05/18 18:59 06:59 18:59 Weight (lbs) 160 lb 160 lb Other: Stool Characteristics Formed Formed Weight Source Estimated Active Medications: Current Medications Acetaminophen (Tylenol) 650 mg PO Q4H PRN PRN Reason: Pain Or Fever above 101 Stop: 08/03/18 20:13 Al Hydrox/Mg Hydrox/Simethicone (Maalox) 30 ml PO Q6H PRN PRN Reason: Dyspepsia Stop: 08/03/18 20:13 Albuterol Sulfate (Albuterol 2.5mg/3ml Neb Ud) 2.5 mg HHN Q2HRT PRN PRN Reason: Shortness of Breath or Wheeze Stop: 08/03/18 20:13 Docusate Sodium (Colace) 100 mg PO BID [facility] Stop: 08/04/18 08:59 Last Admin: 06/05/18 09:56 Dose: 100 mg Escitalopram Oxalate (Lexapro) 20 mg PO DAILY [facility]; Protocol Stop: 08/04/18 08:59 Last Admin: 06/05/18 09:58 Dose: 20 mg Guaifenesin (Robitussin) 200 mg PO Q4HR PRN PRN Reason: Cough or Congestion Stop: 08/03/18 20:13 Haloperidol Decanoate (Haldol Dec) 50 mg IM Q14D [facility]; Protocol Stop: 08/03/18 20:14 Lactulose (Cephulac) 30 gm PO BID [facility] Stop: 08/04/18 08:59 Last Admin: 06/05/18 09:58 Dose: 30 gm Levetiracetam (Keppra) 500 mg PO BID [facility] Stop: 08/04/18 08:59 Last Admin: 06/05/18 09:56 Dose: 500 mg Levothyroxine Sodium (Synthroid) 0.15 mg PO QDAC [facility] Stop: 08/04/18 07:29 Last Admin: 06/05/18 06:39 Dose: 0.15 mg [place] Carbonate (Eskalith) 300 mg PO BID [facility]; Protocol Stop: 08/04/18 08:59 Last Admin: 06/05/18 09:58 Dose: 300 mg Lorazepam (Ativan) 0.5 mg PO Q6H PRN; Protocol PRN Reason: Anxiety Stop: 08/03/18 20:13 Phenytoin (Dilantin) 200 mg PO BID [facility] Stop: 08/04/18 08:59 Last Admin: 06/05/18 09:57 Dose: 200 mg Quetiapine Fumarate (Seroquel) 400 mg PO BID [facility]; Protocol Stop: 08/04/18 08:59 Last Admin: 06/05/18 09:57 Dose: 400 mg Valproate Sodium (Depakene) 500 mg PO TID [facility]; Protocol Stop: 08/03/18 20:59 Last Admin: 06/05/18 09:58 Dose: 500 mg Zolpidem Tartrate (Ambien) 5 mg PO HS PRN PRN Reason: Insomnia Stop: 08/03/18 20:13 General: weak HEENT: NC/AT, PERRLA Neck: Supple Lungs: CTAB Cardiovascular: RRR, Normal S1, Normal S2, without murmur Abdomen: soft, non-tender, non-distended, positive bowel sound Neurological: no change - Procedures Procedures: Procedures Procedure Code Date OTHER GROUP THERAPY 94.44 09/27/14 Internal Medicine Assmt/Plan - Assessment Assessment: seizure htn hypothyroidism copd elevated triglycerides - Plan Plan: seizure precautions low fat diet continue current plan of care
--- NOTE | 2018-06-05 14:41 | Psychiatric Evaluation ---
DATE OF SERVICE: 06/04/2018 IDENTIFYING DATA: The patient is a 57-year-old woman, resident of a retirement facility that is [facility]. Information obtained by directly interviewing the patient as well as reviewing the admission papers and they are reliable. JUSTIFICATION FOR HOSPITALIZATION: The patient is admitted here on a voluntary basis in view of her acute agitation and psychosis. CHIEF COMPLAINT: "I was bitten by a mosquito that caused me fear of paralysis." HISTORY OF PRESENT ILLNESS: This is one of multiple psychiatric hospitalizations for this patient who has been diagnosed to have schizoaffective disorder and is being followed up by Dr. Poole on an outpatient basis. The patient is reported to have been on multiple medications. Even then, the patient has been having difficult time to cope with the stress. The patient has been displaying acute mood swings at the time of hospitalization. Sleep is noted to be poor. Appetite is also reported to be poor. The patient is reported to have been on Lexapro 20 mg and haloperidol decanoate 50 mg every 14 days. The patient is also on lithium 300 mg twice a day and quetiapine 400 mg b.i.d. and valproic acid 500 mg t.i.d. Even with all the medications, the patient is still having difficult time to cope with the stress. The patient's insight and judgment at this time are noted to be very much impaired. Mood swings are still a problem, but the patient's behavior is noted to be very, very primitive and disorganized. The patient has been trying to stick her finger into her anus and then trying to take the feces out and then range it all around her bed. The patient has no insight into her illness. PAST PSYCHIATRIC HISTORY: Please refer to the above. MEDICAL HISTORY AND PHYSICAL EXAMINATION: Requested to be done by Dr. Cruz. SUBSTANCE ABUSE HISTORY: None. PHYSICAL OR SEXUAL ABUSE HISTORY: None. LEGAL PROBLEMS: None at this time. STRENGTH AND ASSETS: The patient is motivated. MENTAL STATUS EXAMINATION: The patient is a 57-year-old, looking her stated age, superficially cooperative. Eye contact is poor. Mood is noted to be irritable. Affect is constricted. Insight and judgment at this time are noted to be very much impaired. Impulse control is noted to be poor. Coping skills are also noted to very poor. The patient has been having difficult time to cope with the stress. The patient is very irritable and angry and needs to be redirected. The patient is alert and oriented to time, place, person and situation. Attention span and concentration are noted to be fair at this time. DIAGNOSTIC IMPRESSION: AXIS I: Schizoaffective disorder. AXIS II: None. AXIS III: As per Dr. Cruz. IMMEDIATE TREATMENT PLAN: The patient is going to be observed on the inpatient unit, provided with supportive therapy. The patient is going to be closely monitored. Once stabilized, the patient is going to be discharged to [facility] to be followed up on an outpatient basis. JOB# [id number]
[2018-06-06] MEDS: Levothyroxine 0.05 Mg Tab PO SCH (06:48)
[2018-06-06] MEDS: Lactulose 10 Gm/15 mL 30mL UDC PO SCH ×2 (08:59→17:59)
--- NOTE | 2018-06-06 12:28 | Internal Medicine Prog Note ---
Internal Medicine Subjective - Subjective Patient seen and examined:: with staff, chart reviewed Patient is:: awake, verbal, interactive Per staff patient has:: no adverse event, no episodes of fall, poor appetite, tolerating meds Internal Medicine Objective - Results Result Diagrams: 06/04/18 17:15 06/04/18 17:15 Recent Labs: Laboratory Last Values WBC 4.6 Th/cmm (4.8-10.8) L 06/04/18 17:15 RBC 4.17 Mil/cmm (3.80-5.10) 06/04/18 17:15 Hgb 12.8 gm/dL (12-16) 06/04/18 17:15 Hct 39.1 % (41.0-60) L 06/04/18 17:15 MCV 93.6 fl (81-100) 06/04/18 17:15 MCH 30.6 pg (27.0-31.0) 06/04/18 17:15 MCHC Differential 32.7 pg (28.0-36.0) 06/04/18 17:15 RDW 12.0 % (11.5-20.0) 06/04/18 17:15 Plt Count 148 Th/cmm (150-400) L 06/04/18 17:15 MPV 8.7 fl 06/04/18 17:15 Neutrophils % 50.5 % (40.0-80.0) 06/04/18 17:15 Lymphocytes % 32.8 % (20.0-50.0) 06/04/18 17:15 Monocytes % 12.6 % (2.0-10.0) H 06/04/18 17:15 Eosinophils % 3.8 % (0.0-5.0) 06/04/18 17:15 Basophils % 0.3 % (0.0-2.0) 06/04/18 17:15 Sodium 141 mEq/L (136-145) 06/04/18 17:15 Potassium 3.9 mEq/L (3.5-5.1) 06/04/18 17:15 Chloride 105 mEq/L (98-107) 06/04/18 17:15 Carbon Dioxide 26.9 mEq/L (21.0-31.0) 06/04/18 17:15 Anion Gap 13.0 (7.0-16.0) 06/04/18 17:15 BUN 19 mg/dL (7-25) 06/04/18 17:15 Creatinine 0.8 mg/dL (0.6-1.2) 06/04/18 17:15 Est GFR ( Amer) > 60.0 ml/min (>90) 06/04/18 17:15 Est GFR (Non-Af Amer) > 60.0 ml/min 06/04/18 17:15 BUN/Creatinine Ratio 23.8 06/04/18 17:15 Glucose 113 mg/dL (70-105) H 06/04/18 17:15 Calcium 9.7 mg/dL (8.6-10.3) 06/04/18 17:15 Total Bilirubin 0.4 mg/dL (0.3-1.0) 06/04/18 17:15 AST 35 U/L (13-39) 06/04/18 17:15 ALT 16 U/L (7-52) 06/04/18 17:15 Alkaline Phosphatase 55 U/L (34-104) 06/04/18 17:15 Troponin I < 0.01 ng/mL (0.01-0.05) L 06/04/18 17:15 Total Protein 7.3 gm/dL (6.0-8.3) 06/04/18 17:15 Albumin 4.1 gm/dL (3.7-5.3) 06/04/18 17:15 Globulin 3.2 gm/dL 06/04/18 17:15 Albumin/Globulin Ratio 1.3 (1.0-1.8) 06/04/18 17:15 Triglycerides 181 mg/dL (<150) H 06/04/18 17:15 Cholesterol 163 mg/dL (<200) 06/04/18 17:15 LDL Cholesterol Direct 92 mg/dL (75-193) 06/04/18 17:15 HDL Cholesterol 45 mg/dL (23-92) 06/04/18 17:15 TSH 1.10 uIU/ml (0.34-5.60) 06/04/18 17:15 Serum , Qual NEGATIVE (NEGATIVE) 06/04/18 17:15 Salicylates < 25.0 mg/L (30.0-100.0) L 06/04/18 17:15 Acetaminophen < 10.0 ug/mL (10.0-30.0) L 06/04/18 17:15 Phenytoin 9.9 ug/ml (10.0-20.0) L 06/04/18 17:15 Valproic Acid 54.5 ug/mL (50.0-100.0) 06/05/18 12:15 [place] 1.03 mmol/L (0.5-1.0) H 06/04/18 17:15 Ethyl Alcohol < 10 mg/dL (0-10) 06/04/18 17:15 - Physical Exam Vitals and I&O: Vital Signs Temp 97.7 F 06/06/18 06:09 Pulse 77 06/06/18 06:09 Resp 20 06/06/18 11:12 BP 107/64 06/06/18 06:09 Pulse Ox 97 06/06/18 06:09 Intake & Output 06/05/18 06/06/18 06/06/18 18:59 06:59 18:59 Intake Total 1600 120 Balance 1600 120 Intake: Oral 1600 120 Other: # Voids 4 3 # Bowel Movements 2 Stool Characteristics Formed Formed Formed Active Medications: Current Medications Acetaminophen (Tylenol) 650 mg PO Q4H PRN PRN Reason: Pain Or Fever above 101 Stop: 08/03/18 20:13 Al Hydrox/Mg Hydrox/Simethicone (Maalox) 30 ml PO Q6H PRN PRN Reason: Dyspepsia Stop: 08/03/18 20:13 Albuterol Sulfate (Albuterol 2.5mg/3ml Neb Ud) 2.5 mg HHN Q2HRT PRN PRN Reason: Shortness of Breath or Wheeze Stop: 08/03/18 20:13 Docusate Sodium (Colace) 100 mg PO BID [facility] Stop: 08/04/18 08:59 Last Admin: 06/06/18 09:00 Dose: 100 mg Escitalopram Oxalate (Lexapro) 20 mg PO DAILY [facility]; Protocol Stop: 08/04/18 08:59 Last Admin: 06/06/18 09:00 Dose: 20 mg Guaifenesin (Robitussin) 200 mg PO Q4HR PRN PRN Reason: Cough or Congestion Stop: 08/03/18 20:13 Haloperidol Decanoate (Haldol Dec) 50 mg IM Q14D [facility]; Protocol Stop: 08/03/18 20:14 Lactulose (Cephulac) 30 gm PO BID [facility] Stop: 08/04/18 08:59 Last Admin: 06/06/18 08:59 Dose: 30 gm Levetiracetam (Keppra) 500 mg PO BID [facility] Stop: 08/04/18 08:59 Last Admin: 06/06/18 09:00 Dose: 500 mg Levothyroxine Sodium (Synthroid) 0.15 mg PO QDAC [facility] Stop: 08/04/18 07:29 [place] Carbonate (Eskalith) 300 mg PO BID [facility]; Protocol Stop: 08/04/18 08:59 Last Admin: 06/06/18 09:00 Dose: 300 mg Lorazepam (Ativan) 0.5 mg PO Q6H PRN; Protocol PRN Reason: Anxiety Stop: 08/03/18 20:13 Phenytoin (Dilantin) 200 mg PO BID [facility] Stop: 08/04/18 08:59 Last Admin: 06/06/18 09:00 Dose: 200 mg Quetiapine Fumarate (Seroquel) 400 mg PO BID [facility]; Protocol Stop: 08/04/18 08:59 Last Admin: 06/06/18 09:00 Dose: 400 mg Valproate Sodium (Depakene) 500 mg PO TID [facility]; Protocol Stop: 08/03/18 20:59 Last Admin: 06/06/18 09:00 Dose: 500 mg Zolpidem Tartrate (Ambien) 5 mg PO HS PRN PRN Reason: Insomnia Stop: 08/03/18 20:13 General: weak, alert HEENT: NC/AT, PERRLA Neck: Supple Lungs: CTAB Cardiovascular: RRR, Normal S1, Normal S2, without murmur Abdomen: soft, non-tender, non-distended, positive bowel sound Extremities: excoriation Neurological: no change - Procedures Procedures: Procedures Procedure Code Date OTHER GROUP THERAPY 94.44 09/27/14 Internal Medicine Assmt/Plan - Assessment Assessment: ASSESSMENT : Seizure disorder, hypertension, hypothyroidism, chronic obstructive pulmonary disease, high cholesterol, status post brain surgery, leukopenia, elevated triglycerides. - Plan Plan: PLAN: We will continue the patient on seizure medication. Continue on seizure precaution. We will check Keppra and Dilantin level. Continue Synthroid. We will review the patient's laboratories. Continue with current care with followup consult. We will continue to follow with you Dr. Poole.
--- NOTE | 2018-06-07 00:27 | Consultation ---
DATE OF CONSULTATION: 06/06/2018 REFERRING PHYSICIAN: Angelo Castillo M.D. TYPE OF CONSULTATION: Psychology. HISTORY OF PRESENT ILLNESS: The patient is a 57-year-old female. The patient is a resident of [facility]. The patient has a previous hospitalization here. The following is by review of the medical record and by the patient's self-report. The patient is evaluated and seen and case has been discussed with staff. The patient is being admitted due to acute agitation and psychosis. Upon interview, the patient states that she was bitten by a mosquito and believes that this is going to cause her to be paralyzed. The patient presents with acute mood swings at the time of her admission. The staff at the patient's facility report that the patient's behavior has been difficult to redirect and has been noncompliant with her care. The patient is reported to have been trying to stick her finger in her anus for fecal evacuation and then spread it around her bedding. The patient's impulse control is quite poor and appears to be quite delusional. The patient did not answer the question about suicidal ideation, plan or intention. At the time of this clinical interview, the patient is not making much sense and is difficult to cognitively redirect. PAST PSYCHIATRIC HISTORY: The patient is under the care of a psychiatrist at her placement. The patient has a history of schizoaffective disorder. The patient has previous hospitalizations. PAST MEDICAL HISTORY: Please see history and physical by Dr. Cruz. SUBSTANCE ABUSE HISTORY: The patient did not answer these questions. PSYCHOSOCIAL HISTORY: The patient did not answer any questions about family members or others involved in her care. She did not answer questions about demographics. She did not answer questions about occupational or educational history or taoism affiliation. She did not answer the questions about history or physical or sexual abuse or current legal problems. The patient appears to be gravely disabled. The patient does expect to return to her facility upon discharge. MENTAL STATUS EXAMINATION: The patient appears to be her stated age. The patient's attitude is guarded and suspicious, but cooperative at times. Eye contact is poor. Speech is pressured and loud. Mood is irritable with acute mood fluctuations. Affect is animated. Thought process shows to be confused with perseveration on a medical delusion. The patient did not answer questions about experiencing any suicidal ideation, plan, or intention. The patient appears to be delusional, but denied any persecutory type or command type. The patient states she is in fear of a medical illness that may be fatal. The patient's behavior has been difficult to deescalate and to redirect. Impulse control is impaired. Concentration is very poor. The patient is easily agitated. The patient's sensorium is alert and oriented to self and place. The patient did not participate in the memory assessment. The patient did not participate in the interpretation of proverbs. Insight is impaired. Judgment is impaired. DIAGNOSTIC IMPRESSION: AXIS I: History of schizoaffective disorder. AXIS II: Deferred. AXIS III: Per Dr. Cruz. TREATMENT PLAN: The patient has been seen by Dr. Castillo for psychiatric evaluation and for the management of the patient's psychotropic medications. We will provide supportive psychotherapy to include de-escalation and limit setting. We will provide reality orientation, differentiation, and integration. We will encourage the patient to demonstrate emotional and self-regulation and to follow through with staff direction. We will provide coping strategies for chronic severe mental illness. We will encourage the patient to verbally contract for no self-harm. We will provide motivational enhancement for the patient to become compliant and stay compliant with all aspects of her care and treatment. Thank you, Dr. Castillo for this consult and the opportunity to participate in this patient's care. JOB# [id number] MTDD
--- NOTE | 2018-06-07 01:04 | Progress Notes ---
DATE: 06/06/2018 SUBJECTIVE: The patient was seen, discussed with staff. States that she is fine. Denies feeling depressed. The patient is taking her medications, has fair sleep. The patient continues to have episodes of anger outburst and agitation mostly in the evening and episodes of yelling unprovoked. MENTAL STATUS EXAM: Speech is fluent. Affect superficial. Can become easily angered. Insight is poor. Judgment fair. The patient is still paranoid. Memory, calculation, and fund of knowledge still impaired. ASSESSMENT: The patient still in psychotic phase, still agitated. PLAN: Continue medication management. Continue supportive measures. ESTIMATED LENGTH OF STAY: 4-5 days. [facility]# [id number]
[2018-06-07] MEDS: Levothyroxine 0.075 Mg Tab PO SCH (06:38)
[2018-06-07] MEDS: Lactulose 10 Gm/15 mL 30mL UDC PO SCH ×2 (08:57→17:13)
--- NOTE | 2018-06-07 12:41 | Internal Medicine Prog Note ---
Internal Medicine Subjective - Subjective Patient seen and examined:: with staff, chart reviewed Patient is:: awake, verbal, interactive Per staff patient has:: no adverse event, no episodes of fall, poor appetite, tolerating meds Internal Medicine Objective - Results Result Diagrams: 06/04/18 17:15 06/04/18 17:15 Recent Labs: Laboratory Last Values WBC 4.6 Th/cmm (4.8-10.8) L 06/04/18 17:15 RBC 4.17 Mil/cmm (3.80-5.10) 06/04/18 17:15 Hgb 12.8 gm/dL (12-16) 06/04/18 17:15 Hct 39.1 % (41.0-60) L 06/04/18 17:15 MCV 93.6 fl (81-100) 06/04/18 17:15 MCH 30.6 pg (27.0-31.0) 06/04/18 17:15 MCHC Differential 32.7 pg (28.0-36.0) 06/04/18 17:15 RDW 12.0 % (11.5-20.0) 06/04/18 17:15 Plt Count 148 Th/cmm (150-400) L 06/04/18 17:15 MPV 8.7 fl 06/04/18 17:15 Neutrophils % 50.5 % (40.0-80.0) 06/04/18 17:15 Lymphocytes % 32.8 % (20.0-50.0) 06/04/18 17:15 Monocytes % 12.6 % (2.0-10.0) H 06/04/18 17:15 Eosinophils % 3.8 % (0.0-5.0) 06/04/18 17:15 Basophils % 0.3 % (0.0-2.0) 06/04/18 17:15 Sodium 141 mEq/L (136-145) 06/04/18 17:15 Potassium 3.9 mEq/L (3.5-5.1) 06/04/18 17:15 Chloride 105 mEq/L (98-107) 06/04/18 17:15 Carbon Dioxide 26.9 mEq/L (21.0-31.0) 06/04/18 17:15 Anion Gap 13.0 (7.0-16.0) 06/04/18 17:15 BUN 19 mg/dL (7-25) 06/04/18 17:15 Creatinine 0.8 mg/dL (0.6-1.2) 06/04/18 17:15 Est GFR ( Amer) > 60.0 ml/min (>90) 06/04/18 17:15 Est GFR (Non-Af Amer) > 60.0 ml/min 06/04/18 17:15 BUN/Creatinine Ratio 23.8 06/04/18 17:15 Glucose 113 mg/dL (70-105) H 06/04/18 17:15 Calcium 9.7 mg/dL (8.6-10.3) 06/04/18 17:15 Total Bilirubin 0.4 mg/dL (0.3-1.0) 06/04/18 17:15 AST 35 U/L (13-39) 06/04/18 17:15 ALT 16 U/L (7-52) 06/04/18 17:15 Alkaline Phosphatase 55 U/L (34-104) 06/04/18 17:15 Troponin I < 0.01 ng/mL (0.01-0.05) L 06/04/18 17:15 Total Protein 7.3 gm/dL (6.0-8.3) 06/04/18 17:15 Albumin 4.1 gm/dL (3.7-5.3) 06/04/18 17:15 Globulin 3.2 gm/dL 06/04/18 17:15 Albumin/Globulin Ratio 1.3 (1.0-1.8) 06/04/18 17:15 Triglycerides 181 mg/dL (<150) H 06/04/18 17:15 Cholesterol 163 mg/dL (<200) 06/04/18 17:15 LDL Cholesterol Direct 92 mg/dL (75-193) 06/04/18 17:15 HDL Cholesterol 45 mg/dL (23-92) 06/04/18 17:15 TSH 1.10 uIU/ml (0.34-5.60) 06/04/18 17:15 Serum , Qual NEGATIVE (NEGATIVE) 06/04/18 17:15 Salicylates < 25.0 mg/L (30.0-100.0) L 06/04/18 17:15 Acetaminophen < 10.0 ug/mL (10.0-30.0) L 06/04/18 17:15 Phenytoin 9.9 ug/ml (10.0-20.0) L 06/04/18 17:15 Valproic Acid 54.5 ug/mL (50.0-100.0) 06/05/18 12:15 Levetiracetam 16.9 ug/mL (10.0-40.0) 06/04/18 17:15 [place] 1.03 mmol/L (0.5-1.0) H 06/04/18 17:15 Ethyl Alcohol < 10 mg/dL (0-10) 06/04/18 17:15 RPR NONREACTIVE (NONREACTIVE) 06/04/18 17:15 - Physical Exam Vitals and I&O: Vital Signs Temp 97.3 F 06/07/18 06:13 Pulse 71 06/07/18 08:07 Resp 18 06/07/18 08:07 BP 117/68 06/07/18 06:13 Pulse Ox 98 06/07/18 08:07 Intake & Output 06/06/18 06/07/18 06/07/18 18:59 06:59 18:59 Intake Total 800 120 Balance 800 120 Intake: Oral 800 120 Other: # Voids 3 3 # Bowel Movements 1 Stool Characteristics Formed Formed Active Medications: Current Medications Acetaminophen (Tylenol) 650 mg PO Q4H PRN PRN Reason: Pain Or Fever above 101 Stop: 08/03/18 20:13 Al Hydrox/Mg Hydrox/Simethicone (Maalox) 30 ml PO Q6H PRN PRN Reason: Dyspepsia Stop: 08/03/18 20:13 Albuterol Sulfate (Albuterol 2.5mg/3ml Neb Ud) 2.5 mg HHN Q2HRT PRN PRN Reason: Shortness of Breath or Wheeze Stop: 08/03/18 20:13 Docusate Sodium (Colace) 100 mg PO BID [facility] Stop: 08/04/18 08:59 Last Admin: 06/07/18 08:58 Dose: 100 mg Escitalopram Oxalate (Lexapro) 20 mg PO DAILY [facility]; Protocol Stop: 08/04/18 08:59 Last Admin: 06/07/18 08:59 Dose: 20 mg Guaifenesin (Robitussin) 200 mg PO Q4HR PRN PRN Reason: Cough or Congestion Stop: 08/03/18 20:13 Haloperidol Decanoate (Haldol Dec) 50 mg IM Q14D [facility]; Protocol Stop: 08/03/18 20:14 Lactulose (Cephulac) 30 gm PO BID [facility] Stop: 08/04/18 08:59 Last Admin: 06/07/18 08:57 Dose: 30 gm Levetiracetam (Keppra) 500 mg PO BID [facility] Stop: 08/04/18 08:59 Last Admin: 06/07/18 08:58 Dose: 500 mg Levothyroxine Sodium (Synthroid) 0.15 mg PO QDAC [facility] Stop: 08/04/18 07:29 Last Admin: 06/07/18 06:38 Dose: 0.15 mg [place] Carbonate (Eskalith) 300 mg PO BID [facility]; Protocol Stop: 08/04/18 08:59 Last Admin: 06/07/18 08:59 Dose: 300 mg Lorazepam (Ativan) 0.5 mg PO Q6H PRN; Protocol PRN Reason: Anxiety Stop: 08/03/18 20:13 Phenytoin (Dilantin) 200 mg PO BID [facility] Stop: 08/04/18 08:59 Last Admin: 06/07/18 08:58 Dose: 200 mg Quetiapine Fumarate (Seroquel) 400 mg PO BID [facility]; Protocol Stop: 08/04/18 08:59 Last Admin: 06/07/18 08:58 Dose: 400 mg Valproate Sodium (Depakene) 500 mg PO TID [facility]; Protocol Stop: 08/03/18 20:59 Last Admin: 06/07/18 08:58 Dose: 500 mg Zolpidem Tartrate (Ambien) 5 mg PO HS PRN PRN Reason: Insomnia Stop: 08/03/18 20:13 Last Admin: 06/06/18 21:54 Dose: 5 mg General: weak, alert HEENT: NC/AT, PERRLA Neck: Supple Lungs: CTAB Cardiovascular: RRR, Normal S1, Normal S2, without murmur Abdomen: soft, non-tender, non-distended, positive bowel sound Extremities: excoriation Neurological: no change - Procedures Procedures: Procedures Procedure Code Date OTHER GROUP THERAPY 94.44 09/27/14 Internal Medicine Assmt/Plan - Assessment Assessment: ASSESSMENT : Seizure disorder, hypertension, hypothyroidism, chronic obstructive pulmonary disease, high cholesterol, status post brain surgery, leukopenia, elevated triglycerides. - Plan Plan: PLAN: We will continue the patient on seizure medication. Continue on seizure precaution. We will check Keppra and Dilantin level. Continue Synthroid. We will review the patient's laboratories. Continue with current care with followup consult. We will continue to follow with you Dr. Poole.
--- NOTE | 2018-06-07 18:38 | Progress Notes ---
DATE: 06/07/2018 TIME: 11 a.m. SUBJECTIVE: This patient said she is fine. Denied having any depression. The patient said she slept well last night. The patient has been compliant with her medications. MENTAL STATUS EXAM: Speech fluent, monotonous. Affect constricted. The patient is to respond to internal stimuli. Continues to have some anger outbursts. The patient is still highly paranoid. Insight is limited. ASSESSMENT: The patient in psychotic phase, still unpredictable state, anger outburst, and agitation. PLAN: Continue stabilization of medication management. Continue supportive measures. JOB# [id number]
[2018-06-08] MEDS: Levothyroxine 0.075 Mg Tab PO SCH (06:39)
[2018-06-08] MEDS: Lactulose 10 Gm/15 mL 30mL UDC PO SCH ×2 (09:07→17:52)
--- NOTE | 2018-06-08 13:05 | Internal Medicine Prog Note ---
Internal Medicine Subjective - Subjective Service Date: 06/08/18 Patient is:: awake, verbal, interactive Per staff patient has:: no adverse event, no episodes of fall, poor appetite, tolerating meds Internal Medicine Objective - Results Result Diagrams: 06/04/18 17:15 06/04/18 17:15 Recent Labs: Laboratory Last Values WBC 4.6 Th/cmm (4.8-10.8) L 06/04/18 17:15 RBC 4.17 Mil/cmm (3.80-5.10) 06/04/18 17:15 Hgb 12.8 gm/dL (12-16) 06/04/18 17:15 Hct 39.1 % (41.0-60) L 06/04/18 17:15 MCV 93.6 fl (81-100) 06/04/18 17:15 MCH 30.6 pg (27.0-31.0) 06/04/18 17:15 MCHC Differential 32.7 pg (28.0-36.0) 06/04/18 17:15 RDW 12.0 % (11.5-20.0) 06/04/18 17:15 Plt Count 148 Th/cmm (150-400) L 06/04/18 17:15 MPV 8.7 fl 06/04/18 17:15 Neutrophils % 50.5 % (40.0-80.0) 06/04/18 17:15 Lymphocytes % 32.8 % (20.0-50.0) 06/04/18 17:15 Monocytes % 12.6 % (2.0-10.0) H 06/04/18 17:15 Eosinophils % 3.8 % (0.0-5.0) 06/04/18 17:15 Basophils % 0.3 % (0.0-2.0) 06/04/18 17:15 Sodium 141 mEq/L (136-145) 06/04/18 17:15 Potassium 3.9 mEq/L (3.5-5.1) 06/04/18 17:15 Chloride 105 mEq/L (98-107) 06/04/18 17:15 Carbon Dioxide 26.9 mEq/L (21.0-31.0) 06/04/18 17:15 Anion Gap 13.0 (7.0-16.0) 06/04/18 17:15 BUN 19 mg/dL (7-25) 06/04/18 17:15 Creatinine 0.8 mg/dL (0.6-1.2) 06/04/18 17:15 Est GFR ( Amer) > 60.0 ml/min (>90) 06/04/18 17:15 Est GFR (Non-Af Amer) > 60.0 ml/min 06/04/18 17:15 BUN/Creatinine Ratio 23.8 06/04/18 17:15 Glucose 113 mg/dL (70-105) H 06/04/18 17:15 Calcium 9.7 mg/dL (8.6-10.3) 06/04/18 17:15 Total Bilirubin 0.4 mg/dL (0.3-1.0) 06/04/18 17:15 AST 35 U/L (13-39) 06/04/18 17:15 ALT 16 U/L (7-52) 06/04/18 17:15 Alkaline Phosphatase 55 U/L (34-104) 06/04/18 17:15 Troponin I < 0.01 ng/mL (0.01-0.05) L 06/04/18 17:15 Total Protein 7.3 gm/dL (6.0-8.3) 06/04/18 17:15 Albumin 4.1 gm/dL (3.7-5.3) 06/04/18 17:15 Globulin 3.2 gm/dL 06/04/18 17:15 Albumin/Globulin Ratio 1.3 (1.0-1.8) 06/04/18 17:15 Triglycerides 181 mg/dL (<150) H 06/04/18 17:15 Cholesterol 163 mg/dL (<200) 06/04/18 17:15 LDL Cholesterol Direct 92 mg/dL (75-193) 06/04/18 17:15 HDL Cholesterol 45 mg/dL (23-92) 06/04/18 17:15 TSH 1.10 uIU/ml (0.34-5.60) 06/04/18 17:15 Serum , Qual NEGATIVE (NEGATIVE) 06/04/18 17:15 Salicylates < 25.0 mg/L (30.0-100.0) L 06/04/18 17:15 Acetaminophen < 10.0 ug/mL (10.0-30.0) L 06/04/18 17:15 Phenytoin 9.9 ug/ml (10.0-20.0) L 06/04/18 17:15 Valproic Acid 54.5 ug/mL (50.0-100.0) 06/05/18 12:15 Levetiracetam 16.9 ug/mL (10.0-40.0) 06/04/18 17:15 [place] 1.03 mmol/L (0.5-1.0) H 06/04/18 17:15 Ethyl Alcohol < 10 mg/dL (0-10) 06/04/18 17:15 RPR NONREACTIVE (NONREACTIVE) 06/04/18 17:15 - Physical Exam Vitals and I&O: Vital Signs Temp 97.6 F 06/08/18 06:30 Pulse 98 06/08/18 07:05 Resp 16 06/08/18 07:05 BP 110/72 06/08/18 06:30 Pulse Ox 98 06/08/18 07:05 Intake & Output 06/07/18 06/08/18 06/08/18 18:59 06:59 18:59 Intake Total 1300 240 Balance 1300 240 Intake: Oral 1300 240 Other: # Voids 3 2 # Bowel Movements 0 0 Stool Characteristics Formed Active Medications: Current Medications Acetaminophen (Tylenol) 650 mg PO Q4H PRN PRN Reason: Pain Or Fever above 101 Stop: 08/03/18 20:13 Al Hydrox/Mg Hydrox/Simethicone (Maalox) 30 ml PO Q6H PRN PRN Reason: Dyspepsia Stop: 08/03/18 20:13 Albuterol Sulfate (Albuterol 2.5mg/3ml Neb Ud) 2.5 mg HHN Q2HRT PRN PRN Reason: Shortness of Breath or Wheeze Stop: 08/03/18 20:13 Docusate Sodium (Colace) 100 mg PO BID [facility] Stop: 08/04/18 08:59 Last Admin: 06/08/18 09:06 Dose: 100 mg Escitalopram Oxalate (Lexapro) 20 mg PO DAILY [facility]; Protocol Stop: 08/04/18 08:59 Last Admin: 06/08/18 09:06 Dose: 20 mg Guaifenesin (Robitussin) 200 mg PO Q4HR PRN PRN Reason: Cough or Congestion Stop: 08/03/18 20:13 Haloperidol Decanoate (Haldol Dec) 50 mg IM Q14D [facility]; Protocol Stop: 08/03/18 20:14 Lactulose (Cephulac) 30 gm PO BID [facility] Stop: 08/04/18 08:59 Last Admin: 06/08/18 09:07 Dose: 30 gm Levetiracetam (Keppra) 500 mg PO BID [facility] Stop: 08/04/18 08:59 Last Admin: 06/08/18 09:05 Dose: 500 mg Levothyroxine Sodium (Synthroid) 0.15 mg PO QDAC [facility] Stop: 08/04/18 07:29 Last Admin: 06/08/18 06:39 Dose: 0.15 mg [place] Carbonate (Eskalith) 300 mg PO BID [facility]; Protocol Stop: 08/04/18 08:59 Last Admin: 06/08/18 09:06 Dose: 300 mg Lorazepam (Ativan) 0.5 mg PO Q6H PRN; Protocol PRN Reason: Anxiety Stop: 08/03/18 20:13 Phenytoin (Dilantin) 200 mg PO BID [facility] Stop: 08/04/18 08:59 Last Admin: 06/08/18 09:06 Dose: 200 mg Quetiapine Fumarate (Seroquel) 400 mg PO BID [facility]; Protocol Stop: 08/04/18 08:59 Last Admin: 06/08/18 09:06 Dose: 400 mg Valproate Sodium (Depakene) 500 mg PO TID [facility]; Protocol Stop: 08/03/18 20:59 Last Admin: 06/08/18 09:07 Dose: 500 mg Zolpidem Tartrate (Ambien) 5 mg PO HS PRN PRN Reason: Insomnia Stop: 08/03/18 20:13 Last Admin: 06/06/18 21:54 Dose: 5 mg General: weak, alert HEENT: NC/AT, PERRLA Neck: Supple Lungs: CTAB Cardiovascular: RRR, Normal S1, Normal S2, without murmur Abdomen: soft, non-tender, non-distended, positive bowel sound Extremities: excoriation Neurological: no change - Procedures Procedures: Procedures Procedure Code Date OTHER GROUP THERAPY 94.44 06/07/15 Internal Medicine Assmt/Plan - Assessment Assessment: seizure htn hypothyroidism copd elevated triglycerides - Plan Plan: seizure precautions low fat diet continue current plan of care Nutritional Asmnt/Malnutr-PDOC - Dietary Evaluation Malnutrition Findings (Please click <Entered> for more info): Nutritional Asmnt/Malnutrition Start: 06/07/18 14: 08 Text: Status: Complete Freq: Protocol: Document 06/07/18 14:08 DAVID (Rec: 06/07/18 14:33 [email or web address]) Nutritional Asmnt/Malnutrition Patient General Information Nutritional Screening Moderate Risk Diagnosis psychosis, paronoia Pertinent Medical Hx/Surgical Hx HTN, CAD, asthma/COPD, dyslipidemia, PUD/GERD seizures, thyroid disorder, Afib, depression, schizophrenia, bipolar Subjective Information Pt seen eating lunch in dining room. Per EMR, PO intake 75- 100%. Current Diet Order/ Nutrition Support YULI, NCS Pertinent Medications colace, synthroid, seroquel Pertinent Labs 06/04 Glucose 113 Nutritional Hx/Data Height 5 ft Height (Calculated Centimeters) 152.4 Current Weight (lbs) 160 lb Weight (Calculated Kilograms) 72.6 Weight (Calculated Grams) 58548.8 [place] Body Weight 100 Body Mass Index (BMI) 31.2 Weight Status Approriate GI Symptoms GI Symptoms None Last BM 06/06 Difficult in: None Skin Integrity/Comment: intact Current %PO Good (75-100%) Estimated Nutritional Goals BEE in Kcals: Adj wt of IBW Calories/Kcals/Kg 25-30 Kcals Calculated 2250-0628 Protein: Adj wt of IBW Protein g/k Protein Calculated 52 Fluid: ml 1300-1560ml (1ml/kcal) Nutritional Problem No current Nutrition Prob Problem N/A Malnutrition Alert Is there a minimum of two criteria No selected? Query Text:Check all the applicable criteria. A minimum of two criteria are recommended for diagnosis of either severe or non-severe malnutrition. Malnutrition Related to Morbid Obesity Malnutrition related to morbid obesity No Intervention/Recommendation Comments 1. Continue with YULI NCS diet as ordered. 2. Monitor PO intake, wt, labs and skin integrity 3. F/U as low risk in 7 days Expected Outcomes/Goals Expected Outcomes/Goals 1. PO intake to meet at least 75% of nutritional needs. 2. Wt stability, skin to remain intact, labs to approach WNL.
--- NOTE | 2018-06-08 23:14 | Progress Notes ---
DATE: 06/08/2018 SUBJECTIVE: The patient was seen, still irritable at times, though less anxious, less anger outbursts, easy to redirect by staff. The patient is taking her medications. Her sleep and appetite are fair. MENTAL STATUS EXAM: The patient is superficial, mid psychotic. The patient still has some paranoia, still responding to internal stimuli. She is oriented to person being in the hospital, not oriented to time. ASSESSMENT: We will continue stabilization. Continue supportive measures. Continue lithium, Seroquel, and Depakote. She is also on Haldol Decanoate. JOB# [id number]
[2018-06-09] MEDS: Levothyroxine 0.075 Mg Tab PO SCH (06:34)
[2018-06-09] MEDS: Lactulose 10 Gm/15 mL 30mL UDC PO SCH ×2 (09:32→17:20)
--- NOTE | 2018-06-09 13:52 | Progress Notes ---
DATE: 06/09/2018 SUBJECTIVE: Staff was spoken to. The patient is interviewed. Mood is noted to be irritable. Affect is constricted. The patient is still displaying aggressive behavior. Insight and judgment at this time are noted to be still impaired. Impulse control is noted to be limited. Coping skills are also noted to be limited. ASSESSMENT: The patient is still psychotic. PLAN: To continue the patient with the current medications. I encouraged the patient to verbalize the concerns rather than to act out. JOB# [id number]
--- NOTE | 2018-06-09 14:34 | Internal Medicine Prog Note ---
Internal Medicine Subjective - Subjective Service Date: 06/09/18 Patient is:: awake, verbal, interactive Per staff patient has:: no adverse event, no episodes of fall, poor appetite, tolerating meds Internal Medicine Objective - Results Result Diagrams: 06/04/18 17:15 06/04/18 17:15 Recent Labs: Laboratory Last Values WBC 4.6 Th/cmm (4.8-10.8) L 06/04/18 17:15 RBC 4.17 Mil/cmm (3.80-5.10) 06/04/18 17:15 Hgb 12.8 gm/dL (12-16) 06/04/18 17:15 Hct 39.1 % (41.0-60) L 06/04/18 17:15 MCV 93.6 fl (81-100) 06/04/18 17:15 MCH 30.6 pg (27.0-31.0) 06/04/18 17:15 MCHC Differential 32.7 pg (28.0-36.0) 06/04/18 17:15 RDW 12.0 % (11.5-20.0) 06/04/18 17:15 Plt Count 148 Th/cmm (150-400) L 06/04/18 17:15 MPV 8.7 fl 06/04/18 17:15 Neutrophils % 50.5 % (40.0-80.0) 06/04/18 17:15 Lymphocytes % 32.8 % (20.0-50.0) 06/04/18 17:15 Monocytes % 12.6 % (2.0-10.0) H 06/04/18 17:15 Eosinophils % 3.8 % (0.0-5.0) 06/04/18 17:15 Basophils % 0.3 % (0.0-2.0) 06/04/18 17:15 Sodium 141 mEq/L (136-145) 06/04/18 17:15 Potassium 3.9 mEq/L (3.5-5.1) 06/04/18 17:15 Chloride 105 mEq/L (98-107) 06/04/18 17:15 Carbon Dioxide 26.9 mEq/L (21.0-31.0) 06/04/18 17:15 Anion Gap 13.0 (7.0-16.0) 06/04/18 17:15 BUN 19 mg/dL (7-25) 06/04/18 17:15 Creatinine 0.8 mg/dL (0.6-1.2) 06/04/18 17:15 Est GFR ( Amer) > 60.0 ml/min (>90) 06/04/18 17:15 Est GFR (Non-Af Amer) > 60.0 ml/min 06/04/18 17:15 BUN/Creatinine Ratio 23.8 06/04/18 17:15 Glucose 113 mg/dL (70-105) H 06/04/18 17:15 Calcium 9.7 mg/dL (8.6-10.3) 06/04/18 17:15 Total Bilirubin 0.4 mg/dL (0.3-1.0) 06/04/18 17:15 AST 35 U/L (13-39) 06/04/18 17:15 ALT 16 U/L (7-52) 06/04/18 17:15 Alkaline Phosphatase 55 U/L (34-104) 06/04/18 17:15 Troponin I < 0.01 ng/mL (0.01-0.05) L 06/04/18 17:15 Total Protein 7.3 gm/dL (6.0-8.3) 06/04/18 17:15 Albumin 4.1 gm/dL (3.7-5.3) 06/04/18 17:15 Globulin 3.2 gm/dL 06/04/18 17:15 Albumin/Globulin Ratio 1.3 (1.0-1.8) 06/04/18 17:15 Triglycerides 181 mg/dL (<150) H 06/04/18 17:15 Cholesterol 163 mg/dL (<200) 06/04/18 17:15 LDL Cholesterol Direct 92 mg/dL (75-193) 06/04/18 17:15 HDL Cholesterol 45 mg/dL (23-92) 06/04/18 17:15 TSH 1.10 uIU/ml (0.34-5.60) 06/04/18 17:15 Serum , Qual NEGATIVE (NEGATIVE) 06/04/18 17:15 Salicylates < 25.0 mg/L (30.0-100.0) L 06/04/18 17:15 Acetaminophen < 10.0 ug/mL (10.0-30.0) L 06/04/18 17:15 Phenytoin 9.9 ug/ml (10.0-20.0) L 06/04/18 17:15 Valproic Acid 54.5 ug/mL (50.0-100.0) 06/05/18 12:15 Levetiracetam 16.9 ug/mL (10.0-40.0) 06/04/18 17:15 [place] 1.03 mmol/L (0.5-1.0) H 06/04/18 17:15 Ethyl Alcohol < 10 mg/dL (0-10) 06/04/18 17:15 RPR NONREACTIVE (NONREACTIVE) 06/04/18 17:15 - Physical Exam Vitals and I&O: Vital Signs Temp 98.1 F 06/09/18 06:32 Pulse 82 06/09/18 08:17 Resp 16 06/09/18 12:47 BP 115/73 06/09/18 06:32 Pulse Ox 99 06/09/18 08:17 Intake & Output 06/08/18 06/09/18 06/09/18 18:59 06:59 18:59 Intake Total 240 Balance 240 Intake: Oral 240 Other: # Voids 2 Stool Characteristics Formed Formed Active Medications: Current Medications Acetaminophen (Tylenol) 650 mg PO Q4H PRN PRN Reason: Pain Or Fever above 101 Stop: 08/03/18 20:13 Al Hydrox/Mg Hydrox/Simethicone (Maalox) 30 ml PO Q6H PRN PRN Reason: Dyspepsia Stop: 08/03/18 20:13 Albuterol Sulfate (Albuterol 2.5mg/3ml Neb Ud) 2.5 mg HHN Q2HRT PRN PRN Reason: Shortness of Breath or Wheeze Stop: 08/03/18 20:13 Docusate Sodium (Colace) 100 mg PO BID RAYA Stop: 08/04/18 08:59 Last Admin: 06/09/18 09:32 Dose: Not Given Escitalopram Oxalate (Lexapro) 20 mg PO DAILY RAYA; Protocol Stop: 08/04/18 08:59 Last Admin: 06/09/18 09:28 Dose: 20 mg Guaifenesin (Robitussin) 200 mg PO Q4HR PRN PRN Reason: Cough or Congestion Stop: 08/03/18 20:13 Haloperidol Decanoate (Haldol Dec) 50 mg IM Q14D [facility]; Protocol Stop: 08/03/18 20:14 Lactulose (Cephulac) 30 gm PO BID RAYA Stop: 08/04/18 08:59 Last Admin: 06/09/18 09:32 Dose: Not Given Levetiracetam (Keppra) 500 mg PO BID [facility] Stop: 08/04/18 08:59 Last Admin: 06/09/18 09:27 Dose: 500 mg Levothyroxine Sodium (Synthroid) 0.15 mg PO QDAC [facility] Stop: 08/04/18 07:29 Last Admin: 06/09/18 06:34 Dose: 0.15 mg [place] Carbonate (Eskalith) 300 mg PO BID [facility]; Protocol Stop: 08/04/18 08:59 Last Admin: 06/09/18 09:29 Dose: 300 mg Lorazepam (Ativan) 0.5 mg PO Q6H PRN; Protocol PRN Reason: Anxiety Stop: 08/03/18 20:13 Phenytoin (Dilantin) 200 mg PO BID [facility] Stop: 08/04/18 08:59 Last Admin: 06/09/18 09:29 Dose: 200 mg Quetiapine Fumarate (Seroquel) 400 mg PO BID [facility]; Protocol Stop: 08/04/18 08:59 Last Admin: 06/09/18 09:30 Dose: 400 mg Valproate Sodium (Depakene) 500 mg PO TID [facility]; Protocol Stop: 08/03/18 20:59 Last Admin: 06/09/18 09:31 Dose: 500 mg Zolpidem Tartrate (Ambien) 5 mg PO HS PRN PRN Reason: Insomnia Stop: 08/03/18 20:13 Last Admin: 06/06/18 21:54 Dose: 5 mg General: weak, alert HEENT: NC/AT, PERRLA Neck: Supple Lungs: CTAB Cardiovascular: RRR, Normal S1, Normal S2, without murmur Abdomen: soft, non-tender, non-distended, positive bowel sound Extremities: excoriation Neurological: no change - Procedures Procedures: Procedures Procedure Code Date OTHER GROUP THERAPY 94.44 09/27/14 Internal Medicine Assmt/Plan - Assessment Assessment: seizure htn hypothyroidism copd elevated triglycerides - Plan Plan: seizure precautions low fat diet continue current plan of care Nutritional Asmnt/Malnutr-PDOC - Dietary Evaluation Malnutrition Findings (Please click <Entered> for more info): Nutritional Asmnt/Malnutrition Start: 06/07/18 14: 08 Text: Status: Complete Freq: Protocol: Document 06/07/18 14:08 LCHENG (Rec: 06/07/18 14:33 [email or web address]) Nutritional Asmnt/Malnutrition Patient General Information Nutritional Screening Moderate Risk Diagnosis psychosis, paronoia Pertinent Medical Hx/Surgical Hx HTN, CAD, asthma/COPD, dyslipidemia, PUD/GERD seizures, thyroid disorder, Afib, depression, schizophrenia, bipolar Subjective Information Pt seen eating lunch in dining room. Per EMR, PO intake 75- 100%. Current Diet Order/ Nutrition Support YULI, NCS Pertinent Medications colace, synthroid, seroquel Pertinent Labs 06/04 Glucose 113 Nutritional Hx/Data Height 5 ft Height (Calculated Centimeters) 152.4 Current Weight (lbs) 160 lb Weight (Calculated Kilograms) 72.6 Weight (Calculated Grams) 74023.8 [place] Body Weight 100 Body Mass Index (BMI) 31.2 Weight Status Approriate GI Symptoms GI Symptoms None Last BM 06/06 Difficult in: None Skin Integrity/Comment: intact Current %PO Good (75-100%) Estimated Nutritional Goals BEE in Kcals: Adj wt of IBW Calories/Kcals/Kg 25-30 Kcals Calculated 4998-6926 Protein: Adj wt of IBW Protein g/k Protein Calculated 52 Fluid: ml 1300-1560ml (1ml/kcal) Nutritional Problem No current Nutrition Prob Problem N/A Malnutrition Alert Is there a minimum of two criteria No selected? Query Text:Check all the applicable criteria. A minimum of two criteria are recommended for diagnosis of either severe or non-severe malnutrition. Malnutrition Related to Morbid Obesity Malnutrition related to morbid obesity No Intervention/Recommendation Comments 1. Continue with YULI NCS diet as ordered. 2. Monitor PO intake, wt, labs and skin integrity 3. F/U as low risk in 7 days Expected Outcomes/Goals Expected Outcomes/Goals 1. PO intake to meet at least 75% of nutritional needs. 2. Wt stability, skin to remain intact, labs to approach WNL.
--- NOTE | 2018-06-09 19:22 | Progress Notes ---
DATE: 06/08/2018 PSYCHOLOGY PROGRESS NOTE SUBJECTIVE: The patient is seen and interviewed. Case is discussed with staff. The patient presents as irritable at times. Staff reports that the anger outbursts are decreasing and the patient is becoming more easily to redirect. The patient states that she still feels anxious. OBJECTIVE: Mood anxious and mildly irritable. Affect is constricted. Thought process shows to be more goal oriented. The patient denied any auditory or visual hallucinations; however, the patient seems to be responding to inner an dialogue. The patient's behavior has become more manageable. ASSESSMENT AND PLAN: The patient continues to exhibit some paranoid ideation. We will continue to provide supportive psychotherapy including de-escalation for mood fluctuations. We will encourage the patient to demonstrate emotional and self-regulation prior to her discharge. We will provide coping strategies for chronic severe mental illness. We will encourage the patient to stay compliant with all aspects of her care and treatment. We will follow up in 2-3 days if the patient is still admitted. Prognosis is fair. [facility]# [id number] REVA
[2018-06-10] MEDS: Levothyroxine 0.075 Mg Tab PO SCH (06:56)
[2018-06-10] MEDS: Lactulose 10 Gm/15 mL 30mL UDC PO SCH (09:31)
--- NOTE | 2018-06-10 13:28 | Internal Medicine Prog Note ---
Internal Medicine Subjective - Subjective Patient seen and examined:: with staff, chart reviewed Patient is:: awake, verbal, interactive Per staff patient has:: no adverse event, no episodes of fall, poor appetite, tolerating meds Internal Medicine Objective - Results Result Diagrams: 06/04/18 17:15 06/04/18 17:15 Recent Labs: Laboratory Last Values WBC 4.6 Th/cmm (4.8-10.8) L 06/04/18 17:15 RBC 4.17 Mil/cmm (3.80-5.10) 06/04/18 17:15 Hgb 12.8 gm/dL (12-16) 06/04/18 17:15 Hct 39.1 % (41.0-60) L 06/04/18 17:15 MCV 93.6 fl (81-100) 06/04/18 17:15 MCH 30.6 pg (27.0-31.0) 06/04/18 17:15 MCHC Differential 32.7 pg (28.0-36.0) 06/04/18 17:15 RDW 12.0 % (11.5-20.0) 06/04/18 17:15 Plt Count 148 Th/cmm (150-400) L 06/04/18 17:15 MPV 8.7 fl 06/04/18 17:15 Neutrophils % 50.5 % (40.0-80.0) 06/04/18 17:15 Lymphocytes % 32.8 % (20.0-50.0) 06/04/18 17:15 Monocytes % 12.6 % (2.0-10.0) H 06/04/18 17:15 Eosinophils % 3.8 % (0.0-5.0) 06/04/18 17:15 Basophils % 0.3 % (0.0-2.0) 06/04/18 17:15 Sodium 141 mEq/L (136-145) 06/04/18 17:15 Potassium 3.9 mEq/L (3.5-5.1) 06/04/18 17:15 Chloride 105 mEq/L (98-107) 06/04/18 17:15 Carbon Dioxide 26.9 mEq/L (21.0-31.0) 06/04/18 17:15 Anion Gap 13.0 (7.0-16.0) 06/04/18 17:15 BUN 19 mg/dL (7-25) 06/04/18 17:15 Creatinine 0.8 mg/dL (0.6-1.2) 06/04/18 17:15 Est GFR ( Amer) > 60.0 ml/min (>90) 06/04/18 17:15 Est GFR (Non-Af Amer) > 60.0 ml/min 06/04/18 17:15 BUN/Creatinine Ratio 23.8 06/04/18 17:15 Glucose 113 mg/dL (70-105) H 06/04/18 17:15 Calcium 9.7 mg/dL (8.6-10.3) 06/04/18 17:15 Total Bilirubin 0.4 mg/dL (0.3-1.0) 06/04/18 17:15 AST 35 U/L (13-39) 06/04/18 17:15 ALT 16 U/L (7-52) 06/04/18 17:15 Alkaline Phosphatase 55 U/L (34-104) 06/04/18 17:15 Troponin I < 0.01 ng/mL (0.01-0.05) L 06/04/18 17:15 Total Protein 7.3 gm/dL (6.0-8.3) 06/04/18 17:15 Albumin 4.1 gm/dL (3.7-5.3) 06/04/18 17:15 Globulin 3.2 gm/dL 06/04/18 17:15 Albumin/Globulin Ratio 1.3 (1.0-1.8) 06/04/18 17:15 Triglycerides 181 mg/dL (<150) H 06/04/18 17:15 Cholesterol 163 mg/dL (<200) 06/04/18 17:15 LDL Cholesterol Direct 92 mg/dL (75-193) 06/04/18 17:15 HDL Cholesterol 45 mg/dL (23-92) 06/04/18 17:15 TSH 1.10 uIU/ml (0.34-5.60) 06/04/18 17:15 Serum , Qual NEGATIVE (NEGATIVE) 06/04/18 17:15 Salicylates < 25.0 mg/L (30.0-100.0) L 06/04/18 17:15 Acetaminophen < 10.0 ug/mL (10.0-30.0) L 06/04/18 17:15 Phenytoin 9.9 ug/ml (10.0-20.0) L 06/04/18 17:15 Valproic Acid 54.5 ug/mL (50.0-100.0) 06/05/18 12:15 Levetiracetam 16.9 ug/mL (10.0-40.0) 06/04/18 17:15 [place] 1.03 mmol/L (0.5-1.0) H 06/04/18 17:15 Ethyl Alcohol < 10 mg/dL (0-10) 06/04/18 17:15 RPR NONREACTIVE (NONREACTIVE) 06/04/18 17:15 - Physical Exam Vitals and I&O: Vital Signs Temp 97.9 F 06/10/18 06:10 Pulse 74 06/10/18 08:12 Resp 14 06/10/18 08:12 BP 108/68 06/10/18 06:10 Pulse Ox 100 06/10/18 08:12 Intake & Output 06/09/18 06/10/18 06/10/18 18:59 06:59 18:59 Intake Total 900 480 Balance 900 480 Intake: Oral 900 480 Other: # Voids 4 1 # Bowel Movements 1 Stool Characteristics Formed Formed Active Medications: Current Medications Acetaminophen (Tylenol) 650 mg PO Q4H PRN PRN Reason: Pain Or Fever above 101 Stop: 08/03/18 20:13 Al Hydrox/Mg Hydrox/Simethicone (Maalox) 30 ml PO Q6H PRN PRN Reason: Dyspepsia Stop: 08/03/18 20:13 Albuterol Sulfate (Albuterol 2.5mg/3ml Neb Ud) 2.5 mg HHN Q2HRT PRN PRN Reason: Shortness of Breath or Wheeze Stop: 08/03/18 20:13 Docusate Sodium (Colace) 100 mg PO BID RAYA Stop: 08/04/18 08:59 Last Admin: 06/10/18 09:31 Dose: 100 mg Escitalopram Oxalate (Lexapro) 20 mg PO DAILY [facility]; Protocol Stop: 08/04/18 08:59 Last Admin: 06/10/18 09:31 Dose: 20 mg Guaifenesin (Robitussin) 200 mg PO Q4HR PRN PRN Reason: Cough or Congestion Stop: 08/03/18 20:13 Haloperidol Decanoate (Haldol Dec) 50 mg IM Q14D [facility]; Protocol Stop: 08/03/18 20:14 Lactulose (Cephulac) 30 gm PO BID [facility] Stop: 08/04/18 08:59 Last Admin: 06/10/18 09:31 Dose: 30 gm Levetiracetam (Keppra) 500 mg PO BID [facility] Stop: 08/04/18 08:59 Last Admin: 06/10/18 09:33 Dose: 500 mg Levothyroxine Sodium (Synthroid) 0.15 mg PO QDAC [facility] Stop: 08/04/18 07:29 Last Admin: 06/10/18 06:56 Dose: 0.15 mg [place] Carbonate (Eskalith) 300 mg PO BID [facility]; Protocol Stop: 08/04/18 08:59 Last Admin: 06/10/18 09:33 Dose: 300 mg Lorazepam (Ativan) 0.5 mg PO Q6H PRN; Protocol PRN Reason: Anxiety Stop: 08/03/18 20:13 Last Admin: 06/09/18 14:45 Dose: 0.5 mg Phenytoin (Dilantin) 200 mg PO BID [facility] Stop: 08/04/18 08:59 Last Admin: 06/10/18 09:33 Dose: 200 mg Quetiapine Fumarate (Seroquel) 400 mg PO BID [facility]; Protocol Stop: 08/04/18 08:59 Last Admin: 06/10/18 09:34 Dose: 400 mg Valproate Sodium (Depakene) 500 mg PO TID [facility]; Protocol Stop: 08/03/18 20:59 Last Admin: 06/10/18 09:34 Dose: 500 mg Zolpidem Tartrate (Ambien) 5 mg PO HS PRN PRN Reason: Insomnia Stop: 08/03/18 20:13 Last Admin: 06/06/18 21:54 Dose: 5 mg General: weak, alert HEENT: NC/AT, PERRLA Neck: Supple Lungs: CTAB Cardiovascular: RRR, Normal S1, Normal S2, without murmur Abdomen: soft, non-tender, non-distended, positive bowel sound Extremities: excoriation Neurological: no change - Procedures Procedures: Procedures Procedure Code Date OTHER GROUP THERAPY 94.44 09/27/14 Internal Medicine Assmt/Plan - Assessment Assessment: ASSESSMENT : Seizure disorder, hypertension, hypothyroidism, chronic obstructive pulmonary disease, high cholesterol, status post brain surgery, leukopenia, elevated triglycerides. - Plan Plan: PLAN: We will continue the patient on seizure medication. Continue on seizure precaution. We will check Keppra and Dilantin level. Continue Synthroid. We will review the patient's laboratories. Continue with current care with followup consult. We will continue to follow with you Dr. Poole. Nutritional Asmnt/Malnutr-PDOC - Dietary Evaluation Malnutrition Findings (Please click <Entered> for more info): Nutritional Asmnt/Malnutrition Start: 06/07/18 14: 08 Text: Status: Complete Freq: Protocol: Document 06/07/18 14:08 LCHENG (Rec: 06/07/18 14:33 [email or web address]) Nutritional Asmnt/Malnutrition Patient General Information Nutritional Screening Moderate Risk Diagnosis psychosis, paronoia Pertinent Medical Hx/Surgical Hx HTN, CAD, asthma/COPD, dyslipidemia, PUD/GERD seizures, thyroid disorder, Afib, depression, schizophrenia, bipolar Subjective Information Pt seen eating lunch in dining room. Per EMR, PO intake 75- 100%. Current Diet Order/ Nutrition Support YULI, NCS Pertinent Medications colace, synthroid, seroquel Pertinent Labs 06/04 Glucose 113 Nutritional Hx/Data Height 1.52 m Height (Calculated Centimeters) 152.4 Current Weight (lbs) 72.575 kg Weight (Calculated Kilograms) 72.6 Weight (Calculated Grams) 30263.8 [place] Body Weight 100 Body Mass Index (BMI) 31.2 Weight Status Approriate GI Symptoms GI Symptoms None Last BM 06/06 Difficult in: None Skin Integrity/Comment: intact Current %PO Good (75-100%) Estimated Nutritional Goals BEE in Kcals: Adj wt of IBW Calories/Kcals/Kg 25-30 Kcals Calculated 8114-8155 Protein: Adj wt of IBW Protein g/k Protein Calculated 52 Fluid: ml 1300-1560ml (1ml/kcal) Nutritional Problem No current Nutrition Prob Problem N/A Malnutrition Alert Is there a minimum of two criteria No selected? Query Text:Check all the applicable criteria. A minimum of two criteria are recommended for diagnosis of either severe or non-severe malnutrition. Malnutrition Related to Morbid Obesity Malnutrition related to morbid obesity No Intervention/Recommendation Comments 1. Continue with YULI NCS diet as ordered. 2. Monitor PO intake, wt, labs and skin integrity 3. F/U as low risk in 7 days Expected Outcomes/Goals Expected Outcomes/Goals 1. PO intake to meet at least 75% of nutritional needs. 2. Wt stability, skin to remain intact, labs to approach WNL.
--- NOTE | 2018-06-10 23:50 | Progress Notes ---
DATE: 06/10/2018 SUBJECTIVE: Staff was spoken to. The patient is interviewed. Mood is noted to be irritable. Affect is constricted. Insight and judgment are noted to be still impaired. Impulse control is noted to be limited. The patient is still very intrusive and disruptive behavior is still a concern with this patient. ASSESSMENT: The patient is still psychotic and impulsive. PLAN: Continue the patient with supportive therapy. I encouraged the patient to verbalize the concerns rather than to act out. JOB# [id number]
[2018-06-11] MEDS: Levothyroxine 0.075 Mg Tab PO SCH (06:34)
[2018-06-11] MEDS: Lactulose 10 Gm/15 mL 30mL UDC PO SCH ×2 (08:47→16:23)
--- NOTE | 2018-06-11 11:50 | Internal Medicine Prog Note ---
Internal Medicine Subjective - Subjective Patient seen and examined:: with staff, chart reviewed Patient is:: awake, verbal, interactive Per staff patient has:: no adverse event, no episodes of fall, poor appetite, tolerating meds Internal Medicine Objective - Results Result Diagrams: 06/04/18 17:15 06/04/18 17:15 Recent Labs: Laboratory Last Values WBC 4.6 Th/cmm (4.8-10.8) L 06/04/18 17:15 RBC 4.17 Mil/cmm (3.80-5.10) 06/04/18 17:15 Hgb 12.8 gm/dL (12-16) 06/04/18 17:15 Hct 39.1 % (41.0-60) L 06/04/18 17:15 MCV 93.6 fl (81-100) 06/04/18 17:15 MCH 30.6 pg (27.0-31.0) 06/04/18 17:15 MCHC Differential 32.7 pg (28.0-36.0) 06/04/18 17:15 RDW 12.0 % (11.5-20.0) 06/04/18 17:15 Plt Count 148 Th/cmm (150-400) L 06/04/18 17:15 MPV 8.7 fl 06/04/18 17:15 Neutrophils % 50.5 % (40.0-80.0) 06/04/18 17:15 Lymphocytes % 32.8 % (20.0-50.0) 06/04/18 17:15 Monocytes % 12.6 % (2.0-10.0) H 06/04/18 17:15 Eosinophils % 3.8 % (0.0-5.0) 06/04/18 17:15 Basophils % 0.3 % (0.0-2.0) 06/04/18 17:15 Sodium 141 mEq/L (136-145) 06/04/18 17:15 Potassium 3.9 mEq/L (3.5-5.1) 06/04/18 17:15 Chloride 105 mEq/L (98-107) 06/04/18 17:15 Carbon Dioxide 26.9 mEq/L (21.0-31.0) 06/04/18 17:15 Anion Gap 13.0 (7.0-16.0) 06/04/18 17:15 BUN 19 mg/dL (7-25) 06/04/18 17:15 Creatinine 0.8 mg/dL (0.6-1.2) 06/04/18 17:15 Est GFR ( Amer) > 60.0 ml/min (>90) 06/04/18 17:15 Est GFR (Non-Af Amer) > 60.0 ml/min 06/04/18 17:15 BUN/Creatinine Ratio 23.8 06/04/18 17:15 Glucose 113 mg/dL (70-105) H 06/04/18 17:15 Calcium 9.7 mg/dL (8.6-10.3) 06/04/18 17:15 Total Bilirubin 0.4 mg/dL (0.3-1.0) 06/04/18 17:15 AST 35 U/L (13-39) 06/04/18 17:15 ALT 16 U/L (7-52) 06/04/18 17:15 Alkaline Phosphatase 55 U/L (34-104) 06/04/18 17:15 Troponin I < 0.01 ng/mL (0.01-0.05) L 06/04/18 17:15 Total Protein 7.3 gm/dL (6.0-8.3) 06/04/18 17:15 Albumin 4.1 gm/dL (3.7-5.3) 06/04/18 17:15 Globulin 3.2 gm/dL 06/04/18 17:15 Albumin/Globulin Ratio 1.3 (1.0-1.8) 06/04/18 17:15 Triglycerides 181 mg/dL (<150) H 06/04/18 17:15 Cholesterol 163 mg/dL (<200) 06/04/18 17:15 LDL Cholesterol Direct 92 mg/dL (75-193) 06/04/18 17:15 HDL Cholesterol 45 mg/dL (23-92) 06/04/18 17:15 TSH 1.10 uIU/ml (0.34-5.60) 06/04/18 17:15 Serum , Qual NEGATIVE (NEGATIVE) 06/04/18 17:15 Salicylates < 25.0 mg/L (30.0-100.0) L 06/04/18 17:15 Acetaminophen < 10.0 ug/mL (10.0-30.0) L 06/04/18 17:15 Phenytoin 9.9 ug/ml (10.0-20.0) L 06/04/18 17:15 Valproic Acid 54.5 ug/mL (50.0-100.0) 06/05/18 12:15 Levetiracetam 16.9 ug/mL (10.0-40.0) 06/04/18 17:15 [place] 1.03 mmol/L (0.5-1.0) H 06/04/18 17:15 Ethyl Alcohol < 10 mg/dL (0-10) 06/04/18 17:15 RPR NONREACTIVE (NONREACTIVE) 06/04/18 17:15 - Physical Exam Vitals and I&O: Vital Signs Temp 98 F 06/11/18 05:55 Pulse 84 06/11/18 08:15 Resp 16 06/11/18 08:15 BP 106/70 06/11/18 05:55 Pulse Ox 96 06/11/18 08:15 Intake & Output 06/10/18 06/11/18 06/11/18 18:59 06:59 18:59 Intake Total 480 Balance 480 Intake: Oral 480 Other: # Voids 1 Stool Characteristics Formed Formed Formed Active Medications: Current Medications Acetaminophen (Tylenol) 650 mg PO Q4H PRN PRN Reason: Pain Or Fever above 101 Stop: 08/03/18 20:13 Al Hydrox/Mg Hydrox/Simethicone (Maalox) 30 ml PO Q6H PRN PRN Reason: Dyspepsia Stop: 08/03/18 20:13 Albuterol Sulfate (Albuterol 2.5mg/3ml Neb Ud) 2.5 mg HHN Q2HRT PRN PRN Reason: Shortness of Breath or Wheeze Stop: 08/03/18 20:13 Docusate Sodium (Colace) 100 mg PO BID [facility] Stop: 08/04/18 08:59 Last Admin: 06/11/18 08:48 Dose: 100 mg Escitalopram Oxalate (Lexapro) 20 mg PO DAILY RAYA; Protocol Stop: 08/04/18 08:59 Last Admin: 06/11/18 08:48 Dose: 20 mg Guaifenesin (Robitussin) 200 mg PO Q4HR PRN PRN Reason: Cough or Congestion Stop: 08/03/18 20:13 Haloperidol Decanoate (Haldol Dec) 50 mg IM Q14D [facility]; Protocol Stop: 08/03/18 20:14 Lactulose (Cephulac) 30 gm PO BID RAYA Stop: 08/04/18 08:59 Last Admin: 06/11/18 08:47 Dose: 30 gm Levetiracetam (Keppra) 500 mg PO BID [facility] Stop: 08/04/18 08:59 Last Admin: 06/11/18 08:48 Dose: 500 mg Levothyroxine Sodium (Synthroid) 0.15 mg PO QDAC [facility] Stop: 08/04/18 07:29 Last Admin: 06/11/18 06:34 Dose: 0.15 mg [place] Carbonate (Eskalith) 300 mg PO BID [facility]; Protocol Stop: 08/04/18 08:59 Last Admin: 06/11/18 08:48 Dose: 300 mg Lorazepam (Ativan) 0.5 mg PO Q6H PRN; Protocol PRN Reason: Anxiety Stop: 08/03/18 20:13 Last Admin: 06/09/18 14:45 Dose: 0.5 mg Phenytoin (Dilantin) 200 mg PO BID [facility] Stop: 08/04/18 08:59 Last Admin: 06/11/18 08:47 Dose: 200 mg Quetiapine Fumarate (Seroquel) 400 mg PO BID [facility]; Protocol Stop: 08/04/18 08:59 Last Admin: 06/11/18 08:48 Dose: 400 mg Valproate Sodium (Depakene) 500 mg PO TID [facility]; Protocol Stop: 08/03/18 20:59 Last Admin: 06/11/18 08:47 Dose: 500 mg Zolpidem Tartrate (Ambien) 5 mg PO HS PRN PRN Reason: Insomnia Stop: 08/03/18 20:13 Last Admin: 06/06/18 21:54 Dose: 5 mg General: weak, alert HEENT: NC/AT, PERRLA Neck: Supple Lungs: CTAB Cardiovascular: RRR, Normal S1, Normal S2, without murmur Abdomen: soft, non-tender, non-distended, positive bowel sound Extremities: excoriation Neurological: no change - Procedures Procedures: Procedures Procedure Code Date OTHER GROUP THERAPY 94.44 09/27/14 Internal Medicine Assmt/Plan - Assessment Assessment: ASSESSMENT : Seizure disorder, hypertension, hypothyroidism, chronic obstructive pulmonary disease, high cholesterol, status post brain surgery, leukopenia, elevated triglycerides. - Plan Plan: PLAN: We will continue the patient on seizure medication. Continue on seizure precaution. We will check Keppra and Dilantin level. Continue Synthroid. We will review the patient's laboratories. Continue with current care with followup consult. We will continue to follow with you Dr. Poole. Nutritional Asmnt/Malnutr-PDOC - Dietary Evaluation Malnutrition Findings (Please click <Entered> for more info): Nutritional Asmnt/Malnutrition Start: 06/07/18 14: 08 Text: Status: Complete Freq: Protocol: Document 06/07/18 14:08 LCHENG (Rec: 06/07/18 14:33 [email or web address]) Nutritional Asmnt/Malnutrition Patient General Information Nutritional Screening Moderate Risk Diagnosis psychosis, paronoia Pertinent Medical Hx/Surgical Hx HTN, CAD, asthma/COPD, dyslipidemia, PUD/GERD seizures, thyroid disorder, Afib, depression, schizophrenia, bipolar Subjective Information Pt seen eating lunch in dining room. Per EMR, PO intake 75- 100%. Current Diet Order/ Nutrition Support YULI, NCS Pertinent Medications colace, synthroid, seroquel Pertinent Labs 06/04 Glucose 113 Nutritional Hx/Data Height 1.52 m Height (Calculated Centimeters) 152.4 Current Weight (lbs) 72.575 kg Weight (Calculated Kilograms) 72.6 Weight (Calculated Grams) 02009.8 [place] Body Weight 100 Body Mass Index (BMI) 31.2 Weight Status Approriate GI Symptoms GI Symptoms None Last BM 06/06 Difficult in: None Skin Integrity/Comment: intact Current %PO Good (75-100%) Estimated Nutritional Goals BEE in Kcals: Adj wt of IBW Calories/Kcals/Kg 25-30 Kcals Calculated 4146-6699 Protein: Adj wt of IBW Protein g/k Protein Calculated 52 Fluid: ml 1300-1560ml (1ml/kcal) Nutritional Problem No current Nutrition Prob Problem N/A Malnutrition Alert Is there a minimum of two criteria No selected? Query Text:Check all the applicable criteria. A minimum of two criteria are recommended for diagnosis of either severe or non-severe malnutrition. Malnutrition Related to Morbid Obesity Malnutrition related to morbid obesity No Intervention/Recommendation Comments 1. Continue with YULI NCS diet as ordered. 2. Monitor PO intake, wt, labs and skin integrity 3. F/U as low risk in 7 days Expected Outcomes/Goals Expected Outcomes/Goals 1. PO intake to meet at least 75% of nutritional needs. 2. Wt stability, skin to remain intact, labs to approach WNL.
--- NOTE | 2018-06-11 19:51 | Progress Notes ---
DATE: 06/10/2018 PSYCHOLOGY PROGRESS NOTE SUBJECTIVE: The patient is seen and is interviewed. Case is discussed with staff. The patient presents as irritable and guarded. The patient is still impulsive and difficult to redirect according to the staff. The patient was intrusive with this group underwriter and the patient's behavior has been disruptive, requiring constant redirection. OBJECTIVE: Mood is irritable. Affect is constricted. Thought process shows to be perseverating on discharge. The patient denied any auditory or visual hallucinations; however, there is evidence of some paranoid ideation present. The patient's behavior is still impulsive. ASSESSMENT AND PLAN: The patient continues to demonstrate psychotic process and impulse control is still a problem. We will continue to provide supportive psychotherapy. We will include reality orientation, differentiation, and integration. We will provide de-escalation and cognitive and behavioral redirection. We will provide motivational enhancement for the patient to become compliant and stay compliant with all aspects of her care and treatment. We will encourage the patient to demonstrate emotional and self-regulation and to verbalize her concerns versus acting out. We will provide coping strategies for chronic severe mental illness s well. We will follow up in 2-3 days to continue the present treatment. JOB# [id number] REVA
--- NOTE | 2018-06-12 04:45 | Progress Notes ---
DATE: 06/11/2018 SUBJECTIVE: Staff was spoken to. The patient is interviewed. Mood is noted to be irritable. Affect is constricted. The patient has been less aggressive compared to the time of the admission Bizarre behavior has been resolving. No side effects to the medications are noted. The patient has to be contained on multiple antipsychotic medications, mood stabilizers in view of her impulsivity. The patient is both on the lithium as well as valproic acid and Seroquel and Zyprexa, Haldol. ASSESSMENT: The patient is still psychotic and impulsive. PLAN: To continue the patient with supportive therapy, encouraged the patient to verbalize the concerns rather than to act out. JOB# [id number]
[2018-06-12] MEDS: Levothyroxine 0.075 Mg Tab PO SCH (06:32)
[2018-06-12] MEDS: Lactulose 10 Gm/15 mL 30mL UDC PO SCH ×2 (08:43→08:45)
--- NOTE | 2018-06-12 12:13 | Internal Medicine Prog Note ---
Internal Medicine Subjective - Subjective Patient seen and examined:: with staff, chart reviewed Patient is:: awake, verbal, interactive Per staff patient has:: no adverse event, no episodes of fall, poor appetite, tolerating meds Internal Medicine Objective - Results Result Diagrams: 06/04/18 17:15 06/04/18 17:15 Recent Labs: Laboratory Last Values WBC 4.6 Th/cmm (4.8-10.8) L 06/04/18 17:15 RBC 4.17 Mil/cmm (3.80-5.10) 06/04/18 17:15 Hgb 12.8 gm/dL (12-16) 06/04/18 17:15 Hct 39.1 % (41.0-60) L 06/04/18 17:15 MCV 93.6 fl (81-100) 06/04/18 17:15 MCH 30.6 pg (27.0-31.0) 06/04/18 17:15 MCHC Differential 32.7 pg (28.0-36.0) 06/04/18 17:15 RDW 12.0 % (11.5-20.0) 06/04/18 17:15 Plt Count 148 Th/cmm (150-400) L 06/04/18 17:15 MPV 8.7 fl 06/04/18 17:15 Neutrophils % 50.5 % (40.0-80.0) 06/04/18 17:15 Lymphocytes % 32.8 % (20.0-50.0) 06/04/18 17:15 Monocytes % 12.6 % (2.0-10.0) H 06/04/18 17:15 Eosinophils % 3.8 % (0.0-5.0) 06/04/18 17:15 Basophils % 0.3 % (0.0-2.0) 06/04/18 17:15 Sodium 141 mEq/L (136-145) 06/04/18 17:15 Potassium 3.9 mEq/L (3.5-5.1) 06/04/18 17:15 Chloride 105 mEq/L (98-107) 06/04/18 17:15 Carbon Dioxide 26.9 mEq/L (21.0-31.0) 06/04/18 17:15 Anion Gap 13.0 (7.0-16.0) 06/04/18 17:15 BUN 19 mg/dL (7-25) 06/04/18 17:15 Creatinine 0.8 mg/dL (0.6-1.2) 06/04/18 17:15 Est GFR ( Amer) > 60.0 ml/min (>90) 06/04/18 17:15 Est GFR (Non-Af Amer) > 60.0 ml/min 06/04/18 17:15 BUN/Creatinine Ratio 23.8 06/04/18 17:15 Glucose 113 mg/dL (70-105) H 06/04/18 17:15 Calcium 9.7 mg/dL (8.6-10.3) 06/04/18 17:15 Total Bilirubin 0.4 mg/dL (0.3-1.0) 06/04/18 17:15 AST 35 U/L (13-39) 06/04/18 17:15 ALT 16 U/L (7-52) 06/04/18 17:15 Alkaline Phosphatase 55 U/L (34-104) 06/04/18 17:15 Troponin I < 0.01 ng/mL (0.01-0.05) L 06/04/18 17:15 Total Protein 7.3 gm/dL (6.0-8.3) 06/04/18 17:15 Albumin 4.1 gm/dL (3.7-5.3) 06/04/18 17:15 Globulin 3.2 gm/dL 06/04/18 17:15 Albumin/Globulin Ratio 1.3 (1.0-1.8) 06/04/18 17:15 Triglycerides 181 mg/dL (<150) H 06/04/18 17:15 Cholesterol 163 mg/dL (<200) 06/04/18 17:15 LDL Cholesterol Direct 92 mg/dL (75-193) 06/04/18 17:15 HDL Cholesterol 45 mg/dL (23-92) 06/04/18 17:15 TSH 1.10 uIU/ml (0.34-5.60) 06/04/18 17:15 Serum , Qual NEGATIVE (NEGATIVE) 06/04/18 17:15 Salicylates < 25.0 mg/L (30.0-100.0) L 06/04/18 17:15 Acetaminophen < 10.0 ug/mL (10.0-30.0) L 06/04/18 17:15 Phenytoin 9.9 ug/ml (10.0-20.0) L 06/04/18 17:15 Valproic Acid 54.5 ug/mL (50.0-100.0) 06/05/18 12:15 Levetiracetam 16.9 ug/mL (10.0-40.0) 06/04/18 17:15 [place] 1.03 mmol/L (0.5-1.0) H 06/04/18 17:15 Ethyl Alcohol < 10 mg/dL (0-10) 06/04/18 17:15 RPR NONREACTIVE (NONREACTIVE) 06/04/18 17:15 - Physical Exam Vitals and I&O: Vital Signs Temp 97.8 F 06/12/18 06:21 Pulse 78 06/12/18 06:21 Resp 19 06/12/18 06:21 BP 129/83 06/12/18 06:21 Pulse Ox 98 06/12/18 06:21 Intake & Output 06/11/18 06/12/18 06/12/18 18:59 06:59 18:59 Intake Total 120 Balance 120 Intake: Oral 120 Other: # Voids 1 # Bowel Movements 0 Stool Characteristics Formed Formed Formed Active Medications: Current Medications Acetaminophen (Tylenol) 650 mg PO Q4H PRN PRN Reason: Pain Or Fever above 101 Stop: 08/03/18 20:13 Last Admin: 06/12/18 06:32 Dose: 650 mg Al Hydrox/Mg Hydrox/Simethicone (Maalox) 30 ml PO Q6H PRN PRN Reason: Dyspepsia Stop: 08/03/18 20:13 Albuterol Sulfate (Albuterol 2.5mg/3ml Neb Ud) 2.5 mg HHN Q2HRT PRN PRN Reason: Shortness of Breath or Wheeze Stop: 08/03/18 20:13 Docusate Sodium (Colace) 100 mg PO BID [facility] Stop: 08/04/18 08:59 Last Admin: 06/12/18 08:45 Dose: 100 mg Escitalopram Oxalate (Lexapro) 20 mg PO DAILY [facility]AYA; Protocol Stop: 08/04/18 08:59 Last Admin: 06/12/18 08:43 Dose: 20 mg Guaifenesin (Robitussin) 200 mg PO Q4HR PRN PRN Reason: Cough or Congestion Stop: 08/03/18 20:13 Haloperidol Decanoate (Haldol Dec) 50 mg IM Q14D [facility]; Protocol Stop: 08/03/18 20:14 Lactulose (Cephulac) 30 gm PO BID [facility] Stop: 08/04/18 08:59 Last Admin: 06/12/18 08:45 Dose: 30 gm Levetiracetam (Keppra) 500 mg PO BID [facility] Stop: 08/04/18 08:59 Last Admin: 06/12/18 08:45 Dose: 500 mg Levothyroxine Sodium (Synthroid) 0.15 mg PO QDAC [facility] Stop: 08/04/18 07:29 Last Admin: 06/12/18 06:32 Dose: 0.15 mg [place] Carbonate (Eskalith) 300 mg PO BID [facility]; Protocol Stop: 08/04/18 08:59 Last Admin: 06/12/18 08:45 Dose: 300 mg Lorazepam (Ativan) 0.5 mg PO Q6H PRN; Protocol PRN Reason: Anxiety Stop: 08/03/18 20:13 Last Admin: 06/09/18 14:45 Dose: 0.5 mg Phenytoin (Dilantin) 200 mg PO BID [facility] Stop: 08/04/18 08:59 Last Admin: 06/12/18 08:45 Dose: 200 mg Quetiapine Fumarate (Seroquel) 400 mg PO BID [facility]; Protocol Stop: 08/04/18 08:59 Last Admin: 06/12/18 08:43 Dose: 400 mg Valproate Sodium (Depakene) 500 mg PO TID [facility]; Protocol Stop: 08/03/18 20:59 Last Admin: 06/12/18 08:42 Dose: 500 mg Zolpidem Tartrate (Ambien) 5 mg PO HS PRN PRN Reason: Insomnia Stop: 08/03/18 20:13 Last Admin: 06/06/18 21:54 Dose: 5 mg General: weak, alert HEENT: NC/AT, PERRLA Neck: Supple Lungs: CTAB Cardiovascular: RRR, Normal S1, Normal S2, without murmur Abdomen: soft, non-tender, non-distended, positive bowel sound Extremities: excoriation Neurological: no change - Procedures Procedures: Procedures Procedure Code Date OTHER GROUP THERAPY 94.44 09/27/14 Internal Medicine Assmt/Plan - Assessment Assessment: ASSESSMENT : Seizure disorder, hypertension, hypothyroidism, chronic obstructive pulmonary disease, high cholesterol, status post brain surgery, leukopenia, elevated triglycerides. - Plan Plan: PLAN: We will continue the patient on seizure medication. Continue on seizure precaution. We will check Keppra and Dilantin level. Continue Synthroid. We will review the patient's laboratories. Continue with current care with followup consult. We will continue to follow with you Dr. Poole. Nutritional Asmnt/Malnutr-PDOC - Dietary Evaluation Malnutrition Findings (Please click <Entered> for more info): Nutritional Asmnt/Malnutrition Start: 06/07/18 14: 08 Text: Status: Complete Freq: Protocol: Document 06/07/18 14:08 LCHENG (Rec: 06/07/18 14:33 [email or web address] [email or web address]) Nutritional Asmnt/Malnutrition Patient General Information Nutritional Screening Moderate Risk Diagnosis psychosis, paronoia Pertinent Medical Hx/Surgical Hx HTN, CAD, asthma/COPD, dyslipidemia, PUD/GERD seizures, thyroid disorder, Afib, depression, schizophrenia, bipolar Subjective Information Pt seen eating lunch in dining room. Per EMR, PO intake 75- 100%. Current Diet Order/ Nutrition Support YULI, NCS Pertinent Medications colace, synthroid, seroquel Pertinent Labs 06/04 Glucose 113 Nutritional Hx/Data Height 1.52 m Height (Calculated Centimeters) 152.4 Current Weight (lbs) 72.575 kg Weight (Calculated Kilograms) 72.6 Weight (Calculated Grams) 59174.8 [place] Body Weight 100 Body Mass Index (BMI) 31.2 Weight Status Approriate GI Symptoms GI Symptoms None Last BM 06/06 Difficult in: None Skin Integrity/Comment: intact Current %PO Good (75-100%) Estimated Nutritional Goals BEE in Kcals: Adj wt of IBW Calories/Kcals/Kg 25-30 Kcals Calculated 3510-2375 Protein: Adj wt of IBW Protein g/k Protein Calculated 52 Fluid: ml 1300-1560ml (1ml/kcal) Nutritional Problem No current Nutrition Prob Problem N/A Malnutrition Alert Is there a minimum of two criteria No selected? Query Text:Check all the applicable criteria. A minimum of two criteria are recommended for diagnosis of either severe or non-severe malnutrition. Malnutrition Related to Morbid Obesity Malnutrition related to morbid obesity No Intervention/Recommendation Comments 1. Continue with YULI NCS diet as ordered. 2. Monitor PO intake, wt, labs and skin integrity 3. F/U as low risk in 7 days Expected Outcomes/Goals Expected Outcomes/Goals 1. PO intake to meet at least 75% of nutritional needs. 2. Wt stability, skin to remain intact, labs to approach WNL.
--- NOTE | 2018-06-12 20:15 | Progress Notes ---
DATE: 06/12/2018 SUBJECTIVE: Staff was spoken to. The patient is interviewed. Mood is noted to be anxious. Affect is appropriate. Not suicidal or homicidal. Insight and judgment are noted to be still impaired. Impulse control is noted to be improving. No side effects to the medications are noted. The patient is willing to comply with the treatment. ASSESSMENT: The patient is stabilizing. PLAN: To discharge the patient today for followup on outpatient basis at [facility] by Dr. Poole. JOB# [id number]
--- NOTE | 2018-06-12 20:36 | Progress Notes ---
DATE: 06/12/2018 PSYCHOLOGY PROGRESS NOTE SUBJECTIVE: The patient is seen and is interviewed. Case is discussed with staff. The patient presents as less aggressive on this visit and appears to be more cooperative. The patient is taking her p.o. medications. The patient states that she is ready to be discharged. The patient is not verbalizing any self-harm thoughts, and the mood fluctuations seem to be coming under control. OBJECTIVE: Mood is less irritable. Affect is constricted. Thought process shows to be somewhat goal oriented. The patient denied any hallucinations or delusions. The patient's behavior is less aggressive and more compliant with the care and treatment plan. ASSESSMENT AND PLAN: The patient's impulsivity is lessened but is still present. There is some lingering psychotic symptomology present. However, the patient is following through with her treatment plan. We provided coping strategies for chronic severe mental illness. We provided remotivation and positive reinforcement for the patient to stay compliant with her care and treatment and to follow through with the staff direction at her placement. No followup is indicated. The staff reports the patient is most likely discharging today. Thank you, Dr. Castillo, for this consult and the opportunity to participate in this patient's care. JOB# [id number] REVA
== END 2018-06-12 17:00 | DRG 885 ==
LOC: ER 16:35 → GERO2 19:01 → GERO 06-05 17:55
DX: F25.9 Schizoaffective disorder, unspecified (principal); G40.909 Epilepsy, unspecified, not intractable, without status epilepticus; I10 Essential (primary) hypertension; E03.9 Hypothyroidism, unspecified; J44.9 Chronic obstructive pulmonary disease, unspecified; D72.819 Decreased white blood cell count, unspecified; I25.10 Atherosclerotic heart disease of native coronary artery without angina pectoris; E78.5 Hyperlipidemia, unspecified; K21.9 Gastro-esophageal reflux disease without esophagitis; F29 Unspecified psychosis not due to a substance or known physiological condition; I48.91 Unspecified atrial fibrillation; Z82.49 Family history of ischemic heart disease and other diseases of the circulatory system; Z88.5 Allergy status to narcotic agent
CPT/HCPCS: 36415-UA; 80053-TC; 80061-TC; 80164-TC; 80178-TC; 80185-TC; 80299-90; 80320-TC; 80329-TC; 83036-90; 84443-TC; 84484-TC; 84703-TC; 85025-TC; 86592-TC; 93005; 94760; G0410; Z7610